=== PATIENT | female | born 1945 | race Caucasian/White ===

== ENCOUNTER 2017-05-01 14:22 | Outpatient (RCR) | payer MEDICARE, OTHER, SELFPAY | END 2017-05-01 23:59 | LOC: PT 14:22 | PROVIDERS: Visit Provider Nurse Practitioner Family | DX: M54.5 Low back pain (principal) | CPT/HCPCS: G8978; G8979; G8980; 97010; 97014; 97110; 97162; 97760; G0283 ==

== ENCOUNTER 2017-05-08 15:15 | Outpatient (RCR) | payer MEDICARE, OTHER, SELFPAY | END 2017-05-08 23:59 | LOC: PT 15:15 | PROVIDERS: Family Provider Nurse Practitioner Family; PCP Nurse Practitioner; Visit Provider Nurse Practitioner Family | DX: M54.5 Low back pain (principal) ==

== ENCOUNTER 2017-05-09 08:13 | Emergency (ER) | payer MEDICARE, OTHER, SELFPAY | END 2017-05-09 09:20 | disposition home or self-care (01) | PROVIDERS: Emergency Provider Emergency Medicine; Family Provider Nurse Practitioner Family; Visit Provider Emergency Medicine | DX: J09.X2 Influenza due to identified novel influenza A virus with other respiratory manifestations (principal); H10.32 Unspecified acute conjunctivitis, left eye | CPT/HCPCS: 87275; 87276; 99283 ==

== ENCOUNTER → 2017-10-19 13:33 | Outpatient (CLI) | payer MEDICARE, OTHER, SELFPAY ==
--- NOTE | 2017-10-19 13:42 | XR_ITS ---
XR hip RT 2-3V w/pelvis HISTORY: ITS.REASON: RT HIP PAIN ORDERING PHYSICIAN: Thania Perkins PATIENT AGE: 72 years COMPARISON: None FINDINGS: No fracture or dislocation is evident. No significant degenerative change. No lytic or blastic change. Unremarkable soft tissues IMPRESSION: Negative hip
--- NOTE | 2017-10-19 13:42 | XR_ITS ---
XR hip LT 2-3V w/pelvis HISTORY: ITS.REASON: LEFT HIP PAIN ORDERING PHYSICIAN: Thania Perkins PATIENT AGE: 72 years COMPARISON: None FINDINGS: No fracture or dislocation is evident. No significant degenerative change. No lytic or blastic change. Unremarkable soft tissues IMPRESSION: Negative hip
== END ==
PROVIDERS: PCP Nurse Practitioner Family; Visit Provider Nurse Practitioner Family
DX: M25.552 Pain in left hip (principal); M25.551 Pain in right hip
CPT/HCPCS: 73502

== ENCOUNTER → 2018-09-21 09:52 | Outpatient (CLI) | payer MEDICARE, OTHER, SELFPAY ==
--- NOTE | 2018-09-21 09:55 | MR_ITS ---
MR head/brain wo con HISTORY: Frequent falls, loss of balance, history of seizures ITS.REASON: FREQUENT FALLS, KEEPS LOSING BALANCE ORDERING PHYSICIAN: Thania Perkins APRN PATIENT AGE: 73 years Comparison: 08/06/2016 TECHNIQUE: Standard multiplanar multiecho sequences are performed without contrast. FINDINGS: No midline shift, mass effect, intracranial hemorrhage, or hydrocephalus is evident. There is mild generalized atrophy with scattered periventricular and subcortical T2 white matter hyperintensities consistent with ischemic gliotic change from microvascular disease. No evidence of acute infarction. The cerebellopontine angles and brainstem have an unremarkable appearance. There is a small area of encephalomalacia in the left cerebellar hemisphere laterally. There is a partial empty sella as a normal variant. The optic chiasm and corpus callosum are unremarkable. There is minimal cerebellar ectopia. Small cystic areas present in the left cerebellum centrally and may be due to and old small lacunar infarction. There is some increased T2 signal within the right mastoid sinus suggestive mild inflammatory change. No paranasal sinus air-fluid level. IMPRESSION: 1. No acute intracranial findings. 2. Atrophy with chronic ischemic changes. 3. Mild right mastoid sinus disease
== END ==
PROVIDERS: PCP Nurse Practitioner Family; Visit Provider Nurse Practitioner Family
DX: R26.89 Other abnormalities of gait and mobility (principal)
CPT/HCPCS: 70551

== ENCOUNTER → 2019-11-17 11:15 | Outpatient (CLI) | payer MEDICARE, SELFPAY ==
--- NOTE | 2019-11-17 11:50 | XR_ITS ---
PROCEDURE: XR CHEST AP CLINICAL HISTORY: COVID TESTING COMPARISON: No exams were available for comparison FINDINGS: The cardiomediastinal silhouette and pulmonary vascularity are within normal limits. The lungs are clear without infiltrates, suspicious nodules, or pleural effusions. Prior right shoulder hemiarthroplasty IMPRESSION: No acute findings. Dictated by: José Miguel Nelson MD 11/17/2019 14:42 Electronically signed by José Miguel Nelson MD in [facility] 11/17/2019 14:42
[2019-11-17 13:58] LABS: Coronavirus 19 IgG Antibody Negative (Negative); Coronavirus 19 IgM Antibody Negative (Negative)
== END ==
PROVIDERS: PCP Nurse Practitioner Family; Visit Provider Nurse Practitioner Family
DX: Z03.818 Encounter for observation for suspected exposure to other biological agents ruled out (principal)
CPT/HCPCS: 36415; 71045; 86328

== ENCOUNTER → 2019-12-28 10:41 | Outpatient (CLI) | payer MEDICARE, SELFPAY ==
--- NOTE | 2019-12-28 10:43 | CT_ITS ---
PROCEDURE: CT FACIAL BONES WO CON CLINICAL HISTORY: LEFT ORBITAL TRAUMA, INTIAL ENCOUNTER COMPARISON: CT HDWO CT HEAD W/O CONTRAST from 08/06/2016 TECHNIQUE: Axial images obtained with sagittal and coronal reformats. All CT scans at the facility use one or more dose reduction, viz: automated exposure control, ma/kV adjustment per patient size (including targeted exams where dose is matched to indication, i.e. head), or iterative reconstruction technique. FINDINGS: There is mild soft tissue swelling involving the scalp in the supraorbital region on the left medially and in the frontal area. No acute fracture is evident. 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 Small subcutaneous calcification noted at this area as well. Along the superior aspect of the left globe there is a curvilinear acid which may be related to prior ophthalmological surgery. Please correlate with surgical history. Periorbital calcification is also consideration. No sinus air-fluid level. There is only minimal mucosal thickening of the sphenoid sinus medially on the right. There is retropharyngeal location of the right internal carotid artery causing some indentation upon the airway. There are mild osteoarthritic changes of the TMJs. IMPRESSION: 1. No acute fracture. 2. Curvilinear opacity ule noted along the superior lateral aspect of the left globe which could be related to prior ophthalmological surgery with a prosthetic device. Periorbital calcification or even foreign body is also consideration. 3. Other nonacute findings as detailed above Dictated by: José Miguel Nelson MD 12/28/2019 13:31 José Miguel Nelson MD in [facility] 12/28/2019 13:31
== END ==
PROVIDERS: PCP Nurse Practitioner Family; Visit Provider Nurse Practitioner Family
DX: S05.92XA Unspecified injury of left eye and orbit, initial encounter (principal)
CPT/HCPCS: 70486

== ENCOUNTER → 2020-08-01 08:36 | Outpatient (CLI) | payer MEDICARE, SELFPAY ==
--- NOTE | 2020-08-01 | XR_ITS ---
PROCEDURE: XR SHOULDER RT MIN 2V CLINICAL INDICATION: PAIN IN RT SHOULDER COMPARISON: No exams were available for comparison FINDINGS: Postsurgical changes with humeral head prosthesis present which is in good alignment. Sclerosis is present involving the glenoid and there is high-riding humeral head which may be seen with rotator cuff tear. No acute fracture or dislocation. IMPRESSION: Prior humeral head replacement with high-riding humeral head which may be seen with rotator cuff tears Dictated by: José Miguel Nelson MD 08/01/2020 16:36 José Miguel Nelson MD in [facility] 08/01/2020 16:36
--- NOTE | 2020-08-01 | XR_ITS ---
PROCEDURE: XR SHOULDER LT MIN 2V CLINICAL INDICATION: PAIN IN LT SHOULDER Decreased range of motion COMPARISON: No exams were available for comparison FINDINGS: Severe osteoarthritic changes are present involving the glenohumeral joint with superior location the humeral head with loss of the acromioclavicular space consistent with chronic rotator cuff tear. No acute fracture or dislocation. Other findings:None. IMPRESSION: Severe osteoarthritis with high-riding humeral head consistent with chronic rotator cuff tear Dictated by: José Miguel Nelson MD 08/01/2020 16:35 José Miguel Nelson MD in [facility] 08/01/2020 16:35
--- NOTE | 2020-08-01 08:41 | CA_ITS ---
APPROVED REPORT Body Fitter: Gypsy Hughse RVT Laterality: Bilateral Study Quality: Good Indications: Dizziness and Vertigo Risk Factors Hypertension: Hyperlipidemia Doppler Spectral Velocity Analysis ECA (R) 95.00/9.00 cm/s ECA (L) 84.80/9.60 cm/s dICA (R) 73.80/24.40 cm/s dICA (L) 65.50/22.50 cm/s Kwadwo (R) 58.40/18.00 cm/s Kwadwo (L) 72.60/25.00 cm/s pICA (R) 82.30/18.70 cm/s pICA (L) 80.30/23.80 cm/s dCCA (R) 105.00/16.40 cm/s dCCA (L) 66.80/10.30 cm/s pCCA (R) 117.60/15.00 cm/s pCCA (L) 104.00/17.20 cm/s Vert (R) 43.70/14.10 cm/s Vert (L) 52.70/16.70 cm/s ICA/CCA 0.78 ICA/CCA 1.20 Findings Study suggests less than 20% stenosis of the right and left internal cartoid arteries. Antegrade flow seen bilateral vertebral arteries. Conclusion Study suggests less than 20% stenosis of the right and left internal cartoid arteries. Antegrade flow seen bilateral vertebral arteries. Electronically signed by : José Miguel Nelson MD 08/01/2020 17:13:31
== END ==
PROVIDERS: PCP Nurse Practitioner Family; Visit Provider Nurse Practitioner Family
DX: R42 Dizziness and giddiness (principal); M25.512 Pain in left shoulder; M25.511 Pain in right shoulder
CPT/HCPCS: 73030; 93880

== ENCOUNTER → 2020-10-26 12:14 | Outpatient (CLI) | payer MEDICARE, SELFPAY ==
--- NOTE | 2020-10-26 12:20 | XR_ITS ---
PROCEDURE: XR CHEST PORTABLE CLINICAL HISTORY: COVID SCREENING COMPARISON: CR XR CHEST AP from 11/17/2019 FINDINGS: Heart is mildly enlarged and there is mild pulmonary vascular congestion. No definite focal infiltrate. Mild right basilar scar versus atelectasis. No pleural effusion pneumothorax. No acute bony abnormality. Right shoulder arthroplasty again noted. IMPRESSION: Mild cardiomegaly with mild pulmonary vascular congestion. Dictated by: Leonid Zacarias MD 10/26/2020 13:02 Leonid Zacarias MD in [facility] 10/26/2020 13:02
[2020-10-26 12:56] LABS: Basophils % 0.3 % (0.1-2.0); Eosinophils % 0.5 % (0.1-12.0); Hematocrit 31.6 % (37.0-47.0); Hemoglobin 10.8 g/dL (12.2-16.2); Lymphocytes # 1.1 K/mm3 (0.7-4.5); Lymphocytes % 12.1 % (10-50); Mean Corpuscular HGB Conc 34.1 g/dL (31.8-35.4); Mean Corpuscular Hemoglobin 31.4 pg (27.0-31.2); Mean Platelet Volume 9.4 fl (7.4-10.4); Monocytes # 0.8 K/mm3 (0.1-1.0); Monocytes % 8.3 % (1.7-9.3); Neutrophils # 7.5 K/mm3 (1.8-7.8); Platelet Count 238 K/mm3 (142-424); Red Blood Count 3.43 M/mm3 (4.20-5.40); Red Cell Distribution Width 13.7 % (11.5-17.5); White Blood Count 9.5 K/mm3 (4.8-10.8)
[2020-10-26 13:12] LABS: Chloride 100 mmol/L (98-107); Potassium 4.5 mmoL/L (3.5-5.1); Sodium 136 mmol/L (136-145)
[2020-10-26 13:14] LABS: Alanine Aminotransferase 20 U/L (12-78); Alkaline Phosphatase 79 U/L (38-126); Anion Gap 15.5 mEq/L (5-15); Aspartate Amino Transferase 20 U/L (14-36); Bilirubin,Total 0.5 mg/dl (0.2-1.3); Blood Urea Nitrogen 14 mg/dl (7-17); Carbon Dioxide 25 mmol/L (22.0-30.0); Estimated Glomerular Filt Rate 61 ml/min (>60); GFR (African American) 74 ML/MIN (>60)
[2020-10-26 13:15] LABS: Albumin Level 4.2 g/dl (3.5-5.0); Albumin/Globulin Ratio 1.3 (1.1-1.8); Calcium 9.3 mg/dl (8.4-10.2); Globulin 3.3 g/dL (1.3-3.2); Glucose 191 mg/dl (74-100); Total Protein,Serum 7.5 g/dl (6.3-8.2)
== END ==
PROVIDERS: PCP Nurse Practitioner Family; Visit Provider Nurse Practitioner Family
DX: Z20.822 Contact with and (suspected) exposure to COVID-19 (principal); R06.02 Shortness of breath
CPT/HCPCS: 36415; 71045; 80053; 85025; U0003

== ENCOUNTER 2020-10-30 11:37 | Inpatient (IN) | payer MEDICARE, SELFPAY ==
[2020-10-30] VITALS (16 sets, daily range): BP systolic 141–253; BP diastolic 86–113; PULSE 86–140; RESP 16–24; TEMP 36.6; O2SAT 92–96; BMI 39.7
--- NOTE | 2020-10-30 11:49 | PC.NURSE ---
Pt arrived to the floor at this time.
--- NOTE | 2020-10-30 11:50 | ECG_ITS ---
APPROVED REPORT Exam: Resting ECG HR:128 bpm ECG Measurements Heart Rate 128 AXES QRSd 82 QRS 66 QT 294 T -20 QTc 429 Conclusion Atrial fibrillation with rapid ventricular response Low voltage QRS T wave abnormality, consider inferior ischemia or digitalis effect Abnormal ECG Electronically signed by : Pillo Bledsoe, 10/31/2020 17:39:30
--- NOTE | 2020-10-30 11:50 | XR_ITS ---
PROCEDURE: XR CHEST PORTABLE CLINICAL HISTORY: cough COMPARISON: CR XR CHEST AP from 11/17/2019 CR XR CHEST PORTABLE from 10/26/2020 FINDINGS: There is mild cardiomegaly without failure. The lungs are clear without infiltrates, suspicious nodules, or pleural effusions. Right shoulder prosthesis is present. IMPRESSION: No change with no acute finding Dictated by: José Miguel Nelson MD 10/30/2020 14:14 José Miguel Nelson MD in [facility] 10/30/2020 14:14
--- NOTE | 2020-10-30 11:53 | HMH.PHAVTE ---
[facility] Pharmacy VTE Monitoring - Patient Demographics Admission date: 10/30/20 Report Date: 10/30/20 Time: 11:53 Allergies/Adverse Reactions: Patient Allergies No Known Allergies Allergy (Unverified 05/09/17 08:23) - Prophylaxis VTE Prophylaxis Ordered?: Yes Types of VTE Prophylaxis: TEDS Knee High Location of Applied Device: Bilateral Lower Extremeties
[2020-10-30 12:40] LABS: Coronavirus 19, PCR Not Detected (NotDetected); Influenza A, PCR Not Detected (NotDetected); Influenza B, PCR Not Detected (NotDetected)
[2020-10-30 12:44] LABS: Basophils % 0.2 % (0.1-2.0); Eosinophils # 0.1 K/mm3 (0.0-0.4); Eosinophils % 0.9 % (0.1-12.0); Hematocrit 33.3 % (37.0-47.0); Hemoglobin 11.4 g/dL (12.2-16.2); Lymphocytes # 1.1 K/mm3 (0.7-4.5); Lymphocytes % 9.3 % (10-50); Mean Corpuscular HGB Conc 34.2 g/dL (31.8-35.4); Mean Corpuscular Hemoglobin 31.3 pg (27.0-31.2); Mean Corpuscular Volume 91.7 fl (81-99); Monocytes % 8.8 % (1.7-9.3); Neutrophils # 9.1 K/mm3 (1.8-7.8); Neutrophils % 80.8 % (37.0-80.0); Platelet Count 348 K/mm3 (142-424); Red Blood Count 3.63 M/mm3 (4.20-5.40); Red Cell Distribution Width 13.7 % (11.5-17.5); White Blood Count 11.3 K/mm3 (4.8-10.8)
[2020-10-30 12:52] LABS: Chloride 94 mmol/L (98-107); Sodium 130 mmol/L (136-145)
--- NOTE | 2020-10-30 12:54 | PC.NURSE ---
verified with pharmacy to push bolus over two minutes. once bolus was finished heart rate and bp did come down. currently mostly maintaining 80-110. occasional drops under.
[2020-10-30 12:55] LABS: Alanine Aminotransferase 20 U/L (12-78); Albumin Level 4.2 g/dl (3.5-5.0); Albumin/Globulin Ratio 1.4 (1.1-1.8); Alkaline Phosphatase 82 U/L (38-126); Anion Gap 25.1 mEq/L (5-15); Aspartate Amino Transferase 19 U/L (14-36); Bilirubin,Total 0.5 mg/dl (0.2-1.3); Carbon Dioxide 17 mmol/L (22.0-30.0); Creatinine Clearance Estimated 9 mL/min (50-200); Estimated Glomerular Filt Rate 5 ml/min (>60); GFR (African American) 6 ML/MIN (>60); Globulin 3.1 g/dL (1.3-3.2); Total Protein,Serum 7.3 g/dl (6.3-8.2)
[2020-10-30 12:56] LABS: Glucose 133 mg/dl (74-100)
--- NOTE | 2020-10-30 13:12 | PC.NURSE ---
patient does not know her home medications. will have family bring meds or a list in
[2020-10-30 13:33] LABS: Blood Urea Nitrogen 79 mg/dl (7-17); Potassium 6.1 mmoL/L (3.5-5.1)
--- NOTE | 2020-10-30 13:42 | PC.NURSE ---
called and reported critical lab values of potassium, creatnine and bun. md stated to order two grams of iv calcium gluconate, and to start fluids at 100ml an hour after the bolus.
--- NOTE | 2020-10-30 15:12 | PC.NURSE ---
manual bp noted to be lower than automatic cuffs
--- NOTE | 2020-10-30 16:36 | HMH.HP ---
*Admission Date: 10/30/20 *Chief complaint: Weakness *History of present illness: 75-year-old female presented to the office for the third time in 5 days with complaint of malaise and worsening weakness with nausea and vomiting. Patient had initially been seen in the office on October 26. At that time she had been sent to [facility] and labs which showed mild vascular congestion and fairly normal CBC and BMP. At that time patient was started on furosemide 20 mg along with prednisone and azithromycin for bronchitis. Patient returned to the office yesterday with continued complaints of chest congestion. She returned to the office today with additional symptoms of nausea and vomiting along with lightheadedness. In the office patient was found to have a rapid irregular heart rate with EKG confirming atrial fibrillation with rapid ventricular response. Patient had active vomiting in the office. Decision was made to direct admit the patient for treatment of her A. fib with rapid ventricular response and likely underlying dehydration. Patient denied chest pain. She did have some shortness of breath which she attributed to her bronchitis . Since admission patient has also been found to have hyperkalemia along with acute kidney injury and creatinine of 7.7. Patient's creatinine 5 days ago was normal. Patient takes losartan, hydrochlorothiazide, Metformin, and had taken furosemide 20 mg daily for 4 days. She denies use of any [id number]-[id number] anti-inflammatories. Patient did undergo a rather thorough cardiac work-up in April 2018 at the [facility] that included a dobutamine stress echocardiogram which was normal . [facility] History I have reviewed the patient's past medical history: Yes 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: Reports:: Diabetes Mellitus Type 2, Hyperlipidemia, Hypertension Denies:: Cancer, MRSA *Have you ever received a pneumonia vaccine?: Yes *Have you received a flu vaccine this season?: Yes Other 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: Reports: Arthritis Other Surgeries: Yes: Cholecystectomy, Hysterectomy-Total Amputation: No - *Social History Last grade of school completed: Advanced degree Smoking Status: Never smoker Alcohol Intake: never *Occupational Status:: retired Housing: house Household Members: spouse *Travel in the last 8 weeks: None Family Hx:: Coronary Artery Disease, Heart Attack, Hyperlipidemia, Hypertension, Kidney Disease, Stroke Review of Systems - Constitutional Reports anorexia, Reports lack of energy, Denies chills - Eyes Denies blurry vision - ENT Denies change in voice - *Cardiovascular Reports irregular heart rhythm, Denies chest pain at rest - *Respiratory Reports shortness of breath - *Gastrointestinal Denies change in bowel habits - *Musculoskeletal Reports joint pain - Integumentary/Breasts Denies hair loss - *Neurologic Denies abnormal walking - Psychiatric Denies abnormal sleep pattern Meds Home Medications Medication Instructions Recorded Confirmed Type ALPRAZolam [Alprazolam Xr 0.5mg 0.5 mg PO HS 10/30/20 10/30/20 History Tab] Amlodipine Besylate 5 mg PO DAILY 10/30/20 10/30/20 History Azithromycin 250 mg PO DAILY 10/30/20 10/30/20 History Furosemide [Furosemide 20mg Tab*] 20 mg PO DAILY 10/30/20 10/30/20 History Isosorbide Mononitrate [Isosorbide 60 mg PO DAILY 10/30/20 10/30/20 History Mononitrate ER] Levocetirizine Dihydrochloride 5 mg PO DAILY 10/30/20 10/30/20 History Losartan Potassium [Cozaar 50mg 50 mg PO DAILY 10/30/20 10/30/20 History Tablets] Meloxicam 15 mg PO DAILY 10/30/20 10/30/20 History Metformin HCl [Metformin 850mg 850 mg PO BID 10/30/20 10/30/20 History Tablet] Montelukast Sodium 10 mg PO DAILY 10/30/20 10/30/20 History Omeprazole [Omeprazole 20mg 20 mg PO DAILY 10/30/20 10/30/20 History Capsule] Potassium Chloride [Micro-K 10mEq 10 meq PO DAILY 10/30/20 10/30/20 History cap] Sertraline HCl 50 mg PO DAILY 10/10
--- NOTE | 2020-10-30 17:23 | PC.NURSE ---
md aware of heart rate and bp. cardizem drip has been started. patient has no complaints at this time
--- NOTE | 2020-10-30 17:27 | PC.NURSE ---
patient drip has been titrated up to 10mg/hr and then 10mins later increased to 15mg/hr. heart rate currently greater than 120s.
[2020-10-30 20:34] LABS: Chloride 96 mmol/L (98-107)
[2020-10-30 20:35] LABS: Sodium 128 mmol/L (136-145)
[2020-10-30 20:38] LABS: Anion Gap 21.1 mEq/L (5-15); Calcium 8.9 mg/dl (8.4-10.2); Carbon Dioxide 17 mmol/L (22.0-30.0); Creatinine Clearance Estimated 10 mL/min (50-200); Estimated Glomerular Filt Rate 5 ml/min (>60); GFR (African American) 7 ML/MIN (>60); Glucose 155 mg/dl (74-100)
[2020-10-30 20:44] LABS: Potassium 6.1 mmoL/L (3.5-5.1)
[2020-10-30 20:45] LABS: Blood Urea Nitrogen 77 mg/dl (7-17)
[2020-10-31] VITALS (19 sets, daily range): BP systolic 111–174; BP diastolic 65–99; PULSE 87–116; RESP 18–20; TEMP 36.8–36.9; O2SAT 90–99; BMI 39.9; BMI 39.8
--- NOTE | 2020-10-31 00:01 | CA_ITS ---
APPROVED REPORT EXAM: Comprehensive 2D, Doppler, and color-flow Echocardiogram Uniformer: Alisia Aiken, RCS, RVS Ht: 5 ft 0 in Wt: 203lbs BSA: 1.88 BP: 136/80 mmHg Rhythm: Atrial Fibrillation Indications: Murmur, Atrial Fibrillation, Obesity, Hypertension/HDD 2D Dimensions IVSd 0.86 cm F: 0.6-1.0 LVEF (Visual) 45.70 % PWd 0.90 cm F: 0.6 - 1.0 LA Volume 97.00 mL LVDd 4.95 cm F: 3.9 - 5.3 LA Volume Index 51.59 mL/m2 (M/F) 16-34 LVDs 3.82 cm F: 2.2 - 3.5 Aortic Root 2.63 cm F: 2.7 - 3.3 Left Atrium 4.80 cm F: 2.7 - 3.8 LVOT 1.90 cm (M/F) 1.5-2.5 M-Mode Dimensions LA Diam 4.45 cm (1.9-4.0) Ao Diam 2.80 cm (2.0-3.7) EPSs 0.68 cm TAPSE 1.53 (<1.7) LV Diastology E Decel Time 237.00 (160-240 msec) E/A Ratio 7.63 MED E' 8.90 (< 7 cm/sec) MED A' 2.70 cm/s E'/MED E' Ratio 17.40 (>14) LAT E' 11.60 (<10 cm/sec) LAT A' 4.30 cm/s E/LAT E' Ratio 13.35 (>14) Aortic Valve LVOT Max 84.00 (70-110 cm/s) LVOT VTI 14.71 cm AoV Peak Juan. 144.00 (50-130 cm/s) AO Peak GR. 8.20 mmHg AO Mean GR. 4.10 (<5 mmHg) AO VTI 26.96 (18-25 cm) DHAVAL (VTI) 1.55 (2.5-4.5 cm2) Mitral Valve MV A Velocity 20.00 (40-130 cm/s) E/A Ratio 7.63 MV Decel. Time 237.00 (160-240 ms) Pulmonary Valve PV Peak Velocity 79.00 (50-150 cm/s) Tricuspid Valve TR P. Velocity 355.00 cm/s RAP Estimate 10.00 mmHg RVSP 60.30 mmHg Left Ventricle Left atrium is moderately enlarged, left ventricle is normal size, mild concentric left ventricular hypertrophy, visually estimated ejection fraction 55% with no regional wall motion abnormality. Right Ventricle Right atrium and right ventricle are mildly enlarged with normal contractility. Aortic Valve Aortic valve is thickened and calcified without aortic stenosis or aortic insufficiency. Mitral Valve Mitral valve has mitral annular calcification, leaflets are minimally thickened, there is no mitral stenosis, there is moderate mitral regurgitation. Tricuspid Valve There is moderate tricuspid regurgitation, calculated right ventricular systolic pressure 60 mmHg. Pulmonic Valve Pulmonic valve is poorly visualized. Great Vessels Aortic root is normal size. Pericardium No significant pericardial effusion noted. Conclusion 1. Biatrial enlargement, normal left ventricular size, mild concentric left ventricular hypertrophy, visually estimated ejection fraction 55% with no regional wall motion abnormality, diastolic parameters are inconclusive. 2. Mildly enlarged right ventricle with normal contractility. 3. Moderate mitral and tricuspid regurgitation, calculated right ventricular systolic pressure 60 mmHg. 4. No significant pericardial effusion noted, inferior vena cava is normal size with normal inspiratory collapse. Electronically signed by : Marty Camilo, 11/01/2020 12:49:25
--- NOTE | 2020-10-31 03:40 | PC.NURSE ---
She continues on the cardizem gtt. Continues in afib on telemetry. She did not have a BM this shift. She is wearing her CPAP while asleep. Continues in afib
[2020-10-31 06:10] LABS: Chloride 99 mmol/L (98-107); Potassium 5.4 mmoL/L (3.5-5.1); Sodium 131 mmol/L (136-145)
[2020-10-31 06:13] LABS: Anion Gap 18.4 mEq/L (5-15); Calcium 8.5 mg/dl (8.4-10.2); Carbon Dioxide 19 mmol/L (22.0-30.0); Creatinine Clearance Estimated 10 mL/min (50-200); Estimated Glomerular Filt Rate 6 ml/min (>60); GFR (African American) 7 ML/MIN (>60); Glucose 127 mg/dl (74-100)
[2020-10-31 06:27] LABS: Basophils % 0.2 % (0.1-2.0); Eosinophils # 0.1 K/mm3 (0.0-0.4); Eosinophils % 0.7 % (0.1-12.0); Hematocrit 30.8 % (37.0-47.0); Hemoglobin 10.4 g/dL (12.2-16.2); Lymphocytes # 1.2 K/mm3 (0.7-4.5); Lymphocytes % 15.8 % (10-50); Mean Corpuscular HGB Conc 33.7 g/dL (31.8-35.4); Mean Corpuscular Hemoglobin 30.8 pg (27.0-31.2); Mean Corpuscular Volume 91.3 fl (81-99); Mean Platelet Volume 10.1 fl (7.4-10.4); Monocytes # 0.7 K/mm3 (0.1-1.0); Monocytes % 9.7 % (1.7-9.3); Neutrophils # 5.7 K/mm3 (1.8-7.8); Neutrophils % 73.6 % (37.0-80.0); Platelet Count 314 K/mm3 (142-424); Red Blood Count 3.37 M/mm3 (4.20-5.40); Red Cell Distribution Width 13.8 % (11.5-17.5); White Blood Count 7.7 K/mm3 (4.8-10.8)
[2020-10-31 06:50] LABS: Blood Urea Nitrogen 76 mg/dl (7-17)
--- NOTE | 2020-10-31 07:31 | HMH.ACPN2 ---
Internal Medicine - PN: Subj *Date: 10/31/20 *Time: 07:31 Interval history: Patient did well overnight. Cardizem drip was brought patient's heart rate down to 80s and 90s. With activity it may rise just above 100. BUN, creatinine, potassium are also slowly trending down. Exam Vital signs and Labs for Last 24 Hours: Temp Pulse Resp BP Pulse Ox 97.9 F 88 18 170/91 H 96 10/30/20 20:00 10/31/20 06:00 10/30/20 20:00 10/31/20 06:00 10/31/20 06:00 Laboratory Results - last 24 hr 10/30/20 12:25: WBC 11.3 H, RBC 3.63 L, Hgb 11.4 L, Hct 33.3 L, MCV 91.7, MCH 31.3 H, MCHC 34.2, RDW 13.7, Plt Count 348 D, MPV 9.0, Neut % (Auto) 80.8 H, Lymph % (Auto) 9.3 L, Gray % (Auto) 8.8, Eos % (Auto) 0.9, Baso % (Auto) 0.2, Neut # (Auto) 9.1 H, Lymph # (Auto) 1.1, Gray # (Auto) 1.0, Eos # (Auto) 0.1, Baso # (Auto) 0.0 10/30/20 12:25: Sodium 130 L, Potassium 6.1 H*, Chloride 94 L, Carbon Dioxide 17 L, Anion Gap 25.1 H, BUN 79 H, Creatinine 7.70 H, Estimated Creat Clear 9, Estimated GFR 5 L*, Est GFR ( Amer) 6 L*, Glucose 133 H, Calcium 9.0, Total Bilirubin 0.5, AST 19, ALT 20, Alkaline Phosphatase 82, Total Protein 7.3, Albumin 4.2, Globulin 3.1, Albumin/Globulin Ratio 1.4, TSH 1.00 10/30/20 12:25: SARS-CoV-2 (PCR) Not detected, Influenza A Untype (PCR) Not detected, Influenza Type B (PCR) Not detected 10/30/20 20:06: Sodium 128 L, Potassium 6.1 H*, Chloride 96 L, Carbon Dioxide 17 L, Anion Gap 21.1 H, BUN 77 H, Creatinine 7.30 H, Estimated Creat Clear 10, Estimated GFR 5 L*, Est GFR ( Amer) 7 L*, Glucose 155 H, Calcium 8.9 10/31/20 05:35: WBC 7.7 D, RBC 3.37 L, Hgb 10.4 L, Hct 30.8 L, MCV 91.3, MCH 30.8, MCHC 33.7, RDW 13.8, Plt Count 314, MPV 10.1, Neut % (Auto) 73.6, Lymph % (Auto) 15.8, Gray % (Auto) 9.7 H, Eos % (Auto) 0.7, Baso % (Auto) 0.2, Neut # (Auto) 5.7, Lymph # (Auto) 1.2, Gray # (Auto) 0.7, Eos # (Auto) 0.1, Baso # (Auto) 0.0 10/31/20 05:35: Sodium 131 L, Potassium 5.4 H, Chloride 99, Carbon Dioxide 19 L, Anion Gap 18.4 H, BUN 76 H, Creatinine 6.80 H, Estimated Creat Clear 10, Estimated GFR 6 L*, Est GFR ( Amer) 7 L*, Glucose 127 H, Calcium 8.5 I & O for Last 24 hours: Intake & Output 10/28/20 10/29/20 10/30/20 10/31/20 11:59 11:59 11:59 11:59 Intake Total 3230 / 3230 Output Total 200 / 200 Balance 3030 / 3030 Weight 203 lb 7 oz Narrative: Patient looks comfortable. Lungs are clear. Heart is irregularly irregular. Abdomen is soft and nontender Assessment and Plan (1) Atrial fibrillation with rapid ventricular response Status: Acute Category: Medical Code(s): I48.91 - Unspecified atrial fibrillation (2) Acute kidney injury Status: Acute Category: Medical Code(s): N17.9 - Acute kidney failure, unspecified (3) Hyperkalemia Status: Acute Category: Medical Code(s): E87.5 - Hyperkalemia (4) Type 2 diabetes mellitus with hyperglycemia, without long-term current use of insulin Status: Chronic Category: Medical Code(s): E11.65 - Type 2 diabetes mellitus with hyperglycemia (5) Essential hypertension Status: Chronic Category: Medical Code(s): I10 - Essential (primary) hypertension (6) History of seizures Status: Chronic Category: Medical Code(s): Z87.898 - Personal history of other specified conditions (7) Anxiety disorder Status: Chronic Qualifiers: Anxiety disorder type: unspecified anxiety disorder Qualified Code(s): F41.9 - Anxiety disorder, unspecified Category: Medical Code(s): F41.9 - Anxiety disorder, unspecified (8) Chronic pain Status: Chronic Qualifiers: Chronic pain type: chronic pain syndrome Qualified Code(s): G89.4 - Chronic pain syndrome Category: Medical Code(s): G89.29 - Other chronic pain (9) Lumbar degenerative disc disease Status: Chronic Category: Medical Code(s): M51.36 - Other intervertebral disc degeneration, lumbar region (10) BMI 39.0-39.9,adult Status: Acute Category:
--- NOTE | 2020-10-31 08:09 | HMH.CNCARD ---
History of Present Illness Consult date: 10/31/20 Requesting physician: Pillo Solorzano Consult reason: atrial fibrillation Chief complaint: N/V, A. fib with RVR Additional 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:: 1. Diabetes mellitus, type II 2. Hypertension 3. Hyperlipidemia 4. History of seizure disorder, diagnosed approximately 2008 felt related to work, stress, lack of sleep the patient has elected to continue on Keppra since then 5. Remote history of CVA 6. Acute renal insufficiency felt secondary to combination of dehydration (N/V and diuretics) and Metformin use, 10/2020 History of present illness: 75-year-old female presented to the office for the third time in 5 days with complaint of malaise and worsening weakness with nausea and vomiting. Patient had initially been seen in the office on October 26. At that time she had been sent to [facility] for x-ray and labs which showed mild vascular congestion and fairly normal CBC and BMP. At that time patient was started on furosemide 20 mg along with prednisone and azithromycin for bronchitis. Patient returned to the office yesterday with continued complaints of chest congestion. She returned to the office today with additional symptoms of nausea and vomiting along with lightheadedness. In the office patient was found to have a rapid irregular heart rate with EKG confirming atrial fibrillation with rapid ventricular response. Patient had active vomiting in the office. Decision was made to direct admit the patient for treatment of her A. fib with rapid ventricular response and likely underlying dehydration. Patient denied chest pain. She did have some shortness of breath which she attributed to her bronchitis . Since admission patient has also been found to have hyperkalemia along with acute kidney injury and creatinine of 7.7. Patient's creatinine 5 days ago was normal. Patient takes losartan, hydrochlorothiazide, Metformin, and had taken furosemide 20 mg daily for 4 days. She denies use of any [id number] anti-inflammatories. Patient did undergo a rather thorough cardiac work-up in April 2018 at the [facility] that included a dobutamine stress echocardiogram which was normal The above per Dr. Solorzano. Pt relates multiple episodes of vomiting anytime she tried to eat/drink/take meds. Also, she had recurrent diarrhea over the last several days. No further vomiting or diarrhea overnight. Currently she has been able to keep her liquid/cereal down this AM. She continues to deny any NSAID use stating she only takes tylenol for pain. Telemetry shows A. fib with RVR (rate in the 100-120 bpm range). Preliminary echo report shows moderate MR, LVH and EF of about 45%. [facility] History 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: Reports:: Diabetes Mellitus Type 2, Hyperlipidemia, Hypertension Denies:: Cancer, MRSA *Have you ever received a pneumonia vaccine?: Yes *Have you received a flu vaccine this season?: Yes Other 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: Reports: Arthritis Other Surgeries: Yes: Cholecystectomy, Hysterectomy-Total Amputation: No - *Social History Last grade of school completed: Advanced degree Smoking Status: Never smoker Alcohol Intake: never *Occupational Status:: retired Housing: house Household Members: spouse *Travel in the last 8 weeks: None Family Hx:: Coronary Artery Disease, Heart Attack, Hyperlipidemia, Hypertension, Kidney Disease, Stroke Meds Home Medications Medication Instructions Recorded Confirmed Type ALPRAZolam [Xanax 0.5mg tab] 0.5 mg PO HS 10/30/20 10/31/20 History Amlodipine Besylate 5 mg PO DAILY 10/30/20 10/30/20 History Azithromycin 250 mg PO DAILY 10/30/20 10/30/20 History Furosemide [Furosemide 20mg Tab*] 20 mg PO DAILY 10/30/20 10/30/20 History Isosorbide Mononitrate [Isosorbide 60 mg PO DAILY 10/30/20 10/30/20 History Mononitrate ER] Levocetirizine Dihydrochloride 5 mg PO DAILY 10/30/20 10/30/20 History Losartan Potassium [Cozaar 50mg 50 mg PO DAILY 10/30/20
--- NOTE | 2020-10-31 15:26 | PC.NURSE ---
patient has had an okay day. nausea is better compared to yesterday. no bm this shift. has been up walking to bathroom with assistance. no complaints of pain. heart rate has been irregular, remains afib on monitor ranging mostly in the low 100s. o2sats good, patient is noted to have artificial nails which at times causes sats to read lower. urine output has been good. sat in chair majority of day. appetite has improved. vitals have been stable
--- NOTE | 2020-10-31 17:58 | PC.NURSE ---
did update srikanth vázquez about patient heart rate had seemed to stay mostly over 100 the last few hours. stated if heart rate maintained over 100 and bp systolic remained over 140s then could increase the cardizem drip to 20mg/hr
[2020-11-01] VITALS (16 sets, daily range): BP systolic 122–167; BP diastolic 72–94; PULSE 87–127; RESP 12–21; TEMP 36.6–36.8; O2SAT 90–98; BMI 39.7
--- NOTE | 2020-11-01 03:52 | PC.NURSE ---
pt is alert and oriented. one episode of nausea reported and one time dose was ordered and given with relief. pt has not rested well this shift. voiding per BR. no bowel movement this shift. HR continued to increase ranging from 110-140 and at 0100 cardizem drip was increased to 20mg/hr per recommendation of cardiology in pervious nurse note. HR is currently 100-120's. all other vss. pt using cpap while sleeping. no other complaints voiced. call light in reach. will continue to monitor.
[2020-11-01 06:35] LABS: Basophils % 0.1 % (0.1-2.0); Eosinophils # 0.1 K/mm3 (0.0-0.4); Eosinophils % 1.4 % (0.1-12.0); Hematocrit 29.3 % (37.0-47.0); Hemoglobin 10.2 g/dL (12.2-16.2); Lymphocytes % 9.7 % (10-50); Mean Corpuscular HGB Conc 34.7 g/dL (31.8-35.4); Mean Corpuscular Hemoglobin 31.5 pg (27.0-31.2); Mean Corpuscular Volume 90.9 fl (81-99); Mean Platelet Volume 9.3 fl (7.4-10.4); Monocytes # 0.8 K/mm3 (0.1-1.0); Monocytes % 8.2 % (1.7-9.3); Neutrophils # 8.1 K/mm3 (1.8-7.8); Neutrophils % 80.5 % (37.0-80.0); Platelet Count 306 K/mm3 (142-424); Red Blood Count 3.22 M/mm3 (4.20-5.40); Red Cell Distribution Width 13.9 % (11.5-17.5); White Blood Count 10.1 K/mm3 (4.8-10.8)
[2020-11-01 06:39] LABS: Chloride 102 mmol/L (98-107); Sodium 137 mmol/L (136-145)
[2020-11-01 06:42] LABS: Blood Urea Nitrogen 55 mg/dl (7-17); Carbon Dioxide 25 mmol/L (22.0-30.0); Creatinine Clearance Estimated 16 mL/min (50-200); Estimated Glomerular Filt Rate 10 ml/min (>60); GFR (African American) 12 ML/MIN (>60); Glucose 176 mg/dl (74-100)
--- NOTE | 2020-11-01 07:17 | P.PN_ITS ---
Internal Medicine - PN: Subj *Date: 11/01/20 *Time: 07:17 Interval history: Patient had an episode of nausea overnight that required administration of Zofran. Otherwise no acute events. She remains in A. fib with variable rate from 90s to 130s. She remains on Cardizem drip Exam Vital signs and Labs for Last 24 Hours: Temp Pulse Resp BP Pulse Ox 97.9 F 103 H 17 122/78 91 L 11/01/20 06:00 11/01/20 06:00 11/01/20 06:00 11/01/20 06:00 11/01/20 06:00 Laboratory Results - last 24 hr 11/01/20 05:53: WBC 10.1 D, RBC 3.22 L, Hgb 10.2 L, Hct 29.3 L, MCV 90.9, MCH 31.5 H, MCHC 34.7, RDW 13.9, Plt Count 306, MPV 9.3, Neut % (Auto) 80.5 H, Lymph % (Auto) 9.7 L, [place] % (Auto) 8.2, Eos % (Auto) 1.4, Baso % (Auto) 0.1, Neut # (Auto) 8.1 H, Lymph # (Auto) 1.0, [place] # (Auto) 0.8, Eos # (Auto) 0.1, Baso # (Auto) 0.0 11/01/20 05:53: Glucose 176 H, Calcium 8.0 L I & O for Last 24 hours: Intake & Output 10/29/20 10/30/20 10/31/20 11/01/20 11:59 11:59 11:59 11:59 Intake Total 3830 / 3830 2702 / 2702 Output Total 200 / 200 2700 / 2700 Balance 3630 / 3630 Weight 203 lb 7 oz 202 lb 8 oz - Constitutional no acute distress - *Routine Respiratory Exam Present: CTA bilaterally - *Routine Cardiovascular Exam Present: irregularly irregular - *Routine Abdominal Exam Present: soft, normoactive bowel sounds. Absent: tenderness Assessment and Plan (1) Atrial fibrillation with rapid ventricular response Status: Acute Category: Medical Code(s): I48.91 - Unspecified atrial fibrillation (2) Acute kidney injury Status: Acute Category: Medical Code(s): N17.9 - Acute kidney failure, unspecified (3) Hyperkalemia Status: Resolved Category: Medical Code(s): E87.5 - Hyperkalemia (4) Type 2 diabetes mellitus with hyperglycemia, without long-term current use of insulin Status: Chronic Category: Medical Code(s): E11.65 - Type 2 diabetes mellitus with hyperglycemia (5) Essential hypertension Status: Chronic Category: Medical Code(s): I10 - Essential (primary) hypertension (6) History of seizures Status: Chronic Category: Medical Code(s): Z87.898 - Personal history of other specified conditions (7) Anxiety disorder Status: Chronic Qualifiers: Anxiety disorder type: unspecified anxiety disorder Qualified Code(s): F41.9 - Anxiety disorder, unspecified Category: Medical Code(s): F41.9 - Anxiety disorder, unspecified (8) Chronic pain Status: Chronic Qualifiers: Chronic pain type: chronic pain syndrome Qualified Code(s): G89.4 - Chronic pain syndrome Category: Medical Code(s): G89.29 - Other chronic pain (9) Lumbar degenerative disc disease Status: Chronic Category: Medical Code(s): M51.36 - Other intervertebral disc degeneration, lumbar region (10) BMI 39.0-39.9,adult Status: Acute Category: Medical Code(s): Z68.39 - Body mass index [BMI] 39.0-39.9, adult (11) Obesity (BMI 30-39.9) Status: Acute Category: Medical Code(s): E66.9 - Obesity, unspecified - Assessment and plan all Dx Assessment and Plan for all problems:: 1. Continue Cardizem drip while awaiting for resolution of acute kidney injury
--- NOTE | 2020-11-01 07:20 | PC.NURSE ---
received call from lab (Nery Amato) reporting Cr 4.4. Name and verified. Dr. Solorzano roundchidi and has been notified.
--- NOTE | 2020-11-01 07:55 | P.PN_ITS ---
Subjective Date: 11/01/20 Time: 07:55 Principal diagnosis: A. fib with RVR, acute renal insufficiency Interval history: 75-year-old white female in bed in no acute distress. She continues on IV Cardizem with telemetry showing rate in the 100 to 120 bpm range during my visit. Creatinine has improved down to 4.4 today with BUN around 50. Discussed the case with Dr. Solorzano and will make changes to her medications. Exam Vital signs and Labs for Last 24 Hours: Temp Pulse Resp BP Pulse Ox 97.9 F 103 H 17 122/78 91 L 11/01/20 06:00 11/01/20 06:00 11/01/20 06:00 11/01/20 06:00 11/01/20 06:00 Laboratory Results - last 24 hr 11/01/20 05:53: WBC 10.1 D, RBC 3.22 L, Hgb 10.2 L, Hct 29.3 L, MCV 90.9, MCH 31.5 H, MCHC 34.7, RDW 13.9, Plt Count 306, MPV 9.3, Neut % (Auto) 80.5 H, Lymph % (Auto) 9.7 L, [place] % (Auto) 8.2, Eos % (Auto) 1.4, Baso % (Auto) 0.1, Neut # (Auto) 8.1 H, Lymph # (Auto) 1.0, [place] # (Auto) 0.8, Eos # (Auto) 0.1, Baso # (Auto) 0.0 11/01/20 05:53: Sodium 137, Potassium 4.0 D, Chloride 102, Carbon Dioxide 25 D , Anion Gap 14.0, BUN 55 H D, Creatinine 4.40 H D, Estimated Creat Clear 16, Estimated GFR 10 L*, Est GFR ( Amer) 12 L* D, Glucose 176 H, Calcium 8.0 L I & O for Last 24 hours: Intake & Output 10/29/20 10/30/20 10/31/20 11/01/20 11:59 11:59 11:59 11:59 Intake Total 3830 / 3830 2702 / 2702 Output Total 200 / 200 2700 / 2700 Balance 3630 / 3630 Weight 203 lb 7 oz 202 lb 8 oz - Constitutional no acute distress - *Routine HEENT Exam Head: Present: normocephalic Eye: Present: EOMI, PERRL ENT: Present: mucous membranes moist - *Routine Neck Exam Present: supple. Absent: lymphadenopathy - *Routine Respiratory Exam Present: CTA bilaterally - *Routine Cardiovascular Exam Present: tachycardia, irregularly irregular - *Routine Abdominal Exam Present: soft, normoactive bowel sounds. Absent: tenderness - *Routine Extremities Exam Absent: cyanosis, clubbing, edema - *Routine Skin Exam Present: warm. Absent: rash - *Routine Neurological Exam Present: alert, oriented X3 Progress Note: A&P (1) Atrial fibrillation with rapid ventricular response Status: Acute (2) Acute kidney injury Status: Acute (3) Hyperkalemia Status: Resolved (4) Type 2 diabetes mellitus with hyperglycemia, without long-term current use of insulin Status: Chronic (5) Essential hypertension Status: Chronic (6) History of seizures Status: Chronic (7) Anxiety disorder Status: Chronic (8) Chronic pain Status: Chronic (9) Lumbar degenerative disc disease Status: Chronic (10) BMI 39.0-39.9,adult Status: Acute (11) Obesity (BMI 30-39.9) Status: Acute Assessment and Plan for All Diagnoses:: 1. We will increase Coreg to 37.5 mg twice daily 2. We will start oral Cardizem at 180 mg twice daily and plan to discontinue IV diltiazem 30 minutes after the first dose. 3. Continue Xarelto 4. Continue IV fluids and oral fluids continue to monitor renal functions. 5. Echocardiogram results pending at this time
--- NOTE | 2020-11-01 09:13 | PC.NURSE ---
pt up to chair. Had BM this morning
--- NOTE | 2020-11-01 10:05 | PC.NURSE ---
Diltiazem gtt turned OFF per Geovanni BETANCOURT. Diltiazem 180mg po was given @ 0905.
[2020-11-02] VITALS (9 sets, daily range): BP systolic 121–148; BP diastolic 40–88; PULSE 84–120; RESP 16–22; TEMP 36.5–36.9; O2SAT 90–96; BMI 39.7
--- NOTE | 2020-11-02 04:37 | PC.NURSE ---
patient desats to 75 and sustains without cpap while sleeping
[2020-11-02 06:30] LABS: Basophils % 0.1 % (0.1-2.0); Eosinophils # 0.2 K/mm3 (0.0-0.4); Eosinophils % 1.7 % (0.1-12.0); Hematocrit 27.6 % (37.0-47.0); Hemoglobin 9.3 g/dL (12.2-16.2); Lymphocytes % 10.8 % (10-50); Mean Corpuscular HGB Conc 33.6 g/dL (31.8-35.4); Mean Corpuscular Hemoglobin 30.8 pg (27.0-31.2); Mean Corpuscular Volume 91.8 fl (81-99); Mean Platelet Volume 8.7 fl (7.4-10.4); Monocytes # 0.7 K/mm3 (0.1-1.0); Monocytes % 7.3 % (1.7-9.3); Neutrophils # 7.5 K/mm3 (1.8-7.8); Neutrophils % 80.1 % (37.0-80.0); Platelet Count 284 K/mm3 (142-424); Red Blood Count 3.01 M/mm3 (4.20-5.40); Red Cell Distribution Width 13.9 % (11.5-17.5); White Blood Count 9.4 K/mm3 (4.8-10.8)
[2020-11-02 06:38] LABS: Chloride 105 mmol/L (98-107); Potassium 4.2 mmoL/L (3.5-5.1); Sodium 138 mmol/L (136-145)
[2020-11-02 06:41] LABS: Anion Gap 14.2 mEq/L (5-15); Blood Urea Nitrogen 38 mg/dl (7-17); Calcium 8.1 mg/dl (8.4-10.2); Carbon Dioxide 23 mmol/L (22.0-30.0); Creatinine Clearance Estimated 24 mL/min (50-200); Estimated Glomerular Filt Rate 16 ml/min (>60); GFR (African American) 19 ML/MIN (>60); Glucose 157 mg/dl (74-100)
--- NOTE | 2020-11-02 07:16 | SW/DCPLANNER ---
PATIENT PRESENTED INTO THE HOSPITAL AFTER BEING SEEN IN THE OFFICE AND NOT FEELING WELL... WAS ADMITTED TO [facility] AND HAS BEEN SEEN BY CARDIOLOGY AND MEDICATIONS ADJUSTMENTS HAVE BEEN MADE.. DR RAMOS STATED HE IS D/C HER IV FLUIDS AND WANTS HER TAKEN OUT OF STEPDOWN, UP IN THE CHAIR MOST OF THE DAY AND IF SHE DOES WELL SHE WILL DISCHARGE TO HOME IN THE AM PENDING NO SETBACKS TODAY... PATIENT RESIDES AT HOME WITH AND HAS DONE WELL UP TO THIS EPISODE..SHE SEE HER MD ON A REGULAR BASIS...NO HOME CARE NEEDED AT THIS TIME...PATIENT WEARS CPAP AT NIGHT WHILE SLEEPING...
--- NOTE | 2020-11-02 07:29 | HMH.ACPN2 ---
Internal Medicine - PN: Subj *Date: 11/02/20 *Time: 07:29 Interval history: Patient without complaints this morning. Nursing reports that patient's O2 sats dropped to the mid 70s without use of her CPAP overnight but with CPAP returned to the low to mid 90s. Patient is currently resting in bed on room air with O2 sat in the low to mid 90s. She denies shortness of breath. Patient was out of bed yesterday and ambulated without incident. Heart rate continues to be quite variable between 80s and 120s. Patient had both carvedilol and diltiazem increased yesterday Exam Vital signs and Labs for Last 24 Hours: Temp Pulse Resp BP Pulse Ox 98 F 116 H 16 137/87 94 L 11/02/20 04:00 11/02/20 06:00 11/02/20 06:00 11/02/20 06:00 11/02/20 06:00 Laboratory Results - last 24 hr 11/02/20 05:54: WBC 9.4, RBC 3.01 L, Hgb 9.3 L, Hct 27.6 L, MCV 91.8, MCH 30.8, MCHC 33.6, RDW 13.9, Plt Count 284, MPV 8.7, Neut % (Auto) 80.1 H, Lymph % (Auto) 10.8, [place] % (Auto) 7.3, Eos % (Auto) 1.7, Baso % (Auto) 0.1, Neut # (Auto) 7.5, Lymph # (Auto) 1.0, [place] # (Auto) 0.7, Eos # (Auto) 0.2, Baso # (Auto) 0.0 11/02/20 05:54: Sodium 138, Potassium 4.2, Chloride 105, Carbon Dioxide 23, Anion Gap 14.2, BUN 38 H D, Creatinine 2.90 H D, Estimated Creat Clear 24, Estimated GFR 16 L*, Est GFR ( Amer) 19 L* D, Glucose 157 H, Calcium 8.1 L I & O for Last 24 hours: Intake & Output 10/30/20 10/31/20 11/01/20 11/02/20 11:59 11:59 11:59 11:59 Intake Total 3830 / 3830 3516 / 3516 2380 / 2380 Output Total 200 / 200 2700 / 2700 Balance 3630 / 3630 816 / 816 2380 / 2380 Weight 203 lb 7 oz 202 lb 8 oz 202 lb 7.984 oz - Constitutional no acute distress - *Routine Respiratory Exam Present: CTA bilaterally - *Routine Cardiovascular Exam Present: irregularly irregular - *Routine Abdominal Exam Present: soft, normoactive bowel sounds. Absent: tenderness Assessment and Plan (1) Atrial fibrillation with rapid ventricular response Status: Acute Category: Medical Code(s): I48.91 - Unspecified atrial fibrillation (2) Acute kidney injury Status: Acute Category: Medical Code(s): N17.9 - Acute kidney failure, unspecified (3) Hyperkalemia Status: Resolved Category: Medical Code(s): E87.5 - Hyperkalemia (4) Type 2 diabetes mellitus with hyperglycemia, without long-term current use of insulin Status: Chronic Category: Medical Code(s): E11.65 - Type 2 diabetes mellitus with hyperglycemia (5) Essential hypertension Status: Chronic Category: Medical Code(s): I10 - Essential (primary) hypertension (6) History of seizures Status: Chronic Category: Medical Code(s): Z87.898 - Personal history of other specified conditions (7) Anxiety disorder Status: Chronic Qualifiers: Anxiety disorder type: unspecified anxiety disorder Qualified Code(s): F41.9 - Anxiety disorder, unspecified Category: Medical Code(s): F41.9 - Anxiety disorder, unspecified (8) Chronic pain Status: Chronic Qualifiers: Chronic pain type: chronic pain syndrome Qualified Code(s): G89.4 - Chronic pain syndrome Category: Medical Code(s): G89.29 - Other chronic pain (9) Lumbar degenerative disc disease Status: Chronic Category: Medical Code(s): M51.36 - Other intervertebral disc degeneration, lumbar region (10) BMI 39.0-39.9,adult Status: Acute Category: Medical Code(s): Z68.39 - Body mass index [BMI] 39.0-39.9, adult (11) Obesity (BMI 30-39.9) Status: Acute Category: Medical Code(s): E66.9 - Obesity, unspecified - Assessment and plan all Dx Assessment and Plan for all problems:: 1. Increase carvedilol to 50 twice daily along with diltiazem extended release 240 mg twice daily 2. Patient may come out of stepdown 3. Renal function on is gradually improving. 4. Plan will be to keep the patient an additional day with adjustment of medications. Repeat labs in a.m. with possible dis
--- NOTE | 2020-11-02 08:28 | P.PN_ITS ---
Subjective Date: 11/02/20 Time: 08:29 Principal diagnosis: A. fib with RVR, acute renal insufficiency Interval history: 75-year-old white female in bedside chair eating breakfast in no acute distress. Denies any chest pain, pressure or tightness. Telemetry continues to show atrial fibrillation with a mildly rapid response (100-130s). She denies any shortness of breath. Exam Vital signs and Labs for Last 24 Hours: Temp Pulse Resp BP Pulse Ox 98 F 116 H 16 137/87 94 L 11/02/20 04:00 11/02/20 06:00 11/02/20 06:00 11/02/20 06:00 11/02/20 06:00 Laboratory Results - last 24 hr 11/02/20 05:54: WBC 9.4, RBC 3.01 L, Hgb 9.3 L, Hct 27.6 L, MCV 91.8, MCH 30.8, MCHC 33.6, RDW 13.9, Plt Count 284, MPV 8.7, Neut % (Auto) 80.1 H, Lymph % (Auto) 10.8, [place] % (Auto) 7.3, Eos % (Auto) 1.7, Baso % (Auto) 0.1, Neut # (Auto) 7.5, Lymph # (Auto) 1.0, [place] # (Auto) 0.7, Eos # (Auto) 0.2, Baso # (Auto) 0.0 11/02/20 05:54: Sodium 138, Potassium 4.2, Chloride 105, Carbon Dioxide 23, Anion Gap 14.2, BUN 38 H D, Creatinine 2.90 H D, Estimated Creat Clear 24, Estimated GFR 16 L*, Est GFR ( Amer) 19 L* D, Glucose 157 H, Calcium 8.1 L I & O for Last 24 hours: Intake & Output 10/30/20 10/31/20 11/01/20 11/02/20 11:59 11:59 11:59 11:59 Intake Total 3830 / 3830 3516 / 3516 2380 / 2380 Output Total 200 / 200 2700 / 2700 Balance 3630 / 3630 816 / 816 2380 / 2380 Weight 203 lb 7 oz 202 lb 8 oz 202 lb 7.984 oz - Constitutional no acute distress - *Routine HEENT Exam Head: Present: normocephalic Eye: Present: EOMI, PERRL ENT: Present: mucous membranes moist - *Routine Neck Exam Present: supple. Absent: lymphadenopathy - *Routine Respiratory Exam Present: CTA bilaterally - *Routine Cardiovascular Exam Present: RRR, murmur - *Routine Abdominal Exam Present: soft, normoactive bowel sounds. Absent: tenderness - *Routine Extremities Exam Absent: cyanosis, clubbing, edema - *Routine Skin Exam Present: warm. Absent: rash - *Routine Neurological Exam Present: alert, oriented X3 Progress Note: A&P (1) Atrial fibrillation with rapid ventricular response Status: Acute (2) Acute kidney injury Status: Acute (3) Hyperkalemia Status: Resolved (4) Type 2 diabetes mellitus with hyperglycemia, without long-term current use of insulin Status: Chronic (5) Essential hypertension Status: Chronic (6) History of seizures Status: Chronic (7) Anxiety disorder Status: Chronic (8) Chronic pain Status: Chronic (9) Lumbar degenerative disc disease Status: Chronic (10) BMI 39.0-39.9,adult Status: Acute (11) Obesity (BMI 30-39.9) Status: Acute Assessment and Plan for All Diagnoses:: 1. Renal insufficiency improving with creatinine of 2.9 (down from 7.7) 2. Atrial fibrillation with rapid ventricular response despite maximally dosed Coreg and diltiazem therapy. She is on antithrombotic therapy in the form of Xarelto. Would therefore recommend patient undergo JATINDER cardioversion today to try to reestablish normal sinus rhythm. Risk, benefits and procedure explained to the patient she agrees to proceed. Echocardiogram shows ejection fraction of 55% with moderate mitral regurgitation and RVSP of 60 mmHg. 3. Blood pressure controlled.
--- NOTE | 2020-11-02 10:42 | PC.NURSE ---
received call from Geovanni BETANCOURT reporting that pt will not have JATINDER cardioversion procedure today and that it will be done next wk as outpt. He reports that Dr. Solorzano is aware. Updated pt. Entered order for cardiac diet to resume at noon today.
--- NOTE | 2020-11-02 15:07 | DIET.NUTRFU ---
PO intakes 75%, BG avg. 160. Pt with no nutritional concerns, states her appetite has returned. She has been provided with diet edu for DM.
[2020-11-03] VITALS: BP 134/64; PULSE 86; PULSE 99; RESP 16; TEMP 36.4; O2SAT 96
[2020-11-03 03:59] VITALS: BP 124/69; PULSE 111; RESP 16; TEMP 36.6; O2SAT 95
[2020-11-03 04:00] VITALS: PULSE 90
[2020-11-03 05:00] VITALS: BMI 39.7
--- NOTE | 2020-11-03 05:43 | PC.NURSE ---
shift summary, patient has had uneventful night. up ambulating to restroom with standby assist. breath sound clear to auscultations. 1-2+ bilateral lower extremity edema. lunchroom monitor has shown afib with less irregularity than previous night. rates have been <100 except for with activity at which time rate will elevate up to 110. blood pressures have been 120s to 140s systolic. has denied nausea, vomiting, soa or pain.
[2020-11-03 06:02] LABS: Basophils % 0.2 % (0.1-2.0); Eosinophils # 0.2 K/mm3 (0.0-0.4); Eosinophils % 2.3 % (0.1-12.0); Hematocrit 29.3 % (37.0-47.0); Hemoglobin 9.8 g/dL (12.2-16.2); Lymphocytes # 1.2 K/mm3 (0.7-4.5); Lymphocytes % 13.3 % (10-50); Mean Corpuscular HGB Conc 33.4 g/dL (31.8-35.4); Mean Corpuscular Hemoglobin 30.8 pg (27.0-31.2); Mean Corpuscular Volume 92.3 fl (81-99); Mean Platelet Volume 9.2 fl (7.4-10.4); Monocytes # 0.6 K/mm3 (0.1-1.0); Monocytes % 6.4 % (1.7-9.3); Neutrophils # 7.1 K/mm3 (1.8-7.8); Neutrophils % 77.8 % (37.0-80.0); Platelet Count 305 K/mm3 (142-424); Red Blood Count 3.18 M/mm3 (4.20-5.40); Red Cell Distribution Width 14.1 % (11.5-17.5); White Blood Count 9.1 K/mm3 (4.8-10.8)
[2020-11-03 06:14] LABS: Chloride 105 mmol/L (98-107); Potassium 4.5 mmoL/L (3.5-5.1); Sodium 138 mmol/L (136-145)
[2020-11-03 06:17] LABS: Anion Gap 14.5 mEq/L (5-15); Blood Urea Nitrogen 31 mg/dl (7-17); Carbon Dioxide 23 mmol/L (22.0-30.0); Creatinine Clearance Estimated 35 mL/min (50-200); Estimated Glomerular Filt Rate 24 ml/min (>60); GFR (African American) 29 ML/MIN (>60)
[2020-11-03 06:18] LABS: Calcium 8.4 mg/dl (8.4-10.2); Glucose 171 mg/dl (74-100)
--- NOTE | 2020-11-03 07:57 | HMH.DCSUM ---
General - General Admission date:: 10/30/20 Discharge date: 11/03/20 HPI HPI: 75-year-old female presented to the office for the third time in 5 days with complaint of malaise and worsening weakness with nausea and vomiting. Patient had initially been seen in the office on October 26. At that time she had been sent to [facility] for x-ray and labs which showed mild vascular congestion and fairly normal CBC and BMP. At that time patient was started on furosemide 20 mg along with prednisone and azithromycin for bronchitis. Patient returned to the office yesterday with continued complaints of chest congestion. She returned to the office today with additional symptoms of nausea and vomiting along with lightheadedness. In the office patient was found to have a rapid irregular heart rate with EKG confirming atrial fibrillation with rapid ventricular response. Patient had active vomiting in the office. Decision was made to direct admit the patient for treatment of her A. fib with rapid ventricular response and likely underlying dehydration. Patient denied chest pain. She did have some shortness of breath which she attributed to her bronchitis . Since admission patient has also been found to have hyperkalemia along with acute kidney injury and creatinine of 7.7. Patient's creatinine 5 days ago was normal. Patient takes losartan, hydrochlorothiazide, Metformin, and had taken furosemide 20 mg daily for 4 days. She denies use of any [id number] anti-inflammatories. Patient did undergo a rather thorough cardiac work-up in April 2018 at the [facility] that included a dobutamine stress echocardiogram which was normal . Hospital Course Hospital Course: Patient was admitted and given Cardizem bolus which transiently brought heart rate down to normal range but patient remained in A. fib and soon returned to tachycardia with rate of 130s. Cardizem drip was initiated and titrated to achieve heart rate less than 100. This proved difficult with Cardizem alone. Patient's beta-shiraz (carvedilol) was increased during hospitalization to a dose of 50 twice daily. Once heart rates were more manageable ranging in the 80s to less than 110 patient was transitioned to oral Cardizem ultimately requiring a dose of 240 mg twice daily of the extended release formulation. This kept patient's heart rate in the 80s at rest and in the 110s with ambulation. Patient denies shortness of breath, palpitations, chest pain. Cardiology was consulted during hospitalization. Consideration was given to JATINDER and cardioversion and this will be arranged as an outpatient as the patient had eaten breakfast on the day this was considered. Patient's acute kidney injury was treated with IV fluids and discontinuation of nephrotoxic medications. Patient's creatinine gradually declined from a high of 7.7to 2 at discharge. Patient's creatinine was 0.95 days prior to admission with normal BUN. Medication adjustments were made and emphasized to the patient. Patient will follow up in the office in 48 hours. Patient had hyperkalemia on admission. This was treated with IV fluids, calcium gluconate, Kayexalate. As patient's renal function improved potassium returned to normal. Oral potassium will be discontinued at discharge. Patient has diabetes mellitus. She takes Metformin daily and this was held during hospitalization due to patient's acute kidney injury. Continue to hold this medication at discharge. Patient has obstructive sleep apnea. She use her home CPAP during hospitalization. Patient would desat into the 70s and 80s without use of her CPAP at night. Objective Vital signs: Temp Pulse Resp BP Pulse Ox 97.8 F 90 16 124/69 95 11/03/20 03:59 11/03/20 04:00 11/03/20 03:59 11/03/20 03:59 11/03/20 03:59 no acute distress - *Routine Respiratory Exam Present: CTA bilaterally - *Routine Cardiovascular Exam Present: irreg
[2020-11-03 08:00] VITALS: BP 138/64; PULSE 101; RESP 17; TEMP 36.9; O2SAT 96
== END 2020-11-03 09:15 | disposition home or self-care (01) | DRG 309 ==
PROVIDERS: Admitting Provider Family Medicine; PCP Family Medicine; Visit Provider Family Medicine
DX: I48.91 Unspecified atrial fibrillation (principal); N17.9 Acute kidney failure, unspecified; I10 Essential (primary) hypertension; E78.5 Hyperlipidemia, unspecified; E87.5 Hyperkalemia; E11.65 Type 2 diabetes mellitus with hyperglycemia; F41.9 Anxiety disorder, unspecified; G89.4 Chronic pain syndrome; E66.9 Obesity, unspecified; Z68.39 Body mass index [BMI] 39.0-39.9, adult; Z79.84 Long term (current) use of oral hypoglycemic drugs; G47.33 Obstructive sleep apnea (adult) (pediatric); E86.0 Dehydration; T38.3X5A Adverse effect of insulin and oral hypoglycemic [antidiabetic] drugs, initial encounter
CPT/HCPCS: 36415; 71045; 80048; 80053; 84443; 85025; 93005; 93306; 93312; J2405; U0003

== ENCOUNTER → 2020-11-07 13:39 | Outpatient (CLI) | payer MEDICARE, SELFPAY ==
[2020-11-07 14:27] LABS: Basophils % 0.2 % (0.1-2.0); Eosinophils # 0.2 K/mm3 (0.0-0.4); Eosinophils % 1.9 % (0.1-12.0); Hematocrit 30.8 % (37.0-47.0); Hemoglobin 10.2 g/dL (12.2-16.2); Lymphocytes # 1.4 K/mm3 (0.7-4.5); Lymphocytes % 15.2 % (10-50); Mean Corpuscular Hemoglobin 31.2 pg (27.0-31.2); Mean Corpuscular Volume 94.3 fl (81-99); Mean Platelet Volume 10.4 fl (7.4-10.4); Monocytes # 0.5 K/mm3 (0.1-1.0); Neutrophils # 6.9 K/mm3 (1.8-7.8); Neutrophils % 76.8 % (37.0-80.0); Platelet Count 335 K/mm3 (142-424); Red Blood Count 3.27 M/mm3 (4.20-5.40); Red Cell Distribution Width 14.1 % (11.5-17.5)
== END ==
PROVIDERS: Visit Provider Internal Medicine
DX: Z01.818 Encounter for other preprocedural examination (principal); Z20.822 Contact with and (suspected) exposure to COVID-19; I48.91 Unspecified atrial fibrillation
CPT/HCPCS: 36415; 85025; U0003

== ENCOUNTER 2020-11-08 11:35 | Day surgery (SDC) | payer MEDICARE, SELFPAY ==
--- NOTE | 2020-11-08 12:47 | CA_ITS ---
APPROVED REPORT EXAM: Comprehensive 2D, Doppler, and color-flow Echocardiogram Disaster Director: Erika Babin CRT Ht: 5 ft 0 in Wt: 202lbs BSA: 1.87 BP: 116/62 mmHg Indications: afib Procedure After obtaining informed consent, patient underwent transesophageal echo in the [facility] Att[facility]. Type of Sedation : Conscious Sedation Sedation was administered by Pablito Miller C.R.N.A. Transesophageal probe was inserted and advanced into esophagus without difficulty by Dr. Pallavi Mckenna. The JATINDER was performed without complications. Synchronized Cardioversion attempted: Successful Synchronized Cardioversion acheived with 200 Joules after 1 attempt(s). Rhythm following Synchronized Cardioversion: Normal Sinus Rhythm Throughout the procedure, the blood pressure, pulse oximetry, cardiac rhythm, and rate were monitored. The patient tolerated the procedure without adverse effects. Recovery from conscious sedation was uneventful and vital signs were stable. Left Ventricle Left ventricle is normal size preserved left ventricular systolic function. Visually estimated ejection fraction 55%. Right Ventricle Right ventricle is mildly enlarged with normal contractility. Atria Left atrium is moderately enlarged, left atrial appendage is free of thrombus, there is poor appendage flow by spectral Doppler. Right atrium is moderately enlarged. Intra-atrial septum is intact, there is no flow across the interatrial septum agitated saline contrast study fails to identify intracardiac shunt. Aortic Valve Aortic valve is minimally thickened and fibrosed. There is no aortic stenosis or significant aortic insufficiency. Mitral Valve Mitral valve leaflets are minimally thickened, there is moderate mitral regurgitation. Tricuspid Valve Tricuspid valve grossly normal, there is moderate to severe tricuspid regurgitation Pulmonic Valve Pulmonic valve is grossly normal. Great Vessels Aortic root is normal size. Ascending, arch and descending thoracic aorta there is no aneurysm or dissection Pericardium No significant pericardial effusion noted. Conclusion 1. Moderate biatrial enlargement, normal left ventricular size preserved left ventricle systolic function, visually estimated ejection fraction 55% with no regional wall motion abnormality. 2. No thrombus seen in the left atrium or left atrial appendage. 3. Moderately severe mitral and moderate to severe tricuspid regurgitation. 4. Mildly enlarged right ventricle with normal contractility. 5. Agitated saline contrast study fails 25 intracardiac shunt. 6. Successful electrical DC cardioversion to restore sinus rhythm. Electronically signed by : Marty Camilo 11/08/2020 15:54:33
[2020-11-08 12:51] VITALS: PULSE 106
--- NOTE | 2020-11-08 14:10 | ECG_ITS ---
APPROVED REPORT Exam: Resting ECG HR:59 bpm ECG Measurements Heart Rate 59 AXES AL 232 P QRSd 82 QRS -18 QT 404 T -12 QTc 399 Conclusion Sinus bradycardia with 1st degree AV block Low voltage QRS with late R wave progression Abnormal ECG Electronically signed by : Pillo Bledsoe, 11/08/2020 17:00:23
[2020-11-08 14:15] VITALS: BP 110/78; PULSE 92; RESP 16; O2SAT 93
[2020-11-08 14:33] VITALS: BP 107/57; PULSE 76; RESP 17; O2SAT 100
--- NOTE | 2020-11-09 11:00 | HMH.ANESCL ---
[facility] Anesthesia Checklist - Structural Data Admitted From: Home Planned Operative Procedure/s: laura/cardioversion Consent for Planned Operative Procedure(s) Verified: Yes - Additional verifications Anesthesia Reactions: No Hx Blood Transfusions: No - Airway Assessment C-Spine Mobility Assessed: Yes TMJ Mobility Assessed: Yes Dentition: Partials - Neurological Assessment Level of Consciousness: Awake, Alert, Appropriate - Anesthesia Plan Anesthesia Risk discussed: Yes Anesthesia Plan: Verified ASA Class: IV Anesthesia Type: MAC [facility] History I have reviewed the patient's past medical history: Yes 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: Reports:: Diabetes Mellitus Type 2, Hyperlipidemia, Hypertension Denies:: Cancer, MRSA *Have you ever received a pneumonia vaccine?: Yes *Have you received a flu vaccine this season?: Yes Other 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: Reports: Arthritis Anesthesia experience/problems:: none Other Surgeries: Yes: Cholecystectomy, Hysterectomy-Total Amputation: No - *Social History Last grade of school completed: High school graduate Smoking Status: Never smoker Alcohol Intake: never Substance Use Type: denies use *Occupational Status:: retired Housing: house Household Members: spouse *Travel in the last 8 weeks: Inside the [facility] Family Hx:: Coronary Artery Disease, Heart Attack, Hyperlipidemia, Hypertension, Kidney Disease, Stroke
== END 2020-11-08 14:46 | disposition home or self-care (01) ==
PROVIDERS: PCP Family Medicine; Visit Provider Internal Medicine Cardiovascular Disease
DX: I48.91 Unspecified atrial fibrillation (principal); Z79.01 Long term (current) use of anticoagulants; Z79.899 Other long term (current) drug therapy; I34.0 Nonrheumatic mitral (valve) insufficiency
CPT/HCPCS: 92960; 93005; 93312

== ENCOUNTER 2020-11-11 17:11 | Inpatient (IN) | payer MEDICARE, SELFPAY ==
[2020-11-11] VITALS (12 sets, daily range): BP systolic 113–164; BP diastolic 70–98; PULSE 105–136; RESP 20–28; TEMP 36.7–37.2; O2SAT 94–97; BMI 41.8; BMI 39.0
--- NOTE | 2020-11-11 17:27 | ECG_ITS ---
APPROVED REPORT Exam: Resting ECG HR:125 bpm ECG Measurements Heart Rate 125 AXES QRSd 84 QRS -34 QT 286 T 83 QTc 412 Conclusion Atrial fibrillation with rapid ventricular response with premature ventricular or aberrantly conducted complexes Left axis deviation Low voltage QRS Possible Anterolateral infarct, age undetermined Abnormal ECG Electronically signed by : Pillo Bledsoe, 11/12/2020 17:43:29
--- NOTE | 2020-11-11 17:38 | XR_ITS ---
PROCEDURE INFORMATION: Exam: XR Chest Exam date and time: 11/11/2020 5:38 PM Age: 75 years old Clinical indication: Shortness of breath and wheezing; Patient HX: SOA, wheezing, edema in lower extremities TECHNIQUE: Imaging protocol: XR of the chest. Views: 1 view. COMPARISON: CR XR CHEST PORTABLE 10/30/2020 12:37 PM FINDINGS: Lungs: Atelectatic changes noted within both lung bases. Pleural spaces: Trace bilateral pleural effusions. There is no evidence of pneumothorax. Heart/Mediastinum: The heart demonstrates mild diffuse enlargement. Bones/joints: Right shoulder prosthesis is present. IMPRESSION: 1. The heart demonstrates mild diffuse enlargement. 2. Atelectatic changes noted within both lung bases. 3. Trace bilateral pleural effusions.
[2020-11-11 17:49] LABS: Basophils % 0.3 % (0.1-2.0); Eosinophils # 0.2 K/mm3 (0.0-0.4); Eosinophils % 1.4 % (0.1-12.0); Hematocrit 33.4 % (37.0-47.0); Hemoglobin 11.2 g/dL (12.2-16.2); Lymphocytes # 1.7 K/mm3 (0.7-4.5); Lymphocytes % 14.1 % (10-50); Mean Corpuscular HGB Conc 33.6 g/dL (31.8-35.4); Mean Corpuscular Hemoglobin 31.3 pg (27.0-31.2); Mean Corpuscular Volume 93.1 fl (81-99); Monocytes # 0.7 K/mm3 (0.1-1.0); Neutrophils # 9.4 K/mm3 (1.8-7.8); Neutrophils % 78.3 % (37.0-80.0); Platelet Count 312 K/mm3 (142-424); Red Blood Count 3.58 M/mm3 (4.20-5.40); Red Cell Distribution Width 14.5 % (11.5-17.5)
[2020-11-11 17:53] LABS: Chloride 105 mmol/L (98-107); Potassium 4.6 mmoL/L (3.5-5.1); Sodium 142 mmol/L (136-145)
[2020-11-11 17:56] LABS: Alanine Aminotransferase 30 U/L (12-78); Albumin Level 4.5 g/dl (3.5-5.0); Albumin/Globulin Ratio 1.5 (1.1-1.8); Alkaline Phosphatase 86 U/L (38-126); Anion Gap 16.6 mEq/L (5-15); Aspartate Amino Transferase 21 U/L (14-36); Bilirubin,Total 0.4 mg/dl (0.2-1.3); Blood Urea Nitrogen 13 mg/dl (7-17); Calcium 9.5 mg/dl (8.4-10.2); Carbon Dioxide 25 mmol/L (22.0-30.0); Creatinine Clearance Estimated 29 mL/min (50-200); Estimated Glomerular Filt Rate 44 ml/min (>60); GFR (African American) 53 ML/MIN (>60); Glucose 152 mg/dl (74-100); Total Protein,Serum 7.5 g/dl (6.3-8.2)
[2020-11-11 18:08] LABS: Troponin I < 0.01 ng/ml (0.00-0.034)
--- NOTE | 2020-11-11 18:12 | HMH.EDGENADL ---
ED Disposition Clinical Impression: Rapid atrial fibrillation Congestive heart failure Qualifiers: Heart failure type: unspecified Heart failure chronicity: acute on chronic Qualified Code(s): I50.9 - Heart failure, unspecified Disposition: Admitted As Inpatient Condition on Discharge: Serious - Critical Care Critical Care Time: Yes Attestation: On 11/11/20, the high probability of a clinically significant, sudden or life threatening deterioration of the following system(s) required my full and direct attention, intervention and personal management. The time I documented below is in addition to time spent performing reported procedures but includes the following listed in this critical care notation. Total Critical Care Time: 35 Vital system(s) involved:: Circulatory Failure My critical care processes included: Assessment & monitoring of V/S, Initial and Re-exams, Data Review/Interpretation, Coordinating Care, Medication Orders and management, Documentation Medical Decision Making - Medical Records Medical records reviewed: Yes: I reviewed the patient's medical records. MR Comment: Reviewed discharge summary from recent admission 10/30/2020 through 11/03/2020. Had acute kidney injury and hyperkalemia in addition to rapid atrial fibrillation. Reviewed recent echocardiogram with cardioversion 11/08/2020, see below. - Jose Manuel Inquiry Pt receiving controlled substance: No Vital Signs: 11/11/20 17:29 11/11/20 17:45 11/11/20 18:05 Temperature 98.9 F Temperature Source Oral Pulse Rate 136 H 136 H Pulse Rate [Radial] 135 H Respiratory Rate 28 H 20 20 Blood Pressure 151/86 H 128/90 Blood Pressure [Right Arm] 149/88 H Blood Pressure Mean [Right Arm] 108 02 Sat by Pulse Oximetry 94 L 95 96 Oxygen Delivery Method Room Air Nasal Cannula Nasal Cannula Oxygen Flow Rate (LPM) 4 4 - Lab Data Lab Results 11/11/20 17:20: WBC 12.0 H, RBC 3.58 L, Hgb 11.2 L, Hct 33.4 L, MCV 93.1, MCH 31.3 H, MCHC 33.6, RDW 14.5, Plt Count 312, MPV 10.0, Neut % (Auto) 78.3, Lymph % (Auto) 14.1, [place] % (Auto) 6.0, Eos % (Auto) 1.4, Baso % (Auto) 0.3, Neut # (Auto) 9.4 H, Lymph # (Auto) 1.7, [place] # (Auto) 0.7, Eos # (Auto) 0.2, Baso # (Auto) 0.0 11/11/20 17:20: Sodium 142, Potassium 4.6, Chloride 105, Carbon Dioxide 25, Anion Gap 16.6 H, BUN 13, Creatinine 1.20 H, Estimated Creat Clear 29, Estimated GFR 44 L, Est GFR ( Amer) 53 L, Glucose 152 H, Calcium 9.5, Total Bilirubin 0.4, AST 21, ALT 30, Alkaline Phosphatase 86, Troponin I < 0.01, Total Protein 7.5, Albumin 4.5, Globulin 3.0, Albumin/Globulin Ratio 1.5 11/11/20 17:20: NT-Pro-B Natriuret Pep 2910 H Result diagrams: 11/11/20 17:20 11/11/20 17:20 Orders (Tests/Meds): ED MEDICATIONS Generic Name Dose Route Start Last Admin Trade Name Freq PRN Reason Stop Dose Admin Diltiazem HCl 100 mg/ Sodium 100 mls @ 5 mls/hr 11/11/20 19:00 11/11/20 18:42 Chloride IV 12/11/20 18:59 5 mls/hr .Q20H VERONICA Administration Protocol Discontinued Medications Generic Name Dose Route Start Last Admin Trade Name Freq PRN Reason Stop Dose Admin Diltiazem HCl 10 mg 11/11/20 18:37 11/11/20 18:45 Diltiazem 25mg/5ml Vial IV 11/11/20 18:38 10 mg ONCE ONE Administration Furosemide 40 mg 11/11/20 18:38 11/11/20 18:45 Furosemide 40mg/4ml Vial IV 11/11/20 18:39 40 mg ONCE ONE Administration ORDERS Category Date Time Status Rapid PCR Covid and Flu A/B Stat Lab 11/11/20 20:24 Received Troponin I Q3H Lab 11/11/20 20:25 Received Troponin I Q3H Lab 11/11/20 23:45 Ordered EXAM: Comprehensive 2D, Doppler, and color-flow Echocardiogram Hazard[employer] Materials Driver: Erika Babin CRT Ht: 5 ft 0 in Wt: 202lbs BSA: 1.87 BP: 116/62 mmHg Indications: afib Procedure After obtaining informed consent, patient underwent transesophageal echo in the [employer]. Type of Sedation : Conscious Sedation Sedation was administered by Ace
[2020-11-11 18:46] LABS: NT Pro Brain Natriuretic Pep. 2910 pg/mL (0-450)
--- NOTE | 2020-11-11 19:11 | PC.NURSE ---
Paged Mena at this time
--- NOTE | 2020-11-11 20:24 | PC.NURSE ---
Cardizem increased to 15 ml/hr at this time by AmandaRN
[2020-11-11 20:29] LABS: Coronavirus 19, PCR Not Detected (NotDetected); Influenza A, PCR Not Detected (NotDetected); Influenza B, PCR Not Detected (NotDetected)
[2020-11-11 20:56] LABS: Troponin I < 0.01 ng/ml (0.00-0.034)
--- NOTE | 2020-11-11 21:09 | PC.NURSE ---
PT ARRIVED TO FLOOR VIA [facility] ED W/STAFF AT 2108
[2020-11-12] VITALS (21 sets, daily range): BP systolic 95–159; BP diastolic 51–83; PULSE 10–130; RESP 16–28; TEMP 36.6–37.1; O2SAT 90–97; BMI 39.1; BMI 38.9
--- NOTE | 2020-11-12 04:42 | PC.NURSE ---
0415- hr 90-100; titrated cardizem gtt to 10 ml/hr
--- NOTE | 2020-11-12 07:33 | HMH.PHAVTE ---
[facility] Pharmacy VTE Monitoring - Patient Demographics Admission date: 11/11/20 Report Date: 11/12/20 Time: 07:33 Allergies/Adverse Reactions: Patient Allergies Milk Containing Products Allergy (Intermediate, Verified 11/11/20 21:27) Unknown allergy reaction Height: 1.52 m Weight: 90.435 kg Patient Problems: Current Active Problems Rapid atrial fibrillation (Acute) Congestive heart failure (Acute) - VTE Risk Labs: VTE Related Lab Results Hgb 11.2 g/dL (12.2-16.2) L 11/11/20 17:20 Hct 33.4 % (37.0-47.0) L 11/11/20 17:20 Plt Count 312 K/mm3 (142-424) 11/11/20 17:20 BUN 13 mg/dl (7-17) 11/11/20 17:20 Creatinine 1.20 mg/dl (0.52-1.04) H 11/11/20 17:20 Estimated Creat Clear 29 mL/min (50-200) 11/11/20 17:20 Was VTE Risk Assessment Performed: Yes VTE Score: 2 VTE Risk Level: Very Low Risk - Prophylaxis VTE Prophylaxis Ordered?: Yes Types of VTE Prophylaxis: TEDS Knee High Location of Applied Device: Bilateral Lower Extremeties
--- NOTE | 2020-11-12 07:43 | HMH.HP ---
*Admission Date: 11/11/20 *Chief complaint: Shortness of breath *History of present illness: 75-year-old female with recent cardioversion on November 08 after hospitalization the week prior for A. fib with rapid ventricular response presented to the emergency department yesterday after she was noted to be profoundly short of breath at home. Family had encouraged her to seek treatment. Work-up in the ER revealed patient was in A. fib with rapid ventricular response and showing signs of congestive heart failure with acute hypoxia and O2 sats in the mid 70s on room air. Hypoxia was relieved with supplemental oxygen. Patient was noted to be edematous in the lower extremities which was not new and had been noted even during the patient's prior hospitalization. That hospitalization had been complicated by acute kidney injury which prevented use of diuretics at the time. Patient was placed on a Cardizem drip and admitted. She was also given Lasix which produced approximately 2 L of urine output. Dyspnea has improved although patient remains on supplemental oxygen this morning. Patient admits she had noticed something felt different about 24 hours prior to her presentation [facility] History I have reviewed the patient's past medical history: Yes 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: Reports:: Atrial Fibrillation, Hyperlipidemia, Hypertension Denies:: Cancer, Diabetes Mellitus Type 1, Diabetes Mellitus Type 2, MRSA *Have you ever received a pneumonia vaccine?: Yes *Have you received a flu vaccine this season?: No Other 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: Reports: Arthritis Other Surgeries: Yes: Cholecystectomy, Hysterectomy-Total Amputation: No - *Social History Last grade of school completed: Some college Smoking Status: Never smoker Alcohol Intake: never Substance Use Type: denies use *Occupational Status:: retired Housing: house Household Members: spouse *Travel in the last 8 weeks: None Family Hx:: Cancer, Hyperlipidemia, Hypertension, Kidney Disease, Stroke Review of Systems - Constitutional Denies anorexia, Denies body ache(s), Denies chills, Denies lack of energy - Eyes Denies blurry vision - ENT Denies bleeding gums - *Cardiovascular Reports shortness of breath with activity, Reports leg swelling, Denies chest pain at rest - *Respiratory Denies chest congestion - *Gastrointestinal Denies bloating - *Genitourinary Denies painful urination - *Musculoskeletal Denies joint pain - Integumentary/Breasts Denies hair loss - *Neurologic Denies abnormal hearing - Psychiatric Denies lack of enjoyment Meds Home Medications Medication Instructions Recorded Confirmed Type ALPRAZolam [Xanax 0.5mg tab] 0.5 mg PO HS 10/30/20 11/11/20 History Isosorbide Mononitrate [Isosorbide 60 mg PO DAILY 10/30/20 11/11/20 History Mononitrate ER] Montelukast Sodium 10 mg PO DAILY 10/30/20 11/11/20 History Omeprazole [Omeprazole 20mg 20 mg PO DAILY 10/30/20 11/11/20 History Capsule] Sertraline HCl 50 mg PO DAILY 10/30/20 11/11/20 History Simvastatin 40 mg PO HS 10/30/20 11/11/20 History Trazodone HCl 50 mg PO HS 10/30/20 11/11/20 History levETIRAcetam [Levetiracetam] 500 mg PO BID 10/31/20 11/11/20 History Rivaroxaban [Xarelto 15mg tablet] 15 mg PO QPMWM 11/08/20 11/11/20 History carvediloL [Coreg 25mg Tablet] 50 mg PO BID 11/08/20 11/11/20 History dilTIAZem HCL [Cardizem ER 240mg 240 mg PO BID 11/08/20 11/11/20 History Capsule] hydroCHLOROthiazide 12.5 mg PO DAILY 11/11/20 11/11/20 History [Hydrochlorothiazide 12.5mg Tab] Allergies Allergy/AdvReac Type Severity Reaction Status Date / Time Milk Containing Products Allergy Intermediate Unknown Verified 11/11/20 21:27 allergy reaction Exam Vital signs and Labs for Last 24 Hours: Temp Pulse Resp BP Pulse Ox 98.6 F 97 H 28 H 144/72 H 96 11/12/20 04:00 11/12/20 06:00 11/12/20 04:00 11/12/20 06:00 11/12/20 07:34 Laboratory Results - last 24 hr 11/11/20 17:20
--- NOTE | 2020-11-12 07:49 | PC.NURSE ---
Addendum entered by Pauline Hoffman RN 11/12/20 13:36: 1245 - Cardizem DC'd @ this time per Dr. Solorzano Addendum entered by Pauline Hoffman RN 11/12/20 10:48: 0930 - HR low 100-110's, cardizem titrated to 10 mls/hr 1030 - HR 90-110's, cardizem titrated to 5 mls/hr Original Note: HR consistently 110-120's since obtaining report @ 0705, cardizem gtt increased to 15 mls/hr
[2020-11-12 08:37] LABS: Basophils % 0.3 % (0.1-2.0); Eosinophils # 0.1 K/mm3 (0.0-0.4); Eosinophils % 0.9 % (0.1-12.0); Hematocrit 33.3 % (37.0-47.0); Hemoglobin 10.5 g/dL (12.2-16.2); Lymphocytes # 0.9 K/mm3 (0.7-4.5); Lymphocytes % 9.1 % (10-50); Mean Corpuscular HGB Conc 31.4 g/dL (31.8-35.4); Mean Corpuscular Hemoglobin 29.9 pg (27.0-31.2); Mean Corpuscular Volume 95.1 fl (81-99); Mean Platelet Volume 9.2 fl (7.4-10.4); Monocytes # 0.7 K/mm3 (0.1-1.0); Monocytes % 7.4 % (1.7-9.3); Neutrophils # 8.1 K/mm3 (1.8-7.8); Neutrophils % 82.4 % (37.0-80.0); Platelet Count 256 K/mm3 (142-424); Red Cell Distribution Width 13.9 % (11.5-17.5); White Blood Count 9.8 K/mm3 (4.8-10.8)
[2020-11-12 08:38] LABS: Anion Gap 12.7 mEq/L (5-15); Blood Urea Nitrogen 12 mg/dl (7-17); Calcium 8.9 mg/dl (8.4-10.2); Carbon Dioxide 30 mmol/L (22.0-30.0); Chloride 102 mmol/L (98-107); Creatinine Clearance Estimated 63 mL/min (50-200); Estimated Glomerular Filt Rate 48 ml/min (>60); GFR (African American) 59 ML/MIN (>60); Glucose 159 mg/dl (74-100); Potassium 3.7 mmoL/L (3.5-5.1); Sodium 141 mmol/L (136-145)
--- NOTE | 2020-11-12 09:35 | PC.NURSE ---
Dr. Solorzano made aware that cardiology will not be rounding on patients today.
--- NOTE | 2020-11-12 15:56 | PC.NURSE ---
Currently resting in bed. Pt awake majority of shift until this afternoon, states she has not had much sleep in the last 24 hours. Is currently on 3 L O2 per nasal cannula, she had been weaned to 2 L at the beginning of shift, when pt is sleeping sat noted to drop to 88-89%. HR currently upper 80's and 90's while resting. Denies chest pain. Bilat pitting edema noted to lower extremities, reports that it does look improved from yesterday. Steele cath to drain @ bedside, clear straw colored urine. Pt has been assisted x1 when ambulating back and forth to bathroom for safety. She has had a total of 3 loose stools this shift. Pt reports she had been having loost stools @ home as well. Skin is intact. Family have been @ bedside visiting. No needs voiced @ this time. Call joseph w/in reach.
--- NOTE | 2020-11-12 17:54 | PC.NURSE ---
UOP = 700 mls since Lasix given @ 1552
--- NOTE | 2020-11-12 18:09 | PC.NURSE ---
ROOM AIR SATS 87%. TURN PT BACK ON 2LPM N/C
[2020-11-13] VITALS (16 sets, daily range): BP systolic 102–152; BP diastolic 61–107; PULSE 91–120; RESP 20–32; TEMP 36.6–37.1; O2SAT 93–98; BMI 39.1
--- NOTE | 2020-11-13 05:49 | PC.NURSE ---
o2 sat 92-95% on 3l nc while asleep. currently on 2l nc with o2 sat 90-95% while awake. No c/o soa, n/v or pain this shift. No BM's this shift. HR 100-115 t/o shift; afib per monitor.
[2020-11-13 05:52] LABS: Basophils % 0.3 % (0.1-2.0); Eosinophils # 0.1 K/mm3 (0.0-0.4); Eosinophils % 1.8 % (0.1-12.0); Hematocrit 29.7 % (37.0-47.0); Lymphocytes # 1.1 K/mm3 (0.7-4.5); Lymphocytes % 18.3 % (10-50); Mean Corpuscular HGB Conc 31.6 g/dL (31.8-35.4); Mean Corpuscular Hemoglobin 30.4 pg (27.0-31.2); Mean Corpuscular Volume 96.2 fl (81-99); Mean Platelet Volume 9.8 fl (7.4-10.4); Monocytes # 0.6 K/mm3 (0.1-1.0); Monocytes % 9.2 % (1.7-9.3); Neutrophils # 4.2 K/mm3 (1.8-7.8); Neutrophils % 70.3 % (37.0-80.0); Platelet Count 225 K/mm3 (142-424); Red Blood Count 3.09 M/mm3 (4.20-5.40); Red Cell Distribution Width 13.7 % (11.5-17.5); White Blood Count 5.9 K/mm3 (4.8-10.8)
[2020-11-13 06:19] LABS: Hemoglobin 9.4 g/dL (12.2-16.2)
[2020-11-13 07:04] LABS: Chloride 102 mmol/L (98-107); Potassium 3.6 mmoL/L (3.5-5.1); Sodium 140 mmol/L (136-145)
[2020-11-13 07:07] LABS: Anion Gap 11.6 mEq/L (5-15); Blood Urea Nitrogen 15 mg/dl (7-17); Calcium 8.7 mg/dl (8.4-10.2); Carbon Dioxide 30 mmol/L (22.0-30.0); Creatinine Clearance Estimated 53 mL/min (50-200); Estimated Glomerular Filt Rate 40 ml/min (>60); GFR (African American) 48 ML/MIN (>60); Glucose 147 mg/dl (74-100)
--- NOTE | 2020-11-13 07:13 | P.PN_ITS ---
Internal Medicine - PN: Subj *Date: 11/13/20 *Time: 07:13 Interval history: Patient has no complaints. She denies shortness of breath, palpitations, chest pain. Yesterday verapamil was started in place of diltiazem. Patient's pulse rate remains in the 90s to 120 Exam Vital signs and Labs for Last 24 Hours: Temp Pulse Resp BP Pulse Ox 98.0 F 113 H 20 126/65 93 L 11/13/20 04:00 11/13/20 06:00 11/13/20 04:00 11/13/20 06:00 11/13/20 06:00 Laboratory Results - last 24 hr 11/12/20 08:18: WBC 9.8, RBC 3.50 L, Hgb 10.5 L, Hct 33.3 L, MCV 95.1, MCH 29.9, MCHC 31.4 L, RDW 13.9, Plt Count 256, MPV 9.2, Neut % (Auto) 82.4 H, Lymph % (Auto) 9.1 L, [place] % (Auto) 7.4, Eos % (Auto) 0.9, Baso % (Auto) 0.3, Neut # (Auto) 8.1 H, Lymph # (Auto) 0.9, [place] # (Auto) 0.7, Eos # (Auto) 0.1, Baso # (Auto) 0.0 11/12/20 08:18: Sodium 141, Potassium 3.7, Chloride 102, Carbon Dioxide 30, Anion Gap 12.7, BUN 12, Creatinine 1.10 H, Estimated Creat Clear 63, Estimated GFR 48 L, Est GFR ( Amer) 59, Glucose 159 H, Calcium 8.9 11/13/20 05:22: WBC 5.9 D, RBC 3.09 L, Hgb 9.4 L D, Hct 29.7 L, MCV 96.2, MCH 30.4, MCHC 31.6 L, RDW 13.7, Plt Count 225, MPV 9.8, Neut % (Auto) 70.3, Lymph % (Auto) 18.3, [place] % (Auto) 9.2, Eos % (Auto) 1.8, Baso % (Auto) 0.3, Neut # (Auto) 4.2, Lymph # (Auto) 1.1, [place] # (Auto) 0.6, Eos # (Auto) 0.1, Baso # (Auto) 0.0 11/13/20 05:22: Sodium 140, Potassium 3.6, Chloride 102, Carbon Dioxide 30, Anion Gap 11.6, BUN 15, Creatinine 1.30 H, Estimated Creat Clear 53, Estimated GFR 40 L, Est GFR ( Amer) 48 L, Glucose 147 H, Calcium 8.7 I & O for Last 24 hours: Intake & Output 11/10/20 11/11/20 11/12/20 11/13/20 11:59 11:59 11:59 11:59 Intake Total 0 / 0 360 / 360 Output Total 4425 / 4425 1300 / 1300 Balance -4425 / -4425 -940 / -940 Weight 199 lb 6 oz 199 lb 2 oz - Constitutional no acute distress - *Routine Respiratory Exam Present: CTA bilaterally - *Routine Cardiovascular Exam Present: tachycardia, irregular rhythm - *Routine Abdominal Exam Present: soft, normoactive bowel sounds. Absent: tenderness - *Routine Extremities Exam Present: edema Assessment and Plan (1) Atrial fibrillation with rapid ventricular response Status: Acute Category: Medical Code(s): I48.91 - Unspecified atrial fibrillation (2) Congestive heart failure Status: Acute Qualifiers: Heart failure type: unspecified Heart failure chronicity: acute on chronic Qualified Code(s): I50.9 - Heart failure, unspecified Category: Medical Code(s): I50.9 - Heart failure, unspecified (3) Mitral regurgitation Status: Acute Category: Medical Code(s): I34.0 - Nonrheumatic mitral (valve) insufficiency (4) BMI 39.0-39.9,adult Status: Acute Category: Medical Code(s): Z68.39 - Body mass index [BMI] 39.0-39.9, adult (5) Type 2 diabetes mellitus with hyperglycemia, without long-term current use of insulin Status: Chronic Category: Medical Code(s): E11.65 - Type 2 diabetes mellitus with hyperglycemia - Assessment and plan all Dx Assessment and Plan for all problems:: 1. DC carvedilol in favor of metoprolol succinate 100 mg daily. Continue oral verapamil 240 mg twice daily.
--- NOTE | 2020-11-13 10:00 | HMH.CNCARD ---
History of Present Illness Consult date: 11/13/20 Requesting physician: Pillo Solorzano Consult reason: atrial fibrillation Chief complaint: Atrial fib with RVR History of present illness: 75-year-old female presented to the ED yesterday with complaints of increased heart rate. Patient states while she was trying to clear the chief development officer out she became very short of breath with increasing heart rate. Patient states throughout the day her heart would continue to race. Patient does have history of atrial fibrillation. Patient was noted to be in atrial fibrillation with RVR with heart rate greater than 118 bpm. Patient had undergone JATINDER and cardioversion on 11/02/2020 due to new onset atrial fib. Cardioversion was successful in which patient remained in sinus rhythm until 1 day ago. Patient refused and declined to undergo another cardioversion. Patient denies chest pain, tightness or pressure. Patient was noted upon arrival to the ED to be hypoxic with O2 sats being in the 70s. Patient is noted to have congestive heart failure with edema noted of the lower extremities. Family at the bedside states swelling of the lower extremities have improved since she was given Lasix IV upon arrival to the ED. Patient is down 2 pounds. Patient continues to be on Lasix 40 mg p.o. due to the swelling and congestive heart failure. Patient denies dizziness. Patient remains in atrial fibrillation with a heart rate of 112-120bpm. We will increase metoprolol succinate to 200 mg p.o. daily for better heart rate control. Patient is also on verapamil 240 mg twice daily for rate control. Patient is on Xarelto and denies any bleeding issues. JATINDER revealed EF 55% with no wall motion abnormality, moderate to severe mitral and tricuspid regurgitation. Patient does continue to be on 2 L of O2 by nasal cannula with a pulse ox of 95%. Chest Xray:IMPRESSION: 1. The heart demonstrates mild diffuse enlargement. 2. Atelectatic changes noted within both lung bases. 3. Trace bilateral pleural effusions. JATINDER:Conclusion (11/02/20) 1. Moderate biatrial enlargement, normal left ventricular size preserved left ventricle systolic function, visually estimated ejection fraction 55% with no regional wall motion abnormality. 2. No thrombus seen in the left atrium or left atrial appendage. 3. Moderately severe mitral and moderate to severe tricuspid regurgitation. 4. Mildly enlarged right ventricle with normal contractility. 5. Agitated saline contrast study fails 25 intracardiac shunt. 6. Successful electrical DC cardioversion to restore sinus rhythm. Discussed plan of care with Dr. San. Orders and recommendations were received from Dr. San. We will increase metoprolol succinate to 200 mg p.o. daily for better heart rate control. Patient is continue with Xarelto due to atrial fibrillation and due to increased risk for stroke. We will refer patient to lithographic press feeder in [place] for possible atrial ablation. This will be on outpatient basis. Discussed with patient and family the risk and benefits of being evaluated by lithographic press feeder for possible ablation. Patient and family verbalized understanding and is agreeable. Please notify cardiology of any changes in patient status. Thank you for allowing cardiology to participate in the care of this patient. [facility] [place] History I have reviewed the patient's past medical history: Yes 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: Reports:: Atrial Fibrillation, Hyperlipidemia, Hypertension Denies:: Cancer, Diabetes Mellitus Type 1, Diabetes Mellitus Type 2, MRSA *Have you ever received a pneumonia vaccine?: Yes *Have you received a flu vaccine this season?: No Other 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: Reports: Arthritis Other Surgeries: Yes: Cholecystectomy, Hysterectomy-Total Amputation: No - *Social History Last grade of school completed: Some college Smoking Status: Never smoker Alcohol Intake: never Substance Use Type: denies use *Occupational Status:: re
--- NOTE | 2020-11-13 15:34 | PC.NURSE ---
lynn catheter discontinued
--- NOTE | 2020-11-13 17:17 | PC.NURSE ---
RA sat 86%
--- NOTE | 2020-11-13 20:17 | PC.NURSE ---
She is A&Ox4. She denies pain. Continues in Afib. Denies SOA. Trace edema to BLE. She is on 2LPM n/c. Reports her last BM was on 11/12/20.
[2020-11-14] VITALS (12 sets, daily range): BP systolic 104–136; BP diastolic 68–87; PULSE 88–120; RESP 18–20; TEMP 36.4–37.1; O2SAT 86–98; BMI 38.7
[2020-11-14 06:28] LABS: Basophils % 0.4 % (0.1-2.0); Eosinophils # 0.2 K/mm3 (0.0-0.4); Eosinophils % 2.6 % (0.1-12.0); Hematocrit 29.7 % (37.0-47.0); Lymphocytes # 1.2 K/mm3 (0.7-4.5); Lymphocytes % 15.8 % (10-50); Mean Corpuscular HGB Conc 33.5 g/dL (31.8-35.4); Mean Corpuscular Hemoglobin 31.4 pg (27.0-31.2); Mean Corpuscular Volume 93.7 fl (81-99); Mean Platelet Volume 10.1 fl (7.4-10.4); Monocytes # 0.5 K/mm3 (0.1-1.0); Monocytes % 6.9 % (1.7-9.3); Neutrophils # 5.5 K/mm3 (1.8-7.8); Neutrophils % 74.3 % (37.0-80.0); Platelet Count 219 K/mm3 (142-424); Red Blood Count 3.17 M/mm3 (4.20-5.40); Red Cell Distribution Width 14.3 % (11.5-17.5); White Blood Count 7.4 K/mm3 (4.8-10.8)
[2020-11-14 06:38] LABS: Anion Gap 10.1 mEq/L (5-15); Blood Urea Nitrogen 16 mg/dl (7-17); Calcium 8.7 mg/dl (8.4-10.2); Carbon Dioxide 30 mmol/L (22.0-30.0); Chloride 99 mmol/L (98-107); Creatinine Clearance Estimated 62 mL/min (50-200); Estimated Glomerular Filt Rate 48 ml/min (>60); GFR (African American) 59 ML/MIN (>60); Glucose 142 mg/dl (74-100); Potassium 4.1 mmoL/L (3.5-5.1); Sodium 135 mmol/L (136-145)
--- NOTE | 2020-11-14 07:05 | PC.NURSE ---
She transferred to chair independently on RA. 91%RA, HR 103 after transfer.
--- NOTE | 2020-11-14 07:12 | HMH.ACPN2 ---
Internal Medicine - PN: Subj *Date: 11/14/20 *Time: 07:12 Interval history: Patient has remained in A. fib with pulse rate up to 110. She has ambulated without difficulties. Patient admits she forgot to replace her nasal cannula after ambulating and became short of breath the longer she was in bed until oxygen was reapplied. Exam Vital signs and Labs for Last 24 Hours: Temp Pulse Resp BP Pulse Ox 97.7 F 103 H 20 129/86 91 L 11/14/20 03:38 11/14/20 07:05 11/14/20 03:38 11/14/20 03:38 11/14/20 03:38 Laboratory Results - last 24 hr 11/13/20 05:22: Sodium 140, Potassium 3.6, Chloride 102, Carbon Dioxide 30, Anion Gap 11.6, BUN 15, Creatinine 1.30 H, Estimated Creat Clear 53, Estimated GFR 40 L, Est GFR ( Amer) 48 L, Glucose 147 H, Calcium 8.7 11/14/20 05:47: WBC 7.4 D, RBC 3.17 L, Hgb 10.0 L, Hct 29.7 L, MCV 93.7, MCH 31.4 H, MCHC 33.5, RDW 14.3, Plt Count 219, MPV 10.1, Neut % (Auto) 74.3, Lymph % (Auto) 15.8, [place] % (Auto) 6.9, Eos % (Auto) 2.6, Baso % (Auto) 0.4, Neut # (Auto) 5.5, Lymph # (Auto) 1.2, [place] # (Auto) 0.5, Eos # (Auto) 0.2, Baso # (Auto) 0.0 11/14/20 05:47: Sodium 135 L, Potassium 4.1, Chloride 99, Carbon Dioxide 30, Anion Gap 10.1, BUN 16, Creatinine 1.10 H, Estimated Creat Clear 62, Estimated GFR 48 L, Est GFR ( Amer) 59 D, Glucose 142 H, Calcium 8.7 I & O for Last 24 hours: Intake & Output 11/11/20 11/12/20 11/13/20 11/14/20 11:59 11:59 11:59 11:59 Intake Total 0 / 0 360 / 360 730 / 730 Output Total 4425 / 4425 1300 / 1300 450 / 450 Balance -4425 / -4425 -940 / -940 280 / 280 Weight 199 lb 6 oz 199 lb 2 oz 197 lb - Constitutional no acute distress - *Routine Respiratory Exam Present: decreased breath sounds (At bases) - *Routine Cardiovascular Exam Present: irregular rhythm - *Routine Abdominal Exam Present: soft Assessment and Plan (1) Atrial fibrillation with rapid ventricular response Status: Acute Category: Medical Code(s): I48.91 - Unspecified atrial fibrillation (2) Congestive heart failure Status: Acute Qualifiers: Heart failure type: unspecified Heart failure chronicity: acute on chronic Qualified Code(s): I50.9 - Heart failure, unspecified Category: Medical Code(s): I50.9 - Heart failure, unspecified (3) Mitral regurgitation Status: Acute Category: Medical Code(s): I34.0 - Nonrheumatic mitral (valve) insufficiency (4) BMI 39.0-39.9,adult Status: Acute Category: Medical Code(s): Z68.39 - Body mass index [BMI] 39.0-39.9, adult (5) Type 2 diabetes mellitus with hyperglycemia, without long-term current use of insulin Status: Chronic Category: Medical Code(s): E11.65 - Type 2 diabetes mellitus with hyperglycemia - Assessment and plan all Dx Assessment and Plan for all problems:: 1. Continue Calan SR and Toprol-XL. Patient is going to need outpatient evaluation by electrophysiology for AV node ablation. Appreciate cardiology management with this case 2. Continue daily oral Lasix
--- NOTE | 2020-11-14 07:41 | PC.NURSE ---
She ambulated to the door in her room. She reported feeling short of breath and began to cough. O2 was 86% RA.
--- NOTE | 2020-11-14 13:14 | DIET.NUTRFU ---
PO intakes 75%, weight stable, BG moderate- avg.145. Pt has been provided diet edu for DM, CHF.
--- NOTE | 2020-11-14 15:28 | PC.NURSE ---
Report given to Chuck Souza RN.
--- NOTE | 2020-11-14 18:56 | PC.NURSE ---
Addendum entered by Pedro Esquivel RN 11/14/20 19:01: 2 L NC-correction Original Note: No acute changes this afternoon. Priscilla meter reading clerk has attempted several times to make appt with [facility]- cardiology, and has faxed info as well. Has been up to chiar. Remains on 4 L NC. Alert and oriented. VSS
[2020-11-15] VITALS: BP 137/96; PULSE 110; PULSE 71; RESP 18; TEMP 36.4; O2SAT 96
--- NOTE | 2020-11-15 02:55 | PC.NURSE ---
Respiratory was unable to hook oxygen up to her CPAP but she wore the bipap for a couple hours and after the mask began to hurt her nose. Per her request, she has wore 2LPM n/c since. She reported SOA with movement.
[2020-11-15 04:00] VITALS: BP 130/67; PULSE 74; RESP 18; TEMP 36.7; O2SAT 94
[2020-11-15 05:00] VITALS: BMI 38.7
[2020-11-15 05:21] VITALS: O2SAT 87
[2020-11-15 06:01] LABS: Basophils % 0.4 % (0.1-2.0); Eosinophils # 0.1 K/mm3 (0.0-0.4); Eosinophils % 2.1 % (0.1-12.0); Hematocrit 31.9 % (37.0-47.0); Hemoglobin 10.5 g/dL (12.2-16.2); Lymphocytes # 1.1 K/mm3 (0.7-4.5); Lymphocytes % 16.4 % (10-50); Mean Corpuscular HGB Conc 32.9 g/dL (31.8-35.4); Mean Corpuscular Hemoglobin 30.5 pg (27.0-31.2); Mean Corpuscular Volume 92.8 fl (81-99); Mean Platelet Volume 9.8 fl (7.4-10.4); Monocytes # 0.3 K/mm3 (0.1-1.0); Monocytes % 5.3 % (1.7-9.3); Neutrophils # 4.8 K/mm3 (1.8-7.8); Neutrophils % 75.8 % (37.0-80.0); Platelet Count 223 K/mm3 (142-424); Red Blood Count 3.44 M/mm3 (4.20-5.40); Red Cell Distribution Width 14.2 % (11.5-17.5); White Blood Count 6.4 K/mm3 (4.8-10.8)
[2020-11-15 07:25] LABS: Anion Gap 13.9 mEq/L (5-15); Blood Urea Nitrogen 17 mg/dl (7-17); Calcium 8.7 mg/dl (8.4-10.2); Carbon Dioxide 30 mmol/L (22.0-30.0); Chloride 99 mmol/L (98-107); Creatinine Clearance Estimated 69 mL/min (50-200); Estimated Glomerular Filt Rate 54 ml/min (>60); GFR (African American) 65 ML/MIN (>60); Glucose 152 mg/dl (74-100); Potassium 3.9 mmoL/L (3.5-5.1); Sodium 139 mmol/L (136-145)
[2020-11-15 07:43] VITALS: BP 112/90; PULSE 95; RESP 18; TEMP 36.4; O2SAT 98
[2020-11-15 08:00] VITALS: PULSE 100
--- NOTE | 2020-11-15 08:18 | XR_ITS ---
PROCEDURE: XR CHEST 2V CLINICAL HISTORY: SOB COMPARISON: CR XR CHEST PORTABLE from 10/26/2020 CR XR CHEST PORTABLE from 10/30/2020 CR XR CHEST PORTABLE from 11/11/2020 FINDINGS: There is cardiomegaly with mild pulmonary venous congestion suggesting mild CHF.. There are small bilateral pleural effusions. There is thickening of the right minor fissure. Small hiatal hernia noted. Status post right shoulder replacement. 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 IMPRESSION: Mild CHF with small bilateral pleural effusions probably overall not significantly changed Dictated by: José Miguel Nelson MD 11/15/2020 10:09 José Miguel Nelson MD in [place] 11/15/2020 10:09
--- NOTE | 2020-11-15 08:24 | HMH.DCSUM ---
General - General Admission date:: 11/11/20 Discharge date: 11/15/20 HPI HPI: 75-year-old female with recent cardioversion on November 08 after hospitalization the week prior for A. fib with rapid ventricular response presented to the emergency department yesterday after she was noted to be profoundly short of breath at home. Family had encouraged her to seek treatment. Work-up in the ER revealed patient was in A. fib with rapid ventricular response and showing signs of congestive heart failure with acute hypoxia and O2 sats in the mid 70s on room air. Hypoxia was relieved with supplemental oxygen. Patient was noted to be edematous in the lower extremities which was not new and had been noted even during the patient's prior hospitalization. That hospitalization had been complicated by acute kidney injury which prevented use of diuretics at the time. Patient was placed on a Cardizem drip and admitted. She was also given Lasix which produced approximately 2 L of urine output. Dyspnea has improved although patient remains on supplemental oxygen this morning. Patient admits she had noticed something felt different about 24 hours prior to her presentation Hospital Course Hospital Course: Patient was admitted and placed on a Cardizem drip. Patient's heart rate trended down but remained high at times between 90s and 110s. Patient was transitioned to oral K. Bandar, SR 240 mg twice daily and her carvedilol was changed to metoprolol extended release 200 mg daily. Patient's pulse remained between 90 and 110. Hypoxia that was present on presentation to the ER and admission to the floor persisted to a milder degree. Resting room air sat was 86% on November 14. Patient was maintained in the high 90s with supplemental oxygen at 2 L/min and this will be continued at home. Cardiology was consulted during hospitalization and has recommended patient see a cardiac visit clinical researcher for AV node ablation. Patient will be referred to Dr. Shay. On November 15 patient was discharged home. Due to patient's level of dyspnea with exertion she requested I Rollator walker. This is reasonable for both ambulation in the home and outside of the home. Objective Vital signs: Temp Pulse Resp BP Pulse Ox 97.6 F 95 H 18 112/90 98 11/15/20 07:43 11/15/20 07:43 11/15/20 07:43 11/15/20 07:43 11/15/20 07:43 no acute distress - *Routine Respiratory Exam Present: CTA bilaterally - *Routine Cardiovascular Exam Present: irregularly irregular - *Routine Extremities Exam Present: edema (Trace edema improved during hospitalization) Results Labs on day of discharge: Labs from last 24 hours 11/15/20 11/15/20 05:42 05:42 WBC 6.4 RBC 3.44 L Hgb 10.5 L Hct 31.9 L MCV 92.8 MCH 30.5 MCHC 32.9 RDW 14.2 Plt Count 223 MPV 9.8 Neut % (Auto) 75.8 Lymph % (Auto) 16.4 [place] % (Auto) 5.3 Eos % (Auto) 2.1 Baso % (Auto) 0.4 Neut # (Auto) 4.8 Lymph # (Auto) 1.1 [place] # (Auto) 0.3 Eos # (Auto) 0.1 Baso # (Auto) 0.0 Sodium 139 Potassium 3.9 Chloride 99 Carbon Dioxide 30 Anion Gap 13.9 BUN 17 Creatinine 1.00 Estimated Creat Clear 69 Estimated GFR 54 L Est GFR ( Amer) 65 Glucose 152 H Calcium 8.7 DS: Diagnosis - Discharge Diagnosis (1) Atrial fibrillation with rapid ventricular response Status: Acute (2) Mitral regurgitation Status: Acute (3) BMI 39.0-39.9,adult Status: Acute (4) Type 2 diabetes mellitus with hyperglycemia, without long-term current use of insulin Status: Chronic (5) Acute diastolic (congestive) heart failure Status: Resolved Discharge Plan - Patient Discharge Instructions ACTIVITY: Continue current activity DIET: continue same diet Patient Instructions: DI for Heart Failure, DI for Atrial Fibrillation, Catheter-associated Urinary Tract Infection - Follow up Plan Follow up with: Barron ShayR
--- NOTE | 2020-11-15 08:35 | PC.NURSE ---
Pt will need a rollator walker rather than than a cane due to gait/mobility issues.
--- NOTE | 2020-11-15 09:57 | SW/DCPLANNER ---
This patient will discharge home today. Dr Solorzano has asked that home O2/portable/rollator walker be ordered for this patient. I have faxed patient information to [facility]. Peggy with [facility] has confirmed that rollator and oxygen will be delivered to this patient.
== END 2020-11-15 13:27 | disposition home or self-care (01) | DRG 308 ==
LOC: ER 19:32 → 2ND 11-12 07:13
PROVIDERS: Admitting Provider Emergency Medicine; Emergency Provider Emergency Medicine; PCP Family Medicine; Visit Provider Family Medicine
DX: I48.91 Unspecified atrial fibrillation (principal); I50.33 Acute on chronic diastolic (congestive) heart failure; I11.0 Hypertensive heart disease with heart failure; E78.5 Hyperlipidemia, unspecified; M19.90 Unspecified osteoarthritis, unspecified site; E11.65 Type 2 diabetes mellitus with hyperglycemia; I34.0 Nonrheumatic mitral (valve) insufficiency
CPT/HCPCS: 36415; 71045; 71046; 80048; 80053; 83880; 84484; 85025; 92960; 93005; 93312; 94760; 94761; 96365; 96375; 99284; 99291; U0003

== ENCOUNTER → 2020-11-20 15:20 | Outpatient (CLI) | payer MEDICARE, SELFPAY ==
--- NOTE | 2020-11-20 15:21 | CA_ITS ---
APPROVED REPORT Right Upper Extremity Venous Study for DVT. Extrusion Die Coordinator: IVA Indications HTN, HLD, CAD; recent hospital stay with IV in the right lateral antecubital region, brusing appeared last week Risk Factors Chronic Afib Past History Medications Plavix Vein Imaging IJV (R): Normal phasic flow is seen. Normal flow, augmentation and compression is seen. No evidence of Deep Vein Thrombosis. No abnormalities are demonstrated. SCV (R): Normal phasic flow is seen. Normal flow, augmentation and compression is seen. No evidence of Deep Vein Thrombosis. No abnormalities are demonstrated. Axillary (R): Normal phasic flow is seen. Normal flow, augmentation and compression is seen. No evidence of Deep Vein Thrombosis. No abnormalities are demonstrated. Brachial (R): Normal phasic flow is seen. Normal flow, augmentation and compression is seen. No evidence of Deep Vein Thrombosis. No abnormalities are demonstrated. Basilic (R): Normal phasic flow is seen. Normal flow, augmentation and compression is seen. No evidence of Deep Vein Thrombosis. No abnormalities are demonstrated. Cephalic (R): Normal phasic flow is seen. Normal flow, augmentation and compression is seen. No evidence of Deep Vein Thrombosis. No abnormalities are demonstrated. Radial (R): Normal phasic flow is seen. Normal flow, augmentation and compression is seen. No evidence of Deep Vein Thrombosis. No abnormalities are demonstrated. Ulnar (R): Normal phasic flow is seen. Normal flow, augmentation and compression is seen. No evidence of Deep Vein Thrombosis. No abnormalities are demonstrated. Findings Duplex evaluation of the right upper extremity demonstrates no evidence of DVT. Electronically signed by : José Miguel Nelson MD 11/20/2020 16:34:30
== END ==
PROVIDERS: PCP Nurse Practitioner Family; Visit Provider Nurse Practitioner Family
DX: R60.0 Localized edema (principal); T14.8XXA Other injury of unspecified body region, initial encounter
CPT/HCPCS: 93971

== ENCOUNTER → 2021-08-05 12:39 | Outpatient (CLI) | payer MEDICARE, SELFPAY ==
--- NOTE | 2021-08-05 12:54 | XR_ITS ---
FINAL REPORT CLINICAL HISTORY: FEVER SOB CHEST PAIN COMPARISON: November 15, 2020 FINDINGS: Two views of the chest were obtained. The heart size and pulmonary vascularity are within normal limits. The mediastinum is normal. There is mild left base atelectasis or pneumonia. There is no pneumothorax. There are postoperative changes of the right shoulder. There are severe degenerative changes of the left shoulder. IMPRESSION: Mild left base atelectasis or pneumonia. Reviewed, Interpreted and Dictated by Reynaldo Pastor III, MD Transcribed by Enrique Flores Authenticated by Reynaldo Pastor III, MD on 08/05/2021 01:41:52 PM [facility]
[2021-08-05 14:14] LABS: Basophils # 0.1 K/mm3 (0-0.2); Basophils % 1.2 % (0.1-2.0); Eosinophils # 0.1 K/mm3 (0.0-0.4); Eosinophils % 0.9 % (0.1-12.0); Hematocrit 37.6 % (37.0-47.0); Hemoglobin 12.2 g/dL (12.2-16.2); Lymphocytes # 0.8 K/mm3 (0.7-4.5); Lymphocytes % 13.9 % (10-50); Mean Corpuscular HGB Conc 32.3 g/dL (31.8-35.4); Mean Corpuscular Hemoglobin 30.7 pg (27.0-31.2); Mean Corpuscular Volume 95.1 fl (81-99); Mean Platelet Volume 9.8 fl (7.4-10.4); Monocytes # 0.5 K/mm3 (0.1-1.0); Neutrophils # 4.2 K/mm3 (1.8-7.8); Neutrophils % 74.9 % (37.0-80.0); Platelet Count 222 K/mm3 (142-424); Red Blood Count 3.96 M/mm3 (4.20-5.40); Red Cell Distribution Width 13.7 % (11.5-17.5); White Blood Count 5.5 K/mm3 (4.8-10.8)
[2021-08-05 16:31] LABS: Alanine Aminotransferase 33 U/L (12-78); Albumin Level 4.5 g/dl (3.5-5.0); Albumin/Globulin Ratio 1.7 (1.1-1.8); Alkaline Phosphatase 96 U/L (38-126); Anion Gap 14.1 mEq/L (5-15); Aspartate Amino Transferase 47 U/L (14-36); Bilirubin,Total 0.4 mg/dl (0.2-1.3); Blood Urea Nitrogen 13 mg/dl (7-17); Calcium 9.1 mg/dl (8.4-10.2); Carbon Dioxide 26 mmol/L (22.0-30.0); Chloride 98 mmol/L (98-107); Estimated Glomerular Filt Rate 44 ml/min (>60); GFR (African American) 53 ML/MIN (>60); Globulin 2.6 g/dL (1.3-3.2); Glucose 151 mg/dl (74-100); Potassium 4.1 mmoL/L (3.5-5.1); Sodium 134 mmol/L (136-145); Total Protein,Serum 7.1 g/dl (6.3-8.2)
[2021-08-05 16:42] LABS: Troponin I < 0.01 ng/ml (0.00-0.034)
== END ==
PROVIDERS: PCP Nurse Practitioner Family; Visit Provider Nurse Practitioner Family
DX: R06.02 Shortness of breath (principal); R07.9 Chest pain, unspecified; R50.9 Fever, unspecified
CPT/HCPCS: 36415; 71046; 80053; 84484; 85025

== ENCOUNTER → 2021-09-09 14:40 | Outpatient (CLI) | payer MEDICARE, SELFPAY ==
--- NOTE | 2021-09-09 14:51 | XR_ITS ---
FINAL REPORT CLINICAL HISTORY: INJURY TO RT KNEE,SWELLING OF RT KNEE JOINT FINDINGS: RIGHT KNEE Three views of the right knee reveal no evidence of fracture or dislocation. The bony alignment is normal. There are mild degenerative changes. There is no evidence of joint effusion. No localized soft tissue abnormality is identified. IMPRESSION: Mild degenerative change without acute abnormality identified. Reviewed, Interpreted and Dictated by Reynaldo Pastor III, MD Transcribed by Kenyatta Barba Authenticated by Reynaldo Pastor III, MD on 09/09/2021 03:59:26 PM [facility]
== END ==
PROVIDERS: PCP Nurse Practitioner Family; Visit Provider Nurse Practitioner Family
DX: S89.91XA Unspecified injury of right lower leg, initial encounter (principal); M25.461 Effusion, right knee
CPT/HCPCS: 73562

== ENCOUNTER → 2022-03-10 14:00 | Outpatient (CLI) | payer MEDICARE, SELFPAY ==
--- NOTE | 2022-03-10 14:03 | CT_ITS ---
FINAL REPORT CLINICAL HISTORY: NEW ONSET HEADACHE. recent fall. hit left side of her forehead. COMPARISON: 08/06/2016 FINDINGS: Axial images of the head were obtained without contrast. Coronal reformatted images were also obtained. This study was performed with techniques to keep radiation doses as low as reasonably achievable (ALARA). Individualized dose reduction techniques using automated exposure control or adjustment of mA and/or kV according to the patient's size were employed. There is generalized age-appropriate atrophy. Periventricular low-attenuation areas are seen consistent with mild chronic ischemic changes. There is no evidence of intracranial hemorrhage or mass. There is no evidence of acute infarct. There is no evidence of shift of the midline structures. No skull abnormality is seen on the bone window images. There are postoperative changes of the left orbit . IMPRESSION: Atrophy and mild periventricular chronic ischemic changes. Findings are stable from previous. No acute intracranial abnormality identified. Reviewed, Interpreted and Dictated by Reynaldo Pastor III, MD Transcribed by Samantha Wells Authenticated and [facility]
== END ==
PROVIDERS: PCP Nurse Practitioner Family; Visit Provider Nurse Practitioner Family
DX: R51.9 Headache, unspecified (principal)
CPT/HCPCS: 70450

== ENCOUNTER → 2022-03-25 09:24 | Outpatient (POV) | payer MEDICARE, SELFPAY | PROVIDERS: Visit Provider Dermatology | DX: Z00.00 Encounter for general adult medical examination without abnormal findings (principal) ==

== ENCOUNTER → 2022-06-26 16:27 | Outpatient (CLI) | payer MEDICARE, SELFPAY ==
[2022-06-26 16:36] LABS: Microscopic, Urine URINE MICROSCOPIC (MICROSCOPIC)
[2022-06-26 17:54] LABS: Basophils % 0.5 % (0.1-2.0); Eosinophils # 0.1 K/mm3 (0.0-0.4); Eosinophils % 1.5 % (0.1-12.0); Hematocrit 33.3 % (37.0-47.0); Hemoglobin 10.8 g/dL (12.2-16.2); Lymphocytes # 1.9 K/mm3 (0.7-4.5); Lymphocytes % 32.8 % (10-50); Mean Corpuscular HGB Conc 32.5 g/dL (31.8-35.4); Mean Corpuscular Hemoglobin 28.8 pg (27.0-31.2); Mean Corpuscular Volume 88.6 fl (81-99); Mean Platelet Volume 8.8 fl (7.4-10.4); Monocytes # 0.5 K/mm3 (0.1-1.0); Monocytes % 7.8 % (1.7-9.3); Neutrophils # 3.3 K/mm3 (1.8-7.8); Neutrophils % 57.4 % (37.0-80.0); Platelet Count 307 K/mm3 (142-424); Red Blood Count 3.76 M/mm3 (4.20-5.40); Red Cell Distribution Width 14.8 % (11.5-17.5); White Blood Count 5.8 K/mm3 (4.8-10.8)
[2022-06-26 19:06] LABS: Hemoglobin A1C 6.7 % (4.0-6.0)
[2022-06-26 20:06] LABS: Alanine Aminotransferase 19 U/L (12-78); Albumin Level 4.3 g/dl (3.5-5.0); Albumin/Globulin Ratio 1.7 (1.1-1.8); Alkaline Phosphatase 75 U/L (38-126); Anion Gap 12.3 mEq/L (5-15); Aspartate Amino Transferase 29 U/L (14-36); Bilirubin,Total 0.3 mg/dl (0.2-1.3); Blood Urea Nitrogen 19 mg/dl (7-17); Calcium 8.6 mg/dl (8.4-10.2); Carbon Dioxide 34 mmol/L (22.0-30.0); Chloride 94 mmol/L (98-107); Chol/HDL Ratio 3.4 (1-3.5); Cholesterol 207 mg/dl (140-200); Estimated Glomerular Filt Rate 36 ml/min (>60); GFR (African American) 44 ML/MIN (>60); Globulin 2.6 g/dL (1.3-3.2); Glucose 104 mg/dl (74-100); HDL Cholesterol 61 mg/dl (40-60); Potassium 4.3 mmoL/L (3.5-5.1); Sodium 136 mmol/L (136-145); Total Protein,Serum 6.9 g/dl (6.3-8.2); Triglycerides 184 mg/dl (30-150); VLDL Cholesterol 37 mg/dL (0-40)
[2022-06-26 20:20] LABS: Direct LDL Cholesterol 103.27 mg/dL (100-129)
[2022-06-26 20:35] LABS: Thyroid Stimulating Hormone 1.34 uIU/mL (0.465-4.68)
[2022-06-26 20:54] LABS: Vitamin B12 312 pg/mL (239-931)
[2022-06-26 21:55] LABS: Ferritin 9.85 ng/ml (11.1-264)
[2022-06-26 22:38] LABS: Appearance,Urine CLEAR (Clear); Bilirubin,Urine Negative (Negative); Blood, Urine Negative (Negative); Color,Urine YELLOW (Yellow); Glucose,Urine (UA) Negative (Negative); Ketones,Urine Negative (Negative); Leukocyte Esterase,Urine Negative (Negative); Nitrate,Urine Negative (Negative); Protein,Urine Negative (Negative); Urobilinogen,Urine 0.2 EU/dl (0.2)
[2022-06-26 22:54] LABS: Squamous Epithelial Cell,Urine Occasional #/hpf (0-5)
== END ==
PROVIDERS: PCP Nurse Practitioner Family; Visit Provider Nurse Practitioner Family
DX: R53.1 Weakness (principal); R82.90 Unspecified abnormal findings in urine; E11.9 Type 2 diabetes mellitus without complications; E78.5 Hyperlipidemia, unspecified
CPT/HCPCS: 36415; 80053; 80061; 81001; 82607; 82728; 83036; 84443; 85025; 87086

== ENCOUNTER → 2022-09-30 09:20 | Outpatient (POV) | payer MEDICARE, SELFPAY | PROVIDERS: Visit Provider Dermatology | DX: Z00.00 Encounter for general adult medical examination without abnormal findings (principal) ==

== ENCOUNTER → 2022-11-05 09:48 | Outpatient (CLI) | payer MEDICARE, SELFPAY ==
--- NOTE | 2022-11-05 10:01 | ECG_ITS ---
APPROVED REPORT Exam: Resting ECG HR:58 bpm ECG Measurements Heart Rate 58 AXES CO 216 P 90 QRSd 110 QRS -38 QT 456 T 11 QTc 452 Conclusion SINUS BRADYCARDIA WITH FIRST DEGREE AV BLOCK LEFT AXIS DEVIATION [QRS AXIS < -30] LOW QRS VOLTAGE IN PRECORDIAL LEADS [QRS DEFLECTION < 1.0 mV IN CHEST LEADS] PATTERN CONSISTENT WITH PULMONARY DISEASE MODERATE INTRAVENTRICULAR CONDUCTION DELAY [105+ ms QRS DURATION, 80+ ms Q/S IN V1/V2, NO Q AND 60+ ms R IN I/aVL/V5/V6] ABNORMAL ECG UNCONFIRMED REPORT Electronically signed by : Pillo Bledsoe MD 11/06/2022 09:51:04
[2022-11-05 10:18] LABS: Basophils % 0.6 % (0.1-2.0); Eosinophils # 0.1 K/mm3 (0.0-0.4); Eosinophils % 1.9 % (0.1-12.0); Hematocrit 32.1 % (37.0-47.0); Lymphocytes # 1.7 K/mm3 (0.7-4.5); Mean Corpuscular HGB Conc 31.2 g/dL (31.8-35.4); Mean Corpuscular Hemoglobin 26.9 pg (27.0-31.2); Mean Platelet Volume 9.1 fl (7.4-10.4); Monocytes # 0.5 K/mm3 (0.1-1.0); Monocytes % 7.7 % (1.7-9.3); Neutrophils # 3.7 K/mm3 (1.8-7.8); Platelet Count 307 K/mm3 (142-424); Red Blood Count 3.73 M/mm3 (4.20-5.40); Red Cell Distribution Width 15.5 % (11.5-17.5)
[2022-11-05 11:01] LABS: Anion Gap 12.1 mEq/L (5-15); Blood Urea Nitrogen 18 mg/dl (7-17); Calcium 8.5 mg/dl (8.4-10.2); Carbon Dioxide 32 mmol/L (22.0-30.0); Chloride 99 mmol/L (98-107); Estimated Glomerular Filt Rate 54 ml/min (>60); GFR (African American) 65 ML/MIN (>60); Glucose 107 mg/dl (74-100); Potassium 4.1 mmoL/L (3.5-5.1); Sodium 139 mmol/L (136-145)
== END ==
PROVIDERS: PCP Nurse Practitioner Family; Visit Provider Surgery
DX: I48.91 Unspecified atrial fibrillation (principal); L72.3 Sebaceous cyst; Z01.818 Encounter for other preprocedural examination
CPT/HCPCS: 36415; 80048; 85025; 93005

== ENCOUNTER 2022-11-20 07:52 | Day surgery (SDC) | payer MEDICARE, SELFPAY ==
[2022-11-18 11:15] VITALS: BP 185/84; PULSE 75; RESP 18; TEMP 36.4; O2SAT 94
[2022-11-18 17:14] VITALS: BMI 29.6
[2022-11-20 08:16] VITALS: BP 188/82; PULSE 70; RESP 18; TEMP 36.1; O2SAT 94
--- NOTE | 2022-11-20 09:57 | EXP.ANES.CKL ---
[facility] Disclaimer: The information contained in this section may have been updated after the patient was seen, as this information can be updated by other users. 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 Abnormal EKG Acute pain of both ears Bilateral chronic otitis media Congestive heart failure Dyspnea Edema History of asthma History of atrial fibrillation History of hypertension Surgical History History of ankle surgery History of hysterectomy History of laparoscopic cholecystectomy History of shoulder surgery Family History Other No significant family history Social History Smoking Status: Never smoker alcohol intake: never substance use type: denies use current occupational status: retired Travel in the last 8 weeks: [place] the [place] household members: spouse housing: house caffeine: Yes [facility] Anesthesia Checklist Patient Identification Patient Identification: Arm Band Structural Data Admitted From: Home Planned Operative Procedure/s: Excision of Left Axillary Cyst Consent for Planned Operative Procedure(s) Verified: Yes Verified Documents: Surgical Consent and History and Physical NPO Status Verified Time NPO: 00:00 Additional verifications Anesthesia Reactions: No Hx Blood Transfusions: No Blood Transfusion Reaction: No Airway Assessment C-Spine Mobility Assessed: Yes TMJ Mobility Assessed: Yes Dentition: Dentures-good fit (upper denture removed) Neurological Assessment Level of Consciousness: Awake and Alert Anesthesia Plan Anesthesia Risk discussed: Yes Anesthesia Plan: Verified ASA Class: III Anesthesia Type: MAC
--- NOTE | 2022-11-20 11:08 | P.OP_ITS ---
Date of procedure: 11/20/22 Pre-op Diagnosis:: Left axillary cyst (1.5 cm) Post-op Diagnosis:: Same Procedure performed:: Excision of left axillary cyst Surgeon:: Reynaldo Mcgowan MD EAR MOLD LABORATORY TECHNICIAN:: Shaunna Doulgas Anesthesia: MAC and local Estimated blood loss (mL): 5 Operative findings:: Lesion excised in toto Operative note:: After informed consent was obtained the patient was taken to the operating room and placed in the supine position. Monitored anesthesia care ensued and her left axilla was prepped and draped in a sterile fashion. After infiltration local anesthetic an elliptical incision was made around the lesion. The lesion was sharply excised in toto and passed off for pathologic evaluation. Electrocautery was utilized to achieve hemostasis. Skin was then reapproximated with interrupted 4-0 nylon in a mattress fashion to facilitate hemostasis. Dressings were applied and the patient was transferred to recovery in stable condition. Condition: stable Disposition: PACU Specimens:: Left axillary cyst Complications:: No immediate
[2022-11-20 11:30] VITALS: BP 178/84; PULSE 72; RESP 18; O2SAT 95
[2022-11-20 11:45] VITALS: BP 180/97; PULSE 74; RESP 18; O2SAT 96
== END 2022-11-20 11:45 | disposition home or self-care (01) ==
PROVIDERS: PCP Nurse Practitioner Family; Visit Provider Surgery
DX: L72.0 Epidermal cyst (principal); L02.412 Cutaneous abscess of left axilla
CPT/HCPCS: 11402; 88304; 96374

== ENCOUNTER 2022-12-27 15:47 | Observation (INO) | payer MEDICARE, SELFPAY ==
--- NOTE | 2022-12-27 15:56 | XR_ITS ---
PROCEDURE INFORMATION: Exam: XR Right Wrist Exam date and time: 12/27/2022 4:09 PM Age: 77 years old Clinical indication: Injury or trauma; Fall; Blunt trauma (contusions or hematomas); Wrist; Bilateral TECHNIQUE: Imaging protocol: Radiologic exam of the right wrist. Views: 3 or more views. COMPARISON: CA VENOUS DOPPLER UE RT 11/20/2020 3:26 PM FINDINGS: Bones/joints: Diffuse osteopenia. There is an acute impacted and volarly-angulated fracture of the distal radial shaft. Acute avulsion fracture of the ulnar styloid process noted. 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 Soft tissues: Circumferential soft tissue swelling about the wrist IMPRESSION: There is an acute impacted and volarly-angulated fracture of the distal radial shaft. Acute avulsion fracture of the ulnar styloid process noted.
--- NOTE | 2022-12-27 15:56 | XR_ITS ---
PROCEDURE INFORMATION: Exam: XR Left Wrist Exam date and time: 12/27/2022 4:04 PM Age: 77 years old Clinical indication: Injury or trauma; Fall; Blunt trauma (contusions or hematomas); Wrist; Bilateral TECHNIQUE: Imaging protocol: Radiologic exam of the left wrist. Views: 3 or more views. COMPARISON: No relevant prior studies available. FINDINGS: Bones/joints: Diffuse osteopenia. There is an acute mildly impacted and volarly angulated fracture of the distal radial shaft. 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 Soft tissues: Normal. IMPRESSION: There is an acute mildly impacted and volarly angulated fracture of the distal radial shaft.
--- NOTE | 2022-12-27 16:07 | XR_ITS ---
PROCEDURE INFORMATION: Exam: XR Facial Bones, Minimum of 3 Views, Complete Exam date and time: 12/27/2022 4:14 PM Age: 77 years old Clinical indication: Injury or trauma; Fall; Blunt trauma (contusions or hematomas); Nose TECHNIQUE: Imaging protocol: XR of the facial bones, minimum of 3 views. Complete exam. Total images: 3 COMPARISON: CT FACIAL BONES WO CON 12/28/2019 10:54 AM FINDINGS: Sinuses: Well aerated. No opacification. Bones/joints: No fracture. Soft tissues: Unremarkable. IMPRESSION: No acute changes.
[2022-12-27 16:30] VITALS: BP 113/76; PULSE 64; RESP 18; TEMP 37; O2SAT 95; BMI 35.2
--- NOTE | 2022-12-27 16:42 | EXP.UTC ---
Discharge Plan Disposition Patient Disposition: Still a Patient Prescriptions Prescriptions: No Action atorvastatin 20 mg tablet 20 mg PO DAILY fexofenadine 180 mg tablet 180 mg PO DAILY Patient Comments: TAKE ONE TABLET BY MOUTH EVERY DAY swallow whole with water; DO not take with fruit juices escitalopram oxalate 10 mg tablet 10 mg PO DAILY fluticasone propionate [Flonase Allergy Relief] 50 mcg/actuation spray,suspension 1 spray intranasal DAILY Rx Instructions: administer into each nostril trazodone 50 MG tablet 50 mg PO HS isosorbide mononitrate 60 MG tablet extended release 24 hr 60 mg PO DAILY montelukast 10 MG tablet 10 mg PO DAILY alprazolam 0.5 MG tablet 0.5 mg PO HS levetiracetam 500 MG tablet 500 mg PO BID rivaroxaban 15 MG tablet 15 mg PO QPMWM furosemide 40 MG tablet 40 mg PO DAILY metoprolol succinate 100 MG tablet extended release 24 hr 200 mg PO DAILY potassium chloride 10 MEQ tablet extended release 10 meq PO DAILY Referrals Follow up/Referrals: Erlin Nash APRN [Primary Care Provider] - See instructions Clinical Impressions Clinical Impression: Fall (on) (from) other stairs and steps, initial encounter Discharge ED Provider: Charity ([facility] [place] HPI General Stated complaint: Fall bilateral wrist pain Mode of Arrival: Ambulatory Source of Information: Patient and Relative Limitations: No Limitations Time Seen by Provider: 12/27/22 16:42 Description of Symptoms (Recalled from Triage Doc. 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 pt states she was going up the steps at her daughters house and tripped up her steps and her foot caught the step . pt states she fell hitting her face on the porch and pt states as she was falling she tried to catch herself by putting her hands out in front of her. daughter states she is very unsteady on her feet since the fall. when asked questions she has a hard time answering but states she always has that problem Related Data Home Medications Medication Instructions Recorded Confirmed alprazolam 0.5 mg tablet 0.5 mg PO HS SLEEP/ANXIETY 10/30/20 11/28/22 isosorbide mononitrate 60 mg 60 mg PO DAILY bp 10/30/20 11/28/22 tablet,extended release 24 hr montelukast 10 mg tablet 10 mg PO DAILY allergies 10/30/20 11/28/22 trazodone 50 mg tablet 50 mg PO HS sleep 10/30/20 11/28/22 levetiracetam 500 mg tablet 500 mg PO BID seizure 10/31/20 11/28/22 rivaroxaban 15 mg tablet 15 mg PO QPMWM afib 11/08/20 11/28/22 atorvastatin 20 mg tablet 20 mg PO DAILY HLD 10/28/22 11/28/22 escitalopram oxalate 10 mg tablet 10 mg PO DAILY MOOD 10/28/22 11/28/22 fexofenadine 180 mg tablet 180 mg PO DAILY . 10/28/22 11/28/22 fluticasone propionate 50 1 spray intranasal DAILY ALLERGIES 10/28/22 11/28/22 mcg/actuation nasal spray,suspension (Flonase Allergy Relief) furosemide 40 mg tablet 40 mg PO DAILY CHF 11/18/22 11/28/22 metoprolol succinate 100 mg 200 mg PO DAILY HR 11/18/22 11/28/22 tablet,extended release 24 hr potassium chloride 10 mEq 10 meq PO DAILY Supplement 11/18/22 11/28/22 tablet,extended release Allergies Allergy/AdvReac Type Severity Reaction Status Date / Time Milk Containing Products Allergy Intermediate Unknown Verified 11/28/22 09:46 (Dairy) allergy [Milk Containing Products] reaction Worker's Comp Is this a Worker's Comp case?: No [facility] Disclaimer: The information contained in this section may have been updated after the patient was seen, as this infor
--- NOTE | 2022-12-27 16:45 | PC.NURSE ---
pt arrived to ed in room 5 via wheelchair from [facility]
[2022-12-27 17:01] VITALS: BP 195/93; PULSE 63; RESP 16; TEMP 36.6; O2SAT 97; BMI 35.3
[2022-12-27 17:02] VITALS: BP 195/93; PULSE 65; O2SAT 95
--- NOTE | 2022-12-27 17:12 | CT_ITS ---
PROCEDURE INFORMATION: Exam: CT Maxillofacial Without Contrast Exam date and time: 12/27/2022 5:50 PM Age: 77 years old Clinical indication: Injury or trauma; Fall TECHNIQUE: Imaging protocol: Computed tomography of the face without contrast. Radiation optimization: All CT scans at this facility use at least one of these dose optimization techniques: automated exposure control; mA and/or kV adjustment per patient size (includes targeted exams where dose is matched to clinical indication); or iterative reconstruction. REPORTING DATA: Count of CT and Cardiac NM exams in prior 12 months: This patient has received [address] and 0 known cardiac nuclear medicine studies in the 12 months prior to the current study. COMPARISON: CT HEAD/BRAIN WO CON 12/27/2022 5:47 PM FINDINGS: Orbital cavities: Globes are symmetric. Orbital rims/cabello are intact. Intraconal fat appear unremarkable. Lacrimal glands are unremarkable. Bones/joints: No acute fracture of the maxillofacial region. Paranasal sinuses: Normal. No air-fluid levels. Soft tissues: Unremarkable. IMPRESSION: No acute fracture of the maxillofacial region.
--- NOTE | 2022-12-27 17:12 | CT_ITS ---
PROCEDURE INFORMATION: Exam: CT Cervical Spine Without Contrast Exam date and time: 12/27/2022 5:53 PM Age: 77 years old Clinical indication: Injury or trauma; Fall TECHNIQUE: Imaging protocol: Computed tomography of the cervical spine without contrast. Radiation optimization: All CT scans at this facility use at least one of these dose optimization techniques: automated exposure control; mA and/or kV adjustment per patient size (includes targeted exams where dose is matched to clinical indication); or iterative reconstruction. REPORTING DATA: Count of CT and Cardiac NM exams in prior 12 months: This patient has received [address] and 0 known cardiac nuclear medicine studies in the 12 months prior to the current study. COMPARISON: CT FACIAL BONES WO CON 12/27/2022 5:50 PM FINDINGS: Bones/joints: Status post right shoulder arthroplasty. Vertebral alignment is maintained. There is preservation of vertebral body heights. Facet joints are well aligned. Odontoid process is intact. Atlantoaxial interval is maintained. No acute fracture. No osseous encroachment of the spinal canal. No significant neural foraminal narrowing at any level. Lungs: Lung apices are normal. Soft tissues: Prevertebral and paravertebral soft tissues are unremarkable. IMPRESSION: No acute fracture. No traumatic subluxation.
--- NOTE | 2022-12-27 17:12 | CT_ITS ---
PROCEDURE INFORMATION: Exam: CT Head Without Contrast Exam date and time: 12/27/2022 5:47 PM Age: 77 years old Clinical indication: Injury or trauma; Fall; Additional info: Fall anticoag TECHNIQUE: Imaging protocol: Computed tomography of the head without contrast. Radiation optimization: All CT scans at this facility use at least one of these dose optimization techniques: automated exposure control; mA and/or kV adjustment per patient size (includes targeted exams where dose is matched to clinical indication); or iterative reconstruction. REPORTING DATA: Count of CT and Cardiac NM exams in prior 12 months: This patient has received [address] and 0 known cardiac nuclear medicine studies in the 12 months prior to the current study. COMPARISON: CT HEAD/BRAIN WO CON 03/10/2022 2:17 PM FINDINGS: Brain: There is no evidence of acute intracranial hemorrhage, extra-axial collection or locoregional mass effect. There are patchy hypodensities in the periventricular and subcortical white matter. The appearance is nonspecific, but most likely represents chronic small vessel disease in a person of this age Cerebral ventricles: The ventricles, sulci and cisterns are normal in size and configuration for patient's age. No hydrocephalus or midline structure shift Pituitary gland and sella: Sellar/parasellar structures, craniocervical junction and orbits are unremarkable Paranasal sinuses: Visualized sinuses are unremarkable. No fluid levels. Mastoid air cells: Visualized mastoid air cells are well aerated. Bones/joints: No calvarial fracture Soft tissues: Unremarkable. IMPRESSION: No acute intracranial abnormality. No calvarial fracture.
--- NOTE | 2022-12-27 17:12 | ECG_ITS ---
APPROVED REPORT Exam: Resting ECG HR:66 bpm ECG Measurements Heart Rate 66 AXES OH 212 P 93 QRSd 112 QRS -30 QT 347 T 5 QTc 361 Conclusion SINUS RHYTHM WITH FIRST DEGREE AV BLOCK BORDERLINE LEFT AXIS DEVIATION [QRS AXIS < -20] MODERATE INTRAVENTRICULAR CONDUCTION DELAY [110+ ms QRS DURATION] NONSPECIFIC T-WAVE ABNORMALITY ABNORMAL ECG UNCONFIRMED REPORT Electronically signed by : Pillo Bledsoe MD 12/28/2022 08:37:53
--- NOTE | 2022-12-27 17:12 | XR_ITS ---
PROCEDURE INFORMATION: Exam: XR Pelvis Exam date and time: 12/27/2022 5:33 PM Age: 77 years old Clinical indication: Injury or trauma; Fall; Blunt trauma (contusions or hematomas); Bilateral; Pelvic region TECHNIQUE: Imaging protocol: Radiologic exam of the pelvis. Views: 1 or 2 view. Total images: 1 COMPARISON: CR HIPCMRT XR hip RT 2-3V w/pelvis 10/19/2017 1:47 PM FINDINGS: Bones/joints: Degenerative changes of both hips. No evidence of acute fracture. No evidence of acute dislocation. Soft tissues: Unremarkable. Gastrointestinal tract: Large amount of stool is present throughout the colon. IMPRESSION: 1. Degenerative changes of both hips. 2. No evidence of acute fracture. 3. No evidence of acute dislocation. 4. Large amount of stool is present throughout the colon.
--- NOTE | 2022-12-27 17:12 | XR_ITS ---
PROCEDURE INFORMATION: Exam: XR Left Shoulder Exam date and time: 12/27/2022 5:33 PM Age: 77 years old Clinical indication: Injury or trauma; Fall; Blunt trauma (contusions or hematomas); Shoulder; Left TECHNIQUE: Imaging protocol: Radiologic exam of the left shoulder. Views: 2 or more views. Total images: 3 COMPARISON: CR XR SHOULDER LT MIN 2V 08/01/2020 9:21 AM FINDINGS: Bones/joints: Moderate degenerative changes of the left shoulder. No evidence of acute fracture. No evidence of acute dislocation. Soft tissues: Normal. IMPRESSION: 1. Moderate degenerative changes of the left shoulder. 2. No evidence of acute fracture. 3. No evidence of acute dislocation.
--- NOTE | 2022-12-27 17:12 | XR_ITS ---
PROCEDURE INFORMATION: Exam: XR Chest Exam date and time: 12/27/2022 5:33 PM Age: 77 years old Clinical indication: Injury or trauma; Fall; Blunt trauma (contusions or hematomas); Additional info: Fall, nontender TECHNIQUE: Imaging protocol: Radiologic exam of the chest. Views: 1 view. Total images: 1 COMPARISON: CR XR CHEST 2V 08/05/2021 12:58 PM FINDINGS: Lungs: Atelectatic changes noted within both lung bases. Pleural spaces: Unremarkable. No pleural effusion. No pneumothorax. Heart/Mediastinum: Heart demonstrates mild diffuse enlargement. Bones/joints: Postoperative changes of the right shoulder. Degenerative changes of the left glenohumeral and acromioclavicular joints. IMPRESSION: 1. Mild cardiomegaly. 2. Atelectatic changes noted within both lung bases.
--- NOTE | 2022-12-27 17:18 | HMH.EDGENADL ---
Discharge Plan Disposition Patient Disposition: Home, Self-Care Condition: Fair Clinical Impressions Clinical Impression: Fall (on) (from) other stairs and steps, initial encounter, Bilateral radial fractures, Fracture of ulnar styloid Discharge ED Provider: Usman Umaña General Adult HPI General Chief complaint: Fall Stated complaint: Ao08/ Fall bilateral wrist pain Time Seen by Provider: 12/27/22 16:42 Mode of Arrival: Wheelchair Source of Information: Patient and Relative Limitations: No Limitations Description of Symptoms (Recalled from ER Triage Doc. by RN): 77 yo F presents to ED from [facility] for further evaluation. 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 pt reports that hit bilateral wrists on the way down. pt reports pain in nose, bilateral wrists, shouler. pt takes xarelto for afib. History of Present Illness HPI narrative: Patient is a 77-year-old female with past medical history of bilateral shoulder fracture secondary to seizure status post surgical intervention with limited mobility at the shoulders, frequent falls, atrial fibrillation on anticoagulation who presents emergency department for evaluation of traumatic injury sustained in a fall. Patient states that while she was walking outside she got caught on her right foot falling forward onto her outstretched hands. She is not able to particularly catch herself well given her shoulder history and she fell onto her face. No loss of consciousness. She also has a history of chronic glaucoma and her left lid is usually closed however she is able to open it on command. Patient states that she has midface pain, bilateral wrist pain. She presented to urgent care where work-up with plain films of the wrist was remarkable for distal radial fractures bilaterally and she was transported here for continued evaluation. Patient is complaining of left shoulder achiness, bilateral wrist pain, mid face pain, no other acute complaints at this time. Related Data Home Medications Medication Instructions Recorded Confirmed alprazolam 0.5 mg tablet 0.5 mg PO HS SLEEP/ANXIETY 10/30/20 12/27/22 isosorbide mononitrate 60 mg 60 mg PO HS bp 10/30/20 12/27/22 tablet,extended release 24 hr montelukast 10 mg tablet 10 mg PO DAILY allergies 10/30/20 12/27/22 trazodone 50 mg tablet 50 mg PO HS sleep 10/30/20 12/27/22 levetiracetam 500 mg tablet 500 mg PO BID seizure 10/31/20 12/27/22 rivaroxaban 15 mg tablet 15 mg PO QPMWM afib 11/08/20 12/27/22 atorvastatin 20 mg tablet 20 mg PO DAILY HLD 10/28/22 12/27/22 escitalopram oxalate 10 mg tablet 10 mg PO DAILY MOOD 10/28/22 12/27/22 fexofenadine 180 mg tablet 180 mg PO DAILY . 10/28/22 12/27/22 fluticasone propionate 50 1 spray intranasal DAILY ALLERGIES 10/28/22 12/27/22 mcg/actuation nasal spray,suspension (Flonase Allergy Relief) furosemide 40 mg tablet 40 mg PO DAILY CHF 11/18/22 12/27/22 metoprolol succinate 100 mg 200 mg PO DAILY HR 11/18/22 12/27/22 tablet,extended release 24 hr potassium chloride 10 mEq 10 meq PO DAILY Supplement 11/18/22 12/27/22 tablet,extended release Allergies Allergy/AdvReac Type Severity Reaction Status Date / Time Milk Containing Products Allergy Intermediate Unknown Verified 11/28/22 09:46 (Dairy) allergy [Milk Containing Products] reaction [facility] Disclaimer: The information contained in this section may have been updated after the patient was seen, as this information can be updated by other users. 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
--- NOTE | 2022-12-27 17:35 | PC.NURSE ---
To CT via stretcher
--- NOTE | 2022-12-27 17:47 | XR_ITS ---
PROCEDURE INFORMATION: Exam: XR Left Forearm Exam date and time: 12/27/2022 5:56 PM Age: 77 years old Clinical indication: Injury or trauma; Fall TECHNIQUE: Imaging protocol: Radiologic exam of the left forearm. Views: 2 views. Total images: 2 COMPARISON: CR XR WRIST LT MIN 3V 12/27/2022 4:04 PM FINDINGS: Bones/joints: Impacted fracture of the distal radius. Bones are osteopenic. Question fracture of the ulnar styloid. No evidence of acute dislocation. Soft tissues: Distal soft tissue swelling. IMPRESSION: 1. Impacted fracture of the distal radius. 2. Bones are osteopenic. 3. Distal soft tissue swelling. 4. Question fracture of the ulnar styloid. 5. No evidence of acute dislocation.
--- NOTE | 2022-12-27 17:47 | XR_ITS ---
PROCEDURE INFORMATION: Exam: XR Left Elbow Exam date and time: 12/27/2022 5:56 PM Age: 77 years old Clinical indication: Injury or trauma; Fall TECHNIQUE: Imaging protocol: Radiologic exam of the left elbow. Views: 1 or 2 views. Total images: 3 COMPARISON: CR XR SHOULDER LT MIN 2V 12/27/2022 5:33 PM FINDINGS: Bones/joints: No evidence of acute fracture or dislocation. Bones are osteopenic. Soft tissues: Soft tissues are within normal limits. IMPRESSION: 1. No evidence of acute fracture or dislocation. 2. Bones are osteopenic.
--- NOTE | 2022-12-27 17:47 | XR_ITS ---
PROCEDURE INFORMATION: Exam: XR Left Humerus Exam date and time: 12/27/2022 5:56 PM Age: 77 years old Clinical indication: Injury or trauma; Fall TECHNIQUE: Imaging protocol: Radiologic exam of the left humerus. Views: 2 or more views. Total images: 2 COMPARISON: CR XR SHOULDER LT MIN 2V 12/27/2022 5:33 PM FINDINGS: Bones/joints: No evidence of acute fracture or dislocation. Degenerative changes of the glenohumeral and acromioclavicular joints. Soft tissues: Soft tissues are within normal limits. IMPRESSION: No evidence of acute fracture or dislocation.
--- NOTE | 2022-12-27 17:47 | CT_ITS ---
PROCEDURE INFORMATION: Exam: CT Left Upper Extremity Without Contrast, Shoulder Exam date and time: 12/27/2022 5:56 PM Age: 77 years old Clinical indication: Injury or trauma; Fall; Additional info: L shoulder eval TECHNIQUE: Imaging protocol: Computed tomography of the left upper extremity without contrast. Exam focused on the shoulder. Total images: 720 Radiation optimization: All CT scans at this facility use at least one of these dose optimization techniques: automated exposure control; mA and/or kV adjustment per patient size (includes targeted exams where dose is matched to clinical indication); or iterative reconstruction. REPORTING DATA: Count of CT and Cardiac NM exams in prior 12 months: This patient has received [address] and 0 known cardiac nuclear medicine studies in the 12 months prior to the current study. COMPARISON: CR XR SHOULDER LT MIN 2V 12/27/2022 5:33 PM FINDINGS: Bones/joints: Moderate to severe degenerative changes of the left shoulder with narrowing of the glenohumeral and acromioclavicular joints. No evidence of acute fracture. No evidence of acute dislocation. Soft tissues: Soft tissue swelling is present. IMPRESSION: 1. Moderate to severe degenerative changes of the left shoulder with narrowing of the glenohumeral and acromioclavicular joints. 2. No evidence of acute fracture. 3. No evidence of acute dislocation. 4. Soft tissue swelling is present. Degenerative cystic changes noted along the glenoid.
[2022-12-27 18:36] LABS: Chloride 99 mmol/L (98-107); Potassium 3.9 mmoL/L (3.5-5.1); Sodium 137 mmol/L (136-145)
[2022-12-27 18:38] LABS: Basophils % 0.3 % (0.1-2.0); Eosinophils # 0.1 K/mm3 (0.0-0.4); Eosinophils % 1.5 % (0.1-12.0); Hematocrit 31.4 % (37.0-47.0); Hemoglobin 9.8 g/dL (12.2-16.2); Lymphocytes # 1.5 K/mm3 (0.7-4.5); Lymphocytes % 23.2 % (10-50); Mean Corpuscular HGB Conc 31.2 g/dL (31.8-35.4); Mean Corpuscular Hemoglobin 25.6 pg (27.0-31.2); Mean Platelet Volume 9.1 fl (7.4-10.4); Monocytes # 0.4 K/mm3 (0.1-1.0); Monocytes % 6.4 % (1.7-9.3); Neutrophils # 4.5 K/mm3 (1.8-7.8); Neutrophils % 68.6 % (37.0-80.0); Platelet Count 331 K/mm3 (142-424); Red Blood Count 3.82 M/mm3 (4.20-5.40); White Blood Count 6.5 K/mm3 (4.8-10.8)
[2022-12-27 18:39] LABS: Alanine Aminotransferase 22 U/L (12-78); Albumin/Globulin Ratio 1.3 (1.1-1.8); Alkaline Phosphatase 107 U/L (38-126); Anion Gap 11.9 mEq/L (5-15); Aspartate Amino Transferase 31 U/L (14-36); Bilirubin,Total 0.4 mg/dl (0.2-1.3); Blood Urea Nitrogen 15 mg/dl (7-17); Calcium 9.3 mg/dl (8.4-10.2); Carbon Dioxide 30 mmol/L (22.0-30.0); Creatinine Clearance Estimated 51 mL/min (50-200); Estimated Glomerular Filt Rate 44 ml/min (>60); GFR (African American) 53 ML/MIN (>60); Globulin 3.2 g/dL (1.3-3.2); Glucose 134 mg/dl (74-100); Total Protein,Serum 7.2 g/dl (6.3-8.2)
--- NOTE | 2022-12-27 18:49 | PC.NURSE ---
charge nurse at bs
--- NOTE | 2022-12-27 19:05 | PC.NURSE ---
Dr. Mohamud man
--- NOTE | 2022-12-27 19:30 | PC.NURSE ---
charge nurse and Er Md at splinting pt
--- NOTE | 2022-12-27 19:37 | PC.NURSE ---
OBSERVATION ADMIT TO 204 WITH DX OF BILATERAL WRIST FX TO SERVICE OF THE HOSPITALIST.
--- NOTE | 2022-12-27 20:26 | PC.NURSE ---
Attempted to call nurse for report before taking patient up. Will complete bedside report with 2nd floor nurse
[2022-12-27 20:30] VITALS: O2SAT 95
[2022-12-27 20:40] VITALS: BP 140/71; PULSE 69; RESP 17; TEMP 37.1; O2SAT 97
--- NOTE | 2022-12-27 20:44 | PC.NURSE ---
Pt arrived to the floor via stretcher @ 2030
--- NOTE | 2022-12-27 21:22 | EXP.HP ---
History of Present Illness *Admission Date: 12/27/22 *Reason for visit:: bilateral radial fractures *History of present illness: 77 year old female presented to the ED for c/o mid face pain and bilateral wrist pain after a traumatic fall. Patient states that while she was walking outside she got caught on her right foot falling forward onto her outstretched hands. She is not able to particularly catch herself well given her shoulder history and she fell onto her face. No loss of consciousness. PMHX of seizures, and atrial fibrillation with anticoagulation. The ED work revealed bilateral distal radial fractures. Impacted and volarly angulated fracture of the right distal radial shaft with an acute avulsion fracture of the ulnar styloid. There is also an acute mildly impacted and volarly angulated fracture of the distal radial shaft on the left with questionable fracture of the ulnar styloid. The ED physician spoke with Dr. South who recommended outpatient follow up and bilateral splitting. The patient had bilateral closed reductions of the left and right radial fractures. She was admitted for PT/OT therapy to assist with transitioning to home. [facility] Disclaimer: The information contained in this section may have been updated after the patient was seen, as this information can be updated by other users. 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) History of ankle surgery History of colonoscopy History of hysterectomy History of laparoscopic cholecystectomy History of shoulder surgery Family History (Updated 12/27/22 @ 21:21 by Vero Diez RN) Other Family history of acute heart failure Family history of diabetes mellitus type II Renal failure Social History (Updated 12/27/22 @ 21:21 by Vero Diez RN) Smoking Status: Never smoker alcohol intake: never substance use type: denies use current occupational status: retired Travel in the last 8 weeks: Inside the [place] household members: spouse housing: house caffeine: Yes Review of Systems Review of Systems Review of systems:: pertinent systems reviewed and negative unless documented below *Cardiovascular Cardiovascular: Reports system reviewed and no additional complaints, except as documented *Respiratory Respiratory: Reports system reviewed and no additional complaints, except as documented *Gastrointestinal Gastrointestinal: Reports system reviewed and no additional complaints, except as documented *Genitourinary Genitourinary: Reports system reviewed and no additional complaints, except as documented *Musculoskeletal Musculoskeletal: Reports limited range of motion (bilateral radial splitting ) *Neurologic Neurologic: Reports system reviewed and no additional complaints, except as documented Meds Home Medications and Allergies Home Medications Medication Instructions Recorded Confirmed Type alprazolam 0.5 mg tablet 0.5 mg PO HS SLEEP/ANXIETY 10/30/20 12/27/22 History isosorbide mononitrate 60 mg 60 mg PO HS bp 10/30/20 12/27/22 History tablet,extended release 24 hr montelukast 10 mg tablet 10 mg PO DAILY allergies 10/30/20 12/27/22 History trazodone 50 mg tablet 50 mg PO HS sleep 10/30/20 12/27/22 History levetiracetam 500 mg tablet 500 mg PO BID seizure 10/31/20 12/27/22 History rivaroxaban 15 mg tablet 15 mg PO QPMWM afib 11/08/20 12/27/22 History atorvastatin 20 mg tablet 20 mg PO DAILY HLD 10/28/22 12/27/22 History escitalopram oxalate 10 mg tablet 10 mg PO DAILY MOOD 10/28/22 12/27/22 History fexofenadine 180 mg tablet 180 mg PO DAILY . 10/28/22 12/27/22 History fluticasone propionate 50 1 spray intranasal DAILY ALLERGIES 10/28/2212/09
--- NOTE | 2022-12-27 21:29 | PC.NURSE ---
patient arrived to the floor at 2030 via stretcher accompanied by family members x 2. admitted to room 204. report received from lyndsay smith rn at the bedside. side rails padded due to seizure disorder. purewick in use. oriented to room and equipement. patient unable to use hands due to nerve block and ortho glass splints. bed alarm clipped to acewrap. instructed patient to raise her arm which will trigger the bed alarm if she needs anything.
[2022-12-27 22:15] LABS: Hemoglobin A1C 7.4 % (4.0-6.0)
[2022-12-27 22:16] VITALS: BP 189/84; PULSE 70; RESP 16; TEMP 36.7; O2SAT 94
[2022-12-27 22:17] VITALS: BMI 37.7
--- NOTE | 2022-12-27 23:57 | PC.NURSE ---
FREQUENT CHECKS ON PATIENT. IS ABLE TO TRIGGER THE CLIP ALARM BY MOVING ARMS.
--- NOTE | 2022-12-28 01:07 | PC.NURSE ---
PATIENT C/O PAIN IN BILAT ARMS. REQUESTING PAIN MED. Karen HUITRON. NOTIFIED AND TO ORDER PAIN MED.
[2022-12-28 04:00] VITALS: BP 150/74; PULSE 53; RESP 16; TEMP 36.7; O2SAT 93; BMI 37.8
--- NOTE | 2022-12-28 06:30 | PC.NURSE ---
Frequent rounding performed on patient as she is physically challenged in re: use of call ruiz. Ortho glass splints and RAMÓN wraps C/D/I. wiggles finger. Fingers warm, dry, good cap refill. VSs stable/afebrile. Received 2 doses of morphine 2 mg IVP this shift on Med surg for pain control. Last dose was at 0121.
[2022-12-28 07:43] LABS: Basophils % 0.3 % (0.1-2.0); Eosinophils # 0.1 K/mm3 (0.0-0.4); Hematocrit 30.1 % (37.0-47.0); Hemoglobin 9.4 g/dL (12.2-16.2); Lymphocytes # 0.9 K/mm3 (0.7-4.5); Lymphocytes % 11.2 % (10-50); Mean Corpuscular HGB Conc 31.2 g/dL (31.8-35.4); Mean Corpuscular Hemoglobin 25.9 pg (27.0-31.2); Mean Corpuscular Volume 83.1 fl (81-99); Mean Platelet Volume 9.2 fl (7.4-10.4); Monocytes # 0.7 K/mm3 (0.1-1.0); Neutrophils # 5.9 K/mm3 (1.8-7.8); Neutrophils % 78.5 % (37.0-80.0); Platelet Count 299 K/mm3 (142-424); Red Blood Count 3.63 M/mm3 (4.20-5.40); Red Cell Distribution Width 16.2 % (11.5-17.5); White Blood Count 7.5 K/mm3 (4.8-10.8)
[2022-12-28 07:54] LABS: Chloride 101 mmol/L (98-107); Potassium 5.3 mmoL/L (3.5-5.1); Sodium 137 mmol/L (136-145)
[2022-12-28 07:57] LABS: Anion Gap 15.3 mEq/L (5-15); Blood Urea Nitrogen 16 mg/dl (7-17); Carbon Dioxide 26 mmol/L (22.0-30.0); Creatinine Clearance Estimated 54 mL/min (50-200); Estimated Glomerular Filt Rate 44 ml/min (>60); GFR (African American) 53 ML/MIN (>60)
[2022-12-28 07:58] LABS: Calcium 9.2 mg/dl (8.4-10.2); Glucose 152 mg/dl (74-100)
[2022-12-28 08:00] VITALS: BP 126/65; PULSE 76; RESP 16; TEMP 36.8; O2SAT 92
--- NOTE | 2022-12-28 08:04 | EXP.PN ---
Subjective *Date: 12/28/22 *Time: 23:00 Interval history: No acute events overnight. Pain is in control. Exam Data for Last 24 hours Vital signs and Labs for Last 24 Hours: Temp Pulse Resp BP Pulse Ox O2 Del Method 98.1 F 53 L 16 150/74 H 93 L Room Air 12/28/22 04:00 12/28/22 04:00 12/28/22 04:00 12/28/22 04:00 12/28/22 04:00 12/28/22 06:43 Laboratory Results - last 24 hr 12/27/22 18:18: WBC 6.5, RBC 3.82 L, Hgb 9.8 L, Hct 31.4 L, MCV 82.0, MCH 25.6 L, MCHC 31.2 L, RDW 16.0, Plt Count 331, MPV 9.1, Neut % (Auto) 68.6, Lymph % (Auto) 23.2, [place] % (Auto) 6.4, Eos % (Auto) 1.5, Baso % (Auto) 0.3, Neut # (Auto) 4.5, Lymph # (Auto) 1.5, [place] # (Auto) 0.4, Eos # (Auto) 0.1, Baso # (Auto) 0.0, Sodium 137, Potassium 3.9, Chloride 99, Carbon Dioxide 30, Anion Gap 11.9, BUN 15, Creatinine 1.20 H, Estimated Creat Clear 51, Estimated GFR 44 L, Est GFR ( Amer) 53 L, Glucose 134 H, Hemoglobin A1c 7.4 H, Calcium 9.3, Total Bilirubin 0.4, AST 31, ALT 22, Alkaline Phosphatase 107, Total Protein 7.2, Albumin 4.0, Globulin 3.2, Albumin/Globulin Ratio 1.3 12/28/22 06:42: WBC 7.5, RBC 3.63 L, Hgb 9.4 L, Hct 30.1 L, MCV 83.1, MCH 25.9 L, MCHC 31.2 L, RDW 16.2, Plt Count 299, MPV 9.2, Neut % (Auto) 78.5, Lymph % (Auto) 11.2, [place] % (Auto) 9.0, Eos % (Auto) 1.0, Baso % (Auto) 0.3, Neut # (Auto) 5.9, Lymph # (Auto) 0.9, [place] # (Auto) 0.7, Eos # (Auto) 0.1, Baso # (Auto) 0.0, Sodium 137, Potassium 5.3 H D, Chloride 101, Carbon Dioxide 26, Anion Gap 15.3 H, BUN 16, Creatinine 1.20 H, Estimated Creat Clear 54, Estimated GFR 44 L, Est GFR ( Amer) 53 L, Glucose 152 H, Calcium 9.2 I & O for Last 24 hours: Intake & Output 12/25/22 12/26/22 12/27/22 12/28/22 23:59 23:59 23:59 23:59 Intake Total 360 / 360 Output Total 750 / 750 Balance -390 / -390 Weight 87.09 kg 87.407 kg Constitutional Constitutional: no acute distress *Routine HEENT Exam Head: Present normocephalic Eye: Present EOMI and PERRL ENT: Present mucous membranes moist *Routine Neck Exam Neck: Present supple; Absent lymphadenopathy *Routine Respiratory Exam Respiratory: Present CTA bilaterally *Routine Cardiovascular Exam Cardiovascular: Present RRR *Routine Abdominal Exam Abdominal: Present soft and normoactive bowel sounds; Absent tenderness *Routine Extremities Exam Extremities: Absent cyanosis, clubbing or edema Comments: Bilateral arms are in splints. *Routine Skin Exam Skin: Present warm; Absent rash *Routine Neurological Exam Neurological: Present alert and oriented X3 Assessment and Plan *Assessment and plan (1) Bilateral radial fractures: Status: Acute Category: Medical Code(s): S52.91XA - Unspecified fracture of right forearm, initial encounter for closed fracture; S52.92XA - Unspecified fracture of left forearm, initial encounter for closed fracture (2) Atrial fibrillation: Status: Chronic Qualifiers: Atrial fibrillation type: persistent (not longstanding) Qualified Code(s): I48.19 - Other persistent atrial fibrillation Category: Medical Code(s): I48.91 - Unspecified atrial fibrillation (3) Type 2 diabetes mellitus with hyperglycemia, without long-term current use of insulin: Status: Chronic Category: Medical Code(s): E11.65 - Type 2 diabetes mellitus with hyperglycemia (4) Essential hypertension: Status: Chronic Category: Medical Code(s): I10 - Essential (primary) hypertension (5) History of seizures: Status: Chronic Category: Medical Code(s): Z87.898 - Personal history of other specified conditions (6) Congestive heart failure: Status: Resolved Qualifiers: Heart failure chronicity: acute on chronic Heart failure type: unspecified Qualified Code(s): I50.9 - Heart failure, unspecified Category: Medical Code(s): I50.9 - Heart failure, unspecified (7) HLD (hyperlipidemia): Sta
[2022-12-28 12:59] LABS: Anion Gap 11.9 mEq/L (5-15); Blood Urea Nitrogen 17 mg/dl (7-17); Calcium 8.3 mg/dl (8.4-10.2); Carbon Dioxide 29 mmol/L (22.0-30.0); Chloride 101 mmol/L (98-107); Creatinine Clearance Estimated 50 mL/min (50-200); Estimated Glomerular Filt Rate 40 ml/min (>60); GFR (African American) 48 ML/MIN (>60); Glucose 142 mg/dl (74-100); Potassium 4.9 mmoL/L (3.5-5.1); Sodium 137 mmol/L (136-145)
[2022-12-28 16:00] VITALS: BP 131/66; PULSE 60; RESP 18; TEMP 36.9; O2SAT 90
--- NOTE | 2022-12-28 17:24 | PC.NURSE ---
patient has done well this shift. still waiting on pt at this time. patient has been up and walked in page. encouraged to get up and use bathroom as needed instead of relying on the purwick., did request it for night time to prevent accidents. no use of hands becasue of splint. bedalarm attached to arm and patient will pull it when she needs something since she can not use hands. family and patient stated ortho doctor poked his head in and said dr cabello would probably do surgery this week on her arms . did speak with dr aldridge about pain meds and he ordered norco as needed. patient does state pain has been minimal compared to what she would expect. in good spirits. encouraged to pull alarm as needed
--- NOTE | 2022-12-28 19:17 | HMH.PTEV ---
Physical Therapy Evaluation Rehab PT IP Evaluation Start: 12/27/22 21:13 Freq: ONCE Status: Active Protocol: Document 12/28/22 19:00 PDESEROUX (Rec: 12/28/22 19:17 PDESEROUX [id number]) Subjective/History History History Pt. is a 77 years of age female w/ a PMH of frequent falls, afib. on anticoagulation, BUE shldr. fractures, and S/P RLE ankle reconstruction who presents to [facility] 2nd floor Inpatient setting for the Physical Therapy Inpatient initial evaluation this date(12/28/22) for the evaluation of a traumatic injury sustained from a fall. Pt. reports getting her foot caught on a step and tripping while trying to negotiate 3 steps to enter into her family's home. Pt. reports falling on an outstretched hand to try and brace herself from the fall. Pt. reports having a history of falls secondary to imbalance. Pt. reports she ambulates w/ a SPC when she leaves her house, but not while she is in her house. Pt. reports her balance has not been right since she fractured BUE shldrs. Pt. reports she lives in a 1-story home w/ a curb to enter. Pt. reports she lives w/ her , and that she was independent w/ ADLs prior to fall. Pt. reports the Orthopedic Surgeon is planning on having surgery to BUE wrists this week, maybe Thursday or Thursday. Pt. reports her daughters are able to assist pt. w/ ADL' s while she is at home. Subjective Subjective Pt. reports, I'm doing fine. Pt. was seated upright in hospital chair conversing w/ family upon being welcomed into the pt.'s room this
[2022-12-28 20:00] VITALS: BP 141/69; PULSE 48; RESP 16; TEMP 36.9; O2SAT 92
[2022-12-29 04:00] VITALS: BP 125/47; PULSE 53; RESP 16; TEMP 36.9; O2SAT 94; BMI 38.9
--- NOTE | 2022-12-29 07:41 | EXP.DC.SUM ---
General Admission date:: 12/27/22 Discharge date: 12/29/22 HPI HPI HPI: Forwarded from admission H&P: 77 year old female presented to the ED for c/o mid face pain and bilateral wrist pain after a traumatic fall. Patient states that while she was walking outside she got caught on her right foot falling forward onto her outstretched hands. She is not able to particularly catch herself well given her shoulder history and she fell onto her face. No loss of consciousness. PMHX of seizures, and atrial fibrillation with anticoagulation. The ED work revealed bilateral distal radial fractures. Impacted and volarly angulated fracture of the right distal radial shaft with an acute avulsion fracture of the ulnar styloid. There is also an acute mildly impacted and volarly angulated fracture of the distal radial shaft on the left with questionable fracture of the ulnar styloid. The ED physician spoke with Dr. South who recommended outpatient follow up and bilateral splitting. The patient had bilateral closed reductions of the left and right radial fractures. She was admitted for PT/OT therapy to assist with transitioning to home. Hospital Course Hospital Course Hospital Course: The patient was seen by Orthopedic Surgery. They recommended operative intervention because it would lead to a faster use of the patient's wrists. Orthopedic Surgery will begin working with Cardiology for recommendations in regards to stopping Xarelto. Currently the plan is for open reduction internal fixation of bilateral distal radius fractures with volar plating. There is also the possibility of proceeding with conservative care and custom made splints on bilateral distal radius to help with healing. If the patient is to have operative intervention that will electively be next week. Exam Data for Last 24 hours Vital signs and Labs for Last 24 Hours: Temp Pulse Resp BP Pulse Ox O2 Del Method 98.5 F 53 L 16 125/47 L 94 L Room Air 12/29/22 04:00 12/29/22 04:00 12/29/22 04:00 12/29/22 04:00 12/29/22 04:00 12/29/22 06:37 Laboratory Results - last 24 hr 12/28/22 06:42: WBC 7.5, RBC 3.63 L, Hgb 9.4 L, Hct 30.1 L, MCV 83.1, MCH 25.9 L, MCHC 31.2 L, RDW 16.2, Plt Count 299, MPV 9.2, Neut % (Auto) 78.5, Lymph % (Auto) 11.2, [place] % (Auto) 9.0, Eos % (Auto) 1.0, Baso % (Auto) 0.3, Neut # (Auto) 5.9, Lymph # (Auto) 0.9, [place] # (Auto) 0.7, Eos # (Auto) 0.1, Baso # (Auto) 0.0, Sodium 137, Potassium 5.3 H D, Chloride 101, Carbon Dioxide 26, Anion Gap 15.3 H, BUN 16, Creatinine 1.20 H, Estimated Creat Clear 54, Estimated GFR 44 L, Est GFR ( Amer) 53 L, Glucose 152 H, Calcium 9.2 12/28/22 12:03: Sodium 137, Potassium 4.9, Chloride 101, Carbon Dioxide 29, Anion Gap 11.9, BUN 17, Creatinine 1.30 H, Estimated Creat Clear 50, Estimated GFR 40 L, Est GFR ( Amer) 48 L, Glucose 142 H, Calcium 8.3 L I & O for Last 24 hours: Intake & Output 12/26/22 12/27/22 12/28/22 12/29/22 23:59 23:59 23:59 23:59 Intake Total 1650 / 1890 240 / 240 Output Total 950 / 1150 200 / 200 Balance 700 / 740 40 / 40 Weight 87.09 kg 87.407 kg 90.083 kg Constitutional Constitutional: no acute distress *Routine HEENT Exam Head: Present normocephalic Eye: Present EOMI and PERRL ENT: Present mucous membranes moist *Routine Neck Exam Neck: Present supple; Absent lymphadenopathy *Routine Respiratory Exam Respiratory: Present CTA bilaterally *Routine Cardiovascular Exam Cardiovascular: Present RRR *Routine Abdominal Exam Abdominal: Present soft and normoactive bowel sounds; Absent tenderness *Routine Extremities Exam Extremities: Absent cyanosis, clubbing or edema Comments: Bilateral arms are in splints. *Routine Skin Exam Skin: Present warm; Absent rash *Routine Neurological Exam Neurological: Present alert and oriented X3 Results Data Completed and Pending Labs on day of discharge: Labs from last 24 hours 12/28/22 12/28/22 12:03 06:42 WBC 7.5 RBC 3.63 L Hgb
[2022-12-29 07:50] VITALS: BP 128/52; PULSE 51; RESP 18; TEMP 37; O2SAT 98
--- NOTE | 2022-12-29 09:00 | HMH.OTEV ---
OT Inpatient Evaluation Rehab OT IP Evaluation Start: 12/28/22 12:41 Freq: ONCE Status: Active Protocol: Document 12/29/22 08:[address] [address] (Rec: 12/29/22 09:00 [facility] [id number]) Rehab OT IP Assessment Subjective History Pt oriented x 4 on arrival. Daughter present and supportive. Pt admitted via ED on 12/26/22 due to bilateral wrist fxs. 77 year old female presented to the ED for c/o mid face pain and bilateral wrist pain after a traumatic fall. Patient states that while she was walking outside she got caught on her right foot falling forward onto her outstretched hands. She is not able to particularly catch herself well given her shoulder history and she fell onto her face. No loss of consciousness. PMHX of seizures, and atrial fibrillation with anticoagulation. Prior to fall, pt lives at home with her who is also experiencing health issues. Pt claims prior to her fall she was independent with all ADLs and IADLs. She also still drove. She did not require any type of AE during ambulation. Subjective I tried to catch myself. Objective Patient Orientation Person,Place,Birthday,Year Upper Extremity Gross ROM WFL Bed Mobility bed mobility-scooting,bed mobility - supine/sit,bed mobility - rolling Assist Level Minimal x 1 (25% assist) Transfer Training Sit/Stand Transfer Assist Level Supervision/Stand by Chair Transfer Ability Supervision/Stand by Chair Transfer Technique Sit to/from Ambulatory Rehab OT IP prob,goals,plan Problems Date of Evaluation: 12/29/22 OT IP Problems Bed Mobility,Transfers,Balance ,Self care,Safety Rehab Potential Rehab Potential Good Equipment Needs Assistive Devices None / NA Plan OT intervent
--- NOTE | 2022-12-29 09:00 | HMH.OTEV ---
OT Inpatient Evaluation Rehab OT IP Evaluation Start: 12/28/22 12:41 Freq: ONCE Status: Active Protocol: Document 12/29/22 08:52 [facility] (Rec: 12/29/22 09:00 [facility] [id number]) Rehab OT IP Assessment Subjective History Pt oriented x 4 on arrival. Daughter present and supportive. Pt admitted via ED on 12/26/22 due to bilateral wrist fxs. 77 year old female presented to the ED for c/o mid face pain and bilateral wrist pain after a traumatic fall. Patient states that while she was walking outside she got caught on her right foot falling forward onto her outstretched hands. She is not able to particularly catch herself well given her shoulder history and she fell onto her face. No loss of consciousness. PMHX of seizures, and atrial fibrillation with anticoagulation. Prior to fall, pt lives at home with her who is also experiencing health issues. Pt claims prior to her fall she was independent with all ADLs and IADLs. She also still drove. She did not require any type of AE during ambulation. Subjective I tried to catch myself. Objective Patient Orientation Person,Place,Birthday,Year Upper Extremity Gross ROM WFL Bed Mobility bed mobility-scooting,bed mobility - supine/sit,bed mobility - rolling Assist Level Minimal x 1 (25% assist) Transfer Training Sit/Stand Transfer Assist Level Supervision/Stand by Chair Transfer Ability Supervision/Stand by Chair Transfer Technique Sit to/from Ambulatory Rehab OT IP prob,goals,plan Problems Date of Evaluation: 12/29/22 OT IP Problems Bed Mobility,Transfers,Balance ,Self care,Safety Rehab Potential Rehab Potential Good Equipment Needs Assistive Devices None / NA Plan OT intervent
--- NOTE | 2022-12-29 09:30 | SW/DCPLANNER ---
Addendum entered by Carlita Lassiter 12/29/22 12:17: Moses stein/ [facility] stated that they can accept this patient and services will start Thursday12/31/22. Addendum entered by Carlita Lassiter 12/29/22 11:19: Patient is planned to discharge home today. Patient information/order has been faxed to [facility]. Original Note: I spoke with this patient and her daughter regarding plans once medically stable for discharge. Patient stated that her daughter lives next door and will be assisting her at home. Patient is NOT interested in placement at this time. Patient prefers to return home w/ home health services and prefers to use [facility]. I will arrange home health services once patient is medically stable for discharge. Discharge date is unknown at this time.
--- NOTE | 2022-12-29 10:27 | EXP.ORTH.CON ---
History of Present Illness *Admission Date: 12/27/22 *History of present illness: 77 year old female presented to the ED for c/o mid face pain and bilateral wrist pain after a traumatic fall. Patient states that while she was walking outside she got caught on her right foot falling forward onto her outstretched hands. She is not able to particularly catch herself well given her shoulder history and she fell onto her face. No loss of consciousness. PMHX of seizures, and atrial fibrillation with anticoagulation. The ED work revealed bilateral distal radial fractures. Impacted and volarly angulated fracture of the right distal radial shaft with an acute avulsion fracture of the ulnar styloid. There is also an acute mildly impacted and volarly angulated fracture of the distal radial shaft on the left with questionable fracture of the ulnar styloid. The ED physician spoke with Dr. Mallory who recommended outpatient follow up and bilateral splitting. The patient had bilateral closed reductions of the left and right radial fractures. She was admitted for PT/OT therapy to assist with transitioning to home. Patient is on Xarelto for atrial fibrillation and recently saw her bone char puller Dr. Perez. [facility] Disclaimer: The information contained in this section may have been updated after the patient was seen, as this information can be updated by other users. 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) History of ankle surgery History of colonoscopy History of hysterectomy History of laparoscopic cholecystectomy History of shoulder surgery Family History (Updated 12/27/22 @ 21:21 by Vero Diez RN) Other Family history of acute heart failure Family history of diabetes mellitus type II Renal failure Social History (Updated 12/27/22 @ 21:21 by Vero Diez RN) Smoking Status: Never smoker alcohol intake: never substance use type: denies use current occupational status: retired Travel in the last 8 weeks: Inside the [place] household members: spouse housing: house caffeine: Yes Review of Systems *Neurologic Neurologic: Reports system reviewed and no additional complaints, except as documented Meds Home Medications and Allergies Home Medications Medication Instructions Recorded Confirmed Type alprazolam 0.5 mg tablet 0.5 mg PO Q6HP PRN Anxiety 10/30/20 12/28/22 History isosorbide mononitrate 60 mg 60 mg PO HS Blood pressure 10/30/20 12/27/22 History tablet,extended release 24 hr montelukast 10 mg tablet 10 mg PO HS Allergies 10/30/20 12/28/22 History levetiracetam 500 mg tablet 500 mg PO BID Seizures 10/31/20 12/27/22 History rivaroxaban 15 mg tablet 15 mg PO QPMWITHMEAL Afib 11/08/20 12/28/22 History atorvastatin 20 mg tablet 20 mg PO HS Cholesterol 10/28/22 12/28/22 History escitalopram oxalate 10 mg tablet 10 mg PO DAILY MOOD 10/28/22 12/27/22 History fexofenadine 180 mg tablet 180 mg PO DAILYP PRN Allergies 10/28/22 12/28/22 History fluticasone propionate 50 1 spray intranasal DAILY Allergies 10/28/22 12/27/22 History mcg/actuation nasal spray,suspension (Flonase Allergy Relief) furosemide 40 mg tablet 40 mg PO DAILY Fluid 11/18/22 12/27/22 History metoprolol succinate 100 mg 200 mg PO DAILY Heart rate 11/18/22 12/27/22 History tablet,extended release 24 hr potassium chloride 10 mEq 10 meq PO DAILY Supplement 11/18/22 12/27/22 History tablet,extended release amiodarone 200 mg tablet 200 mg PO DAILY Heart rate 12/28/22 12/28/22 History pantoprazole 40 mg tablet,delayed 40 mg PO DAILY GERD 12/28/22 12/28/22 History release trazodone 100 mg tablet 150 mg PO HSP PRN Sleep 12/28/22 08
--- NOTE | 2022-12-31 13:22 | CARE MANAGER ---
Attempted to contact patient x 2 related to hospital discharge. Left VM option. AWILDA Ragsdale
== END 2022-12-29 12:08 | disposition home health service (06) ==
LOC: UTC 15:53 → ER 16:44 → 2ND 19:40
PROVIDERS: Nurse Practitioner Critical Care Medicine; Admitting Provider Internal Medicine; Emergency Provider Emergency Medicine; PCP Nurse Practitioner Family; Visit Provider Internal Medicine
DX: S52.532A Colles' fracture of left radius, initial encounter for closed fracture (principal); S52.531A Colles' fracture of right radius, initial encounter for closed fracture; I48.19 Other persistent atrial fibrillation; E11.65 Type 2 diabetes mellitus with hyperglycemia; I10 Essential (primary) hypertension; Z87.898 Personal history of other specified conditions; I50.9 Heart failure, unspecified; E78.2 Mixed hyperlipidemia; Z68.39 Body mass index [BMI] 39.0-39.9, adult
CPT/HCPCS: 70150; 70450; 70486; 71045; 72125; 72170; 73030; 73060; 73070; 73090; 73110; 73200; 80048; 80053; 83036; 85025; 93005; 97161; 97166; 99285; G0378; J2405

== ENCOUNTER 2023-01-07 10:08 | Day surgery (SDC) | payer MEDICARE, SELFPAY ==
[2023-01-06 10:11] VITALS: BMI 34.7
[2023-01-07] VITALS (10 sets, daily range): BP systolic 121–199; BP diastolic 66–101; PULSE 70–76; RESP 12–18; TEMP 36.2–37.2; O2SAT 92–98
--- NOTE | 2023-01-07 11:13 | EXP.ANES.CKL ---
[facility] Disclaimer: The information contained in this section may have been updated after the patient was seen, as this information can be updated by other users. 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 Abnormal EKG Acute pain of both ears Asthma Bilateral chronic otitis media Congestive heart failure Dyspnea Edema History of asthma History of atrial fibrillation History of hypertension Seizure disorder Sleep apnea Surgical History History of ankle surgery History of colonoscopy History of hysterectomy History of laparoscopic cholecystectomy History of shoulder surgery Family History Other Family history of acute heart failure Family history of diabetes mellitus type II Renal failure Social History Smoking Status: Never smoker alcohol intake: never substance use type: denies use current occupational status: retired Travel in the last 8 weeks: Inside the [place] household members: spouse housing: house caffeine: Yes [facility] Anesthesia Checklist Patient Identification Patient Identification: Arm Band and Verbal (Name & ) Structural Data Admitted From: Home Planned Operative Procedure/s: ORIF bilateral wrists Consent for Planned Operative Procedure(s) Verified: Yes NPO Status Verified Time NPO: 00:00 Chart Verification Results Verified: CBC and BMP Additional verifications Anesthesia Reactions: No Hx Blood Transfusions: No Blood Transfusion Reaction: No Airway Assessment Mallampati Score:: Class II C-Spine Mobility Assessed: Yes TMJ Mobility Assessed: Yes Dentition: Dentures-good fit Neurological Assessment Level of Consciousness: Awake Hx Seizures: Yes Numbness or tingling in extremities: No Anesthesia Plan Anesthesia Risk discussed: Yes Anesthesia Plan: Verified ASA Class: III Anesthesia Type: General
--- NOTE | 2023-01-07 13:50 | XR_ITS ---
FINAL REPORT CLINICAL HISTORY: OR. Pinning fluoro time: .5, .64 mGy FINDINGS: FLUOROSCOPY LESS THAN ONE HOUR HISTORY: Left distal radial fracture FINDINGS: Fluoroscopic guidance was performed for pinning of a distal radial fracture. 2 spot films were obtained. 0.5 seconds of fluoroscopy time were used. DOSAGE: 0.64 mGy IMPRESSION: As above. Reviewed, Interpreted and Dictated by Paulo Moore MD Transcribed by Daria Olmstead Authenticated and [facility]
--- NOTE | 2023-01-07 13:50 | XR_ITS ---
FINAL REPORT CLINICAL HISTORY: closed reduction: 0 fluoro time, 0.08 mGy FINDINGS: FLUOROSCOPY LESS THAN ONE HOUR HISTORY: Distal right radial fracture FINDINGS: Fluoroscopic guidance was performed for placement of an orthopedic plate and screws bridging a right radial fracture. 2 spot films were obtained. 0 seconds of fluoroscopy time were used. DOSAGE: 0.08 mGy IMPRESSION: As above. Reviewed, Interpreted and Dictated by Paulo Moore MD Transcribed by Daria Olmstead Authenticated and [facility]
--- NOTE | 2023-01-07 14:16 | EXP.OP.NOTE ---
Date of procedure: 01/07/23 Pre-op Diagnosis:: Bilateral distal radius fractures Post-op Diagnosis:: Same Procedure performed:: 1. Open reduction internal fixation right distal radius fracture 2 part intra-articular with volar plating 2. Closed reduction percutaneous skeletal fixation left distal radius fracture Surgeon:: Andrés South DO MACHINE PIE MAKER:: Other Anesthesia: GETA Estimated blood loss (mL): 0 Clinical Note:: 77-year-old female suffered bilateral distal radius fractures. Right-handed. I discussed with her treatment options. Given the bilateral nature of the fracture she would be benefited by open reduction internal fixation of the right distal radius to allow for early mobilization and plan was for open reduction internal fixation of the left distal radius as if needed or percutaneous skeletal fixation if possible. Operative findings:: See dictation Operative note:: Patient identified preoperatively. Taken the operative suite placed upon operating bed general anesthesia ministered airway secured then the right upper extremity was prepped and draped normal sterile fashion. Once prepped and draped final operative timeout performed to identify proper patient procedure and extremities everyone involved the case agreed there is no counter indications to beginning she did receive preoperative antibiotics. Marking pen was used to make plan incision over the volar aspect of the wrist. Esmarch was used exsanguinate extremity pneumatic tourniquet plated 250 mmHg. Skin knife was used to incise the skin. Careful dissection was taken down to identify the FCR tendon. FCR tendon sheath was opened. It was retracted radially throughout the procedure to protect the radial artery. Floor the FCR was opened. Pronator quadratus was cut in L-type fashion off the distal radius to identify the fracture site. Reduction maneuver was performed placing a freer elevator on the volar aspect of the distal radius to allow for reduction of the distal radius reduction was performed. The right sided volar distal radius plate was selected and x-ray was brought in to show proper alignment. A cortical screw was placed in the shaft. Followed by distal locking screws. X-rays were taken AP and lateral views show to be in good alignment. Additional locking screw was placed in the shaft. Copious irrigation the wound was performed. Deep layers closed with Vicryl. Skin closed with nylon stitch. Sterile volar splint dressing was placed. Sling was placed on the side. And tensions brought to the left upper extremity. Left upper extremity was then prepped and draped in normal sterile fashion. Once prepped and draped the x-ray was brought in to identify fracture of the distal radius. Closed reduction maneuver was performed and proper length and alignment of the radius was obtained with closed reduction therefore percutaneous skeletal fixation was an option. I selected a K wire and placed 2 K wires across the fracture site to stabilize the distal radius in good alignment. Once this was completed AP and lateral views of the wrist were performed and saved. And a pins were cut outside the skin and bent Xeroform placed around the pin sites a sterile dressing was placed in a volar splint was placed to protect the radius. Sling was also placed in the side patient waken anesthesia taken recovery in stable condition. Condition: stable Disposition: PACU Complications:: None apparent
--- NOTE | 2023-01-07 14:23 | EXP.ANES.I ---
[facility] Anesthesia Record Part I Anesthesia Record I Intake, IV Amount: 1,200 Hydration: Adequate Estimated blood loss (mL): 5 Urine output (mL): 0 Blood Pressure: 162/75 SaO2: 97 Pulse Rate: 72 Airway Patency: Patent Respiratory Rate: 12 Temperature: 97.2 F Patient is:: Awake and Stable Stable to PACU at:: 14:19
--- NOTE | 2023-01-09 08:29 | P.PNANES_ITS ---
[facility] Anesthesia Record Part II Anesthesia Record Part II Discharge Time: 14:49 Destination: Surgical Day Care (OP Surgery) PACU nurse assessment reviewed?: Yes Patient Condition:: Good Anesthesia Complications:: None Swallowing reflex intact?: Yes Airway Patency: Patent Cyanosis?: No Blood Pressure: 150/85 SaO2: 93 Respiratory Rate: 15 Pulse Rate: 76 Temperature: 97.5 F Mental Status: Alert & Oriented Pain level:: 0 Nausea and/or vomitting:: None Intake, IV Amount: 0 Hydration: Adequate
[2023-01-09 08:30] VITALS: BP 150/85; PULSE 76; RESP 15; TEMP 36.4; O2SAT 93
== END 2023-01-07 15:50 | disposition home or self-care (01) ==
PROVIDERS: PCP Nurse Practitioner Family; Visit Provider Orthopaedic Surgery
PROC: (CPT 25606; principal; 2023-01-07 12:00)
DX: S52.502A Unspecified fracture of the lower end of left radius, initial encounter for closed fracture (principal); S52.501A Unspecified fracture of the lower end of right radius, initial encounter for closed fracture; W19.XXXA Unspecified fall, initial encounter; I11.0 Hypertensive heart disease with heart failure; I50.9 Heart failure, unspecified
CPT/HCPCS: 25606; 25608; 73100; 76000; 96374; C1713; C1776; J2405

== ENCOUNTER → 2023-01-27 13:55 | Outpatient (CLI) | payer MEDICARE, SELFPAY ==
--- NOTE | 2023-01-27 13:59 | XR_ITS ---
FINAL REPORT CLINICAL HISTORY: lt wrist pain. F/U COMPARISON: 01/07/2023 FINDINGS: LEFT WRIST Three views demonstrate 2 K wires securing a fracture of the distal radius. There is also a small minimally displaced fracture of the ulnar styloid.. The visualized joint spaces are normally aligned. The soft tissues are unremarkable. IMPRESSION: 2 K wires to secure a fracture of the distal radius as described. Reviewed, Interpreted and Dictated by Paulo Moore MD Transcribed by Daria Olmstead Authenticated and [facility]
--- NOTE | 2023-01-27 13:59 | XR_ITS ---
FINAL REPORT CLINICAL HISTORY: Rt Wrist pain. F/U COMPARISON: 01/07/2023 FINDINGS: RIGHT WRIST Three views demonstrate a plate and screws bridging a distal radial fracture. There is near anatomic alignment of the fracture fragments. The visualized joint spaces are normally aligned. The soft tissues are unremarkable. There is a minimally displaced fracture of the ulnar styloid. IMPRESSION: Orthopedic hardware bridge a distal radial fracture. Reviewed, Interpreted and Dictated by Paulo Moore MD Transcribed by Daria Olmstead Authenticated and [facility]
== END ==
PROVIDERS: PCP Nurse Practitioner Family; Visit Provider Orthopaedic Surgery
DX: S52.502A Unspecified fracture of the lower end of left radius, initial encounter for closed fracture (principal); S52.501A Unspecified fracture of the lower end of right radius, initial encounter for closed fracture; Y99.9 Unspecified external cause status; M25.532 Pain in left wrist; M25.531 Pain in right wrist
CPT/HCPCS: 73110

== ENCOUNTER 2023-01-27 15:15 | Outpatient (RCR) | payer MEDICARE, SELFPAY | END 2023-01-27 16:00 | disposition home or self-care (01) | LOC: OT 15:15 | PROVIDERS: Visit Provider Orthopaedic Surgery | DX: S52.501A Unspecified fracture of the lower end of right radius, initial encounter for closed fracture (principal) | CPT/HCPCS: 97763 ==

== ENCOUNTER → 2023-02-05 14:08 | Outpatient (CLI) | payer MEDICARE, SELFPAY ==
--- NOTE | 2023-02-05 14:13 | XR_ITS ---
FINAL REPORT CLINICAL HISTORY: left wrist orif COMPARISON: 01/27/2023 FINDINGS: AP, oblique, and lateral views of the left wrist were obtained. Plaster cast obscures detail. There are 2 surgical pins in the distal radius. There has likely been interval healing of the previously seen fracture. Osteopenia and degenerative joint disease are stable. There is persistent soft tissue edema. IMPRESSION: Postsurgical and degenerative changes with likely interval healing of the previously seen fracture. Reviewed, Interpreted and Dictated by Estrella Valadez MD Transcribed by Samantha Wells Authenticated and [facility]
--- NOTE | 2023-02-05 14:22 | XR_ITS ---
FINAL REPORT CLINICAL HISTORY: right wrist fx COMPARISON: 01/27/2023 FINDINGS: AP, oblique, and lateral views of the right wrist were obtained. Plaster cast has been removed. There are postoperative changes from ORIF in the distal radius. The hardware is intact. There has been interval healing of the previously seen fracture. There is an old ulnar styloid process fracture. The bones are osteopenic. There is stable degenerative joint disease. IMPRESSION: Degenerative and postsurgical changes as above with interval healing of the previously seen fracture. Reviewed, Interpreted and Dictated by Estrella Valadez MD Transcribed by Samantha Wells Authenticated and . [facility]
== END ==
PROVIDERS: PCP Nurse Practitioner Family; Visit Provider Orthopaedic Surgery
DX: S69.92XD Unspecified injury of left wrist, hand and finger(s), subsequent encounter (principal); S62.101D Fracture of unspecified carpal bone, right wrist, subsequent encounter for fracture with routine healing; W19.XXXD Unspecified fall, subsequent encounter; M25.532 Pain in left wrist; M25.531 Pain in right wrist
CPT/HCPCS: 73110

== ENCOUNTER 2023-02-12 13:42 | Emergency (ER) | payer MEDICARE, SELFPAY ==
[2023-02-12 13:44] VITALS: BP 187/67; PULSE 62; RESP 16; TEMP 36.6; O2SAT 99; BMI 34.3
--- NOTE | 2023-02-12 14:03 | PC.NURSE ---
Warm blanket and pillow provided to patient; call light within reach
--- NOTE | 2023-02-12 14:06 | CT_ITS ---
FINAL REPORT CLINICAL HISTORY: fall on xarelto COMPARISON: 12/27/2022 FINDINGS: Axial images of the head were obtained without contrast. Coronal reformatted images were also obtained. This study was performed with techniques to keep radiation doses as low as reasonably achievable (ALARA). Individualized dose reduction techniques using automated exposure control or adjustment of mA and/or kV according to the patient''s size were employed. There is generalized age-appropriate atrophy. Periventricular low-attenuation areas are seen consistent with mild chronic ischemic changes. There is no evidence of intracranial hemorrhage or mass. There is no evidence of acute infarct. There is no evidence of shift of the midline structures. No skull abnormality is seen on the bone window images. IMPRESSION: Stable atrophy and mild periventricular chronic ischemic changes. No acute intracranial abnormality identified. Reviewed, Interpreted and Dictated by Reynaldo Pastor III, MD Transcribed by Rajwinder Arias Authenticated and [facility]
--- NOTE | 2023-02-12 14:06 | XR_ITS ---
FINAL REPORT CLINICAL HISTORY: fall into wall, injured previously fractured R arm COMPARISON: None FINDINGS: 2 views of the right forearm were obtained. Postoperative changes in the distal radius. Chronic fracture of the ulnar styloid process. No acute fracture seen. Osteopenia is noted. There are no soft tissue abnormalities. IMPRESSION: Postoperative and degenerative changes without acute process. Reviewed, Interpreted and Dictated by Reynaldo Pastor III, MD Transcribed by Rajwinder Arias Authenticated and [facility]
--- NOTE | 2023-02-12 14:06 | CT_ITS ---
FINAL REPORT CLINICAL HISTORY: fall on xarelto, neck pain COMPARISON: 12/27/2022 FINDINGS: Axial CT images of the cervical spine were obtained without contrast. Sagittal and coronal reformatted images were also obtained. This study was performed with techniques to keep radiation doses as low as reasonably achievable (ALARA). Individualized dose reduction techniques using automated exposure control or adjustment of mA and/or kV according to the patient''s size were employed. There is no evidence of fracture or dislocation. The bony alignment is normal. There is mild degenerative change. There is no significant canal stenosis. No paraspinous soft tissue abnormality is seen. Limited images of the upper thorax are unremarkable. IMPRESSION: No fracture or acute bony abnormality identified. Reviewed, Interpreted and Dictated by Reynaldo Pastor III, MD Transcribed by Rajwinder Arias Authenticated and [facility]
--- NOTE | 2023-02-12 14:06 | XR_ITS ---
FINAL REPORT CLINICAL HISTORY: fall into wall, injured previously fractured R arm COMPARISON: None FINDINGS: Three views of the right elbow were obtained. There is no acute fracture or dislocation. There is a chronic calcification adjacent to the lateral humeral epicondyle. The joint spaces are well preserved. There is no acute soft tissue abnormality. IMPRESSION: No acute abnormality identified. Reviewed, Interpreted and Dictated by Reynaldo Pastor III, MD Transcribed by Rajwinder Arias Authenticated and [facility]
--- NOTE | 2023-02-12 14:06 | XR_ITS ---
FINAL REPORT CLINICAL HISTORY: fall into wall, injured previously fractured R arm COMPARISON: None FINDINGS: RIGHT WRIST Three views demonstrate no acute fracture or dislocation. There are postoperative changes in the distal radius. There is a chronic fracture of the ulnar styloid process. There are moderate and severe degenerative changes. Osteopenia is noted. The soft tissues are unremarkable. IMPRESSION: Postoperative and degenerative changes without acute bony abnormality. Reviewed, Interpreted and Dictated by Reynaldo Pastor III, MD Transcribed by Rajwinder Arias Authenticated and [facility]
--- NOTE | 2023-02-12 14:06 | XR_ITS ---
FINAL REPORT CLINICAL HISTORY: fall into wall, injured previously fractured R arm COMPARISON: None FINDINGS: RIGHT HAND Three views demonstrate no acute fracture or dislocation. There are postoperative changes in the distal radius. There is a chronic fracture of the ulnar styloid process. There are moderate and severe degenerative changes. Osteopenia is noted. The soft tissues are unremarkable. IMPRESSION: Postoperative and degenerative changes without acute bony abnormality. Reviewed, Interpreted and Dictated by Reynaldo Pastor III, MD Transcribed by Rajwinder Arias Authenticated and [facility]
--- NOTE | 2023-02-12 14:11 | HMH.EDGENADL ---
Discharge Plan Disposition Patient Disposition: Still a Patient Condition: Good Prescriptions Prescriptions: No Action atorvastatin 20 mg tablet 20 mg PO HS fexofenadine 180 mg tablet 180 mg PO DAILYP PRN (Reason: Allergies) Patient Comments: TAKE ONE TABLET BY MOUTH EVERY DAY swallow whole with water; DO not take with fruit juices escitalopram oxalate 10 mg tablet 10 mg PO DAILY fluticasone propionate [Flonase Allergy Relief] 50 mcg/actuation spray,suspension 1 spray intranasal DAILY Rx Instructions: administer into each nostril isosorbide mononitrate 60 MG tablet extended release 24 hr 60 mg PO HS montelukast 10 MG tablet 10 mg PO HS alprazolam 0.5 MG tablet 0.5 mg PO Q6HP PRN (Reason: Anxiety) levetiracetam 500 MG tablet 500 mg PO BID Xarelto 15 MG tablet 15 mg PO QPMWITHMEAL trazodone 100 mg tablet 150 mg PO HSP PRN (Reason: Sleep) Patient Comments: TAKE 1 AND 1/2 TABLET BY MOUTH EVERY DAY AT BEDTIME NEEDED pantoprazole 40 mg tablet,delayed release (DR/EC) 40 mg PO DAILY Patient Comments: TAKE ONE (1) TABLET BY MOUTH DAILY amiodarone 200 mg tablet 200 mg PO DAILY Patient Comments: TAKE ONE (1) TABLET BY MOUTH ONCE DAILY furosemide 40 MG tablet 40 mg PO DAILY potassium chloride 10 MEQ tablet extended release 10 meq PO DAILY metoprolol succinate 100 mg tablet extended release 24 hr 100 mg PO DAILY hydrocodone-acetaminophen 5-325 mg tablet 1 tab PO Q4H PRN (Reason: post op pain) Qty: 30 0RF Referrals Follow up/Referrals: Erlin Nash APRN [Primary Care Provider] - See instructions Activity Restrictions/Add. Instructions Additional Instructions/Restrictions: You were evaluated in the emergency department today. Please follow-up closely with your primary care provider and your orthopedist. Take Tylenol and ibuprofen at home as needed for pain. Keep your splint on. Clinical Impressions Clinical Impression: Fall, Acute pain of right wrist Discharge ED Provider: Rachelle Ramesh General Adult HPI General Chief complaint: Extremity Injury, Upper Stated complaint: surgery on both wrist January today Time Seen by Provider: 02/12/23 14:01 Mode of Arrival: Ambulatory Source of Information: Patient Limitations: No Limitations Description of Symptoms (Recalled from ER Triage Doc. by RN): Presents to ED with c/o right arm pain after falling into porch panel and bumping the top of her wrist. Patient reports having bilateral wrist surgery in January. +PMS. Patient reports she is on Xarelto. History of Present Illness HPI narrative: This patient is a 77-year-old female with a history of atrial fibrillation on Xarelto, type 2 diabetes, seizures, CHF, hypertension, hyperlipidemia presented to the emergency department for evaluation after a fall that happened an hour prior to arrival. Per orthopedic record review: Patient fell on 12/27/2022. Pt had open reduction internal fixation right distal radius fracture part intra-articular with volar plating and Closed reduction percutaneous skeletal fixation left distal radius fracture on 01/07/2023. She is still in a splint in her left upper extremity and has a removable splint on her right upper extremity. She states that today, she had a mechanical fall into the corner of her house. She states that she mostly fell onto her right arm. She is complaining of right forearm pain at this time. She denies any other injuries or loss of consciousness. She was well prior to the fall. Related Data Home Medications Medication Instructions Recorded Confirmed alprazolam 0.5 mg tablet 0.5 mg PO Q6HP PRN Anxiety 10/30/20 02/05/23 isosorbide mononitrate 60 mg 60 mg PO HS Blood pressure 10/30/20 02/05/23 tablet,extended release 24 hr montelukast 10 mg tablet 10 mg PO HS Allergies 10/30/20 02/05/23 levetiracetam 500 mg tablet 500 mg PO BID
--- NOTE | 2023-02-12 15:17 | PC.NURSE ---
Rounded on patient; warm blanket provided to patient call light within reach of patient
[2023-02-12 15:56] VITALS: BP 185/77; PULSE 60; RESP 16; TEMP 36.6; O2SAT 96
== END 2023-02-12 15:59 | disposition still patient (30) ==
PROVIDERS: Emergency Provider Emergency Medicine; PCP Nurse Practitioner Family
DX: M25.531 Pain in right wrist (principal); I11.0 Hypertensive heart disease with heart failure; I50.9 Heart failure, unspecified; J45.909 Unspecified asthma, uncomplicated; G40.909 Epilepsy, unspecified, not intractable, without status epilepticus; G47.30 Sleep apnea, unspecified; Z86.79 Personal history of other diseases of the circulatory system; Z79.01 Long term (current) use of anticoagulants; W19.XXXA Unspecified fall, initial encounter; E11.9 Type 2 diabetes mellitus without complications
CPT/HCPCS: 70450; 72125; 73080; 73090; 73110; 73130; 99285

== ENCOUNTER → 2023-02-26 13:47 | Outpatient (CLI) | payer MEDICARE, SELFPAY ==
--- NOTE | 2023-02-26 13:53 | XR_ITS ---
FINAL REPORT CLINICAL HISTORY: left wrist orif COMPARISON: 02/05/2023 FINDINGS: Left wrist Three views were obtained. Again identified is a fracture of the distal radius with postoperative changes of fixation. Two K-wires are present. There are degenerative changes. The bones are osteopenic. The appearance is stable since previous. IMPRESSION: Postsurgical changes as above. Reviewed, Interpreted and Dictated by Reynaldo Pastor III, MD Transcribed by Samantha Wells Authenticated and [facility]
--- NOTE | 2023-02-26 13:53 | XR_ITS ---
FINAL REPORT CLINICAL HISTORY: right wrist orif COMPARISON: 02/05/2023 FINDINGS: Right wrist Three views were obtained. There are postoperative changes from ORIF for a distal radius fracture. Screw plate and multiple screws are present. There are degenerative changes at the radial aspect of the wrist. The bones are osteopenic. There is a chronic fracture of the ulnar styloid process. IMPRESSION: Degenerative and postsurgical changes as detailed above. Reviewed, Interpreted and Dictated by Reynaldo Pastor III, MD Transcribed by Samantha Wells Authenticated and [facility]
== END ==
PROVIDERS: PCP Nurse Practitioner Family; Visit Provider Orthopaedic Surgery
DX: S52.502A Unspecified fracture of the lower end of left radius, initial encounter for closed fracture; S62.101A Fracture of unspecified carpal bone, right wrist, initial encounter for closed fracture; Y99.9 Unspecified external cause status
CPT/HCPCS: 73110

== ENCOUNTER 2023-02-26 15:05 | Outpatient (RCR) | payer MEDICARE, SELFPAY | END 2023-02-26 16:00 | disposition home or self-care (01) | LOC: OT 15:05 | PROVIDERS: Visit Provider Orthopaedic Surgery | DX: S52.502A Unspecified fracture of the lower end of left radius, initial encounter for closed fracture (principal); M25.532 Pain in left wrist ==

== ENCOUNTER → 2023-04-07 14:15 | Outpatient (CLI) | payer MEDICARE, SELFPAY ==
--- NOTE | 2023-04-07 14:19 | XR_ITS ---
FINAL REPORT CLINICAL HISTORY: right wrist orif COMPARISON: 02/12/2023 FINDINGS: RIGHT WRIST: AP and lateral views of the right wrist reveal orthopedic hardware bridging a fracture of the distal radius as seen on prior examinations. There is no residual fracture line identified. Severe osteopenia is present. There is a remote fracture of the ulnar styloid process present. Advanced degenerative change of the lateral carpus is present. IMPRESSION: Orthopedic hardware bridges a fracture of the distal radius as seen on prior exams, with no residual fracture line seen on today's exam. Reviewed, Interpreted and Dictated by Geovanni Vaca MD Transcribed by Daria Olmstead Authenticated and [facility]
== END ==
PROVIDERS: PCP Nurse Practitioner Family; Visit Provider Orthopaedic Surgery
DX: S69.91XA Unspecified injury of right wrist, hand and finger(s), initial encounter (principal); M25.531 Pain in right wrist
CPT/HCPCS: 73100

== ENCOUNTER 2023-05-06 10:26 | Observation (INO) | payer MEDICARE, SELFPAY ==
[2023-05-06] VITALS (12 sets, daily range): BP systolic 123–186; BP diastolic 56–82; PULSE 61–75; RESP 16–20; TEMP 36.7–37.3; O2SAT 88–100; BMI 34.3; BMI 33.0
--- NOTE | 2023-05-06 10:35 | ECG_ITS ---
APPROVED REPORT Exam: Resting ECG HR:76 bpm ECG Measurements Heart Rate 76 AXES LA 217 P 104 QRSd 107 QRS -39 QT 316 T 68 QTc 346 Conclusion SINUS RHYTHM WITH FIRST DEGREE AV BLOCK LEFT AXIS DEVIATION [QRS AXIS < -30] NONSPECIFIC T-WAVE ABNORMALITY ABNORMAL ECG UNCONFIRMED REPORT Electronically signed by : Pillo Bledsoe MD 05/08/2023 08:02:42
--- NOTE | 2023-05-06 11:03 | XR_ITS ---
FINAL REPORT CLINICAL HISTORY: Right ankle fracture COMPARISON: None FINDINGS: RIGHT ANKLE 3 views of the right ankle were obtained. There is a sideplate and screws securing the distal fibula. There are 2 screws in the medial malleolus. The mortise is intact. There is prominent soft tissue edema about the ankle, particularly laterally measuring up to 1.4 cm overlying the lateral malleolus. There is a moderate plantar spur. IMPRESSION: Postsurgical changes with soft tissue edema as above. Reviewed, Interpreted and Dictated by Paulo Moore MD Transcribed by Rajwinder Arias Authenticated and [facility]
--- NOTE | 2023-05-06 11:03 | XR_ITS ---
FINAL REPORT CLINICAL HISTORY: Shortness of breath COMPARISON: 12/27/2022 FINDINGS: The heart size is mildly enlarged. The mediastinum is normal. There is no focal infiltrate or edema. There are no pleural effusions. There is no pneumothorax. Right shoulder prosthesis is noted. IMPRESSION: No acute cardiopulmonary process Reviewed, Interpreted and Dictated by Paulo Moore MD Transcribed by Rajwinder Arias Authenticated and [facility]
--- NOTE | 2023-05-06 11:05 | CT_ITS ---
FINAL REPORT TECHNIQUE: Axial CT images were performed through the head. Coronal reformatted images were submitted. This study was performed with techniques to keep radiation doses as low as reasonably achievable (ALARA). Individualized dose reduction techniques using automated exposure control or adjustment of mA and/or kV according to the patient's size were employed. CLINICAL HISTORY: fall COMPARISON: 02/12/2023 FINDINGS: There is moderate atrophy. There is moderate decreased attenuation in the deep white matter. There is no evidence of hemorrhage. There is no mass or edema identified. There is no abnormal extra-axial fluid seen. The paranasal sinuses and mastoid air cells are well aerated. IMPRESSION: No acute intracranial process. Reviewed, Interpreted and Dictated by Paulo Moore MD Transcribed by Rajwinder Arias Authenticated and [facility]
--- NOTE | 2023-05-06 11:05 | CT_ITS ---
FINAL REPORT TECHNIQUE: Axial images were obtained of the cervical spine by computed tomography. Coronal and sagittal reconstruction process performed. This study was performed with techniques to keep radiation doses as low as reasonably achievable (ALARA). Individualized dose reduction techniques using automated exposure control or adjustment of mA and/or kV according to the patient''s size were employed. CLINICAL HISTORY: fall COMPARISON: None FINDINGS: There is advanced disc space narrowing at C5-6. There is minimal spondylolisthesis of C5 on C6, probably degenerative. Facets are properly aligned. There is no evidence of fracture. On parasagittal images, there is moderate bilateral neural foraminal narrowing at C5-6. IMPRESSION: Hypertrophic changes. Bilateral neural foraminal narrowing at C5-6. Reviewed, Interpreted and Dictated by Paulo Moore MD Transcribed by Rajwinder Arias Authenticated and [facility]
--- NOTE | 2023-05-06 11:05 | HMH.EDGENADL ---
Discharge Plan Disposition Patient Disposition: Home, Self-Care Chief Complaint: Altered Mental Status Clinical Impressions Clinical Impression: Acute UTI, Traumatic blister of ankle, Acute ankle pain, Declining functional status Discharge ED Provider: Usman Umaña General Adult HPI General Chief complaint: Altered Mental Status Stated complaint: dizziness, incoherent, incontinence Time Seen by Provider: 05/06/23 10:54 Mode of Arrival: Wheelchair Source of Information: Patient and Relative Limitations: Altered Mental Status Description of Symptoms (Recalled from ER Triage Doc. by RN): pt to ed c/o ams. per daughters at bedside, pt had an unwitnessed fall yesterday with an approx 30 min downtime. daughters state they took to to [place] yesterday for workup and they did an xr of right foot, which was conclusive for non-displaced fibular ankle fx. daughters state pt is confused today. pt states she doesn't know if she hit her head or not. pt denies taking any blood thinners. History of Present Illness HPI narrative: Patient is a 78-year-old female with past medical history of type 2 diabetes [id number], chronic pain, glaucoma, atrial fibrillation, hypertension, hyperlipidemia who presents emergency department for multiple complaints. Starting Thursday patient has had intermittent confusion with family not responding appropriately to questions with symptom-free intervals. Yesterday patient was moving weems around her house when she suffered a mechanical fall, does not suspect LOC, unknown if she struck her head. She presented to outside hospital where workup was reportedly only conducted with plain films which were remarkable for fracture and patient was placed in a boot and sent home. No intracranial imaging was conducted. Patient has since had difficulty transferring and has been full assist. They present here for continued evaluation. Related Data Home Medications Medication Instructions Recorded Confirmed alprazolam 0.5 mg tablet 0.5 mg PO Q6HP PRN Anxiety 10/30/20 04/07/23 isosorbide mononitrate 60 mg 60 mg PO HS Blood pressure 10/30/20 04/07/23 tablet,extended release 24 hr montelukast 10 mg tablet 10 mg PO HS Allergies 10/30/20 04/07/23 levetiracetam 500 mg tablet 500 mg PO BID Seizures 10/31/20 04/07/23 rivaroxaban 15 mg tablet (Xarelto) 15 mg PO QPMWITHMEAL Afib 11/08/20 04/07/23 atorvastatin 20 mg tablet 20 mg PO HS Cholesterol 10/28/22 04/07/23 escitalopram oxalate 10 mg tablet 10 mg PO DAILY MOOD 10/28/22 04/07/23 fexofenadine 180 mg tablet 180 mg PO DAILYP PRN Allergies 10/28/22 04/07/23 fluticasone propionate 50 1 spray intranasal DAILY Allergies 10/28/22 04/07/23 mcg/actuation nasal spray,suspension (Flonase Allergy Relief) furosemide 40 mg tablet 40 mg PO DAILY Fluid 11/18/22 04/07/23 potassium chloride 10 mEq 10 meq PO DAILY Supplement 11/18/22 04/07/23 tablet,extended release amiodarone 200 mg tablet 200 mg PO DAILY Heart rate 12/28/22 04/07/23 pantoprazole 40 mg tablet,delayed 40 mg PO DAILY GERD 12/28/22 04/07/23 release trazodone 100 mg tablet 150 mg PO HSP PRN Sleep 12/28/22 04/07/23 metoprolol succinate 100 mg 100 mg PO DAILY afib 01/07/23 04/07/23 tablet,extended release 24 hr Previous Rx's Medication Instructions Recorded hydrocodone 5 mg-acetaminophen 325 1 tab PO Q4H PRN post op pain #30 01/07/23 mg tablet tabs Allergies Allergy/AdvReac Type Severity Reaction Status Date / Time Milk Containing Products Allergy Intermediate Unknown Verified 04/07/23 15:13 (Dairy) allergy [Milk Containing Products] [facility] Disclaimer: The information contained in this section may have been updated after the patient was seen, as this information can be updated by other users. 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 Abnormal EKG Acute pain of both ears Asthma Bilateral chronic otitis media Congestive heart failure Dyspnea Edema History of asthma History of atrial fibrillation History of hypertension Seizure disorder Sleep apnea Surgical History History of ankle surgery History of colonoscopy History of hysterectomy History of laparoscopic cholecystectomy History of shoulder surgery Family History Other Family history of acute heart failure Family history of diabetes mellitus type II Renal failure Social History Smoking Status: Never smoker alcohol intake: never substance use type: denies use current occupational status: retired Travel in the last 8 weeks: Inside the [place] household members: spouse housing: house caffeine: Yes ROS Obtained: Yes Systems reviewed as appropriate & no additional complaints except as documented Physical Exam General General appearance: alert and in no apparent distress Head Head exam: atraumatic and normocephalic Eye Eye exam: Present PERRL and EOMI ENT ENT exam: Present mucous membranes moist Neck Neck exam: Present normal inspection Chest Chest inspection: Present normal inspection and symmetric chest wall rise Respiratory Respiratory exam: Present normal lung sounds bilaterally; Absent respiratory distress Cardiovascular Cardiovascular exam: Present regular rate and normal rhythm Abdominal Exam Abdominal exam: Present soft; Absent tenderness Extremities Exam Extremities exam: Present other (5 out of 5 strength bilateral upper extremities, no tenderness to bilateral upper extremities. 5 out of 5 strength bilateral lower extremities. Tenderness and bruising about the right ankle, fracture blister overlying the medial ankle) Neurological Exam Neurological exam: Present alert; Absent motor sensory deficit Psychiatric Psychiatric exam: Present normal affect Skin Skin exam: Present warm and dry Medical Decision Making Jose Manuel Inquiry Pt receiving controlled substance: No Vital Signs: 05/06/23 10:49 05/06/23 11:01 05/06/23 11:31 Temperature 99.2 F Temperature Source Oral Pulse Rate 70 69 Pulse Rate [Left Radial] 75 Respiratory Rate 19 Blood Pressure 186/68 H 155/67 H Blood Pressure [Right Arm] 174/79 H Blood Pressure Mean 93 96 Blood Pressure Mean [Right Arm] 110 02 Sat by Pulse Oximetry 92 L 96 100 Oxygen Delivery Method Room Air 05/06/23 12:20 05/06/23 12:31 05/06/23 13:00 Temperature Temperature Source Pulse Rate 75 71 71 Pulse Rate [Left Radial] Respiratory Rate Blood Pressure 123/66 168/71 H 167/82 H Blood Pressure [Right Arm] Blood Pressure Mean Blood Pressure Mean [Right Arm] 02 Sat by Pulse Oximetry 89 L 92 L 92 L Oxygen Delivery Method Room Air Room Air Room Air 05/06/23 13:30 05/06/23 14:00 05/06/23 14:30 Temperature Temperature Source Pulse Rate 70 71 71 Pulse Rate [Left Radial] Respiratory Rate 20 Blood Pressure 156/71 H 152/71 H 175/75 H Blood Pressure [Right Arm] Blood Pressure Mean 97 89 87 Blood Pressure Mean [Right Arm] 02 Sat by Pulse Oximetry 88 L Oxygen Delivery Method Lab Data Lab Results 05/06/23 10:34: WBC 8.0, RBC 3.71 L, Hgb 9.8 L, Hct 30.1 L, MCV 81.2, MCH 26.6 L, MCHC 32.7, RDW 17.3, Plt Count 273, MPV 9.1, Neut % (Auto) 78.3, Lymph % (Auto) 12.4, [place] % (Auto) 7.9, Eos % (Auto) 1.0, Baso % (Auto) 0.2, Neut # (Auto) 6.2, Lymph # (Auto) 1.0, [place] # (Auto) 0.6, Eos # (Auto) 0.1, Baso # (Auto) 0.0, Sodium 134 L, Potassium 3.4 L, Chloride 95 L, Carbon Dioxide 34 H, Anion Gap 8.4, BUN 11, Creatinine 1.20 H, Estimated Creat Clear 49, Estimated GFR 43 L, Est GFR ( Amer) 53 L, Glucose 157 H, Calcium 8.9, Total Bilirubin 0.6, AST 37 H, ALT 27, Alkaline Phosphatase 90, Troponin I 0.01, Total Protein 7.8, Albumin 4.2, Globulin 3.6 H, Albumin/Globulin Ratio 1.2 05/06/23 10:46: Urine Color Straw, Urine Appearance Slightly cloudy, Urine pH 6.5, Ur Specific [place] 1.010, Urine Protein Negative, Urine Glucose (UA) Negative, Urine Ketones Negative, Urine Blood 1+, Urine Nitrate Positive, Urine Bilirubin Negative, Urine Urobilinogen 0.2, Ur Leukocyte Esterase 3+ A, Urine RBC 5-10, Urine WBC Tntc, Ur Squamous Epith Cells 3-5, Urine Bacteria 2+ 05/06/23 13:11: SARS-CoV-2 (PCR) Not detected, Influenza A Untype (PCR) Not detected, Influenza Type B (PCR) Not detected 05/06/23 10:34 05/06/23 10:34 Orders (Tests/Meds): ED MEDICATIONS Discontinued Medications Generic Name Dose Route Start Last Admin Trade Name Freq PRN Reason Stop Dose Admin Acetaminophen 1,000 mg 05/06/23 11:09 05/06/23 12:16 Acetaminophen 1,000mg/100ml Vial IV 05/06/23 11:10 1,000 mg ONCE ONE Administration Guaifenesin 10 ml 05/06/23 12:46 05/06/23 13:06 Guaifenesin/Dextromethorphan 200mg/20mg 10ml Udc PO 05/06/23 12:47 10 ml ONCE ONE Administration Ceftriaxone Sodium 1 gm/ 50 mls @ 100 mls/hr 05/06/23 11:40 05/06/23 12:16 Sodium Chloride IV 05/06/23 12:09 100 mls/hr ONCE ONE Administration ORDERS Category Date Time Status CT cervical spine wo con Stat Cat Scan 05/06/23 11:[address] head/brain wo con Stat Cat Scan 05/06/23 11:05 Completed Ankle XR -Right minimum 3 Views [XR ankle RT min 3V] Exams 05/06/23 11:03 Completed Stat CXR --portable [XR chest portable] Stat Exams 05/06/23 11:03 Completed CBC w/Auto Diff [Complete Blood Count Auto Diff] Stat Lab 05/06/23 10:34 Completed CMP [Comprehensive Metabolic Panel] Stat Lab 05/06/23 10:34 Completed Complete Blood Count Auto Diff AMLAB Lab 05/07/23 06:00 Ordered Comprehensive Metabolic Panel AMLAB Lab 05/07/23 06:00 Ordered Magnesium AMLAB Lab 05/07/23 06:00 Ordered Rapid PCR Covid and Flu A/B Stat Lab 05/06/23 13:11 Completed Trop I [Troponin I] Stat Lab 05/06/23 10:34 Completed Troponin I Q3H Lab 05/06/23 14:25 Received Troponin I Q3H Lab 05/06/23 17:15 Ordered UA [Urinalysis and Microscopic] Stat Lab 05/06/23 10:46 Completed Urine Culture Stat Micro 05/06/23 10:46 Received ECG initial [place] Routine Y 05/06/23 10:35 Completed ECG Data Tracing #1: Independently interpreted by me, rate is 76, rhythm is regular, no ST elevation in anatomical contiguous leads, QTc 346 Medical Decision Narrative: In summary patient is 78-year-old female past medical history described above presents emergency department for evaluation of ankle pain, difficulty transferring, intermittent confusion. Patient is hemodynamically stable nontoxic-appearing upon arrival, afebrile. With respect to confusion differential includes intracranial hemorrhage, urinary tract infection, respiratory infection, among others. With the specter of fracture patient is in a boot which was removed at bedside, there is a fracture blister present, plain films will be repeated as the type of fracture is unknown. Initial interventions include IV Tylenol. Workup reviewed by me, hematologic labs are nonactionable, stable anemia, stable CKD, no critical electrolyte abnormalities. Initial troponin is within normal range. Urinalysis interpreted by me and is consistent with infection for which ceftriaxone will be administered. CT imaging shows no acute traumatic process. Plain film shows postsurgical changes, no acute fracture. Patient has chronic swelling on the lateral aspect of her ankle which is not new, medial aspect of her ankle is likely from blunt trauma in the setting of known hardware. Given this with respect to lower extremity standpoint patient is weightbearing as tolerated. Given acute functional decline, urinary tract infection, intermittent confusion the case was discussed with hospital medicine and they will admit patient to their service for continued evaluation at this time. Critical Care Critical Care Time Critical Care Time: No
[2023-05-06 11:08] LABS: Microscopic, Urine URINE MICROSCOPIC (MICROSCOPIC)
[2023-05-06 11:15] LABS: Basophils % 0.2 % (0.1-2.0); Eosinophils # 0.1 K/mm3 (0.0-0.4); Hematocrit 30.1 % (37.0-47.0); Hemoglobin 9.8 g/dL (12.2-16.2); Lymphocytes % 12.4 % (10-50); Mean Corpuscular HGB Conc 32.7 g/dL (31.8-35.4); Mean Corpuscular Hemoglobin 26.6 pg (27.0-31.2); Mean Corpuscular Volume 81.2 fl (81-99); Mean Platelet Volume 9.1 fl (7.4-10.4); Monocytes # 0.6 K/mm3 (0.1-1.0); Monocytes % 7.9 % (1.7-9.3); Neutrophils # 6.2 K/mm3 (1.8-7.8); Neutrophils % 78.3 % (37.0-80.0); Platelet Count 273 K/mm3 (142-424); Red Blood Count 3.71 M/mm3 (4.20-5.40); Red Cell Distribution Width 17.3 % (11.5-17.5)
[2023-05-06 11:17] LABS: Bilirubin,Urine Negative (Negative); Blood, Urine 1+ (Negative); Glucose,Urine (UA) Negative (Negative); Ketones,Urine Negative (Negative); Leukocyte Esterase,Urine 3+ (Negative); Nitrate,Urine POSITIVE (Negative); PH,Urine 6.5 (5.0-8.5); Protein,Urine Negative (Negative); Urobilinogen,Urine 0.2 EU/dl (0.2)
[2023-05-06 11:17] LABS: Alanine Aminotransferase 27 U/L (12-78); Albumin Level 4.2 g/dl (3.5-5.0); Albumin/Globulin Ratio 1.2 (1.1-1.8); Alkaline Phosphatase 90 U/L (38-126); Aspartate Amino Transferase 37 U/L (14-36); Bilirubin,Total 0.6 mg/dl (0.2-1.3); Blood Urea Nitrogen 11 mg/dl (7-17); Calcium 8.9 mg/dl (8.4-10.2); Carbon Dioxide 34 mmol/L (22.0-30.0); Chloride 95 mmol/L (98-107); Creatinine Clearance Estimated 49 mL/min (50-200); Estimated Glomerular Filt Rate 43 ml/min (>60); GFR (African American) 53 ML/MIN (>60); Globulin 3.6 g/dL (1.3-3.2); Glucose 157 mg/dl (74-100); Potassium 3.4 mmoL/L (3.5-5.1); Total Protein,Serum 7.8 g/dl (6.3-8.2)
[2023-05-06 11:20] LABS: Appearance,Urine Slightly Cloudy (Clear); Color,Urine Straw (Yellow)
--- NOTE | 2023-05-06 11:20 | PC.NURSE ---
Notified Dr. Umaña pt O2 sat ranging between 87-90% with a good pleth. Dr. Umaña advised I'm okay with that as long as it does not get any lower.
[2023-05-06 11:30] LABS: Troponin I 0.01 ng/ml (0.00-0.034)
[2023-05-06 11:36] LABS: Anion Gap 8.4 mEq/L (5-15); Sodium 134 mmol/L (136-145)
--- NOTE | 2023-05-06 11:46 | PC.NURSE ---
Pt gone to RAD via stretcher
--- NOTE | 2023-05-06 12:09 | PC.NURSE ---
Pt returned from RAD
[2023-05-06] MEDS: CEFTRIAXONE 1 GM 1 GM in 0.9 % SODIUM CHLORIDE 50 ML IV (12:16)
[2023-05-06] MEDS: ACETAMINOPHEN 1,000MG/100ML VIAL 1000 MG IV (12:16)
--- NOTE | 2023-05-06 12:21 | PC.NURSE ---
Pt had episode of incontinence during CT. Pt linen and brief changed at this time. Purewick in place. Call light remains within reach.
[2023-05-06 13:00] LABS: Bacteria,Urine 2+ /lpf; WBC,Urine TNTC #/hpf (0-3)
[2023-05-06] MEDS: GUAIFENESIN/DEXTROMETHORPHAN 200MG/20MG 10ML UDC 10 ML PO (13:06)
[2023-05-06 13:18] LABS: Coronavirus 19, PCR Not Detected (NotDetected); Influenza A, PCR Not Detected (NotDetected); Influenza B, PCR Not Detected (NotDetected)
--- NOTE | 2023-05-06 14:08 | PC.NURSE ---
Dr. Umaña at BS to update pt/family on results and POC
--- NOTE | 2023-05-06 14:52 | PC.NURSE ---
Pt had small blisters on right leg from previous boot. Leg wrapped with gauze before applying new boot. No other needs voiced. Call light within reach.
--- NOTE | 2023-05-06 15:02 | PC.NURSE ---
report called to t[facility]
--- NOTE | 2023-05-06 15:11 | PC.NURSE ---
PT BEING TRANSPORTED UP FOR ADMISSION
--- NOTE | 2023-05-06 15:12 | PC.NURSE ---
arrived by stretcher from ED
--- NOTE | 2023-05-06 15:15 | P.HP_ITS ---
History of Present Illness *Admission Date: 05/06/23 *Reason for visit:: Fall, weakness *History of present illness: Ms. Casper is a 78-year-old female with complex past medical history of diabetes, chronic pain, A-fib, hypertension, hyperlipidemia. She admitted to the ER for multiple complaints. Patient has had some intermittent confusion since Thursday per family who provide history at bedside. She has had episodes where she is inappropriately answering questions and has been more weak. Yesterday she fell at home while moving some weems around her house. She developed ankle pain and was taken to [facility] in [place] for further evaluation. Plain films obtained reportedly showed nondisplaced fracture in her ankle. She was placed in a boot and sent home. She presented to the ER today with repeat imaging and labs. Urine grossly abnormal concerning for UTI. Repeat image of right ankle did not show any fracture. Patient is unable to care for herself at this time and family is unable to care for her at home given her recent history of falls over the past year and progressive loss of function of her shoulders and wrists due to fractures. In her current condition, patient is not safe to go home and necessitates inpatient management. ER consulted medicine for further management and assistance with placement. Patient is pleasant and in no acute distress. She has been unable to take care of her hygiene needs and cannot wipe her backside after she voids. Family concern this may be a culprit in her development of UTI. She is stable on room air and afebrile. No nausea or vomiting. Bilateral wrist ORIF performed 01/07/23 [facility] Disclaimer: The information contained in this section may have been updated after the patient was seen, as this information can be updated by other users. 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 Abnormal EKG Acute pain of both ears Asthma Bilateral chronic otitis media Congestive heart failure Dyspnea Edema History of asthma History of atrial fibrillation History of hypertension Seizure disorder Sleep apnea Surgical History History of ankle surgery History of colonoscopy History of hysterectomy History of laparoscopic cholecystectomy History of shoulder surgery Family History Family history of acute heart failure Renal failure Family history of diabetes mellitus type II Social History Smoking Status: Never smoker alcohol intake: never substance use type: denies use current occupational status: retired Travel in the last 8 weeks: [place] the [place] household members: spouse housing: house caffeine: Yes Review of Systems Review of Systems Review of systems (narrative): 14 point review of systems performed, pertinent positives and negatives as per HPI Meds Home Medications and Allergies Home Medications Medication Instructions Recorded Confirmed Type isosorbide mononitrate 60 mg 60 mg PO HS 10/30/20 05/06/23 History tablet,extended release 24 hr levetiracetam 500 mg tablet 500 mg PO BID Seizures 10/31/20 05/06/23 History rivaroxaban 15 mg tablet (Xarelto) 15 mg PO QPMWITHMEAL atrial fib 11/08/20 05/06/23 History atorvastatin 20 mg tablet 20 mg PO HS Cholesterol 10/28/22 05/06/23 History escitalopram oxalate 10 mg tablet 10 mg PO HS 10/28/22 05/06/23 History fexofenadine 180 mg tablet 180 mg PO HSP PRN Allergies 10/28/22 05/06/23 History fluticasone propionate 50 1 spray intranasal DAILY Allergies 10/28/22 05/06/23 History mcg/actuation nasal spray,suspension (Flonase Allergy Relief) furosemide 40 mg tablet 40 mg PO DAILY 11/18/22 05/06/23 History potassium chloride 10 mEq 10 meq PO DAILY 11/18/22 05/06/23 History tablet,extended release amiodarone 200 mg tablet 200 mg PO DAILY 12/28/22 05/06/23 History pantoprazole 40 mg tablet,delayed 40 mg PO DAILY 12/28/22 05/06/23 History release trazodone 100 mg tablet 150 mg PO HSP PRN Sleep 12/28/22 05/06/23 History hydrocodone 5 mg-acetaminophen 325 1 tab PO Q4H PRN post op pain #30 01/07/23 05/06/23 Rx mg tablet tabs alprazolam 1 mg tablet 0.5 mg PO HSP PRN Sleep 05/06/23 05/06/23 History New Prescriptions to Start Prescriptions: Allergies Allergy/AdvReac Type Severity Reaction Status Date / Time Milk Containing Products Allergy Intermediate Unknown Verified 04/07/23 15:13 (Dairy) allergy [Milk Containing Products] reaction Exam Data for Last 24 hours Vital signs and Labs for Last 24 Hours: Temp Pulse Resp BP Pulse Ox O2 Del Method 99.0 F 71 20 147/62 H 88 L Room Air 05/06/23 15:10 05/06/23 15:10 05/06/23 15:10 05/06/23 15:10 05/06/23 13:30 05/06/23 13:00 Laboratory Results - last 24 hr 05/06/23 10:34: WBC 8.0, RBC 3.71 L, Hgb 9.8 L, Hct 30.1 L, MCV 81.2, MCH 26.6 L , MCHC 32.7, RDW 17.3, Plt Count 273, MPV 9.1, Neut % (Auto) 78.3, Lymph % (Au to) 12.4, [place] % (Auto) 7.9, Eos % (Auto) 1.0, Baso % (Auto) 0.2, Neut # (Auto) 6.2, Lymph # (Auto) 1.0, [place] # (Auto) 0.6, Eos # (Auto) 0.1, Baso # (Auto) 0.0, Sodium 134 L, Potassium 3.4 L, Chloride 95 L, Carbon Dioxide 34 H, Anion Gap 8.4, BUN 11, Creatinine 1.20 H, Estimated Creat Clear 49, Estimated GFR 43 L, Est GFR ( Amer) 53 L, Glucose 157 H, Calcium 8.9, Total Bilirubin 0.6, AST 37 H, ALT 27, Alkaline Phosphatase 90, Troponin I 0.01, Total Protein 7.8, Albumin 4.2, Globulin 3.6 H, Albumin/Globulin Ratio 1.2 05/06/23 10:46: Urine Color Straw, Urine Appearance Slightly cloudy, Urine pH 6.5, Ur Specific [place] 1.010, Urine Protein Negative, Urine Glucose (UA) Negative, Urine Ketones Negative, Urine Blood 1+, Urine Nitrate Positive, Urine Bilirubin Negative, Urine Urobilinogen 0.2, Ur Leukocyte Esterase 3+ A, Urine RBC 5-10, Urine WBC Tntc, Ur Squamous Epith Cells 3-5, Urine Bacteria 2+ 05/06/23 13:11: SARS-CoV-2 (PCR) Not detected, Influenza A Untype (PCR) Not detected, Influenza Type B (PCR) Not detected I & O for Last 24 hours: Intake & Output 05/03/23 05/04/23 05/05/23 05/06/23 23:59 23:59 23:59 23:59 Output Total 1000 / 1000 Balance -1000 / -1000 Weight 79.83 kg Constitutional Constitutional: no acute distress, obese and chronically ill appearing *Routine HEENT Exam Head: Present normocephalic and atraumatic Eye: Present EOMI and PERRL ENT: Present mucous membranes moist *Routine Neck Exam Neck: Present full ROM *Routine Respiratory Exam Respiratory: Present wheezes and symmetric chest movement *Routine Cardiovascular Exam Cardiovascular: Present irregular rhythm *Routine Abdominal Exam Abdominal: Present soft and normoactive bowel sounds; Absent tenderness *Routine Rectal Exam Rectal:: deferred *Routine Genitalia Exam Genitalia:: deferred *Routine Extremities Exam Extremities: Absent full ROM (Inability to raise arms beyond 45 degrees at the shoulder) *Routine Skin Exam Skin: Present intact *Routine Neurological Exam Neurological: Present alert and moving all extremities (Range of motion limited however); Absent altered mental status Comments: Oriented to self and place Assessment and Plan *Assessment and plan (1) Acute UTI: Status: Acute Category: Medical Code(s): N39.0 - Urinary tract infection, site not specified (2) Fall: Status: Acute Category: Medical Code(s): W19.XXXA - Unspecified fall, initial encounter (3) Acute ankle pain: Status: Acute Category: Medical Code(s): M25.579 - Pain in unspecified ankle and joints of unspecified foot (4) Declining functional status: Status: Acute Category: Medical Code(s): R53.81 - Other malaise (5) Type 2 diabetes mellitus with hyperglycemia, without long-term current use of insulin: Status: Chronic Category: Medical Code(s): E11.65 - Type 2 diabetes mellitus with hyperglycemia (6) Essential hypertension: Status: Chronic Category: Medical Code(s): I10 - Essential (primary) hypertension (7) History of seizures: Status: Chronic Category: Medical Code(s): Z87.898 - Personal history of other specified conditions (8) Anxiety disorder: Status: Chronic Qualifiers: Anxiety disorder type: unspecified anxiety disorder Qualified Code(s): F41.9 - Anxiety disorder, unspecified Category: Medical Code(s): F41.9 - Anxiety disorder, unspecified (9) Atrial fibrillation: Status: Chronic Qualifiers: Atrial fibrillation type: persistent (not longstanding) Qualified Code(s): I48.19 - Other persistent atrial fibrillation Category: Medical Code(s): I48.91 - Unspecified atrial fibrillation Plan 78-year-old female with multiple comorbidities who presents the ER with fall. Found to have UTI. Discussed case with ER, given patient's progressive debility, frequent falls, inability to ambulate given her ankle pain, and UTI, request admission for further management and eval for possible placement. Medicine agreed to admit for further management. PT and OT consults placed. Initiated on antibiotics in the ER. Problems addressed as follows: UTI - Urinalysis obtained showing 3+ leuk esterase, positive nitrate, 2+ bacteria. Given ceftriaxone 1 g in the ER. - Urine culture pending. -Monitor for improvement in mentation with treatment of UTI -Continue ceftriaxone 1 g every 24 hours Falls Right ankle sprain -Continue cam walker boot - PT and OT consulted, appreciate their recommendations. -Patient has had worsening falls and weakness and has become debilitated beyond the point of family to care for her at home. Case management assisting with placement. A-fib: Continue home amiodarone 200 mg daily, Xarelto 15 mg daily. Anxiety: Continue Lexapro 10 mg nightly Hyperlipidemia: Continue 20 mg Lipitor daily Hypertension: Continue Lasix 20 mg daily, isosorbide 60 mg nightly GERD: Continue pantoprazole 40 mg daily Seizure disorder: Continue Keppra 500 mg twice daily Patient needs placement. Full code
[2023-05-06 15:22] LABS: Troponin I < 0.01 ng/ml (0.00-0.034)
--- NOTE | 2023-05-06 16:10 | HMH.PHAINT1 ---
Pharmacy Intervention Comments: home medication list verified using list from outpatient pharmacy
[2023-05-06] MEDS: RIVAROXABAN 15MG TABLET 15 MG PO (17:10)
[2023-05-06 18:20] LABS: Troponin I < 0.01 ng/ml (0.00-0.034)
[2023-05-06] MEDS: levETIRAcetam 500 MG TABLET PO (20:45)
[2023-05-06] MEDS: ATORVASTATIN 20MG TABLET 20 MG PO (20:45)
[2023-05-06] MEDS: ISOSORBIDE MONO 60MG TAB.ER.24H 60 MG PO (20:46)
[2023-05-06] MEDS: ALPRAZolam 1MG TABLET 0.5 MG PO (20:47)
[2023-05-07 04:00] VITALS: BP 133/54; PULSE 76; RESP 16; TEMP 36.7; O2SAT 100; BMI 33.5
[2023-05-07 06:29] LABS: Eosinophils # 0.1 K/mm3 (0.0-0.4); Lymphocytes # 1.1 K/mm3 (0.7-4.5); Mean Platelet Volume 8.8 fl (7.4-10.4); Monocytes # 0.5 K/mm3 (0.1-1.0)
[2023-05-07 06:38] LABS: Basophils % 0.3 % (0.1-2.0); Eosinophils % 1.9 % (0.1-12.0); Hematocrit 26.1 % (37.0-47.0); Lymphocytes % 17.8 % (10-50); Mean Corpuscular HGB Conc 32.3 g/dL (31.8-35.4); Mean Corpuscular Hemoglobin 25.8 pg (27.0-31.2); Mean Corpuscular Volume 79.9 fl (81-99); Monocytes % 8.8 % (1.7-9.3); Neutrophils # 4.4 K/mm3 (1.8-7.8); Neutrophils % 71.2 % (37.0-80.0); Platelet Count 260 K/mm3 (142-424); Red Blood Count 3.27 M/mm3 (4.20-5.40); Red Cell Distribution Width 16.9 % (11.5-17.5); White Blood Count 6.2 K/mm3 (4.8-10.8)
[2023-05-07 06:40] LABS: Hemoglobin 8.4 g/dL (12.2-16.2)
[2023-05-07 06:48] LABS: Chloride 97 mmol/L (98-107); Potassium 3.3 mmoL/L (3.5-5.1); Sodium 136 mmol/L (136-145)
[2023-05-07 06:50] LABS: Blood Urea Nitrogen 14 mg/dl (7-17); Creatinine Clearance Estimated 44 mL/min (50-200); Estimated Glomerular Filt Rate 40 ml/min (>60); GFR (African American) 48 ML/MIN (>60)
[2023-05-07 06:51] LABS: Alanine Aminotransferase 22 U/L (12-78); Albumin Level 3.6 g/dl (3.5-5.0); Albumin/Globulin Ratio 1.2 (1.1-1.8); Alkaline Phosphatase 73 U/L (38-126); Anion Gap 8.3 mEq/L (5-15); Aspartate Amino Transferase 30 U/L (14-36); Bilirubin,Total 0.4 mg/dl (0.2-1.3); Calcium 8.2 mg/dl (8.4-10.2); Carbon Dioxide 34 mmol/L (22.0-30.0); Globulin 2.9 g/dL (1.3-3.2); Glucose 142 mg/dl (74-100); Magnesium 1.8 mg/dl (1.6-2.3); Total Protein,Serum 6.5 g/dl (6.3-8.2)
[2023-05-07 07:52] VITALS: BP 135/58; PULSE 76; RESP 20; TEMP 37; O2SAT 91
[2023-05-07 08:00] VITALS: O2SAT 95
[2023-05-07] MEDS: FUROSEMIDE 40 MG TABLET PO (08:51)
[2023-05-07] MEDS: levETIRAcetam 500 MG TABLET PO ×2 (08:51→20:14)
[2023-05-07] MEDS: AMIODARONE 200MG TABLET 200 MG PO (08:51)
[2023-05-07] MEDS: ACETAMINOPHEN 325MG TAB 650 MG PO ×2 (08:52→19:42)
[2023-05-07] MEDS: PANTOPRAZOLE 40MG TABLET 40 MG PO (08:52)
[2023-05-07] MEDS: CEFTRIAXONE SODIUM 1 GM in 0.9 % SODIUM CHLORIDE 50 ML IV (10:03)
--- NOTE | 2023-05-07 10:22 | HMH.OTEV ---
OT Inpatient Evaluation Rehab OT IP Evaluation Start: 05/06/23 14:21 Freq: ONCE Status: Active Protocol: Document 05/07/23 10:13 ROSALIO (Rec: 05/07/23 10:21 ROSALIO [id number]) Rehab OT IP Assessment Subjective History Ms. Casper is a 78-year-old female with complex past medical history of diabetes, chronic pain, A-fib, hypertension, hyperlipidemia. She admitted to the ER for multiple complaints. Patient has had some intermittent confusion since Thursday per family who provide history at bedside. She has had episodes where she is inappropriately answering questions and has been more weak. Yesterday she fell at home while moving some weems around her house. She developed ankle pain and was taken to [facility] in [place] for further evaluation. Plain films obtained reportedly showed nondisplaced fracture in her ankle. She was placed in a boot and sent home. She presented to the ER today with repeat imaging and labs. Urine grossly abnormal concerning for UTI. Repeat image of right ankle did not show any fracture. Patient is unable to care for herself at this time and family is unable to care for her at home given her recent history of falls over the past year and progressive loss of function of her shoulders and wrists due to fractures. In her current condition, patient is not safe to go home and necessitates inpatient management. ER consulted medicine for further management and assistance with placement. Patient is pleasant and in no acute distress. She has been unable to take care of her hygiene needs and cannot wipe her backside after she voids. Family concern this may be a culprit in her development of UTI. She is stable on room air and afebrile. No nausea or vomiting. Bilateral wrist ORIF performed 01/07/23 Patient lives in a 1 story home with no EDITH with . Patient able to complete all ADLs and fx'l mobility indpendently. However within the past 3-4 months, patient has recurrent falls resulting in fx of wrist with needing ORIF back in 12/31 and hx of surgery on B UE shld and injurying R foot. FAmily has requested patient to be at a [facility] facility due to the inability to provide 24 /7 care that she needs. Subjective I can try to get up. Instructed Patient on proper hand and foot placement to completed bed mobility from supine->sit @ EOB->SPT to recliner requiring Max A x2. Boot donned at EOB. Patient demonstrated poor+ dynamic standing balance during transition. Objective Patient Orientation Person,Name,Age,Birthday,Year Right Upper Extremity Gross ROM WFL Left Upper Extremity Gross ROM WFL Bed Mobility bed mobility - supine/sit Assist Level Maximum x 2 (75% assist) Transfer Training Sit/Stand/Pivot Transfer Assist Level Maximum x 2 (75% assist) Chair Transfer Ability Maximum x 2 (75% assist) Chair Transfer Technique Sit to/from Ambulatory Chair Transfer Assistive Devices None Rehab OT IP prob,goals,plan Problems Date of Evaluation: 05/07/23 OT IP Problems Bed Mobility,Transfers,Balance ,Self care,Safety Rehab Potential Rehab Potential Good Equipment Needs Assistive Devices Rolling / Wheeled Walker Plan OT intervention Plan Bed Mobility,Transfers,Balance ,Self care,Safety,Therapeutic Exercise OT Plan Frequency Daily Duration LOS Discharge Goals Bed Mobility Ability Assistance x1 Sit to Stand Chair Transfer Ability Maximum x 1 (75% assist) Chair Transfer Ability Maximum x 1 (75% assist) Chair Transfer Technique Sit to/from Ambulatory Chair Transfer Assistive Devices Rolling Walker Discharge Plan OT Discharge Plan Recommend placement at this time. Patient's family is unable to provide 24/7 care and patient is requiring Max A X2 for ADLs and transfers. Family is uable to provide that. Recommend placement and rehab in order to improve independence. Patient to continue skilled OT services while admitted here at [facility]. Eval Complexity Eval Charge Codes 70730 - Low Complexity PHYSICIAN CERTIFICATION: I certify the specified therapy services for Leena Casper are required, authorized, and reviewed every 30 days.
--- NOTE | 2023-05-07 10:50 | HMH.PTEV ---
Physical Therapy Evaluation Rehab PT IP Evaluation Start: 05/06/23 14:21 Freq: ONCE Status: Active Protocol: Document 05/07/23 10:42 JUSTIN (Rec: 05/07/23 10:50 JUSTIN [id number]) Subjective/History History History Pt is a 78 y/o female who presented to [facility] ER on with multiple complaints. Per history & physical note, Patient has had some intermittent confusion since Thursday per family who provide history at bedside. She has had episodes where she is inappropriately answering questions and has been more weak. Yesterday she fell at home while moving some weems around her house. She developed ankle pain and was taken to [facility] in [place] for further evaluation. Plain films obtained reportedly showed nondisplaced fracture in her ankle. She was placed in a boot and sent home. She presented to the ER today with repeat imaging and labs. Urine grossly abnormal concerning for UTI. Repeat image of right ankle did not show any fracture. Patient is unable to care for herself at this time and family is unable to care for her at home given her recent history of falls over the past year and progressive loss of function of her shoulders and wrists due to fractures. In her current condition, patient is not safe to go home and necessitates inpatient management. ER consulted medicine for further management and assistance with placement. Patient is pleasant and in no acute distress. She has been unable to take care of her hygiene needs and cannot wipe her backside after she voids. Family concern this may be a culprit in her development of UTI. She is stable on room air and afebrile. No nausea or vomiting. PMHx: Asthma, CHF, diabetes, chronic pain, dyspnea, A-fib, hypertension, hyperlipidemia, seizure disorder Subjective Subjective Pt reports she lives in a single story home with her . Pt reports prior to hospitalization, she was independent with all ADLs and iADLs. Pt reports her helped with the laundry. Pt reports she uses a cane sometimes to get around. Pt reports a couple falls recently while walking. 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 Pt reports minimal pain of the R ankle this AM. Performed functional transfer with boot donned on RLE New diagnosis of cancer in past 12 No months? Rehab PT IP Eval Objective Appearance Patient Behavior Appropriate,Cooperative Patient Orientation Person,Place,Name,Birthday, Year Difficulty following instructions none Speech Pattern Clear,Appropriate Balance Ability to Arise Able, uses arms to help Sitting Balance Leans or slides in chair Standing Balance Unsteady Dynamic Sitting Balance Ability Fair Dynamic Standing Balance Ability Poor Transfers Bed Transfer Ability Moderate x 2 (50% assist) Chair Transfer Ability Maximum x 2 (75% assist) Sit to Stand Bed Transfer Ability Maximum x 2 (75% assist) Rehab PT IP prob,goals,plan Problems Date of Evaluation: 05/07/23 PT IP Problems Bed Mobility,Transfers,Gait, Balance,Self care,Safety Rehab Potential Rehab Potential Good Equipment Needs Assistive Devices Rolling / Wheeled Walker Plan PT Intervention Plan Bed Mobility,Transfers,Gait, Balance,Self care,Safety, Therapeutic Exercise Other Intervention Plan 1-2x/day PT Plan Frequency Daily Duration LOS Discharge Goals Bed Transfer Ability Moderate x 1 (50% assist) Sit to Stand Chair Transfer Ability Maximum x 1 (75% assist) Ambulation Assistive Device Rolling Walker Ambulation Distance (feet) 10 Discharge Plan PT Discharge Plan Pt will benefit from skilled physical therapy while in [facility] and continue to benefit from short-term rehab placement s/ p DC from [facility] once deemed medically stable by MD. Without skilled therapy the pt is at an increased risk for falls, fractures, wounds and increased burden of care. Eval Complexity Eval Charge Codes 46666 - Moderate Complexity PHYSICIAN CERTIFICATION: I certify the specified therapy services for Leena Casper are required, authorized, and reviewed every 30 days.
--- NOTE | 2023-05-07 11:42 | DIET.NUTRFU ---
RD reviewed food allergies with patient, also provided menu. She has milk products on allergic list, she reports she only has issues with sour cream and yogurt. She reports a asthma attack when consume. She tolerates ice cream/pudding/cream soup, cheese. She also cooks for self at home and uses milk to make multiple foods- soups/mashed potatoes. Will notify kitchen
[2023-05-07 11:45] VITALS: BMI 33.5
--- NOTE | 2023-05-07 13:10 | CARE MANAGER ---
Patient was evaluated by PT/OT this morning, and skilled rehab was recommended. Patient agreeable for [facility] and [facility]. Clinical faxed to both for review. Patient is medically stable for discharge per Dr. Grossman. CM will continue to monitor for discharge planning needs.
[2023-05-07 14:57] VITALS: BP 143/61; PULSE 68; RESP 18; TEMP 36.6; O2SAT 90
--- NOTE | 2023-05-07 16:59 | P.PN_ITS ---
Subjective *Date: 05/07/23 *Time: 16:59 Interval history: Patient stable on room air. No nausea or vomiting. Working with therapy this morning. Tolerating p.o. intake Medical Exam Vital signs and Labs for Last 24 Hours: Vital Signs Temp Pulse Resp BP Pulse Ox O2 Del Method 05/07/23 15:59 Room Air 05/07/23 14:57 97.9 F 68 18 143/61 H 90 L Room Air 05/07/23 14:29 Room Air 05/07/23 11:50 Room Air 05/07/23 09:53 Room Air 05/07/23 08:00 95 Room Air 05/07/23 08:40 Room Air 05/07/23 07:52 98.6 F 76 20 135/58 L 91 L Room Air 05/07/23 06:23 Room Air 05/07/23 05:00 Room Air 05/07/23 04:00 98.1 F 76 16 133/54 L 100 Room Air 05/07/23 03:00 Room Air 05/07/23 01:00 Room Air 05/06/23 23:00 Room Air 05/06/23 21:00 Room Air 05/06/23 20:00 92 L Room Air 05/06/23 20:00 98.1 F 61 16 132/56 L 92 L Room Air 05/06/23 18:29 Room Air 05/06/23 17:00 Room Air Intake and Output 05/07/23 05/07/23 05/07/23 07:59 15:59 23:59 Intake Total 120 / 360 240 / 360 Output Total 350 / 1100 750 / 1100 Balance -230 / -740 -510 / -740 Intake: Intake, Oral Amount 120 / 360 240 / 360 Output: Output, Urine Amount 350 / 1100 750 / 1100 Other: Number of Unmeasured Voids 0 Weight 77.383 kg 77.38 kg Patient Weight 05/07/23 23:59 Weight 77.38 kg Laboratory Results - last 24 hr 05/06/23 17:35: Troponin I < 0.01 05/07/23 06:08: WBC 6.2, RBC 3.27 L, Hgb 8.4 L D, Hct 26.1 L, MCV 79.9 L, MCH 2 5.8 L, MCHC 32.3, RDW 16.9, Plt Count 260, MPV 8.8, Neut % (Auto) 71.2, Lymph % (Auto) 17.8, [place] % (Auto) 8.8, Eos % (Auto) 1.9, Baso % (Auto) 0.3, Neut # (Auto) 4.4, Lymph # (Auto) 1.1, [place] # (Auto) 0.5, Eos # (Auto) 0.1, Baso # (Auto) 0.0, Sodium 136, Potassium 3.3 L, Chloride 97 L, Carbon Dioxide 34 H, Anion Gap 8.3, BUN 14 D, Creatinine 1.30 H, Estimated Creat Clear 44, Estimated GFR 40 L, Est GFR ( Amer) 48 L, Glucose 142 H, Calcium 8.2 L, Magnesium 1.8, Total Bilirubin 0.4, AST 30, ALT 22, Alkaline Phosphatase 73, Total Protein 6.5, Albumin 3.6 D, Globulin 2.9, Albumin/Globulin Ratio 1.2 I & O for Labs for Last 24 Hours: Intake & Output 05/04/23 05/05/23 05/06/23 05/07/23 23:59 23:59 23:59 23:59 Intake Total 290 / 290 360 / 360 Output Total 1000 / 1250 1100 / 1100 Balance -710 / -960 -740 / -740 Weight 76.799 kg 77.38 kg Constitutional: Present no acute distress and obese Head: Present atraumatic and normocephalic ENT: Present normal exam Respiratory: Present normal respiratory effort; Absent rhonchi, wheezes or crackles Cardiac: Present Reg Rate and Rhythm GI: Present normal bowel sounds; Absent tenderness Extremities: Present normal inspection and tenderness (Right ankle, boot in place) Skin: Present intact; Absent erythema Neuro: Present Grossly Intact, alert, awake and moves all extremities Assessment and Plan *Assessment and plan (1) Acute UTI: Status: Acute Category: Medical Code(s): N39.0 - Urinary tract infection, site not specified (2) Fall: Status: Acute Category: Medical Code(s): W19.XXXA - Unspecified fall, initial encounter (3) Acute ankle pain: Status: Acute Category: Medical Code(s): M25.579 - Pain in unspecified ankle and joints of unspecified foot (4) Declining functional status: Status: Acute Category: Medical Code(s): R53.81 - Other malaise (5) Type 2 diabetes mellitus with hyperglycemia, without long-term current use of insulin: Status: Chronic Category: Medical Code(s): E11.65 - Type 2 diabetes mellitus with hyperglycemia (6) Essential hypertension: Status: Chronic Category: Medical Code(s): I10 - Essential (primary) hypertension (7) History of seizures: Status: Chronic Category: Medical Code(s): Z87.898 - Personal history of other specified conditions (8) Anxiety disorder: Status: Chronic Qualifiers: Anxiety disorder type: unspecified anxiety disorder Qualified Code(s): F41.9 - Anxiety disorder, unspecified Category: Medical Code(s): F41.9 - Anxiety disorder, unspecified (9) Atrial fibrillation: Status: Chronic Qualifiers: Atrial fibrillation type: persistent (not longstanding) Qualified Code(s): I48.19 - Other persistent atrial fibrillation Category: Medical Code(s): I48.91 - Unspecified atrial fibrillation Plan 78-year-old female with multiple comorbidities who presents the ER with fall. Found to have UTI. Discussed case with ER, given patient's progressive debility, frequent falls, inability to ambulate given her ankle pain, and UTI, request admission for further management and eval for possible placement. Medicine agreed to admit for further management. PT and OT consults placed. Continues to require inpatient admission for IV antibiotics. Problems addressed as follows: UTI -Continue ceftriaxone 1 g daily. Urine culture pending. -Monitor for improvement in mentation with treatment of UTI Falls Right ankle sprain -Continue cam walker boot -PT and OT evaluating patient, recommend placement. Case management assisting with referrals. A-fib: Continue home amiodarone 200 mg daily, Xarelto 15 mg daily. Anxiety: Continue Lexapro 10 mg nightly Hyperlipidemia: Continue 20 mg Lipitor daily Hypertension: Continue Lasix 20 mg daily, isosorbide 60 mg nightly GERD: Continue pantoprazole 40 mg daily Seizure disorder: Continue Keppra 500 mg twice daily Patient needs placement. Full code
[2023-05-07] MEDS: RIVAROXABAN 15MG TABLET 15 MG PO (17:06)
[2023-05-07 20:00] VITALS: BP 151/69; PULSE 66; RESP 16; TEMP 36.8; O2SAT 94
[2023-05-07] MEDS: ATORVASTATIN 20MG TABLET 20 MG PO (20:14)
[2023-05-07] MEDS: CITALOPRAM 20MG TABLET 20 MG PO (20:14)
[2023-05-07] MEDS: ISOSORBIDE MONO 60MG TAB.ER.24H 60 MG PO (20:14)
[2023-05-07] MEDS: ALPRAZolam 0.5MG TABLET 0.5 MG PO (20:16)
[2023-05-07] MEDS: TRAZODONE 50MG TABLET 150 MG PO (20:16)
[2023-05-08 04:00] VITALS: BP 143/64; PULSE 64; RESP 16; TEMP 36.8; O2SAT 91; BMI 33.7
[2023-05-08 06:26] LABS: Basophils % 0.4 % (0.1-2.0); Eosinophils # 0.1 K/mm3 (0.0-0.4); Eosinophils % 3.2 % (0.1-12.0); Hematocrit 24.8 % (37.0-47.0); Hemoglobin 8.2 g/dL (12.2-16.2); Lymphocytes # 1.2 K/mm3 (0.7-4.5); Lymphocytes % 27.1 % (10-50); Mean Corpuscular HGB Conc 32.9 g/dL (31.8-35.4); Mean Corpuscular Volume 79.3 fl (81-99); Mean Platelet Volume 8.8 fl (7.4-10.4); Monocytes # 0.4 K/mm3 (0.1-1.0); Neutrophils # 2.8 K/mm3 (1.8-7.8); Neutrophils % 61.3 % (37.0-80.0); Platelet Count 265 K/mm3 (142-424); Red Blood Count 3.13 M/mm3 (4.20-5.40); Red Cell Distribution Width 17.3 % (11.5-17.5); White Blood Count 4.5 K/mm3 (4.8-10.8)
[2023-05-08 06:28] LABS: Chloride 95 mmol/L (98-107); Potassium 3.6 mmoL/L (3.5-5.1); Sodium 134 mmol/L (136-145)
[2023-05-08 06:31] LABS: Anion Gap 8.6 mEq/L (5-15); Blood Urea Nitrogen 16 mg/dl (7-17); Calcium 8.3 mg/dl (8.4-10.2); Carbon Dioxide 34 mmol/L (22.0-30.0); Creatinine Clearance Estimated 48 mL/min (50-200); Estimated Glomerular Filt Rate 43 ml/min (>60); GFR (African American) 53 ML/MIN (>60); Glucose 132 mg/dl (74-100)
[2023-05-08 06:32] LABS: Magnesium 1.9 mg/dl (1.6-2.3)
[2023-05-08] MEDS: levETIRAcetam 500 MG TABLET PO (07:31)
[2023-05-08] MEDS: AMIODARONE 200MG TABLET 200 MG PO (07:31)
[2023-05-08] MEDS: FUROSEMIDE 40 MG TABLET PO (07:31)
[2023-05-08] MEDS: PANTOPRAZOLE 40MG TABLET 40 MG PO (07:31)
[2023-05-08 07:51] VITALS: O2SAT 97
[2023-05-08 08:00] VITALS: BP 133/59; PULSE 60; RESP 16; TEMP 36.6; O2SAT 93
--- NOTE | 2023-05-08 08:10 | CARE MANAGER ---
Addendum entered by Kaitlyn Dykes RN 05/08/23 11:35: Spoke with Delisa @ [facility] this morning. We have an insurance authorization and patient will discharge to there today. Daughter has been notified and she plans to transport patient. Original Note: Per PT/OT eval, patient most appropriate for SNF level of care at discharge. I spoke with patient on 05/07 and she requested (1) [facility] or (2) [facility]. Both places offered a bed, and [facility] started auth on 05/07. Plan is for patient to discharge today if we can obtain an authorization from insurance.
[2023-05-08] MEDS: ACETAMINOPHEN 325MG TAB 650 MG PO (10:07)
[2023-05-08] MEDS: POLYETHYLENE GLYCOL 3350 17 GM PACKET PO (10:38)
[2023-05-08] MEDS: ALPRAZolam 0.5MG TABLET 0.5 MG PO (10:40)
[2023-05-08] MEDS: CEFTRIAXONE SODIUM 1 GM in 0.9 % SODIUM CHLORIDE 50 ML IV (10:40)
--- NOTE | 2023-05-08 11:25 | P.DS_ITS ---
General Admission date:: 05/06/23 Discharge date: 05/08/23 HPI HPI HPI: Ms. Casper is a 78-year-old female with complex past medical history of diabetes, chronic pain, A-fib, hypertension, hyperlipidemia. She admitted to the ER for multiple complaints. Patient has had some intermittent confusion since Thursday per family who provide history at bedside. She has had episodes where she is inappropriately answering questions and has been more weak. Yesterday she fell at home while moving some weems around her house. She developed ankle pain and was taken to [facility] in [place] for further evaluation. Plain films obtained reportedly showed nondisplaced fracture in her ankle. She was placed in a boot and sent home. She presented to the ER today with repeat imaging and labs. Urine grossly abnormal concerning for UTI. Repeat image of right ankle did not show any fracture. Patient is unable to care for herself at this time and family is unable to care for her at home given her recent history of falls over the past year and progressive loss of function of her shoulders and wrists due to fractures. In her current condition, patient is not safe to go home and necessitates inpatient management. ER consulted medicine for further management and assistance with placement. Patient is pleasant and in no acute distress. She has been unable to take care of her hygiene needs and cannot wipe her backside after she voids. Family concern this may be a culprit in her development of UTI. She is stable on room air and afebrile. No nausea or vomiting. Bilateral wrist ORIF performed 01/07/23 Hospital Course Hospital Course Hospital Course: 78-year-old female with multiple comorbidities who presents the ER with fall. Found to have UTI. Discussed case with ER, given patient's progressive debility, frequent falls, inability to ambulate given her ankle pain, and UTI, request admission for further management and eval for possible placement. Medicine agreed to admit for further management. PT and OT were consulted. Patient necessitating placement for further management. Complete antibiotics in the rehab setting. Stable for discharge to skilled care. Problems addressed during hospitalization as follows: UTI -Urinalysis grossly abnormal on admission. Urine culture still pending. Initiated on ceftriaxone with clinical improvement. White cell count normal on day of discharge at 4.5. Initiated on ceftriaxone during admission. Tolerating well. Transition to cefdinir to complete 5 days of antibiotics. Needs 2 more days of cefdinir 300 mg twice daily. Falls Right ankle sprain -X-ray obtained showing no fracture. Continue cam walker boot. Complicates patient's ability to ambulate. Weight-bear as tolerated. A-fib: Continue home amiodarone 200 mg daily, Xarelto 15 mg daily. Anxiety: Continue Lexapro 10 mg nightly Hyperlipidemia: Continue 20 mg Lipitor daily Hypertension: Continue Lasix 20 mg daily, isosorbide 60 mg nightly GERD: Continue pantoprazole 40 mg daily Seizure disorder: Continue Keppra 500 mg twice daily Exam Data for Last 24 hours Vital signs and Labs for Last 24 Hours: Temp Pulse Resp BP Pulse Ox O2 Del Method 97.8 F 60 16 133/59 L 93 L Room Air 05/08/23 08:00 05/08/23 08:00 05/08/23 08:00 05/08/23 08:00 05/08/23 08:00 05/08/23 08:00 Laboratory Results - last 24 hr 05/08/23 06:04: WBC 4.5 L D, RBC 3.13 L, Hgb 8.2 L, Hct 24.8 L, MCV 79.3 L, MCH 26.0 L, MCHC 32.9, RDW 17.3, Plt Count 265, MPV 8.8, Neut % (Auto) 61.3, Lymph % (Auto) 27.1, [place] % (Auto) 8.0, Eos % (Auto) 3.2, Baso % (Auto) 0.4, Neut # (Auto) 2.8, Lymph # (Auto) 1.2, [place] # (Auto) 0.4, Eos # (Auto) 0.1, Baso # (Auto) 0.0, Sodium 134 L, Potassium 3.6, Chloride 95 L, Carbon Dioxide 34 H, Anion Gap 8.6, BUN 16, Creatinine 1.20 H, Estimated Creat Clear 48, Estimated GFR 43 L, Est GFR ( Amer) 53 L, Glucose 132 H, Calcium 8.3 L, Magnesium 1.9 I & O for Last 24 hours: Intake & Output 05/05/23 05/06/23 05/07/23 05/08/23 23:59 23:59 23:59 23:59 Intake Total 290 / 290 600 / 600 260 / 260 Output Total 1000 / 1250 1100 / 1100 425 / 425 Balance -710 / -960 -500 / -500 -165 / -165 Weight 76.799 kg 77.38 kg 78.063 kg Constitutional Constitutional: no acute distress, obese and chronically ill appearing *Routine HEENT Exam Head: Present normocephalic Eye: Present EOMI and PERRL ENT: Present mucous membranes moist *Routine Neck Exam Neck: Present supple; Absent lymphadenopathy *Routine Respiratory Exam Respiratory: Present CTA bilaterally; Absent rhonchi or wheezes *Routine Cardiovascular Exam Cardiovascular: Present RRR *Routine Abdominal Exam Abdominal: Present soft and normoactive bowel sounds; Absent tenderness *Routine Extremities Exam Extremities: Present edema (Trace); Absent cyanosis or clubbing Comments: Bruising of right ankle; tender to palpation; limited range of motion of shoulders *Routine Skin Exam Skin: Present warm; Absent rash *Routine Neurological Exam Neurological: Present alert, oriented X3 and moving all extremities; Absent altered mental status Results Data Completed and Pending Labs on day of discharge: Labs from last 24 hours 05/08/23 06:04 WBC 4.5 L D RBC 3.13 L Hgb 8.2 L Hct 24.8 L MCV 79.3 L MCH 26.0 L MCHC 32.9 RDW 17.3 Plt Count 265 MPV 8.8 Neut % (Auto) 61.3 Lymph % (Auto) 27.1 [place] % (Auto) 8.0 Eos % (Auto) 3.2 Baso % (Auto) 0.4 Neut # (Auto) 2.8 Lymph # (Auto) 1.2 [place] # (Auto) 0.4 Eos # (Auto) 0.1 Baso # (Auto) 0.0 Sodium 134 L Potassium 3.6 Chloride 95 L Carbon Dioxide 34 H Anion Gap 8.6 BUN 16 Creatinine 1.20 H Estimated Creat Clear 48 Estimated GFR 43 L Est GFR ( Amer) 53 L Glucose 132 H Calcium 8.3 L Magnesium 1.9 DS: Diagnosis Discharge Diagnosis (1) Acute UTI: Status: Acute Code(s): N39.0 - Urinary tract infection, site not specified (2) Fall: Status: Acute Code(s): W19.XXXA - Unspecified fall, initial encounter (3) Acute ankle pain: Status: Acute Code(s): M25.579 - Pain in unspecified ankle and joints of unspecified foot (4) Declining functional status: Status: Acute Code(s): R53.81 - Other malaise (5) Type 2 diabetes mellitus with hyperglycemia, without long-term current use of insulin: Status: Chronic Code(s): E11.65 - Type 2 diabetes mellitus with hyperglycemia (6) Essential hypertension: Status: Chronic Code(s): I10 - Essential (primary) hypertension (7) History of seizures: Status: Chronic Code(s): Z87.898 - Personal history of other specified conditions (8) Anxiety disorder: Status: Chronic Code(s): F41.9 - Anxiety disorder, unspecified Qualifiers: Anxiety disorder type: unspecified anxiety disorder Qualified Code(s): F41.9 - Anxiety disorder, unspecified (9) Atrial fibrillation: Status: Chronic Code(s): I48.91 - Unspecified atrial fibrillation Qualifiers: Atrial fibrillation type: persistent (not longstanding) Qualified Code(s): I48.19 - Other persistent atrial fibrillation Meds Home Medications and Allergies Home Medications Medication Instructions Recorded Confirmed Type isosorbide mononitrate 60 mg 60 mg PO HS 10/30/20 05/06/23 History tablet,extended release 24 hr levetiracetam 500 mg tablet 500 mg PO BID Seizures 10/31/20 05/06/23 History rivaroxaban 15 mg tablet (Xarelto) 15 mg PO QPMWITHMEAL atrial fib 11/08/20 05/06/23 History atorvastatin 20 mg tablet 20 mg PO HS Cholesterol 10/28/22 05/06/23 History escitalopram oxalate 10 mg tablet 10 mg PO HS 10/28/22 05/06/23 History fexofenadine 180 mg tablet 180 mg PO HSP PRN Allergies 10/28/22 05/06/23 History fluticasone propionate 50 1 spray intranasal DAILY Allergies 10/28/22 05/06/23 History mcg/actuation nasal spray,suspension (Flonase Allergy Relief) furosemide 40 mg tablet 40 mg PO DAILY 11/18/22 05/06/23 History potassium chloride 10 mEq 10 meq PO DAILY 11/18/22 05/06/23 History tablet,extended release amiodarone 200 mg tablet 200 mg PO DAILY 12/28/22 05/06/23 History pantoprazole 40 mg tablet,delayed 40 mg PO DAILY 12/28/22 05/06/23 History release trazodone 100 mg tablet 150 mg PO HSP PRN Sleep 12/28/22 05/06/23 History alprazolam 1 mg tablet 0.5 mg PO HSP PRN Sleep 10 days #5 05/08/23 Rx tabs cefdinir 300 mg capsule 300 mg PO BID 2 days #4 caps 05/08/23 Rx polyethylene glycol 3350 17 gram 17 g PO DAILY PRN constipation 30 05/08/23 Rx oral powder packet (Miralax) days #0 ea New Prescriptions to Start Prescriptions: Leonid Stacy James Allergies Allergy/AdvReac Type Severity Reaction Status Date / Time Milk Containing Products Allergy Intermediate Unknown Verified 04/07/23 15:13 (Dairy) allergy [Milk Containing Products] reaction Discharge Plan Disposition Patient Disposition: Xfer SNF Condition: Fair Discharge Order Discharge Orders: Discharge Order (Routine); Ordered 05/08/23 Ordered By: Leonid Grsosman Follow up Plan Follow up with: Erlin Nash APRN [Primary Care Provider] - 05/14/23 2:20 pm Prescriptions/Medication Reconciliation: New polyethylene glycol 3350 [Miralax] 17 gram Powder In Packet 17 g PO DAILY PRN (Reason: constipation) 30 Days Qty: 0 0RF cefdinir 300 mg capsule 300 mg PO BID 2 Days Qty: 4 0RF Continued atorvastatin 20 mg tablet 20 mg PO HS fexofenadine 180 mg tablet 180 mg PO HSP PRN (Reason: Allergies) Patient Comments: TAKE ONE TABLET BY MOUTH EVERY DAY swallow whole with water; DO not take with fruit juices escitalopram oxalate 10 mg tablet 10 mg PO HS fluticasone propionate [Flonase Allergy Relief] 50 mcg/actuation spray,suspension 1 spray intranasal DAILY Rx Instructions: administer into each nostril isosorbide mononitrate 60 MG tablet extended release 24 hr 60 mg PO HS levetiracetam 500 MG tablet 500 mg PO BID Xarelto 15 MG tablet 15 mg PO QPMWITHMEAL trazodone 100 mg tablet 150 mg PO HSP PRN (Reason: Sleep) Patient Comments: TAKE 1 AND 1/2 TABLET BY MOUTH EVERY DAY AT BEDTIME NEEDED pantoprazole 40 mg tablet,delayed release (DR/EC) 40 mg PO DAILY Patient Comments: TAKE ONE (1) TABLET BY MOUTH DAILY amiodarone 200 mg tablet 200 mg PO DAILY Patient Comments: TAKE ONE (1) TABLET BY MOUTH ONCE DAILY furosemide 40 MG tablet 40 mg PO DAILY potassium chloride 10 MEQ tablet extended release 10 meq PO DAILY alprazolam 1 mg tablet 0.5 mg PO HSP PRN (Reason: Sleep) 10 Days Qty: 5 0RF Discontinued hydrocodone-acetaminophen 5-325 mg tablet 1 tab PO Q4H PRN (Reason: post op pain) Qty: 30 0RF Problem Reconciliation Problems Reviewed?: Yes Patient Discharge Instructions ACTIVITY: Ambulate as tolerated and Up with assistance DIET: continue same diet Patient Instructions: Urinary Tract Infection, DI for Urinary Tract Infection (UTI), DI for Muscle Weakness Providers Primary Care Provider: Erlin Nash Admit Provider: Leonid Grossman Attending Provider: Leonid Grossman
--- NOTE | 2023-05-08 12:12 | PC.NURSE ---
report called to [facility] nurse Audrey.
--- NOTE | 2023-05-14 15:50 | PC.NURSE ---
URINE CULTURE GIVEN TO DR. BAHENA, PT ON APPROPRIATE ABX, NO NEW ORDERS
== END 2023-05-08 13:05 ==
LOC: ER 10:50 → 2ND 14:55
PROVIDERS: Admitting Provider Internal Medicine Adolescent Medicine; Emergency Provider Emergency Medicine; PCP Nurse Practitioner Family; Visit Provider Internal Medicine Adolescent Medicine
DX: N39.0 Urinary tract infection, site not specified (principal); M25.571 Pain in right ankle and joints of right foot; S93.401A Sprain of unspecified ligament of right ankle, initial encounter; R53.81 Other malaise; E11.65 Type 2 diabetes mellitus with hyperglycemia; I10 Essential (primary) hypertension; F41.9 Anxiety disorder, unspecified; I48.19 Other persistent atrial fibrillation; Z79.01 Long term (current) use of anticoagulants; Z79.899 Other long term (current) drug therapy; R29.6 Repeated falls; W01.0XXA Fall on same level from slipping, tripping and stumbling without subsequent striking against object, initial encounter; Z91.81 History of falling; Y93.89 Activity, other specified; Y92.019 Unspecified place in single-family (private) house as the place of occurrence of the external cause
CPT/HCPCS: 36415; 70450; 71045; 72125; 73610; 80048; 80053; 81001; 83735; 84484; 85025; 87086; 87636; 93005; 97162; 97165; 97530; 99285; G0378; J0131; J0696

== ENCOUNTER 2023-05-21 14:00 | Outpatient (CLI) | payer MEDICARE, SELFPAY ==
--- NOTE | 2023-05-21 14:07 | XR_ITS ---
FINAL REPORT CLINICAL HISTORY: right ankle fx COMPARISON: 05/06/2023 FINDINGS: RIGHT ANKLE: Three views of the right ankle were obtained. There are postoperative changes in the distal fibula and medial malleolus. There is lateral soft tissue swelling which persists unchanged from the prior exam. Mild degenerative changes noted. Vascular calcifications are present. Calcaneal spurs are present. The joint spaces and mortise are intact. . IMPRESSION: Postoperative changes of the distal fibula and medial malleolus, stable since the previous exam of April 2023. Reviewed, Interpreted and Dictated by Reynaldo Pastor III, MD Transcribed by Daria Olmstead Authenticated and [facility]
== END 2023-05-21 23:59 ==
LOC: RAD 14:02
PROVIDERS: PCP Nurse Practitioner Family; Visit Provider Orthopaedic Surgery
DX: M25.571 Pain in right ankle and joints of right foot (principal)
CPT/HCPCS: 73610

== ENCOUNTER 2023-08-10 12:34 | Outpatient (CLI) | payer MEDICARE, SELFPAY ==
[2023-08-10] MEDS: IRON SUCROSE COMPLEX 200 MG in 0.9 % SODIUM CHLORIDE 100 ML 220 MG IV (12:56)
[2023-08-10 13:00] VITALS: BP 136/66; PULSE 62; RESP 16; O2SAT 93
[2023-08-10] MEDS: 0.9 % SODIUM CHLORIDE 50 ML 220 ML IV (13:00)
[2023-08-10 13:43] VITALS: BP 146/70; PULSE 60; O2SAT 100
== END 2023-08-10 13:43 | disposition home or self-care (01) ==
LOC: INF 12:36
PROVIDERS: PCP Nurse Practitioner Family; Visit Provider Internal Medicine Medical Oncology
DX: D50.0 Iron deficiency anemia secondary to blood loss (chronic) (principal)
CPT/HCPCS: 96365; J1756

== ENCOUNTER 2023-08-17 08:52 | Outpatient (CLI) | payer MEDICARE, SELFPAY ==
[2023-08-17 09:22] VITALS: BP 126/55; PULSE 61; RESP 16; TEMP 36.3; O2SAT 93
[2023-08-17] MEDS: IRON SUCROSE COMPLEX 200 MG in 0.9 % SODIUM CHLORIDE 100 ML 220 MG IV (09:22)
[2023-08-17] MEDS: SODIUM CHLORIDE 0.9% 10ML FLUSH SYRINGE 10 ML IV (09:22)
[2023-08-17] MEDS: SODIUM CHLORIDE 0.9% 50ML BAG 50 ML IV (09:22)
[2023-08-17 10:00] VITALS: BP 120/63; PULSE 61; RESP 14
--- NOTE | 2023-08-17 10:44 | PC.NURSE ---
1005 Patient had some bleeding from previous L wrist IV site upon leaving department/daughter returned to infusion department and asked for her to be checked. Bleeding controlled/did note area of bleeding under skin at site where IV was discontinued/appears to have bled d/t pressure applied using walker to ambulate to vehicle/ patient on Xarelto and reports she bleeds easily. Site cleaned and pressure dressing reapplied. Instructed patient to leave pressure dressing intact today/ also instructed she may apply ice over dressing at intervals of few minutes periodically if needed. Patient denies any complaints of pain at site.
== END 2023-08-17 10:00 | disposition home or self-care (01) ==
LOC: INF 08:52
PROVIDERS: PCP Nurse Practitioner Family; Visit Provider Internal Medicine Medical Oncology
DX: D50.8 Other iron deficiency anemias (principal)
CPT/HCPCS: 96365; J1756

== ENCOUNTER 2023-08-24 08:54 | Outpatient (CLI) | payer MEDICARE, SELFPAY ==
[2023-08-24 09:18] VITALS: BP 161/86; PULSE 58; RESP 20; TEMP 36.5; O2SAT 97
[2023-08-24] MEDS: SODIUM CHLORIDE 0.9% 50ML BAG 50 ML IV (09:18)
[2023-08-24] MEDS: IRON SUCROSE COMPLEX 200 MG in 0.9 % SODIUM CHLORIDE 100 ML 220 MG IV (09:18)
[2023-08-24] MEDS: SODIUM CHLORIDE 0.9% 10ML FLUSH SYRINGE 10 ML IV (09:19)
[2023-08-24 10:00] VITALS: BP 158/80; PULSE 59; RESP 20; O2SAT 98
== END 2023-08-24 10:05 | disposition home or self-care (01) ==
LOC: INF 08:55
PROVIDERS: PCP Nurse Practitioner Family; Visit Provider Internal Medicine Medical Oncology
DX: D50.0 Iron deficiency anemia secondary to blood loss (chronic) (principal); T45.4X5A Adverse effect of iron and its compounds, initial encounter; R19.7 Diarrhea, unspecified
CPT/HCPCS: 96365; J1756

== ENCOUNTER 2023-11-10 09:14 | Outpatient (CLI) | payer MEDICARE, SELFPAY ==
--- NOTE | 2023-11-10 09:38 | XR_ITS ---
FINAL REPORT CLINICAL HISTORY: RT RIB PAIN COMPARISON: None FINDINGS: A single view of the chest with 3 views of the ribs were obtained. There is no acute cardiopulmonary process. No pneumothorax is identified. No displaced rib fracture identified. The patient has undergone a prior right shoulder arthroplasty. IMPRESSION: No acute rib fracture or pneumothorax is seen. Reviewed, Interpreted and Dictated by Reynaldo Pastor III, MD Transcribed by Daria Olmtsead Authenticated and [facility]
== END 2023-11-10 23:59 | disposition home or self-care (01) ==
LOC: RAD 09:17
PROVIDERS: PCP Nurse Practitioner Family; Visit Provider Nurse Practitioner Family
DX: R07.81 Pleurodynia (principal)
CPT/HCPCS: 71101

== ENCOUNTER 2024-03-21 16:49 | Observation (INO) | payer MEDICARE, SELFPAY ==
[2024-03-21] VITALS (8 sets, daily range): BP systolic 152–183; BP diastolic 66–86; PULSE 57–71; RESP 16–21; TEMP 36.4–36.9; O2SAT 90–97; BMI 31.2; BMI 33.4
--- NOTE | 2024-03-21 17:56 | XR_ITS ---
PROCEDURE INFORMATION: Exam: XR Chest Exam date and time: 03/21/2024 6:08 PM Age: 78 years old Clinical indication: Cough and shortness of breath; Additional info: Cough, SOA TECHNIQUE: Imaging protocol: Radiologic exam of the chest. Views: 1 view. COMPARISON: CR XR RIBS RT MIN 3V W [id number] 11/10/2023 9:40 AM FINDINGS: Lungs: No focal consolidation or pulmonary edema. Calcified granuloma within the left upper lobe. Pleural spaces: Unremarkable. No pleural effusion. No pneumothorax. Heart/Mediastinum: Normal. Vasculature: Atherosclerotic vascular disease. Bones/joints: Multilevel thoracic spine degenerative disc space narrowing and osteophyte formation. Severe degenerative changes of the visualized left glenohumeral joint, with joint space narrowing and osteophyte formation. Right glenohumeral arthroplasty. Organs: Cholecystectomy clips in the right upper abdomen. IMPRESSION: No acute cardiopulmonary abnormality.
--- NOTE | 2024-03-21 17:58 | [facility].EDCP ---
Discharge Plan Disposition Patient Disposition: Admitted Condition: Good Clinical Impressions Clinical Impression: Acute hypoxemic respiratory failure, Asthma exacerbation, Cough with hemoptysis Discharge ED Provider: Rachelle Ramesh HPI General Chief Complaint: Shortness of Breath/Dyspnea Stated Complaint: Cough,chest congestion sent by Marcos Baldwin Time Seen by Provider: 03/21/24 17:31 Mode of Arrival: Ambulatory Source of Information: Patient Limitations: No Limitations Description of Symptoms (Recalled from ER Triage Doc. by RN): c/o cough for 2 days, seen pcp on and was given a steroid shot and po antibiotic for the verge of PNA. Pt states she was unable to get the mailed antibiotic until today. STates she has pain all over, when seen at the pcp today she was told she has PNA. History of Present Illness HPI narrative: This patient is a 78-year-old female with a history of atrial fibrillation on Xarelto, asthma, CHF, hypertension, and obesity presenting to the emergency department for evaluation with concern for cough for several days. According to the patient, she saw her PCP last for cough and was told that her asthma is flaring up. She was given a steroid shot and prescription for antibiotic, however she did not get the antibiotic mailed to her until today. She notes that her primary care provider saw her again today and stated that she was concerned that she was on the verge of pneumonia and needed to go to the ER. She notes that her cough and shortness of breath have been persistent. She denies true fevers, chest pain, abdominal pain, vomiting, or other concerns. Related Data Home Medications ?Medication ?Instructions ?Recorded ?Confirmed isosorbide mononitrate 60 mg 60 mg PO HS 10/30/20 03/21/24 tablet,extended release 24 hr levetiracetam 500 mg tablet 500 mg PO BID Seizures 10/31/20 03/21/24 rivaroxaban 15 mg tablet (Xarelto) 15 mg PO QPMWITHMEAL atrial fib 11/08/20 03/21/24 atorvastatin 20 mg tablet 20 mg PO HS Cholesterol 10/28/22 03/21/24 escitalopram oxalate 10 mg tablet 10 mg PO HS 10/28/22 03/21/24 fexofenadine 180 mg tablet 180 mg PO HSP PRN Allergies 10/28/22 03/21/24 furosemide 40 mg tablet 40 mg PO DAILY 11/18/22 03/21/24 potassium chloride 10 mEq 10 meq PO DAILY 11/18/22 03/21/24 tablet,extended release amiodarone 200 mg tablet 200 mg PO DAILY 12/28/22 03/21/24 pantoprazole 40 mg tablet,delayed 40 mg PO DAILY 12/28/22 03/21/24 release trazodone 100 mg tablet 150 mg PO HSP PRN Sleep 12/28/22 03/21/24 levocetirizine 5 mg tablet 5 mg PO DAILY 07/28/23 03/21/24 alprazolam 1 mg tablet 1 mg PO HSP PRN Sleep 12/14/23 03/21/24 linagliptin 5 mg tablet (Tradjenta) 5 mg PO DAILY 03/21/24 03/21/24 Allergies Allergy/AdvReac Type Severity Reaction Status Date / Time sour cream Allergy Mild Uncoded 12/14/23 11:11 [facility] Disclaimer: The information contained in this section may have been updated after the patient was seen, as this information can be updated by other users. 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 Otalgia, bilateral Ear drainage Seasonal allergic rhinitis Sleep apnea Seizure disorder Asthma Fracture of right distal radius Fracture of left distal radius Fracture of ulnar styloid Bilateral radial fractures History of hypertension History of asthma History of atrial fibrillation Bilateral chronic otitis media Acute pain of both ears Abnormal EKG Edema Dyspnea Congestive heart failure Surgical History History of tonsillectomy and adenoidectomy History of colonoscopy History of hysterectomy History of laparoscopic cholecystectomy History of shoulder surgery History of ankle surgery Family History Other Family history of acute heart failure Family history of diabetes mellitus type II Renal failure Social History (Updated 03/21/24 @ 22:13 by July Haney RN) Smoking Status: Never smoker alcohol intake: never substance use type: denies use current occupational status: retired Travel in the last 8 weeks: Inside the [place] household members: spouse housing: house caffeine: Yes Other 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 Have you received the Flu Vaccine for this season: No Have you received the Pneumonia Vaccine: Yes ROS Obtained: Yes All systems reviewed & no additional complaints except as documented Physical Exam General General appearance: alert, in no apparent distress and obese Head Head exam: atraumatic and normocephalic Eye Eye exam: Present normal appearance, PERRL and EOMI ENT ENT exam: Present normal exam, normal oropharynx, mucous membranes moist and normal external ear exam Neck Neck exam: Present normal inspection, full ROM and trachea midline; Absent tenderness Chest Chest inspection: Present normal inspection and symmetric chest wall rise; Absent tenderness Respiratory Respiratory exam: Present normal lung sounds bilaterally and other (dry cough); Absent respiratory distress, wheezes, stridor or accessory muscle use Cardiovascular Cardiovascular exam: Present regular rate and normal rhythm Abdominal Exam Abdominal exam: Present soft; Absent distention, tenderness or guarding Extremities Exam Extremities exam: Present normal inspection, full ROM and normal capillary refill; Absent tenderness or edema Back Exam Back exam: Present normal inspection and full ROM; Absent tenderness Neurological Exam Neurological exam: Present alert, oriented X3, CN II-XII intact and normal gait; Absent motor sensory deficit Psychiatric Psychiatric exam: Present normal affect and normal mood Skin Skin exam: Present warm and dry HEART Score HEART Score HEART Score assessment performed?: Yes History (anamnesis): Slightly suspicious ECG: Normal Age: >65 years Risk factors: 3 or more risk factors Troponin: </= normal limit HEART Score: 4 Critical Care Critical Care Time Critical Care Time: No Medical Decision Making Jose Manuel Inquiry Pt receiving controlled substance: No Vital Signs Vital Signs: 03/21/24 17:22 03/21/24 17:26 03/21/24 17:30 Temperature 98 F Temperature Source Oral Pulse Rate 69 57 L Pulse Rate [Left Radial] 71 Respiratory Rate 20 Blood Pressure 160/74 H 162/73 H Blood Pressure [Right Arm] 160/74 H Blood Pressure Mean 102 102 Blood Pressure Mean [Right Arm] 102 Blood Pressure Source [Right Arm] Automatic Cuff Blood Pressure Position [Right Arm] Sitting 02 Sat by Pulse Oximetry 92 L 94 L 90 L Oxygen Delivery Method Room Air 03/21/24 18:01 03/21/24 18:31 03/21/24 19:01 Temperature Temperature Source Pulse Rate 62 59 L 65 Pulse Rate [Left Radial] Respiratory Rate 16 Blood Pressure 152/72 H 165/66 H 183/77 H Blood Pressure [Right Arm] Blood Pressure Mean 112 Blood Pressure Mean [Right Arm] Blood Pressure Source [Right Arm] Blood Pressure Position [Right Arm] 02 Sat by Pulse Oximetry 94 L 92 L 96 Oxygen Delivery Method Room Air Room Air 03/21/24 21:24 Temperature 98.4 F Temperature Source Oral Pulse Rate 64 Pulse Rate [Left Radial] Respiratory Rate 20 Blood Pressure 173/86 H Blood Pressure [Right Arm] Blood Pressure Mean Blood Pressure Mean [Right Arm] Blood Pressure Source [Right Arm] Blood Pressure Position [Right Arm] 02 Sat by Pulse Oximetry Oxygen Delivery Method Room Air Lab Data Labs: Lab Results 03/21/24 17:28: WBC 5.3, RBC 3.54 L, Hgb 11.2 L, Hct 33.3 L, MCV 94.1, MCH 31.6 H, MCHC 33.5, RDW 13.5, Plt Count 247, MPV 8.5, Neut % (Auto) 64.5, Lymph % (Auto) 24.6, [place] % (Auto) 8.7, Eos % (Auto) 1.9, Baso % (Auto) 0.4, Neut # (Auto) 3.4, Lymph # (Auto) 1.3, [place] # (Auto) 0.5, Eos # (Auto) 0.1, Baso # (Auto) 0.0, PT 12.4, INR 1.12 H, D-Dimer 0.78 H, Sodium 137, Potassium 3.7, Chloride 100, Carbon Dioxide 31 H, Anion Gap 9.7, BUN 17, Creatinine 1.30 H, Estimated Creat Clear 41, Estimated GFR 40 L, Est GFR ( Amer) 48 L, Glucose 133 H, Calcium 8.6, Total Bilirubin 0.5, AST 32, ALT 37, Alkaline Phosphatase 51, Troponin I < 0.01, C-Reactive Protein 23.2 H, NT-Pro-B Natriuret Pep 537 H, Total Protein 6.5, Albumin 3.8, Globulin 2.7, Albumin/Globulin Ratio 1.4, Procalcitonin 0.090, TSH 0.87, Thyroxine (T4) 12.2 H, HIV 1&2 Antibody Rapid Nonreactive 03/21/24 18:13: VBG pH 7.41, VBG pCO2 51.2 H, VBG pO2 86.2 H, VBG HCO3 31.7 H, VBG Total CO2 33.2 H, VBG O2 Saturation 96.0 H, VBG Base Excess 7.0 H, VBG Lactic Acid 1.4 03/21/24 18:43: SARS-CoV-2 (PCR) Not detected, Influenza A Untype (PCR) Not detected, Influenza Type B (PCR) Not detected 03/21/24 17:28 03/21/24 17:28 Response Orders (Tests/Meds): ED MEDICATIONS Generic Name Dose Route Start Last Admin Trade Name Freq PRN Reason Stop Dose Admin Acetaminophen 650 mg 03/21/24 20:36 Acetaminophen 325mg Tab PO 04/20/24 20:35 Q4HP PRN Fever or Mild Pain (1-3) Alprazolam 1 mg 03/21/24 23:24 Alprazolam 1mg Tablet PO 04/20/24 23:23 HSP PRN Sleep Furosemide 40 mg 03/21/24 22:10 03/21/24 22:36 Furosemide 40mg/4ml Vial IV 03/21/24 22:11 40 mg ONCE ONE Administration Iopamidol 70 ml 03/21/24 21:13 03/21/24 21:15 Iopamidol-370 (76%);100ml Bottle IV 03/21/24 21:14 70 ml ONCE ONE Administration Levetiracetam 500 mg 03/22/24 09:00 Levetiracetam 500 Mg Tablet PO 04/21/24 08:59 BID VERONICA Non-Formulary Medication 150 mg 03/21/24 23:24 Trazodone PO HSP PRN Sleep Rivaroxaban 15 mg 03/21/24 23:25 Rivaroxaban 15mg Tablet PO 04/20/24 23:24 QPMWITHMEAL VERONICA Sodium Chloride 40 ml 03/21/24 21:13 03/21/24 21:15 0.9 % Sodium Chloride 50 Ml Vial IV 03/21/24 21:14 40 ml ONCE ONE Administration Sodium Chloride 10 ml 03/21/24 21:13 03/21/24 21:15 Sodium Chloride 0.9% 10ml Syr (Rad Only) IV 03/21/24 21:14 10 ml ONCE ONE Administration Discontinued Medications Generic Name Dose Route Start Last Admin Trade Name Freq PRN Reason Stop Dose Admin Albuterol/Ipratropium 3 ml 03/21/24 17:58 03/21/24 18:14 Ipratropium/Albuterol 3 Ml Neb IH 03/21/24 17:59 3 ml ONCE ONE Administration Enoxaparin Sodium 40 mg 03/22/24 09:00 Enoxaparin 40mg/0.4ml Syringe SUBCUT 04/21/24 08:59 DAILY VERONICA Ceftriaxone Sodium 2 gm/ 100 mls @ 200 mls/hr 03/21/24 20:22 03/21/24 22:26 Sodium Chloride IV 03/21/24 20:51 200 mls/hr ONCE ONE Administration Azithromycin 500 mg/ Sodium 250 mls @ 250 mls/hr 03/21/24 20:22 03/21/24 23:04 Chloride IV 03/21/24 20:23 250 mls/hr ONCE ONE Administration Methylprednisolone Sodium Succinate 125 mg 03/21/24 20:24 03/21/24 22:28 Methylprednisolone Sod Succ 125mg Vial IV 03/21/24 20:25 125 mg ONCE ONE Administration ORDERS Category Date Time Status CTA Chest [CT angio chest PE protocol] Stat Cat Scan 03/21/24 20:29 Completed CXR --portable [XR chest portable] Stat Exams 03/21/24 17:56 Completed BNP [NT Pro Brain Natriuretic Pep.] Stat Lab 03/21/24 17:28 Completed CBC w/Auto Diff [Complete Blood Count Auto Diff] Stat Lab 03/21/24 17:28 Completed CMP [Comprehensive Metabolic Panel] Stat Lab 03/21/24 17:28 Completed CRP [C-Reactive Protein] Stat Lab 03/21/24 17:28 Completed Complete Blood Count Auto Diff AMLAB Lab 03/22/24 06:00 Ordered Complete Blood Count Auto Diff AMLAB Lab 03/23/24 06:00 Ordered Complete Blood Count Auto Diff AMLAB Lab 03/24/24 06:00 Ordered Complete Blood Count Auto Diff AMLAB Lab 03/25/24 06:00 Ordered Complete Blood Count Auto Diff AMLAB Lab 03/26/24 06:00 Ordered Complete Blood Count Auto Diff AMLAB Lab 03/27/24 06:00 Ordered Complete Blood Count Auto Diff AMLAB Lab 03/28/24 06:00 Ordered Complete Blood Count Auto Diff AMLAB Lab 03/29/24 06:00 Ordered Complete Blood Count Auto Diff AMLAB Lab 03/30/24 06:00 Ordered Complete Blood Count Auto Diff AMLAB Lab 03/31/24 06:00 Ordered Comprehensive Metabolic Panel AMLAB Lab 03/22/24 06:00 Ordered Comprehensive Metabolic Panel AMLAB Lab 03/23/24 06:00 Ordered Comprehensive Metabolic Panel AMLAB Lab 03/24/24 06:00 Ordered Comprehensive Metabolic Panel AMLAB Lab 03/25/24 06:00 Ordered Comprehensive Metabolic Panel AMLAB Lab 03/26/24 06:00 Ordered Comprehensive Metabolic Panel AMLAB Lab 03/27/24 06:00 Ordered Comprehensive Metabolic Panel AMLAB Lab 03/28/24 06:00 Ordered Comprehensive Metabolic Panel AMLAB Lab 03/29/24 06:00 Ordered Comprehensive Metabolic Panel AMLAB Lab 03/30/24 06:00 Ordered Comprehensive Metabolic Panel AMLAB Lab 03/31/24 06:00 Ordered D-Dimer Stat Lab 03/21/24 17:28 Completed HIV (1&2) Antibody Rapid Stat Lab 03/21/24 17:28 Completed Hep C Ab with Reflex to RNA Stat Lab 03/21/24 17:28 Received INR [Prothrombin Time INR] Stat Lab 03/21/24 17:28 Completed Procalcitonin Stat Lab 03/21/24 17:28 Completed Rapid PCR Covid and Flu A/B Stat Lab 03/21/24 18:43 Completed T4 (Thyroxine) Stat Lab 03/21/24 17:28 Completed TSH [Thyroid Stimulating Hormone] Stat Lab 03/21/24 17:28 Completed Trop I [Troponin I] Stat Lab 03/21/24 17:28 Completed Troponin I Q3H Lab 03/21/24 21:36 Completed Troponin I Q3H Lab 03/22/24 00:15 Ordered VBG [Venous Blood Gas] Stat RT 03/21/24 18:13 Completed ECG Data Tracing #1: Attestation: I reviewed this ECG and interpreted as documented below: ECG Narrative: Sinus rhythm first-degree AV block with a ventricular to [address]pm[address] Left axis deviation. CT interval is 236 ms. Moderate intraventricular conduction delay. No acute ST changes concerning for STEMI. Not significantly changed from prior EKG. ECG initial impression date: 03/21/24 ECG initial impression time: 18:49 MDM Narrative Medical Decision Narrative: In summary, this patient is a 78-year-old female presenting to the Emergency Department for evaluation of cough. Differential diagnoses considered include but are not limited to pneumonia, asthma exacerbation, bronchitis, CHF exacerbation, respiratory failure. Ruling out the most morbid conditions drove assessment. It should be noted patient's history includes CHF, asthma, hypertension, hyperlipidemia, atrial fibrillation which or may not be at goal therapy. This complicates all aspects of care by increasing patient's risk for morbidity. I reviewed patient's past medical records and noted previous oncology evaluation for iron deficiency anemia. On exam, the patient is lying in bed in no acute distress with no increased work of breathing. She does have significant dry cough. O2 saturation is 88 to 92% on my initial assessment while lying at rest. Workup included lab evaluation to evaluate for infectious, metabolic, cardiac causes as well as chest x-ray and EKG. She was given DuoNeb to assess for symptomatic improvement and improvement in her oxygenation. I independently interpreted x-ray prior to the radiologist read and noted no obvious acute large focal consolidation. Please see their read for final interpretation. Labs were obtained that demonstrated a D-dimer that is negative per years criteria, negative troponin, reassuring BNP. She does have mildly elevated CRP, could be infectious in etiology. I treated her with antibiotics and methylprednisolone here in the emergency department On reassessment, patient has normal oxygen saturation at rest, however when we ambulated her, her O2 saturation dropped into the 70s and it took her to recover when she sat back down. She also notes that she is coughed so much she started coughing up blood. I had an interactive discussion with the hospitalist who agrees to admit the patient for further evaluation and management
[2024-03-21 18:09] LABS: Basophils % 0.4 % (0.1-2.0); Eosinophils # 0.1 K/mm3 (0.0-0.4); Eosinophils % 1.9 % (0.1-12.0); Hematocrit 33.3 % (37.0-47.0); Hemoglobin 11.2 g/dL (12.2-16.2); Lymphocytes # 1.3 K/mm3 (0.7-4.5); Lymphocytes % 24.6 % (10-50); Mean Corpuscular HGB Conc 33.5 g/dL (31.8-35.4); Mean Corpuscular Hemoglobin 31.6 pg (27.0-31.2); Mean Corpuscular Volume 94.1 fl (81-99); Mean Platelet Volume 8.5 fl (7.4-10.4); Monocytes # 0.5 K/mm3 (0.1-1.0); Monocytes % 8.7 % (1.7-9.3); Neutrophils # 3.4 K/mm3 (1.8-7.8); Neutrophils % 64.5 % (37.0-80.0); Platelet Count 247 K/mm3 (142-424); Red Blood Count 3.54 M/mm3 (4.20-5.40); Red Cell Distribution Width 13.5 % (11.5-17.5); White Blood Count 5.3 K/mm3 (4.8-10.8)
[2024-03-21 18:14] LABS: INR 1.12 (0.9-1.1); Prothrombin Time 12.4 seconds (10.1-12.5)
[2024-03-21] MEDS: IPRATROPIUM/ALBUTEROL 3 ML NEB IH (18:14)
--- NOTE | 2024-03-21 18:14 | PC.NURSE ---
portable chest xray at bedside
[2024-03-21 18:22] LABS: Albumin Level 3.8 g/dl (3.5-5.0); Aspartate Amino Transferase 32 U/L (14-36); Blood Urea Nitrogen 17 mg/dl (7-17); Creatinine Clearance Estimated 41 mL/min (50-200); Estimated Glomerular Filt Rate 40 ml/min (>60); GFR (African American) 48 ML/MIN (>60)
--- NOTE | 2024-03-21 18:37 | ECG_ITS ---
APPROVED REPORT Exam: Resting ECG HR:61 bpm ECG Measurements Heart Rate 61 AXES KS 236 P 88 QRSd 112 QRS -31 QT 344 T 69 QTc 346 Conclusion SINUS RHYTHM WITH FIRST DEGREE AV BLOCK LEFT AXIS DEVIATION [QRS AXIS < -30] LOW QRS VOLTAGE IN PRECORDIAL LEADS [QRS DEFLECTION < 1.0 mV IN CHEST LEADS] MODERATE INTRAVENTRICULAR CONDUCTION DELAY [105+ ms QRS DURATION, 80+ ms Q/S IN V1/V2, NO Q AND 60+ ms R IN I/aVL/V5/V6] NONSPECIFIC T-WAVE ABNORMALITY No significant change from prior Electronically signed by : GUANAKITO ARAMBULA, 03/22/2024 00:05:33
[2024-03-21 18:46] LABS: Coronavirus 19, PCR Not Detected (NotDetected); Influenza A, PCR Not Detected (NotDetected); Influenza B, PCR Not Detected (NotDetected)
[2024-03-21 18:58] LABS: Lactate Venous 1.4 mmol/L (0.4-2.0); VBG HCO3 31.7 mmol/L (23-30); VBG PH 7.41 mmol/L (7.31-7.41); VBG PO2 86.2 mmol/L (28-40); VBG Total CO2 33.2 mmol/L (23-27)
[2024-03-21 19:00] LABS: VBG PCO2 51.2 mmol/L (35-51)
[2024-03-21 19:16] LABS: Alanine Aminotransferase 37 U/L (12-78); Albumin/Globulin Ratio 1.4 (1.1-1.8); Alkaline Phosphatase 51 U/L (38-126); Anion Gap 9.7 mEq/L (5-15); Bilirubin,Total 0.5 mg/dl (0.2-1.3); Calcium 8.6 mg/dl (8.4-10.2); Carbon Dioxide 31 mmol/L (22.0-30.0); Chloride 100 mmol/L (98-107); Globulin 2.7 g/dL (1.3-3.2); Glucose 133 mg/dl (74-100); Potassium 3.7 mmoL/L (3.5-5.1); Sodium 137 mmol/L (136-145); Total Protein,Serum 6.5 g/dl (6.3-8.2)
[2024-03-21 19:21] LABS: C-Reactive Protein 23.2 mg/L (0-4)
[2024-03-21 19:23] LABS: D-Dimer 0.78 ug/mL (0.0-0.5)
[2024-03-21 19:38] LABS: T4 (Thyroxine) 12.2 ug/dl (5.53-11.0); Troponin I < 0.01 ng/ml (0.00-0.034)
[2024-03-21 19:51] LABS: Thyroid Stimulating Hormone 0.87 uIU/mL (0.465-4.68)
--- NOTE | 2024-03-21 20:29 | CT_ITS ---
PROCEDURE INFORMATION: Exam: CTA Chest With Contrast Exam date and time: 03/21/2024 8:59 PM Age: 78 years old Clinical indication: Dyspnea and other: Hypoxiz, hemoptysis; Additional info: Dyspnea, hypoxiz, hemoptysis TECHNIQUE: Imaging protocol: Computed tomographic angiography of the chest with contrast. Exam focused on the arteries. 3D rendering (Not supervised by radiologist): MIP and/or 3D reconstructed images were created by the technologist. Radiation optimization: All CT scans at this facility use at least one of these dose optimization techniques: automated exposure control; mA and/or kV adjustment per patient size (includes targeted exams where dose is matched to clinical indication); or iterative reconstruction. Contrast material: ISOVUE 370; Contrast volume: 70 ml; Contrast route: INTRAVENOUS (IV); COMPARISON: CR XR CHEST PORTABLE 03/21/2024 6:08 PM FINDINGS: Pulmonary arteries: No acute pulmonary emboli. Aorta: Unremarkable. No aortic aneurysm. No aortic dissection. Lungs: Bilateral peribronchial cuffing, with upper and lower lobe patchy ground-glass opacities and inter/interlobular septal thickening, compatible with hydrostatic/cardiogenic pulmonary edema. Pleural spaces: Unremarkable. No pneumothorax. No pleural effusion. Heart: Mild four-chamber cardiac enlargement. Lymph nodes: Calcified bilateral hilar and subcarinal lymph nodes, compatible with prior granulomatous disease. Gallbladder and biliary ducts: Gallbladder surgically absent. Kidneys: Partially visualized possible left renal cyst. Bones/joints: Partially visualized right glenohumeral arthroplasty. Moderate degenerative changes of the acromioclavicular and left glenohumeral joints, with joint space narrowing and osteophyte formation. Multilevel thoracic spine degenerative disc space narrowing and osteophyte formation. Soft tissues: Unremarkable. IMPRESSION: 1. No acute pulmonary emboli. 2. Hydrostatic/cardiogenic pulmonary edema. COMMENTS: Consistent with the [employer]'s Incidental Findings Committee white paper (J Am Francoise Radiol 2018): Any incidental renal lesion less than 1 cm or classified as too small to characterize, or any incidental cystic renal lesion characterized as simple-appearing, is likely benign. No follow-up imaging is recommended for these lesions per consensus recommendations based on imaging criteria.
--- NOTE | 2024-03-21 20:36 | P.HP_ITS ---
History of Present Illness *Admission Date: 03/21/24 *Reason for visit:: Shortness of breath, productive cough *History of present illness: Leena Casper is a 78-year-old female with a medical history significant for A-fib (on Xarelto), type 2 diabetes, hypertension, GERD, anxiety/depression, allergies who presents with worsening shortness of breath and productive cough. Patient states she has been having intermittent shortness of breath without chest pain for the past 6 months with concomitant cough, both of which have become worse over the past week. Cough had also become green productive over the past week. She went to PCPs office who apparently thought it was related to her asthma and gave her steroid shot and sent in prescription for antibiotics, however they were not mailed to her until today. Patient denies fever/chills, abdominal pain. She cannot endorse orthopnea at this time as she states she has been sleeping with her pillows propped up for more than a year with her . Only known cardiac history is atrial fibrillation. Workup in the ED significant for WBC 5.3, relatively normal VBG with a chronically compensated hypercapnia. CXR did not show acute findings. Patient was trialed on a walk test in the ED, but desaturated into the 70s on room air. Patient does not wear oxygen at baseline. Non-smoker. Case discussed with ED provider and decision was made to admit patient for acute hypoxic respiratory failure. [facility] Disclaimer: The information contained in this section may have been updated after the patient was seen, as this information can be updated by other users. 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 Otalgia, bilateral Ear drainage Seasonal allergic rhinitis Sleep apnea Seizure disorder Asthma Fracture of right distal radius Fracture of left distal radius Fracture of ulnar styloid Bilateral radial fractures History of hypertension History of asthma History of atrial fibrillation Bilateral chronic otitis media Acute pain of both ears Abnormal EKG Edema Dyspnea Congestive heart failure Surgical History History of tonsillectomy and adenoidectomy History of colonoscopy History of hysterectomy History of laparoscopic cholecystectomy History of shoulder surgery History of ankle surgery Family History Other Family history of acute heart failure Family history of diabetes mellitus type II Renal failure Social History (Updated 03/21/24 @ 22:13 by July Haney RN) Smoking Status: Never smoker alcohol intake: never substance use type: denies use current occupational status: retired Travel in the last 8 weeks: Inside the [place] household members: spouse housing: house caffeine: Yes Other 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 Have you received the Flu Vaccine for this season: No Have you received the Pneumonia Vaccine: Yes Meds Home Medications and Allergies Home Medications ?Medication ?Instructions ?Recorded ?Confirmed ?Type isosorbide mononitrate 60 mg 60 mg PO HS 10/30/20 03/21/24 History tablet,extended release 24 hr levetiracetam 500 mg tablet 500 mg PO BID Seizures 10/31/20 03/21/24 History rivaroxaban 15 mg tablet (Xarelto) 15 mg PO QPMWITHMEAL atrial fib 11/08/20 03/21/24 History atorvastatin 20 mg tablet 20 mg PO HS Cholesterol 10/28/22 03/21/24 History escitalopram oxalate 10 mg tablet 10 mg PO HS 10/28/22 03/21/24 History fexofenadine 180 mg tablet 180 mg PO HSP PRN Allergies 10/28/22 03/21/24 History furosemide 40 mg tablet 40 mg PO DAILY 11/18/22 03/21/24 History potassium chloride 10 mEq 10 meq PO DAILY 11/18/22 03/21/24 History tablet,extended release amiodarone 200 mg tablet 200 mg PO DAILY 12/28/22 03/21/24 History pantoprazole 40 mg tablet,delayed 40 mg PO DAILY 12/28/22 03/21/24 History release trazodone 100 mg tablet 150 mg PO HSP PRN Sleep 12/28/22 03/21/24 History levocetirizine 5 mg tablet 5 mg PO DAILY 07/28/23 03/21/24 History alprazolam 1 mg tablet 1 mg PO HSP PRN Sleep 12/14/23 03/21/24 History linagliptin 5 mg tablet (Tradjenta) 5 mg PO DAILY 03/21/24 03/21/24 History New Prescriptions to Start Prescriptions: Allergies Allergy/AdvReac Type Severity Reaction Status Date / Time sour cream Allergy Mild Uncoded 12/14/23 11:11 Exam Data for Last 24 hours Vital signs and Labs for Last 24 Hours: Temp Pulse Resp BP Pulse Ox O2 Del Method 98 F 65 16 183/77 H 96 Room Air 03/21/24 17:26 03/21/24 19:01 03/21/24 19:01 03/21/24 19:01 03/21/24 19:01 03/21/24 18:31 Laboratory Results - last 24 hr 03/21/24 17:28: WBC 5.3, RBC 3.54 L, Hgb 11.2 L, Hct 33.3 L, MCV 94.1, MCH 31.6 H, MCHC 33.5, RDW 13.5, Plt Count 247, MPV 8.5, Neut % (Auto) 64.5, Lymph % (Auto) 24.6, [place] % (Auto) 8.7, Eos % (Auto) 1.9, Baso % (Auto) 0.4, Neut # (Auto) 3.4, Lymph # (Auto) 1.3, [place] # (Auto) 0.5, Eos # (Auto) 0.1, Baso # (Auto) 0.0, PT 12.4, INR 1.12 H, D-Dimer 0.78 H, Sodium 137, Potassium 3.7, Chloride 100, Carbon Dioxide 31 H, Anion Gap 9.7, BUN 17, Creatinine 1.30 H, Estimated Creat Clear 41, Estimated GFR 40 L, Est GFR ( Amer) 48 L, Glucose 133 H, Calcium 8.6, Total Bilirubin 0.5, AST 32, ALT 37, Alkaline Phosphatase 51, Troponin I < 0.01, C-Reactive Protein 23.2 H, Total Protein 6.5, Albumin 3.8, Globulin 2.7, Albumin/Globulin Ratio 1.4, Procalcitonin 0.090, TSH 0.87, Thyroxine (T4) 12.2 H 03/21/24 18:13: VBG pH 7.41, VBG pCO2 51.2 H, VBG pO2 86.2 H, VBG HCO3 31.7 H, VBG Total CO2 33.2 H, VBG O2 Saturation 96.0 H, VBG Base Excess 7.0 H, VBG Lactic Acid 1.4 03/21/24 18:43: SARS-CoV-2 (PCR) Not detected, Influenza A Untype (PCR) Not detected, Influenza Type B (PCR) Not detected I & O for Last 24 hours: Intake & Output 03/18/24 03/19/24 03/20/24 03/21/24 23:59 23:59 23:59 23:59 Weight 72.575 kg Constitutional Constitutional: no acute distress *Routine HEENT Exam Head: Present normocephalic Eye: Present EOMI and PERRL ENT: Present mucous membranes moist *Routine Neck Exam Neck: Present supple; Absent lymphadenopathy *Routine Respiratory Exam Respiratory: Present CTA bilaterally *Routine Cardiovascular Exam Cardiovascular: Present RRR *Routine Abdominal Exam Abdominal: Present soft and normoactive bowel sounds; Absent tenderness *Routine Rectal Exam Rectal:: deferred *Routine Genitalia Exam Genitalia:: deferred *Routine Extremities Exam Extremities: Absent cyanosis, clubbing or edema *Routine Skin Exam Skin: Present warm; Absent rash *Routine Neurological Exam Neurological: Present alert and oriented X3 Assessment and Plan *Assessment and plan (1) Acute hypoxemic respiratory failure: Status: Acute Category: Medical Code(s): J96.01 - Acute respiratory failure with hypoxia (2) Type 2 diabetes mellitus with hyperglycemia, without long-term current use of insulin: Status: Chronic Category: Medical Code(s): E11.65 - Type 2 diabetes mellitus with hyperglycemia (3) History of seizures: Status: Chronic Category: Medical Code(s): Z87.898 - Personal history of other specified conditions (4) Atrial fibrillation: Status: Chronic Qualifiers: Atrial fibrillation type: persistent (not longstanding) Qualified Code(s): I48.19 - Other persistent atrial fibrillation Category: Medical Code(s): I48.91 - Unspecified atrial fibrillation Plan Leena Casper is a 78-year-old female with a medical history significant for A-fib (on Xarelto), type 2 diabetes, hypertension, GERD, anxiety/depression, seizure disorder, allergies who presents with worsening shortness of breath and productive cough. Patient states she has been having intermittent shortness of breath without chest pain for the past 6 months with concomitant cough, both of which have become worse over the past week. Cough had also become green productive over the past week. She went to PCPs office who apparently thought it was related to her asthma and gave her steroid shot and sent in prescription for antibiotics, however they were not mailed to her until today. Patient denies fever/chills, abdominal pain. She cannot endorse orthopnea at this time as she states she has been sleeping with her pillows propped up for more than a year with her . Of note, patient's about 2 weeks ago. Only known cardiac history is atrial fibrillation. Workup in the ED sig nificant for WBC 5.3, relatively normal VBG with a chronically compensated hypercapnia. CXR did not show acute findings. Patient was trialed on a walk test in the ED, but desaturated into the 70s on room air. Patient does not wear oxygen at baseline. Non-smoker. Case discussed with ED provider and decision was made to admit patient for acute hypoxic respiratory failure. #Acute hypoxic respiratory failure #Suspected new heart failure diagnosis, unknown type ? CTA chest suggestive of cardiogenic pulmonary edema, no PE found. No peripheral edema noted. ? BNP elevated to 537. ? Of note, patient's about 2 weeks ago. There may be a component of Takotsubo cardiomyopathy. ? These findings and symptoms of chronic exertional dyspnea, cough suggest heart failure. ? Started IV Lasix 40 mg daily. Home regimen Lasix 40 mg daily which may need to be uptitrated depending on volume status tomorrow. ? Follow-up urine output, renal function, electrolytes. Electrolyte replacement protocol. ? Follow-up ECHO. Consult cardiology if abnormal findings. ? Follow-up TSH, A1c, lipid panel. ? Continuous cardiac telemetry. #A-fib ? Has undergone 2 cardioversions, currently in sinus rhythm and rate control. ? Continue amiodarone, Xarelto. #Type 2 diabetes ? Follow-up A1c. ? LDSSI, ACHS glucose checks #Hypertension ?Resumed home Imdur. Continue Lasix. #Seizure disorder ? Continue home Keppra 500 mg twice daily #GERD ? Resumed home Protonix. #Anxiety/depression ? Resumed home escitalopram, trazodone, Ativan as needed. Full code DVT prophylaxis: Home Xarelto
[2024-03-21 21:06] LABS: HIV (1&2) Antibody Rapid NONREACTIVE (NONREACTIVE)
[2024-03-21] MEDS: IOPAMIDOL-370 (76%);100ML BOTTLE 70 ML IV (21:15)
[2024-03-21] MEDS: SODIUM CHLORIDE 0.9% 10ML SYR (RAD ONLY) 10 ML IV (21:15)
[2024-03-21] MEDS: 0.9 % SODIUM CHLORIDE 50 ML VIAL 40 ML IV (21:15)
[2024-03-21 22:04] LABS: Troponin I < 0.01 ng/ml (0.00-0.034)
[2024-03-21 22:08] LABS: NT Pro Brain Natriuretic Pep. 537 pg/mL (0-450)
[2024-03-21] MEDS: CEFTRIAXONE SODIUM 2 GM in 0.9 % SODIUM CHLORIDE 100 ML IV (22:26)
[2024-03-21] MEDS: METHYLPREDNISOLONE SOD SUCC 125MG VIAL 125 MG IV (22:28)
[2024-03-21] MEDS: FUROSEMIDE 40MG/4ML VIAL 40 MG IV (22:36)
[2024-03-21] MEDS: AZITHROMYCIN 500 MG in 0.9 % SODIUM CHLORIDE 250 ML 250 MG IV (23:04)
[2024-03-21] MEDS: RIVAROXABAN 15MG TABLET 15 MG PO (23:47)
[2024-03-21] MEDS: ALPRAZolam 1MG TABLET 1 MG PO (23:48)
[2024-03-22] VITALS: BP 141/66; PULSE 70; PULSE 93; RESP 18; TEMP 36.4; O2SAT 93
[2024-03-22 01:07] LABS: Troponin I < 0.01 ng/ml (0.00-0.034)
[2024-03-22 04:00] VITALS: BP 141/74; PULSE 60; PULSE 67; RESP 18; TEMP 36.8; O2SAT 95; BMI 32.9
[2024-03-22] MEDS: humaLOG 100 UNITS/ML 10ML VIAL (SSI) SUBCUT ×2 (06:11→10:58)
--- NOTE | 2024-03-22 07:22 | HMH.PHAINT1 ---
Pharmacy Intervention Comments: Home medications verified via outpatient pharmacy and patient interview
[2024-03-22 07:51] LABS: Basophils % 0.2 % (0.1-2.0); Eosinophils % 0.1 % (0.1-12.0); Hematocrit 35.1 % (37.0-47.0); Hemoglobin 11.6 g/dL (12.2-16.2); Lymphocytes # 0.4 K/mm3 (0.7-4.5); Lymphocytes % 8.7 % (10-50); Mean Corpuscular HGB Conc 33.2 g/dL (31.8-35.4); Mean Corpuscular Hemoglobin 31.6 pg (27.0-31.2); Mean Corpuscular Volume 95.3 fl (81-99); Mean Platelet Volume 8.5 fl (7.4-10.4); Monocytes # 0.1 K/mm3 (0.1-1.0); Monocytes % 2.1 % (1.7-9.3); Neutrophils # 4.4 K/mm3 (1.8-7.8); Neutrophils % 88.9 % (37.0-80.0); Platelet Count 221 K/mm3 (142-424); Red Blood Count 3.68 M/mm3 (4.20-5.40); Red Cell Distribution Width 13.5 % (11.5-17.5); White Blood Count 4.9 K/mm3 (4.8-10.8)
[2024-03-22 08:00] VITALS: BP 165/77; PULSE 58; PULSE 60; RESP 20; TEMP 36.5; O2SAT 94
[2024-03-22 08:06] LABS: Alanine Aminotransferase 41 U/L (12-78); Albumin Level 3.9 g/dl (3.5-5.0); Albumin/Globulin Ratio 1.4 (1.1-1.8); Alkaline Phosphatase 49 U/L (38-126); Anion Gap 8.9 mEq/L (5-15); Aspartate Amino Transferase 34 U/L (14-36); Bilirubin,Total 0.4 mg/dl (0.2-1.3); Blood Urea Nitrogen 15 mg/dl (7-17); Calcium 8.4 mg/dl (8.4-10.2); Carbon Dioxide 34 mmol/L (22.0-30.0); Chloride 99 mmol/L (98-107); Creatinine Clearance Estimated 43 mL/min (50-200); Estimated Glomerular Filt Rate 40 ml/min (>60); GFR (African American) 48 ML/MIN (>60); Globulin 2.8 g/dL (1.3-3.2); Glucose 153 mg/dl (74-100); Potassium 3.9 mmoL/L (3.5-5.1); Sodium 138 mmol/L (136-145); Total Protein,Serum 6.7 g/dl (6.3-8.2)
[2024-03-22 08:17] LABS: MANUAL DIFFERENTIAL MANUAL DIFFERENTIAL (MANUAL DIFF)
[2024-03-22] MEDS: POTASSIUM CHLORIDE 10MEQ TABLET.ER 10 MEQ PO (08:21)
[2024-03-22] MEDS: AMIODARONE 200MG TABLET 200 MG PO (08:21)
[2024-03-22] MEDS: levETIRAcetam 500 MG TABLET PO (08:21)
[2024-03-22] MEDS: LORATADINE 10MG TABLET 10 MG PO (08:21)
[2024-03-22] MEDS: FUROSEMIDE 40MG/4ML VIAL 40 MG IV (08:22)
[2024-03-22 09:22] LABS: HCV Ab Non Reactive (Non Reactive)
[2024-03-22 10:10] LABS: Lymphocytes % 9 % (10-50); Monocytes % 1 % (2-9); Neutrophils % 89 % (42-76); Platelet Estimate Normal; Total Cells Counted 100
[2024-03-22 10:11] LABS: RBC Morphology Normal
[2024-03-22 11:00] LABS: POC Glucose,Bedside 172 (70-110)
--- NOTE | 2024-03-22 11:37 | PC.NURSE ---
pt walk test performed. pt maintained o2 sat above 89% majority of walk. pt dipped down to 87% for short period, however o2 sat returned to 91%. pt did not require o2 during ewalk. pt ambulated from one end of the hallway and back to pt room with no complaints. no new orders at this time.
[2024-03-22 12:00] VITALS: BP 145/70; PULSE 60; PULSE 63; RESP 20; TEMP 37.1; O2SAT 93
--- NOTE | 2024-03-22 13:30 | P.DS_ITS ---
General Admission date:: 03/21/24 HPI HPI HPI: Leena Casper is a 78-year-old female with a medical history significant for A-fib (on Xarelto), type 2 diabetes, hypertension, GERD, anxiety/depression, allergies who presents with worsening shortness of breath and productive cough. Patient states she has been having intermittent shortness of breath without chest pain for the past 6 months with concomitant cough, both of which have become worse over the past week. Cough had also become green productive over the past week. She went to PCPs office who apparently thought it was related to her asthma and gave her steroid shot and sent in prescription for antibiotics, however they were not mailed to her until today. Patient denies fever/chills, abdominal pain. She cannot endorse orthopnea at this time as she states she has been sle eping with her pillows propped up for more than a year with her . Only known cardiac history is atrial fibrillation. Workup in the ED significant for WBC 5.3, relatively normal VBG with a chronically compensated hypercapnia. CXR did not show acute findings. Patient was trialed on a walk test in the ED, but desaturated into the 70s on room air. Patient does not wear oxygen at baseline. Non-smoker. Case discussed with ED provider and decision was made to admit patient for acute hypoxic respiratory failure. Hospital Course Hospital Course Hospital Course: Leena Casper is a 78-year-old female with a medical history significant for A-fib (on Xarelto), type 2 diabetes, hypertension, GERD, anxiety/depression, seizure disorder, allergies who presents with worsening shortness of breath and productive cough. Patient states she has been having intermittent shortness of breath without chest pain for the past 6 months with concomitant cough, both of which have become worse over the past week. Cough had also become green productive over the past week. She went to PCPs office who apparently thought it was related to her asthma and gave her steroid shot and sent in prescription for antibiotics, however they were not mailed to her until today. Patient denies fever/chills, abdominal pain. She cannot endorse orthopnea at this time as she states she has been sleeping with her pillows propped up for more than a year with her . Of note, patient's about 2 weeks ago. Only known cardiac history is atrial fibrillation. Workup in the ED significant for WBC 5.3, relatively normal VBG with a chronically compensated hypercapnia. CXR did not show acute findings. Patient was trialed on a walk test in the ED, but desaturated into the 70s on room air. Patient does not wear oxygen at baseline. Non-smoker. Case discussed with ED provider and decision was made to admit patient for acute hypoxic respiratory failure. #Acute hypoxic respiratory failure #HFpEF exacerbation, new onset #Suspected atypical pneumonia ? CTA chest suggestive of cardiogenic pulmonary edema, no PE found. No peripheral edema noted. ? BNP elevated to 537. ? These findings and symptoms of chronic exertional dyspnea, cough with cardiogenic pulmonary edema on CTA suggest heart failure. - ECHO revealed normal LV function, mild RV dilation with elevated RVSP 40mmHg. - Clinically improved with IV Lasix diuresis. Transitioned to p.o. Lasix 40 mg b.i.d. - Discharged with Lasix 40mg BID, spironolactone 25mg, Jardiance 10mg. - Also given Levaquin for 5 days for atpical pneumonia. - Medically stable for discharge. Will follow-up with cardiology within 1 week. #A-fib ? Has undergone 2 cardioversions, currently in sinus rhythm and rate control. ? Continue amiodarone, Xarelto. #Type 2 diabetes ? A1c 7.4. - Continue Trajenta 5mg. - Started Jardiance 10mg. ? Will follow-up with PCP within 1 week. #Hypertension ?Resumed home Imdur. Continue Lasix. #Seizure disorder ? Continue home Keppra 500 mg twice daily #GERD ? Resumed home Protonix. #Anxiety/depression ? Resumed home escitalopram, trazodone, Ativan as needed. Exam Data for Last 24 hours Vital signs and Labs for Last 24 Hours: Temp Pulse Resp BP Pulse Ox O2 Del Method O2 Flow Rate 98.7 F 63 20 145/70 H 93 L Room Air 4 03/22/24 12:00 03/22/24 12:00 03/22/24 12:00 03/22/24 12:00 03/22/24 12:00 03/22/24 12:00 03/22/24 09:00 Laboratory Results - last 24 hr 03/21/24 17:28: WBC 5.3, RBC 3.54 L, Hgb 11.2 L, Hct 33.3 L, MCV 94.1, MCH 31.6 H, MCHC 33.5, RDW 13.5, Plt Count 247, MPV 8.5, Neut % (Auto) 64.5, Lymph % (Auto) 24.6, [place] % (Auto) 8.7, Eos % (Auto) 1.9, Baso % (Auto) 0.4, Neut # (Auto) 3.4, Lymph # (Auto) 1.3, [place] # (Auto) 0.5, Eos # (Auto) 0.1, Baso # (Auto) 0.0, PT 12.4, INR 1.12 H, D-Dimer 0.78 H, Sodium 137, Potassium 3.7, Chloride 100, Carbon Dioxide 31 H, Anion Gap 9.7, BUN 17, Creatinine 1.30 H, Estimated Creat Clear 41, Estimated GFR 40 L, Est GFR ( Amer) 48 L, Glucose 133 H, Calcium 8.6, Total Bilirubin 0.5, AST 32, ALT 37, Alkaline Phosphatase 51, Troponin I < 0.01, C-Reactive Protein 23.2 H, NT-Pro-B Natriuret Pep 537 H, Total Protein 6.5, Albumin 3.8, Globulin 2.7, Albumin/Globulin Ratio 1.4, Procalcitonin 0.090, TSH 0.87, Thyroxine (T4) 12.2 H, Hepatitis C Antibody Non reactive, HIV 1&2 Antibody Rapid Nonreactive 03/21/24 18:13: VBG pH 7.41, VBG pCO2 51.2 H, VBG pO2 86.2 H, VBG HCO3 31.7 H, VBG Total CO2 33.2 H, VBG O2 Saturation 96.0 H, VBG Base Excess 7.0 H, VBG Lactic Acid 1.4 03/21/24 18:43: SARS-CoV-2 (PCR) Not detected, Influenza A Untype (PCR) Not detected, Influenza Type B (PCR) Not detected 03/21/24 21:36: Troponin I < 0.01 03/22/24 00:22: Troponin I < 0.01 03/22/24 07:37: WBC 4.9, RBC 3.68 L, Hgb 11.6 L, Hct 35.1 L, MCV 95.3, MCH 31.6 H, MCHC 33.2, RDW 13.5, Plt Count 221, MPV 8.5, Neut % (Auto) 88.9 H, Lymph % (Auto) 8.7 L, [place] % (Auto) 2.1, Eos % (Auto) 0.1, Baso % (Auto) 0.2, Neut # (Auto) 4.4, Lymph # (Auto) 0.4 L, [place] # (Auto) 0.1, Eos # (Auto) 0.0, Baso # (Auto) 0.0, Total Counted 100, Neutrophils % (Manual) 89 H, Lymphocytes % (Manual) 9 L, Monocytes % (Manual) 1 L, Basophils % (Manual) 1.0, Platelet Estimate Normal, RBC Morphology Normal, Sodium 138, Potassium 3.9, Chloride 99, Carbon Dioxide 34 H, Anion Gap 8.9, BUN 15, Creatinine 1.30 H, Estimated Creat Clear 43, Estimated GFR 40 L, Est GFR ( Amer) 48 L, Glucose 153 H, Calcium 8.4, Total Bilirubin 0.4, AST 34, ALT 41, Alkaline Phosphatase 49, Total Protein 6.7, Albumin 3.9, Globulin 2.8, Albumin/Globulin Ratio 1.4 03/22/24 10:43: POC Glucose 172 H I & O for Last 24 hours: Intake & Output 03/19/24 03/20/24 03/21/24 03/22/24 23:59 23:59 23:59 23:59 Intake Total 890 / 890 Output Total 1900 / 1900 Balance -1010 / -1010 Weight 77.292 kg 76.158 kg Results Data Completed and Pending Labs on day of discharge: Labs from last 24 hours 03/22/24 03/22/24 03/22/24 10:43 07:37 00:22 WBC 4.9 RBC 3.68 L Hgb 11.6 L Hct 35.1 L MCV 95.3 MCH 31.6 H MCHC 33.2 RDW 13.5 Plt Count 221 MPV 8.5 Neut % (Auto) 88.9 H Lymph % (Auto) 8.7 L [place] % (Auto) 2.1 Eos % (Auto) 0.1 Baso % (Auto) 0.2 Neut # (Auto) 4.4 Lymph # (Auto) 0.4 L [place] # (Auto) 0.1 Eos # (Auto) 0.0 Baso # (Auto) 0.0 Total Counted 100 Neutrophils % (Manual) 89 H Lymphocytes % (Manual) 9 L Monocytes % (Manual) 1 L Basophils % (Manual) 1.0 Platelet Estimate Normal RBC Morphology Normal PT INR D-Dimer VBG pH VBG pCO2 VBG pO2 VBG HCO3 VBG Total CO2 VBG O2 Saturation VBG Base Excess VBG Lactic Acid Sodium 138 Potassium 3.9 Chloride 99 Carbon Dioxide 34 H Anion Gap 8.9 BUN 15 Creatinine 1.30 H Estimated Creat Clear 43 Estimated GFR 40 L Est GFR ( Amer) 48 L Glucose 153 H POC Glucose 172 H Calcium 8.4 Total Bilirubin 0.4 AST 34 ALT 41 Alkaline Phosphatase 49 Troponin I < 0.01 C-Reactive Protein NT-Pro-B Natriuret Pep Total Protein 6.7 Albumin 3.9 Globulin 2.8 Albumin/Globulin Ratio 1.4 Procalcitonin TSH Thyroxine (T4) SARS-CoV-2 (PCR) Hepatitis C Antibody HIV 1&2 Antibody Rapid Influenza A Untype (PCR) Influenza Type B (PCR) 03/21/24 03/21/24 03/21/24 21:36 18:43 18:13 WBC RBC Hgb Hct MCV MCH MCHC RDW Plt Count MPV Neut % (Auto) Lymph % (Auto) [place] % (Auto) Eos % (Auto) Baso % (Auto) Neut # (Auto) Lymph # (Auto) [place] # (Auto) Eos # (Auto) Baso # (Auto) Total Counted Neutrophils % (Manual) Lymphocytes % (Manual) Monocytes % (Manual) Basophils % (Manual) Platelet Estimate RBC Morphology PT INR D-Dimer VBG pH 7.41 VBG pCO2 51.2 H VBG pO2 86.2 H VBG HCO3 31.7 H VBG Total CO2 33.2 H VBG O2 Saturation 96.0 H VBG Base Excess 7.0 H VBG Lactic Acid 1.4 Sodium Potassium Chloride Carbon Dioxide Anion Gap BUN Creatinine Estimated Creat Clear Estimated GFR Est GFR ( Amer) Glucose POC Glucose Calcium Total Bilirubin AST ALT Alkaline Phosphatase Troponin I < 0.01 C-Reactive Protein NT-Pro-B Natriuret Pep Total Protein Albumin Globulin Albumin/Globulin Ratio Procalcitonin TSH Thyroxine (T4) SARS-CoV-2 (PCR) Not detected Hepatitis C Antibody HIV 1&2 Antibody Rapid Influenza A Untype (PCR) Not detected Influenza Type B (PCR) Not detected 03/21/24 17:28 WBC 5.3 RBC 3.54 L Hgb 11.2 L Hct 33.3 L MCV 94.1 MCH 31.6 H MCHC 33.5 RDW 13.5 Plt Count 247 MPV 8.5 Neut % (Auto) 64.5 Lymph % (Auto) 24.6 [place] % (Auto) 8.7 Eos % (Auto) 1.9 Baso % (Auto) 0.4 Neut # (Auto) 3.4 Lymph # (Auto) 1.3 [place] # (Auto) 0.5 Eos # (Auto) 0.1 Baso # (Auto) 0.0 Total Counted Neutrophils % (Manual) Lymphocytes % (Manual) Monocytes % (Manual) Basophils % (Manual) Platelet Estimate RBC Morphology PT 12.4 INR 1.12 H D-Dimer 0.78 H VBG pH VBG pCO2 VBG pO2 VBG HCO3 VBG Total CO2 VBG O2 Saturation VBG Base Excess VBG Lactic Acid Sodium 137 Potassium 3.7 Chloride 100 Carbon Dioxide 31 H Anion Gap 9.7 BUN 17 Creatinine 1.30 H Estimated Creat Clear 41 Estimated GFR 40 L Est GFR ( Amer) 48 L Glucose 133 H POC Glucose Calcium 8.6 Total Bilirubin 0.5 AST 32 ALT 37 Alkaline Phosphatase 51 Troponin I < 0.01 C-Reactive Protein 23.2 H NT-Pro-B Natriuret Pep 537 H Total Protein 6.5 Albumin 3.8 Globulin 2.7 Albumin/Globulin Ratio 1.4 Procalcitonin 0.090 TSH 0.87 Thyroxine (T4) 12.2 H SARS-CoV-2 (PCR) Hepatitis C Antibody Non reactive HIV 1&2 Antibody Rapid Nonreactive Influenza A Untype (PCR) Influenza Type B (PCR) DS: Diagnosis Discharge Diagnosis (1) Acute hypoxemic respiratory failure: Status: Acute Code(s): J96.01 - Acute respiratory failure with hypoxia (2) Type 2 diabetes mellitus with hyperglycemia, without long-term current use of insulin: Status: Chronic Code(s): E11.65 - Type 2 diabetes mellitus with hyperglycemia (3) History of seizures: Status: Chronic Code(s): Z87.898 - Personal history of other specified conditions (4) Atrial fibrillation: Status: Chronic Code(s): I48.91 - Unspecified atrial fibrillation Qualifiers: Atrial fibrillation type: persistent (not longstanding) Qualified Code(s): I48.19 - Other persistent atrial fibrillation Meds Home Medications and Allergies Home Medications ?Medication ?Instructions ?Recorded ?Confirmed ?Type isosorbide mononitrate 60 mg 60 mg PO HS 10/30/20 03/29/24 History tablet,extended release 24 hr levetiracetam 500 mg tablet 500 mg PO BID Seizures 10/31/20 03/29/24 History rivaroxaban 15 mg tablet (Xarelto) 15 mg PO QPMWITHMEAL atrial fib 11/08/20 03/29/24 History atorvastatin 20 mg tablet 20 mg PO HS Cholesterol 10/28/22 03/29/24 History escitalopram oxalate 10 mg tablet 10 mg PO HS 10/28/22 03/29/24 History fexofenadine 180 mg tablet 180 mg PO HSP PRN Allergies 10/28/22 03/29/24 History potassium chloride 10 mEq 10 meq PO DAILY 11/18/22 03/29/24 History tablet,extended release amiodarone 200 mg tablet 200 mg PO DAILY 12/28/22 03/29/24 History pantoprazole 40 mg tablet,delayed 40 mg PO DAILY 12/28/22 03/29/24 History release trazodone 100 mg tablet 150 mg PO HSP PRN Sleep 12/28/22 03/29/24 History levocetirizine 5 mg tablet 5 mg PO DAILY 07/28/23 03/29/24 History alprazolam 1 mg tablet 1 mg PO HSP PRN Sleep 12/14/23 03/29/24 History linagliptin 5 mg tablet (Tradjenta) 5 mg PO DAILY 03/21/24 03/29/24 History empagliflozin 10 mg tablet 10 mg PO DAILY #30 tabs 03/22/24 03/29/24 Rx (Jardiance) furosemide 40 mg tablet 40 mg PO BID 30 days #0 tabs 03/22/24 03/29/24 Rx levofloxacin 750 mg tablet 750 mg PO Q48H 5 days #3 tabs 03/22/24 03/29/24 Rx spironolactone 25 mg tablet 25 mg PO DAILY #30 tabs 03/22/24 03/29/24 Rx doxycycline hyclate 100 mg capsule 100 mg PO BID 03/29/24 03/29/24 History potassium chloride 10 mEq 10 meq PO ONCE 03/29/24 03/29/24 History tablet,extended release(part/cryst) New Prescriptions to Start Prescriptions: empagliflozin [Jardiance] KristenRoyer valdez levofloxacin ChazlexyRoyer valdez spironolactone KristenRoyer valdez Allergies Allergy/AdvReac Type Severity Reaction Status Date / Time sour cream Allergy Mild Uncoded 03/29/24 11:15 Discharge Plan Disposition Patient Disposition: Home, Self-Care Follow up Plan Follow up with: Erlin Nash APRN [Primary Care Provider] - 03/29/24 2:40 pm Star San MD [Staff Physician] - 03/29/24 11:15 am Prescriptions/Medication Reconciliation: New levofloxacin 750 mg Tablet 750 mg PO Q48H 5 Days Qty: 3 0RF spironolactone 25 mg tablet 25 mg PO DAILY Qty: 30 0RF Jardiance 10 mg tablet 10 mg PO DAILY Qty: 30 0RF Continued levocetirizine 5 mg tablet 5 mg PO DAILY alprazolam 1 mg tablet 1 mg PO HSP PRN (Reason: Sleep) atorvastatin 20 mg tablet 20 mg PO HS fexofenadine 180 mg tablet 180 mg PO HSP PRN (Reason: Allergies) Patient Comments: TAKE ONE TABLET BY MOUTH EVERY DAY swallow whole with water; DO not take with fruit juices escitalopram oxalate 10 mg tablet 10 mg PO HS isosorbide mononitrate 60 MG tablet extended release 24 hr 60 mg PO HS levetiracetam 500 MG tablet 500 mg PO BID Xarelto 15 MG tablet 15 mg PO QPMWITHMEAL trazodone 100 mg tablet 150 mg PO HSP PRN (Reason: Sleep) Patient Comments: TAKE 1 AND 1/2 TABLET BY MOUTH EVERY DAY AT BEDTIME NEEDED pantoprazole 40 mg tablet,delayed release (DR/EC) 40 mg PO DAILY Patient Comments: TAKE ONE (1) TABLET BY MOUTH DAILY amiodarone 200 mg tablet 200 mg PO DAILY Patient Comments: TAKE ONE (1) TABLET BY MOUTH ONCE DAILY potassium chloride 10 MEQ tablet extended release 10 meq PO DAILY Tradjenta 5 mg Tablet 5 mg PO DAILY Changed furosemide 40 MG tablet 40 mg PO BID 30 Days Qty: 0 0RF Rx Instructions: Take 40 mg twice daily for the next 3 days, then reduce to 40 mg daily. No Action doxycycline hyclate 100 mg capsule 100 mg PO BID Patient Comments: TAKE ONE (1) CAPSULE TWICE A DAY BY ORAL ROUTE FOR 10 DAYS. potassium chloride 10 mEq tablet,ER particles/crystals 10 meq PO ONCE Patient Comments: TAKE ONE (1) TABLET EVERY DAY BY ORAL ROUTE. Problem Reconciliation Problems Reviewed?: Yes Patient Discharge Instructions Patient Instructions: DI for Asthma -- Adult Print Language: Italian Providers Primary Care Provider: Erlin Nash Admit Provider: Leonid Grossman Attending Provider: Leonid Grossman
[2024-03-22] MEDS: levoFLOXacin 750 MG TABLET PO (13:47)
--- NOTE | 2024-03-22 23:57 | CA_ITS ---
APPROVED REPORT EXAM: Comprehensive 2D, Doppler, and color-flow Echocardiogram Wildlife Biology Technician: Erika Babin CRT Ht: 4 ft 11 in Wt: 170lbs BSA: 1.72 BP: 183/77 mmHg Indications: Murmur, Shortness of Breath, Atrial Fibrillation, Diabetes, Hypertension/HDD JATINDER/Cardioverted MOd/severe MR, severe TR 2D Dimensions LA Volume 60.10 mL LA Volume Index 34.10 mL/m2 (M/F) 16-34 M-Mode Dimensions RVDd 1.84 cm (0.9-2.6) LA Diam 4.32 cm (1.9-4.0) LVDd 5.80 cm (3.5-5.7) LVDs 4.12 cm (3.5-5.7) IVSd 1.34 cm (0.6-1.1) PWd 0.80 cm (0.6-1.1) EF (Teich) 54.90% FS 29.00% EDV (Teich) 166.60 mL TAPSE 2.25 (<1.7) ESV (Teich) 75.10 mL LV Diastology E Decel Time 227 (160-240 msec) E/A Ratio 1.28 MED A' 9.30 cm/s LAT A' 14.00 cm/s Aortic Valve DHAVAL Index 1.49 cm2/m2 AoV Peak Juan. 191.0 (50-130 cm/s) AO Peak GR. 14.60 mmHg AO Mean GR. 7.20 (<5 mmHg) AO VTI 42.8 (18-25 cm) DHAVAL (VTI) 2.62 (2.5-4.5 cm2) Mitral Valve MV E Max Juan. 143.0 (40-130 cm/s) MV A Velocity 112.0 (40-130 cm/s) E/A Ratio 1.28 MV PHT 66.0 ms Pulmonary Valve PV Peak Velocity 117.0 (50-150 cm/s) Tricuspid Valve TR P. Velocity 337.00 cm/s RAP Estimate 10.00 mmHg RVSP 55.50 mmHg Left Ventricle The left ventricle is normal size. The left ventricular systolic function is normal. The left ventricular ejection fraction is within the normal range. There is increased overall thickness. There is normal LV segmental wall motion. Diastolic function is indeterminate. LVEF is 55%. Right Ventricle The right ventricle is mildly dilated. The right ventricular systolic function is normal. Atria The left atrium is severely dilated. Right atrium is moderately dilated. There was no Doppler evidence of interatrial shunt. Aortic Valve The aortic valve is mildly thickened. There is no aortic valvular stenosis. Trace aortic regurgitation. Mitral Valve The mitral valve leaflets are mildly thickened. Moderate mitral regurgitation. No evidence of mitral valve stenosis. Tricuspid Valve The tricuspid valve leaflets are thin and pliable. Moderate tricuspid regurgitation. RVSP is 40 mmHg + RA pressure. Pulmonic Valve The pulmonary valve is normal in structure. Mild pulmonic regurgitation. Great Vessels The aortic root is normal in size. The ascending aorta is not well-visualized. The IVC is not well-visualized. Pericardium There is no pericardial effusion. Other Information Study Quality: Fair Conclusion Normal LV systolic function. Mild RV dilation with normal RV function. Biatrial dilation. Moderate MR. Moderate TR. Elevated RVSP 40 mmHg plus RA pressure. Electronically signed by : Desi Garcia MD 03/22/2024 12:42:37
--- NOTE | 2024-03-23 15:02 | SW/DCPLANNER ---
Spoke with patient. Patient stated that her daughters have already said who is taking her to the follow appointments. Patient denies any questions or concerns. Patient got her prescriptions filled here at [facility]. Satya urbina
[2024-03-25 14:45] LABS: POC Glucose,Bedside 190 (70-110)
== END 2024-03-22 15:27 | disposition home or self-care (01) ==
LOC: ER 20:59 → 2ND 21:38
PROVIDERS: Student in an Organized Health Care Education/Training Program; Admitting Provider Internal Medicine Adolescent Medicine; Emergency Provider Emergency Medicine; PCP Nurse Practitioner Family; Visit Provider Internal Medicine Adolescent Medicine
DX: J96.01 Acute respiratory failure with hypoxia (principal); E11.65 Type 2 diabetes mellitus with hyperglycemia; I48.19 Other persistent atrial fibrillation; Z79.01 Long term (current) use of anticoagulants; Z79.899 Other long term (current) drug therapy; J18.9 Pneumonia, unspecified organism; I50.31 Acute diastolic (congestive) heart failure; H92.03 Otalgia, bilateral
CPT/HCPCS: 36415; 71045; 71275; 80053; 82803; 82962; 83880; 84145; 84436; 84443; 84484; 85007; 85025; 85027; 85378; 85610; 86140; 86803; 87389; 87636; 93005; 93306; 99285; G0378; J0456; J0696; J1940; J2919; J7050; J7620; Q9967

== ENCOUNTER 2024-03-29 12:12 | Outpatient (CLI) | payer MEDICARE, SELFPAY ==
[2024-03-29 12:46] LABS: Basophils # 0.1 K/mm3 (0-0.2); Basophils % 0.7 % (0.1-2.0); Eosinophils # 0.2 K/mm3 (0.0-0.4); Eosinophils % 1.7 % (0.1-12.0); Hematocrit 37.8 % (37.0-47.0); Hemoglobin 12.4 g/dL (12.2-16.2); Lymphocytes # 1.7 K/mm3 (0.7-4.5); Lymphocytes % 20.1 % (10-50); Mean Corpuscular HGB Conc 32.9 g/dL (31.8-35.4); Mean Corpuscular Hemoglobin 31.4 pg (27.0-31.2); Mean Corpuscular Volume 95.7 fl (81-99); Mean Platelet Volume 8.3 fl (7.4-10.4); Monocytes # 0.6 K/mm3 (0.1-1.0); Monocytes % 7.1 % (1.7-9.3); Neutrophils # 5.9 K/mm3 (1.8-7.8); Neutrophils % 70.4 % (37.0-80.0); Platelet Count 271 K/mm3 (142-424); Red Blood Count 3.95 M/mm3 (4.20-5.40); Red Cell Distribution Width 13.5 % (11.5-17.5); White Blood Count 8.4 K/mm3 (4.8-10.8)
[2024-03-29 13:46] LABS: Alanine Aminotransferase 21 U/L (12-78); Albumin Level 4.3 g/dl (3.5-5.0); Alkaline Phosphatase 68 U/L (38-126); Anion Gap 13.5 mEq/L (5-15); Aspartate Amino Transferase 30 U/L (14-36); Bilirubin,Direct 0.5 mg/dl (0.0-0.4); Bilirubin,Total 0.5 mg/dl (0.2-1.3); Blood Urea Nitrogen 25 mg/dl (7-17); Calcium 9.2 mg/dl (8.4-10.2); Carbon Dioxide 31 mmol/L (22.0-30.0); Chloride 98 mmol/L (98-107); Chol/HDL Ratio 2.3 (1-3.5); Cholesterol 144 mg/dl (140-200); Estimated Glomerular Filt Rate 27 ml/min (>60); GFR (African American) 33 ML/MIN (>60); Glucose 87 mg/dl (74-100); HDL Cholesterol 62 mg/dl (40-60); Potassium 4.5 mmoL/L (3.5-5.1); Sodium 138 mmol/L (136-145); Total Protein,Serum 6.9 g/dl (6.3-8.2); Triglycerides 214 mg/dl (30-150); VLDL Cholesterol 43 mg/dL (0-40)
[2024-03-29 13:58] LABS: Direct LDL Cholesterol 48.57 mg/dL (100-129)
[2024-03-29 14:02] LABS: Free T4 (Free Thyroxine) 2.48 ng/dl (0.78-2.19)
[2024-03-29 14:16] LABS: Thyroid Stimulating Hormone 0.99 uIU/mL (0.465-4.68)
== END 2024-03-29 23:59 | disposition home or self-care (01) ==
LOC: LAB 12:12
PROVIDERS: PCP Nurse Practitioner Family; Visit Provider Internal Medicine
DX: I10 Essential (primary) hypertension (principal); R05.9 Cough, unspecified; I48.19 Other persistent atrial fibrillation; E66.9 Obesity, unspecified; E11.65 Type 2 diabetes mellitus with hyperglycemia; J45.901 Unspecified asthma with (acute) exacerbation
CPT/HCPCS: 36415; 80048; 80061; 80076; 84439; 84443; 85025

== ENCOUNTER 2024-04-18 06:28 | Outpatient (CLI) | payer MEDICARE, SELFPAY ==
--- NOTE | 2024-04-18 06:34 | CT_ITS ---
FINAL REPORT TECHNIQUE: Axial images were obtained from the lung apex to the mid abdomen by computed tomography. Coronal reformatted images were obtained. This study was performed with techniques to keep radiation doses as low as reasonably achievable, (ALARA). Individualized dose reduction techniques using automated exposure control or adjustment of mA and/or kV according to the patient''s size were employed. CLINICAL HISTORY: dyspnea,cough COMPARISON: 03/22/2024 FINDINGS: No mediastinal mass or adenopathy is identified. No axillary mass or adenopathy is seen.There is no pericardial or pleural effusion. There is mild atelectasis or scarring at the lung bases. There is improved aeration compared to the prior exam. There has been interval resolution of pulmonary edema. The groundglass nodule in the posterior left upper lobe measures 5 mm and is well-seen on series 2 of image 24.Limited images of the upper abdomen are unremarkable. There are postoperative changes from right shoulder arthroplasty. IMPRESSION: Interval resolution of pulmonary edema. Improved aeration. Groundglass nodule in the posterior left upper lobe. Reviewed, Interpreted and Dictated by Reynaldo Pastor III, MD Transcribed by Sherron Huber Authenticated and [facility]
[2024-04-18 08:46] LABS: Chloride 103 mmol/L (98-107); Potassium 4.4 mmoL/L (3.5-5.1); Sodium 137 mmol/L (136-145)
[2024-04-18 08:49] LABS: Anion Gap 9.4 mEq/L (5-15); Blood Urea Nitrogen 15 mg/dl (7-17); Calcium 9.1 mg/dl (8.4-10.2); Carbon Dioxide 29 mmol/L (22.0-30.0); Estimated Glomerular Filt Rate 27 ml/min (>60); GFR (African American) 33 ML/MIN (>60); Glucose 130 mg/dl (74-100)
== END 2024-04-18 23:59 | disposition home or self-care (01) ==
LOC: RAD 06:29
PROVIDERS: Nurse Practitioner Family; PCP Nurse Practitioner Family; Visit Provider Internal Medicine
DX: R06.02 Shortness of breath (principal); I48.19 Other persistent atrial fibrillation; R05.9 Cough, unspecified; E66.9 Obesity, unspecified; I10 Essential (primary) hypertension; E11.65 Type 2 diabetes mellitus with hyperglycemia
CPT/HCPCS: 36415; 71250; 80048

== ENCOUNTER 2024-07-11 08:58 | Outpatient (CLI) | payer MEDICARE, SELFPAY ==
--- NOTE | 2024-07-11 09:09 | XR_ITS ---
FINAL REPORT CLINICAL HISTORY: PAIN RT GREAT TOE..dropped water jug on big toe FINDINGS: RIGHT GREAT TOE 4 views were obtained. There is no acute fracture or dislocation. The joint spaces are intact. Bones are osteopenic. There is advanced hallux valgus deformity. There is no soft tissue abnormality. IMPRESSION: No acute fracture. Reviewed, Interpreted and Dictated by Geovanni Vaca MD Transcribed by Radha Mcfarland Authenticated and [facility]
== END 2024-07-11 23:59 | disposition home or self-care (01) ==
LOC: RAD 08:59
PROVIDERS: PCP Nurse Practitioner Family; Visit Provider Nurse Practitioner Family
DX: M79.674 Pain in right toe(s) (principal)
CPT/HCPCS: 73660

== ENCOUNTER 2024-09-19 10:09 | Outpatient (CLI) | payer MEDICARE, SELFPAY ==
[2024-09-19 10:20] LABS: Anti-Centromere B Antibodies ND; Anti-DNA (DS) Ab Qn ND; Anti-Jo-1 ND; Antichromatin Antibodies ND; Antiscleroderma-70 Antibodies ND; Lyme Ab IgM CIA ND; Lyme IgG CIA ND; RNP Antibodies ND; Sjogren's Anti-SS-A ND; Sjogren's Anti-SS-B ND
[2024-09-19 11:12] LABS: Basophils % 0.4 % (0.1-2.0); Eosinophils # 0.1 Kmm3 (0.0-0.4); Eosinophils % 1.5 % (0.1-12.0); Hematocrit 33.6 % (37.0-47.0); Hemoglobin 10.6 g/dL (12.2-16.2); Immature Granulocytes # 0.01 10^3uL; Immature Granulocytes % 0.2 %; Mean Corpuscular HGB Conc 31.5 g/dL (31.8-35.4); Mean Corpuscular Volume 91.8 fl (81-99); Monocytes # 0.5 K/mm3 (0.1-1.0); Monocytes % 9.5 % (1.7-9.3); Neutrophils # 3.9 K/mm3 (1.8-7.8); Neutrophils % 70.4 % (37.0-80.0); Nucleated Red Blood Cells # 0 10^3/uL; Nucleated Red Blood Cells % 0 %; Platelet Count 234 K/mm3 (142-424); Red Blood Count 3.66 M/mm3 (4.20-5.40); Red Cell Distribution Width 15.3 % (11.5-17.5); Red Cell Distribution Width-SD 50.5 fL; White Blood Count 5.5 K/mm3 (4.8-10.8)
[2024-09-19 12:11] LABS: Erythrocyte Sedimentation Rate 49 mm/hr (0-30)
[2024-09-19 12:25] LABS: Alanine Aminotransferase 21 U/L (12-78); Albumin Level 4.3 g/dl (3.5-5.0); Albumin/Globulin Ratio 1.9 (1.1-1.8); Alkaline Phosphatase 56 U/L (38-126); Anion Gap 10.4 mEq/L (5-15); Aspartate Amino Transferase 30 U/L (14-36); Bilirubin,Total 0.4 mg/dl (0.2-1.3); Blood Urea Nitrogen 24 mg/dl (7-17); Calcium 9.3 mg/dl (8.4-10.2); Carbon Dioxide 29 mmol/L (22.0-30.0); Chloride 101 mmol/L (98-107); Estimated Glomerular Filt Rate 26 ml/min (>60); GFR (African American) 31 ML/MIN (>60); Globulin 2.3 g/dL (1.3-3.2); Glucose 126 mg/dl (74-100); Potassium 4.4 mmoL/L (3.5-5.1); Sodium 136 mmol/L (136-145); Total Protein,Serum 6.6 g/dl (6.3-8.2)
[2024-09-19 12:31] LABS: C-Reactive Protein 6.4 mg/L (0-4)
[2024-09-19 12:57] LABS: Thyroid Stimulating Hormone 1.66 uIU/mL (0.465-4.68)
[2024-09-19 13:17] LABS: Vitamin B12 265 pg/mL (239-931)
[2024-09-19 13:55] LABS: Folate 5.55 ng/mL
[2024-09-19 23:23] LABS: RPR W/RFX Titers Nonreactive (Nonreactive)
[2024-09-20 12:38] LABS: Antinuclear Antibodies (ANA) Negative (Negative)
[2024-09-20 13:54] LABS: Lyme Ab CIA Negative (Negative)
== END 2024-09-19 23:59 | disposition home or self-care (01) ==
LOC: LAB 10:10
PROVIDERS: PCP Nurse Practitioner Family; Visit Provider Specialist
DX: R41.3 Other amnesia (principal); I48.19 Other persistent atrial fibrillation; E11.65 Type 2 diabetes mellitus with hyperglycemia; F41.9 Anxiety disorder, unspecified; Z87.898 Personal history of other specified conditions
CPT/HCPCS: 36415; 80053; 82607; 82746; 84443; 85025; 85651; 86140; 86592; 86618

== ENCOUNTER 2024-10-13 08:58 | Outpatient (CLI) | payer MEDICARE, SELFPAY ==
--- NOTE | 2024-10-13 09:00 | MR_ITS ---
FINAL REPORT TECHNIQUE: Multiplanar and multisequence imaging of the brain was obtained without contrast. CLINICAL HISTORY: Memory loss/hx of seizures COMPARISON: CT of the head dated 05/06/2023 FINDINGS: There is global atrophy with appropriate ventriculomegaly. There is no mass effect or midline shift. Moderate foci of periventricular and subcortical white matter are nonspecific. No hydrocephalus. The cerebellum and brainstem have an unremarkable appearance. Fluid is present in the right mastoid air cells. There are no areas of restricted diffusion on diffusion weighted images to suggest acute infarct. There is a small subcutaneous lipoma in the right frontal scalp. IMPRESSION: No acute intracranial abnormality. Nonspecific T2 abnormality within the periventricular and subcortical white matter. In this age group, this most likely represents changes of chronic small vessel ischemia. Fluid is present in the right mastoid air cells. Reviewed, Interpreted and Dictated by Estrella Valadez MD Transcribed by Daria Olmstead Authenticated and [facility]
--- OUTSIDE RECORDS SUMMARY | 2024-10-13 09:01 | XMS_ITS ---
Laboratory report Created on: September 23, 2024 VANDANA QUEEN : 1945 Sex: Female Author Organization Unknown PROBLEMS Problems List Code Description RESULTS Laboratory Orders Date Order Code Test 2024-09-19 [id number] LYME DISEASE SER OLOGY W/REFLEX 2024-09-19 [id number] ANTINUCLEAR AB M ULTIPLEX RFX 9 Laboratory Results Date LOINC Test Value Unit Reference Range Interpre tation 2024-09-19 54916-0 LYME TOTAL ANTIBODY DARION N NEGAT NUNU 2024-09-19 8061-4 NOA DIRECT N NEGATIVE
== END 2024-10-13 23:59 | disposition home or self-care (01) ==
LOC: RAD 08:59
PROVIDERS: PCP Nurse Practitioner Family; Visit Provider Specialist
DX: R90.89 Other abnormal findings on diagnostic imaging of central nervous system (principal); E11.65 Type 2 diabetes mellitus with hyperglycemia; F41.9 Anxiety disorder, unspecified; R41.3 Other amnesia; I48.91 Unspecified atrial fibrillation; Z87.898 Personal history of other specified conditions
CPT/HCPCS: 70551

== ENCOUNTER 2024-12-06 09:16 | Outpatient (CLI) | payer MEDICARE, SELFPAY ==
--- OUTSIDE RECORDS SUMMARY | 2024-12-06 09:19 | XMS_ITS | Continuity of Care Document ---
Author Organization [facility] Address [address] [place] [address] Assessment No assessment recorded. Plan of Treatment Reminders Order Date Submit Date Provider Last Modified By Organization Details Last Modified Time Details Appointments None recorded. Lab venipunctur e 2024 025 [place] [facility], [address], Ian F, [place], [address], 04:07:56 Referral None recorded. Procedures None recorded. Surgeries None recorded. Imaging None recorded. Medication Orders None recorded. Patient TargetsNo targets recorded. Patient InstructionsNo instructions recorded. Reason for Referral None Reported. Results Created Date Observation Date Name Description Value Unit Range Abnormal Flag Note LastModifiedBy Organization Detail LastModifiedTime 10/19/1910/19/2024 TSH+F REE T4 TSH 1.210 uIU/m L 0.450- 4.500 normal Not Available [facility] ([facility]) [address] [place], [address], 10/19/2024 10:08:14 10/19/19 25 10/19/2024 TSH+F REE T4 T4,free(dire ct) 1.58 NG/dL 0.82-1 .77 normal Not Available [facility] ([facility]) [address] [place], [address], 10/19/2024 10:08:14 10/19/19 25 10/19/2024 CBC WITH DIFFE RENTI AL/PL ATELE T WBC 5.2 x10e3 /uL 3.4-10 .8 normal Not Available [facility] ([facility]) [address] [place], [address], 10/19/2024 10:08:14 10/19/19 25 10/19/2024 CBC WITH DIFFE RENTI AL/PL ATELE T RBC 3.69 x10e6 /uL 3.77-5 .28 below low normal Not Available [facility] ([facility]) [address] [place], [address], 10/19/2024 10:08:14 10/19/19 25 10/19/2024 CBC WITH DIFFE RENTI AL/PL ATELE T hemoglobin 10.8 g/dL 11.1-1 5.9 below low normal Not Available [facility] ([facility]) [address] [place], [address], 10/19/2024 10:08:14 10/19/19 25 10/19/2024 CBC WITH DIFFE RENTI AL/PL ATELE T hematocrit 35.4 % 34.0-4 6.6 normal Not Available [facility] ([facility]) [address] [place], [address], 10/19/2024 10:08:14 10/19/19 25 10/19/2024 CBC WITH DIFFE RENTI AL/PL ATELE T MCV 96 fL 79-97 normal Not Available [facility] ([facility]) [address] [place], [address], 10/19/2024 10:08:14 10/19/19 25 10/19/2024 CBC WITH DIFFE RENTI AL/PL ATELE T MCH 29.3 pg 26.6-3 3.0 normal Not Available [facility] ([facility]) [address] [place], [address], 10/19/2024 10:08:14 10/19/19 25 10/19/2024 CBC WITH DIFFE RENTI AL/PL ATELE T MCHC 30.5 g/dL 31.5-3 5.7 below low normal Not Available [facility] ([facility]) [address] [facility], [place], [address], 10/19/2024 10:08:14 10/19/19 25 10/19/2024 CBC WITH DIFFE RENTI AL/PL ATELE T RDW 15.2 % 11.7-1 5.4 Not Available [facility] ([facility]) [address] [facility], [place], [address], 10/19/2024 10:08:14 10/19/19 25 10/19/2024 CBC WITH DIFFE RENTI AL/PL ATELE T platelets 238 x10e3 /uL 150-45 0 normal Not Available [facility] ([facility]) [address] [place], [address], 10/19/2024 10:08:14 10/19/19 25 10/19/2024 CBC WITH DIFFE RENTI AL/PL ATELE T neutrophils 70 % not estab. normal Not Available [facility] ([facility]) [address] [facility], [place], [address], 10/19/2024 10:08:14 10/19/19 25 10/19/2024 CBC WITH DIFFE RENTI AL/PL ATELE T lymphs 18 % not estab. normal Not Available [facility] ([facility]) [address] [place], [address], 10/19/2024 10:08:14 10/19/19 25 10/19/2024 CBC WITH DIFFE RENTI AL/PL ATELE T monocytes 9 % not estab. normal Not Available [facility] ([facility]) [address] [facility], [place], [address], 10/19/2024 10:08:14 10/19/19 25 10/19/2024 CBC WITH DIFFE RENTI AL/PL ATELE T eos 2 % not estab. normal Not Available [facility] ([facility]) [address] [facility], [place], [address], 10/19/2024 10:08:14 10/19/19 25 10/19/2024 CBC WITH DIFFE RENTI AL/PL ATELE T basos 1 % not estab. normal Not Available [facility] ([facility]) [address] [facility], [place], [address], 10/19/2024 10:08:14 10/19/19 25 10/19/2024 CBC WITH DIFFE RENTI AL/PL ATELE T immature cells DIRECT CUSTOMER SERVICE REPRESENTATIVE Not Available [facility] ([facility]) [address] [place], [address], 10/19/2024 10:08:14 10/19/19 25 10/19/2024 CBC WITH DIFFE RENTI AL/PL ATELE T neutrophils (absolute) 3.7 x10e3 /uL 1.4-7. 0 normal Not Available [facility] ([facility]) [address] [place], [address], 10/19/2024 10:08:14 10/19/19 25 10/19/2024 CBC WITH DIFFE RENTI AL/PL ATELE T lymphs (absolute) 0.9 x10e3 /uL 0.7-3. 1 normal Not Available [facility] ([facility]) [address] [place], [address], 10/19/2024 10:08:14 10/19/19 25 10/19/2024 CBC WITH DIFFE RENTI AL/PL ATELE T monocytes(ab solute) 0.5 x10e3 /uL 0.1-0. 9 normal Not Available [facility] ([facility]) [address] [place], [address], 10/19/2024 10:08:14 10/19/19 25 10/19/2024 CBC WITH DIFFE RENTI AL/PL ATELE T eos (absolute) 0.1 x10e3 /uL 0.0-0. 4 normal Not Available [facility] ([facility]) [address] [place], [address], 10/19/2024 10:08:14 10/19/19 25 10/19/2024 CBC WITH DIFFE RENTI AL/PL ATELE T baso (absolute) 0.0 x10e3 /uL 0.0-0. 2 normal Not Available [facility] ([facility]) [address] [facility], [place], [address], 10/19/2024 10:08:14 10/19/19 25 10/19/2024 CBC WITH DIFFE RENTI AL/PL ATELE T immature granulocytes 0 % not estab. Not Available [facility] ([facility]) [address] [facility], [place], [address], 10/19/2024 10:08:14 10/19/19 25 10/19/2024 CBC WITH DIFFE RENTI AL/PL ATELE T immature grans (abs) 0.0 x10e3 /uL 0.0-0. 1 Not Available [facility] ([facility]) [address] [place], [address], 10/19/2024 10:08:14 10/19/19 25 10/19/2024 CBC WITH DIFFE RENTI AL/PL ATELE T NRBC DIRECT CUSTOMER SERVICE REPRESENTATIVE Not Available [facility] ([facility]) [address] [place], [address], 10/19/2024 10:08:14 10/19/19 25 10/19/2024 CBC WITH DIFFE RENTI AL/PL ATELE T hematology comments: DIRECT CUSTOMER SERVICE REPRESENTATIVE Not Available [facility] ([facility]) [address] [place], [address], 10/19/2024 10:08:14 10/19/19 25 10/19/2024 COMP. METAB OLIC PANEL (14) glucose 156 mg/dL 70-99 above high normal Not Available [facility] ([facility]) [address] [place], [id number], 10/19/2024 10:08:15 10/19/19 25 10/19/2024 COMP. METAB OLIC PANEL (14) BUN 25 mg/dL 8-27 normal Not Available [facility] ([facility]) [address] [place], [id number], 10/19/2024 10:08:15 10/19/19 25 10/19/2024 COMP. METAB OLIC PANEL (14) creatinine 1.91 mg/dL 0.57-1 .00 above high normal Not Available [facility] ([facility]) [address] [place], [id number], 10/19/2024 10:08:15 10/19/19 25 10/19/2024 COMP. METAB OLIC PANEL (14) eGFR 26 mL/mi n/1.7 3 >59 below low normal Not Available [facility] ([facility]) [address] [place], [id number], 10/19/2024 10:08:15 10/19/19 25 10/19/2024 COMP. METAB OLIC PANEL (14) BUN/creatini ne ratio 13 12-28 normal Not Available [facility] ([facility]) [address] [facility] [place], [address], 10/19/2024 10:08:15 10/19/19 25 10/19/2024 COMP. METAB OLIC PANEL (14) sodium 137 mmol/ L 134-14 4 normal Not Available [facility] ([facility]) [address] [facility] [place], [address], 10/19/2024 10:08:15 10/19/19 25 10/19/2024 COMP. METAB OLIC PANEL (14) potassium 4.5 mmol/ L 3.5-5. 2 normal Not Available [facility] ([facility]) [address], [address], 10/19/2024 10:08:15 10/19/19 25 10/19/2024 COMP. METAB OLIC PANEL (14) chloride 99 mmol/ L 96-106 normal Not Available [facility] ([facility]) [address] [place], [address], 10/19/2024 10:08:15 10/19/19 25 10/19/2024 COMP. METAB OLIC PANEL (14) carbon dioxide, total 22 mmol/ L 20-29 normal Not Available [facility] ([facility]) [address] [place], [address], 10/19/2024 10:08:15 10/19/19 25 10/19/2024 COMP. METAB OLIC PANEL (14) calcium 9.2 mg/dL 8.7-10 .3 normal Not Available [facility] ([facility]) [address] [place], [address], 10/19/2024 10:08:15 10/19/19 25 10/19/2024 COMP. METAB OLIC PANEL (14) protein, total 6.6 g/dL 6.0-8. 5 normal Not Available [facility] ([facility]) [address] [place], [address], 10/19/2024 10:08:15 10/19/19 25 10/19/2024 COMP. METAB OLIC PANEL (14) albumin 4.2 g/dL 3.8-4. 8 normal Not Available [facility] ([facility]) [address] [place], [address], 10/19/2024 10:08:15 10/19/19 25 10/19/2024 COMP. METAB OLIC PANEL (14) globulin, total 2.4 g/dL 1.5-4. 5 Not Available [facility] ([facility]) [address] [place], [address], 10/19/2024 10:08:15 10/19/19 25 10/19/2024 COMP. METAB OLIC PANEL (14) bilirubin, total <0.2 mg/dL 0.0-1. 2 Not Available [facility] ([facility]) [address] [place], [address], 10/19/2024 10:08:15 10/19/19 25 10/19/2024 COMP. METAB OLIC PANEL (14) alkaline phosphatase 73 IU/L 44-121 normal Not Available [facility] ([facility]) [address] [place], [address], 10/19/2024 10:08:15 10/19/19 25 10/19/2024 COMP. METAB OLIC PANEL (14) AST (SGOT) 23 IU/L 0-40 normal Not Available [facility] ([facility]) [address] [place], [address], 10/19/2024 10:08:15 10/19/19 25 10/19/2024 COMP. METAB OLIC PANEL (14) ALT (SGPT) 15 IU/L 0-32 normal Not Available [facility] ([facility]) [address] [place], [address], 10/19/2024 10:08:15 10/19/19 25 10/19/2024 LIPID PANEL cholesterol, total 164 mg/dL 100-19 9 normal Not Available [facility] ([facility]) [address] [place], [address], 10/19/2024 10:08:15 10/19/19 25 10/19/2024 LIPID PANEL triglyceride s 166 mg/dL 0-149 above high normal Not Available [facility] ([facility]) [address] [place], [address], 10/19/2024 10:08:15 10/19/19 25 10/19/2024 LIPID PANEL HDL cholesterol 55 mg/dL >39 normal Not Available [facility] ([facility]) [address] [place], [address], 10/19/2024 10:08:15 10/19/19 25 10/19/2024 LIPID PANEL VLDL cholesterol rodrick 28 mg/dL 5-40 Not Available [facility] ([facility]) [address] [place], [address], 10/19/2024 10:08:15 10/19/19 25 10/19/2024 LIPID PANEL LDL chol calc ([facility]) 81 mg/dL 0-99 Not Available [facility] ([facility]) [address] [facility], [place], [address], 10/19/2024 10:08:15 10/19/19 25 10/19/2024 LIPID PANEL LDL calc comment: DIRECT CUSTOMER SERVICE REPRESENTATIVE Not Available [facility] ([facility]) [address] [place], [address], 10/19/2024 10:08:15 10/19/19 25 10/19/2024 IRON AND TIBC iron bind.cap.(TI BC) 371 ug/dL 250-45 0 normal Not Available [facility] ([facility]) [address] [facility], [place], [address], 10/19/2024 10:08:16 10/19/19 25 10/19/2024 IRON AND TIBC UIBC 315 ug/dL 118-36 9 normal Not Available [facility] ([facility]) [address] [place], [address], 10/19/2024 10:08:16 10/19/19 25 10/19/2024 IRON AND TIBC iron 56 ug/dL 27-139 normal Not Available [facility] ([facility]) [address] [place], [address], 10/19/2024 10:08:16 10/19/19 25 10/19/2024 IRON AND TIBC iron saturation 15 % 15-55 normal Not Available [facility] ([facility]) [address] [place], [address], 10/19/2024 10:08:16 10/19/19 25 10/19/2024 VITAM IN B12 AND FOLAT E vitamin B12 253 pg/mL 232-12 45 normal Not Available [facility] ([facility]) [address] [place], [address], 10/19/2024 10:08:16 10/19/19 25 10/19/2024 VITAM IN B12 AND FOLAT E folate (folic acid), serum 6.7 NG/mL >3.0 normal A serum folat e silvia ntrat ion of less than 3.1 ng/mL is consi dered to repre sent clini rodrick defic iency . Not Available [facility] ([facility]) [address] [place], [address], 10/19/2024 10:08:16 10/19/19 25 10/19/2024 BLANCA+L IPASE amylase 59 U/L 31-110 normal Not Available [facility] ([facility]) [address] [place], [address], 10/19/2024 10:08:17 10/19/19 25 10/19/2024 BLANCA+L IPASE lipase 53 U/L 14-85 normal Not Available [facility] ([facility]) [address] [place], [address], 10/19/2024 10:08:17 10/19/19 25 10/19/2024 HEMOG LOBIN A1C hemoglobin A1C 6.0 % 4.8-5. 6 above high normal Predi abete s: 5.7 - 6.4 Diabe silvia: >6.4 Glyce mitchell contr ol for adult s with diabe silvia: <7.0 Not Available [facility] ([facility]) [address] [place], [address], 10/19/2024 10:08:17 10/19/19 25 10/18/2024 drug scree n, urine AMP negati ve Not Available [address], [address], 10/18/2024 13:34:25 10/19/19 25 10/18/2024 drug scree n, urine BAR negati ve Not Available [address], [address], 10/18/2024 13:34:25 10/19/19 25 10/18/2024 drug scree n, urine BUP negati ve Not Available [address], [address], 10/18/2024 13:34:25 10/19/19 25 10/18/2024 drug scree n, urine BZO positi ve Not Available [address], [address], 10/18/2024 13:34:25 10/19/1910/18/2024 drug scree n, urine FREDI negati ve Not Available [address], [address], 10/18/2024 13:34:25 10/19/1910/18/2024 drug scree n, urine FTY negati ve Not Available [address], [address], 10/18/2024 13:34:25 10/19/1910/18/2024 drug scree n, urine MDMA negati ve Not Available [address], [address], 10/18/2024 13:34:25 10/19/1910/18/2024 drug scree n, urine MET negati ve Not Available [address], [address], 10/18/2024 13:34:25 10/19/19 25 10/18/2024 drug scree n, urine MOP negati ve Not Available [address], [address], 10/18/2024 13:34:25 10/19/19 25 10/18/2024 drug scree n, urine MTD negati ve Not Available [address], [address], 10/18/2024 13:34:25 10/19/19 25 10/18/2024 drug scree n, urine OXY negati ve Not Available [address], [address], 10/18/2024 13:34:25 10/19/19 25 10/18/2024 drug scree n, urine PCP negati ve Not Available [address], [address], 10/18/2024 13:34:25 10/19/1910/18/2024 drug scree n, urine TCA negati ve Not Available [address], [address], 10/18/2024 13:34:25 10/19/1910/18/2024 drug scree n, urine THC negati ve Not Available [address], [address], 10/18/2024 13:34:25 11/05/19 25 11/05/2024 RENAL PANEL (10) glucose 104 mg/dL 70-99 above high normal Not Available [facility] ([facility]) [address] [facility] [place], [address], 11/08/2024 11:07:47 11/05/19 25 11/05/2024 RENAL PANEL (10) BUN 26 mg/dL 8-27 normal Not Available [facility] ([facility]) [address] [facility] [place], [id number], 11/08/2024 11:07:47 11/05/19 25 11/05/2024 RENAL PANEL (10) creatinine 2.49 mg/dL 0.57-1 .00 above high normal Not Available [facility] ([facility]) [address] [facility] [place], [address], 11/08/2024 11:07:47 11/05/19 25 11/05/2024 RENAL PANEL (10) eGFR 19 mL/mi n/1.7 3 >59 below low normal Not Available [facility] ([facility]) [address] [facility] [place], [address], 11/08/2024 11:07:47 11/05/19 25 11/05/2024 RENAL PANEL (10) BUN/creatini ne ratio 10 12-28 below low normal Not Available [facility] ([facility]) [address] [facility] [place], [address], 11/08/2024 11:07:47 11/05/19 25 11/05/2024 RENAL PANEL (10) sodium 138 mmol/ L 134-14 4 normal Not Available [facility] ([facility]) [address] [facility] [place], [address], 11/08/2024 11:07:47 11/05/19 25 11/05/2024 RENAL PANEL (10) potassium 4.4 mmol/ L 3.5-5. 2 normal Not Available [facility] ([facility]) [address] [facility] [place], [address], 11/08/2024 11:07:47 11/05/19 25 11/05/2024 RENAL PANEL (10) chloride 95 mmol/ L 96-106 below low normal Not Available [facility] ([facility]) [address] [facility] [place], [address], 11/08/2024 11:07:47 11/05/19 25 11/05/2024 RENAL PANEL (10) carbon dioxide, total 26 mmol/ L 20-29 normal Not Available [facility] ([facility]) [address] [facility] [place], [address], 11/08/2024 11:07:47 11/05/19 25 11/05/2024 RENAL PANEL (10) calcium 9.5 mg/dL 8.7-10 .3 normal Not Available [facility] ([facility]) [address] [facility] [place], [address], 11/08/2024 11:07:47 11/05/19 25 11/05/2024 RENAL PANEL (10) phosphorus 3.5 mg/dL 3.0-4. 3 normal Not Available [facility] ([facility]) [address] [facility] [place], [address], 11/08/2024 11:07:47 11/05/19 25 11/05/2024 RENAL PANEL (10) albumin 4.4 g/dL 3.8-4. 8 normal Not Available [facility] ([facility]) [address] [place], [address], 11/08/2024 11:07:47 11/05/19 25 11/05/2024 ALBUM IN/CR EAT RATIO , RANDO M UR creatinine, urine 127.7 mg/dL not estab. normal Not Available [facility] ([facility]) [address] [place], [address], 11/08/2024 11:07:48 11/05/19 25 11/05/2024 ALBUM IN/CR EAT RATIO , RANDO M UR albumin, urine 6.6 ug/mL not estab. Not Available [facility] ([facility]) [address] [facility], [place], [address], 11/08/2024 11:07:48 11/05/19 25 11/05/2024 ALBUM IN/CR EAT RATIO , RANDO M UR alb/creat ratio 5 mg/g_ creat 0-29 May l: 0 - 29 Moder ately incre ased: 30 - 300 Sever bossman incre ased: >300 Not Available [facility] ([facility]) [address] [facility], [place], [address], 11/08/2024 11:07:48 11/05/19 25 11/08/2024 LEVPARI RAPPRAMÓN MENDIETA ([facility]), S levetiraceta m, S 46.7 ug/mL 10.0-4 0.0 above high normal Not Available [facility] ([facility]) [address] [facility], [place], [address], 11/08/2024 11:07:48 10/14/19 25 10/13/2024 MRI, head, w/o contr ast No observ ation record ed. [facility] [address], [place], [address], 10/13/2024 13:31:39 Result Notes None recorded. Problems Name Problem SNOMED Code Status Onset Date Resolution Date Notes Provider Name and Address Organization Details Recorded Time Atrial fibrillation 31092803 Active Myla Stears null, [place] - [facility] 17:56:54 Seizure 15656194 Active Myla Stears null, [place] - [facility] 17:56:54 Hypertensive disorder 28490251 Active Myla Stears null, [place] - [facility] 17:56:54 Anxiety 80300524 Active Myla Stears [place], [place] - [facility] 17:56:54 Congestive heart failure 84974738 Active 2022 Myla Stears null, [place] - [facility] 17:56:54 Type 2 diabetes mellitus 03905423 Active 2023 Myla segundo, [place] - [facility] 17:56:54 Problem Notes None recorded. Procedures Surgical History Date Name Laterality Status Provider Name and Address Organization Details Recorded Time 03/29/20 Medication Reconcilliation completed Nella Jorge [place] - [facility] 03/29/2024 14:51:30 06/26/19 Advance Care Planning completed Nella Matiasler [place] - [facility] 06/26/2023 10:20:19 06/26/19 Functional Status Assessed completed Nella Jorge [place] - [facility] 06/26/2023 10:20:19 06/02/19 Medication Reconcilliation completed Nella Matiasler [place] - [facility] 06/02/2023 10:56:40 01/06/20 Appl. Splint - Forearm to Hand completed Erlin Nash, [place] [address], [place], [address], [place] - [facility] 01/05/2023 13:15:42 01/06/20 Medication Reconcilliation completed Nella Matiasler [place] - [facility] 01/05/2023 11:09:44 Hysterectomy completed Nella Jorge [place] - [facility] 10/20/2022 11:55:41 cholecystectomy completed Nella Luisito [place] - [facility] 10/20/2022 11:55:47 colonoscopy completed Myla Robins [place] - [facility] 07/13/2023 10:28:39 Imaging Results None recorded. Procedure Notes None recorded. Medical Equipment None Reported. Allergies No known drug allergies Medications Name Sig Start Date Stop Date Status Note LastModified by Organization Details LastModified Time losartan 50 mg tablet 50 mg by oral route. 12/25 completed Not Available Not Available Not Available amoxicillin 500 mg capsule TAKE ONE (1) CAPSULE TWICE A DAY BY ORAL ROUTE FOR 10 DAYS. 12/27 completed Not Available Not Available Not Available sodium chloride 5 % eye drops APPLY ONE DROP IN AFFECTED EYE 2-4 TIMES A DAY. active Not Available Not Available No t Available furosemide 40 mg tablet TAKE 1/2 TABLET BY MOUTH ONCE DAILY active Not Available Not Available No t Available Miralax 17 gram/dose oral powder Take 17 g by oral route. 2024 active Not Available Not Available Not Avai lable buspirone 5 mg tablet TAKE ONE (1) TABLET EVERY DAY BY ORAL ROUTE NEEDED FOR 14 DAYS. 06/02 completed Not Available Not Available Not Available prednisone 10 mg tablet TAKE ONE (1) TABLET TWICE A DAY BY ORAL ROUTE FOR FIVE (5) DAYS. 12/27 completed Not Available Not Available Not Available doxycycline hyclate 100 mg capsule Take 1 capsule twice a day by oral route for 10 days. 03/29 completed Not Available Not Available Not Available atorvastati n 20 mg tablet TAKE ONE (1) TABLET BY MOUTH EVERY DAY active Not Available Not Available No t Available Harjit 128 5 % eye ointment LOCATION: LEFT EYE. APPLY A SMALL AMOUNT INTO THE LEFT EYE EVERY NIGHT AT BEDTIME active Not Available Not Available No t Available azithromyci n 250 mg tablet TAKE 2 TABLETS BY MOUTH ON DAY 1, THEN TAKE 1 TABLET DAILY ON DAYS 2-5 01/05 completed Not Available Not Available Not Available alprazolam 1 mg tablet TAKE ONE (1) TABLET EVERY DAY BY ORAL ROUTE AT BEDTIME FOR 30 DAYS. active Not Available Not Available No t Available ofloxacin 0.3 % eye drops instill 1 DROP IN THE LEFT EYE EVERY 2-3 hours while awake FOR 1 WEEK 12/22 completed Not Available Not Available Not Available amiodarone 200 mg tablet TAKE 1 TABLET BY MOUTH EVERY DAY active Not Available Not Available No t Available levetiracet am 500 mg tablet TAKE ONE (1) TABLET TWICE A DAY BY ORAL ROUTE FOR 30 DAYS. active Not Available Not Available No t Available hydrocodone 5 mg-acetamin ophen 325 mg tablet TAKE ONE TABLET BY MOUTH EVERY 4 HOURS NEEDED FOR post op pain MAY CAUSE DROWSINES S 02/02 completed Not Available Not Available Not Available senna 8.6 mg tablet TAKE ONE (1) TABLET EVERY DAY BY ORAL ROUTE FOR 30 DAYS. active Not Available Not Available No t Available metoprolol succinate ER 100 mg tablet,exte nded release 24 hr TAKE ONE (1) TABLET BY MOUTH EVERY DAY 06/02 completed Not Available Not Available Not Available acetaminoph en 300 mg-codeine 30 mg tablet TAKE ONE (1) TABLET TWICE A DAY BY ORAL ROUTE NEEDED FOR TWO (2) DAYS. - DO NOT TAKE WITH XANAX (ALPRAZOL AM) 01/28 completed Not Available Not Available Not Available fexofenadin e 180 mg tablet TAKE ONE TABLET BY MOUTH EVERY DAY SWALLOW WHOLE WITH WATER; DO NOT TAKE WITH FRUIT JUICES active Not Available Not Available No t Available spironolact one 25 mg tablet TAKE ONE (1) TABLET EVERY DAY BY ORAL ROUTE. active Not Available Not Available No t Available simvastatin 40 mg tablet Take 1 tablet every day by oral route. active Not Available Not Available No t Available acyclovir 800 mg tablet TAKE ONE TABLET BY MOUTH 5 times DAILY FOR 10 DAYS 11/25 completed Not Available Not Available Not Available isosorbide mononitrate ER 60 mg tablet,exte nded release 24 hr TAKE ONE (1) TABLET BY MOUTH EVERY DAY active Not Available Not Available No t Available alprazolam 0.5 mg tablet TAKE ONE TABLET BY MOUTH EVERY 6 HOURS MAY CAUSE DROWSINES S 11/25 completed Not Available Not Available Not Available ceftriaxone 1 gram solution for injection Take 1 g by injection route. 03/21 completed Not Available Not Available Not Available prednisolon e acetate 1 % eye drops,suspe nsion BEGIN INSTILLIN G ONE (1) DROP FOUR (4) TIMES DAILY FOR TWO (2) WEEKS THEN TAPER TO TWICE DAILY FOR TWO (2) WEEKS THEN DISCONTIN UE 12/02 completed Not Available Not Available Not Available trazodone 100 mg tablet TAKE ONE AND A HALF (1 & 1/2) TABLETS EVERY DAY BY ORAL ROUTE DIRECTED FOR 30 DAYS. active Not Available Not Available No t Available benzonatate 100 mg capsule TAKE ONE (1) CAPSULE TWICE A DAY BY ORAL ROUTE FOR SIX (6) DAYS, FOR COUGH. 06/07 completed Not Available Not Available Not Available cephalexin 500 mg capsule TAKE ONE (1) CAPSULE TWICE A DAY BY ORAL ROUTE FOR 7 DAYS. 03/17 completed Not Available Not Available Not Available pantoprazol e 40 mg tablet,aidan yed release TAKE ONE (1) TABLET BY MOUTH EVERY DAY active Not Available Not Available No t Available trazodone 150 mg tablet Take 1 tablet every day by oral route. 04/16 completed Not Available Not Available Not Available ferrous sulfate 325 mg (65 mg iron) tablet Take 325 mg by oral route. 06/02 completed Not Available Not Available Not Available triamcinolo ne acetonide 0.1 % topical ointment PLACE A SMALL AMOUNT ON THE LEFT EYELID TWICE DAILY FOR TWO (2) WEEKS 06/02 completed Not Available Not Available Not Available magnesium citrate oral solution TAKE 1/2(appro ximately 150MLS) BOTTLE NEEDED AND NO MORE THAN ONCE A WEEK active Not Available Not Available No t Available dorzolamide 22.3 mg-timolol 6.8 mg/mL eye drops LOCATION: LEFT EYE. APPLY ONE DROP TO AFFECTED EYE TWO (2) TIMES A DAY. active Not Available Not Available No t Available montelukast 10 mg tablet Take 1 tablet by oral route. 03/29 completed Not Available Not Available Not Available mupirocin 2 % topical ointment APPLY A SMALL AMOUNT TO THE AFFECTED AREA BY TOPICAL ROUTE THREE (3) TIMES PER DAY active Not Available Not Available No t Available dexamethaso ne sodium phosphate 4 mg/mL injection solution Inject 4 mg every day by intramusc ular route. 03/21 completed Not Available Not Available Not Available azelastine 137 mcg (0.1 %) nasal spray TWO (2) SPRAY INTRANASA LLY TWICE A DAY; ADMINISTE R INTO EACH NOSTRIL 03/29 completed Not Available Not Available Not Available levofloxaci n 750 mg tablet TAKE ONE TABLET BY MOUTH every 48 hours FOR 5 DAYS -- FINISH ALL MEDICINE -- 03/29 completed Not Available Not Available Not Available albuterol sulfate HFA 90 mcg/actuati on aerosol inhaler INHALE ONE (1) PUFF EVERY FOUR (4) HOURS BY INHALATIO N ROUTE NEEDED. active Not Available Not Available No t Available atropine 1 % eye drops LOCATION: LEFT EYE. PLACE ONE (1) DROP INTO THE LEFT EYE EVERY DAY active Not Available Not Available No t Available cefdinir 300 mg capsule TAKE ONE (1) CAPSULE EVERY 12 HOURS BY ORAL ROUTE FOR 10 DAYS. 11/12 completed Not Available Not Available Not Available fluticasone propionate 50 mcg/actuati on nasal spray,suspe nsion SPRAY ONE (1) SPRAY EVERY DAY BY INTRANASA L ROUTE. active Not Available Not Available No t Available metformin ER 500 mg tablet,exte nded release 24 hr TAKE ONE (1) TABLET EVERY DAY BY ORAL ROUTE, FOR TYPE TWO (2) DIABETES. 02/24 completed Not Available Not Available Not Available sertraline 50 mg tablet TAKE ONE TABLET BY MOUTH EVERY DAY 01/05 completed Not Available Not Available Not Available naproxen 500 mg tablet TAKE ONE (1) TABLET BY ORAL ROUTE TWO (2) TIMES PER DAY 06/02 completed Not Available Not Available Not Available amoxicillin 875 mg-potassiu m clavulanate 125 mg tablet TAKE ONE TABLET BY MOUTH EVERY TWELVE HOURS FOR 10 DAYS -- FINISH ALL MEDICINE -- 11/25 completed Not Available Not Available Not Available neomycin 3.5 mg/g-polymy shelton B 10,000 unit/g-dexa meth 0.1 % eye oint apply a SMALL AMOUNT into THE LEFT eye TWO OR THREE TIMES DAILY DIRECTED 11/25 completed Not Available Not Available Not Available escitalopra m 10 mg tablet TAKE ONE (1) TABLET BY MOUTH EVERY DAY active Not Available Not Available No t Available cyclobenzap rine 5 mg tablet TAKE ONE TABLET BY MOUTH THREE TIMES DAILY NEEDED MAY CAUSE DROWSINES S 01/05 completed Not Available Not Available Not Available moxifloxaci n 0.5 % eye drops 1 [drp] 3 times a day by ophthalmi c route. 12/25 completed Not Available Not Available Not Available potassium chloride ER 10 mEq tablet,exte nded release(par t/cryst) TAKE ONE (1) TABLET EVERY DAY BY ORAL ROUTE. 2024 active Not Available Not Available Not Avai lable potassium chloride 10 meq daily 11/25 completed Not Available Not Available Not Available levocetiriz ine 5 mg tablet TAKE 1 TABLET BY MOUTH EVERY DAY active Not Available Not Available No t Available Pro Fe 180 mg iron capsule Take 1 capsule every day by oral route. 11/25 completed Not Available Not Available Not Available levetiracet am ER 500 mg tablet,exte nded release 24 hr Take 1 tablet twice a day by oral route. 04/16 completed Not Available Not Available Not Available Tradjenta 5 mg tablet Take 1 tablet every day by oral route for 30 days. 2024 active Not Available Not Available Not Avai lable Tradjenta 03/29 completed Not Available Not Available Not Available Xarelto 15 mg tablet TAKE ONE (1) TABLET BY MOUTH EVERY DAY active Not Available Not Available No t Available Jardiance 10 mg tablet TAKE ONE (1) TABLET EVERY DAY BY ORAL ROUTE. active Not Available Not Available No t Available Ocusoft HypoChlor Solution 0.02 % topical spray APPLY TO AFFECTED LIDS TWO (2) TIMES A DAY 03/29 completed Not Available Not Available Not Available Vitals Date Recorded Body height Provider Name an d Address Organization Details Last Updated DateTime 11/04/2024 152.4 cm Myla Julienne [place] - [facility] 11/04 10:23:28 Social History Question Answer Notes LastModified by Organizat ion Details LastModified Time Tobacco Smoking Status Never Smoker Nella [place], [place] - [facility] 10/20/2022 11:54:44 Do You Have An Advance Directive? No Information n ot available 10/20/2022 Are You Blind Or Do You Have Difficulty Seeing? No Information n ot available 10/20/2022 What Is Your Level Of Caffeine Consumption? Occasional Information not available 10/20/2022 In The 14 Days Before Symptom Onset, Have You Had Close Contact With A Laboratory-confirm ed COVID-19 While That Case Was Ill? No Information n ot available 10/20/2022 In The 14 Days Before Symptom Onset, Have You Had Close Contact With A Person Who Is Under Investigation For COVID-19 While That Person Was Ill? No Information not available 10/20/2022 Have You Been To An Area Known To Be High Risk For COVID-19? No Information not available 10/20/2022 Are You Deaf Or Do You Have Serious Difficulty Hearing? No Information not available 10/20/2022 What Type Of Diet Are You Following? REGULAR Information n ot available 10/20/2022 Have You Processed Blood Or Body Fluids From An Ebola Virus Disease Patient Without Appropriate PPE? No Information not available 10/20/2022 Do You Reside In Or Have You Traveled To An Area Where Ebola Virus Transmission Is Active? No Information not available 10/20/2022 What Is The Highest Grade Or Level Of School You Have Completed Or The Highest Degree You Have Received? [id number] Information not available 07/13/2023 Have There Been Any Changes To Your Family Or Social Situation? No Information no t available 10/20/2022 What Is The Fluoride Status Of Your Home? Fluoridated Information not available 10/20/2022 Have You Recently Or Are You Planning To Travel To An Area With Zika Virus? No Information not available 10/20/2022 Do You Have A Medical Power Of Act Tutor? Yes Information not available 10/20/2022 What Was The Date Of Your Most Recent Tobacco Screening? 06/07/2024 Information not available 06/07/2024 What Is Your Relationship Status? Information not available 06/07/2024 Do You Have Smoke And Carbon Monoxide Detectors In Your Home? Yes Information not available 10/20/2022 Are You Passively Exposed To Smoke? No Information no t available 10/20/2022 Has Tobacco Cessation Counseling Been Provided? No Information not available 10/20/2022 Do You Have Difficulty Walking Or Climbing Stairs? No Information not available 10/20/2022 Sex: Female Functional Status Question Answer Note LastModified by Organizat ion Details LastModified Time How many times per week do you consume alcohol? 3-4 times per week Information not available 10/20/2022 Do you use any illicit or recreational drugs? No Information not available 10/20/2022 Do you or have you ever used any other forms of tobacco or nicotine? No Information not available 10/20/2022 What is your level of alcohol consumption? Occasional 1/2 glass of wine nightly Information not available 10/20/2022 Are you currently employed? No Information not available 10/20/2022 Do you have transportation difficulties? No Information not available 10/20/2022 Are you able to walk? YESWOREST Information not available 10/20/2022 Do you have difficulty doing errands alone? No Information not available 10/20/2022 Are you able to care for yourself independently? Yes Information not available 10/20/2022 Do you have difficulty dressing, bathing, grooming, or toileting? No Information not available 10/20/2022 Mental Status Question Answer Note LastModified by Organizat ion Details LastModified Time Do you feel stressed (tense, restless, nervous, or anxious, or unable to sleep at night)? [id number] Information not available 10/20/2022 Do you have difficulty concentrating, remembering or making decisions? No Information no t available 10/20/2022 Family History Relationship Description Onset Age of this Age Resolved Age Notes LastModified by Organization Details LastModified Time Father No current problems or disability bstears Not available 07/12 10:27:54 Mother No current problems or disability bstears Not available 07/12 10:27:54 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 No medical history recorded. Gynecological History Statement/Question Response Menses Monthly N If Post Menopausal, Age at Menopause Date of Last Pap Smear Date of Last Colonoscopy Date of Last Mammogram Most Recent Bone Density Obstetrics History GPAL:G 3 P 3 0 0 3 Type Value Multiple Births 0 Full Term 3 Induced 0 Spontaneous 0 Premature 0 Living 3 Ectopics 0 Total 3 Immunizations Vaccine Type Date Status Note Provider Nam e and Address Organization Details Recorded Time Influenza, high-dose, quadrivalent, PF 3 completed Erlin Nash, [facility] [address], [place], [address], [place] - [facility] 03/27/2023 15:16:51 COVID-19, mRNA, LNP-S, PF, 30 mcg/0.3 mL dose 1 completed Not Available [facility] 12/25/2022 11:38:53 COVID-19 vaccine, vector-nr, rS-Ad26, PF, 0.5 mL 1 completed Not Available [facility] 12/25/2022 11:38:53 COVID-19, mRNA, LNP-S, bivalent, PF, 30 mcg/0.3 mL dose 2 completed Not Available [facility] 12/25/2022 11:38:53 Td (adult), 5 Lf tetanus toxoid, preservative free, adsorbed 2 completed [place] - [facility] 10/20/2022 11:41:25 Past Encounters Encounter ID Performer Location Encounter Start Date Encounter Closed Date Diagnosis/Indication Diagnosis SNOMED-CT Code Diagnosis ICD10 Code Diagnosis Note [id number] Jordonmelody Nash [facility] [address] [address] 10/18/2024 13:01:18 10/18/2024 14:12:03 Anxiety 19537511 F41.9 Seasonal allergy 7728174 04 J30.2 Allergic rhinitis 915653 04 J30.9 Hypertensive disorder 38 468225 I10 refill for blood pressure medication Congestive heart failure 07027921 I50.9 follow up with cardiology 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 continue meds and diet Unintentio nal weight loss 524547094 R63.4 labsrefer to case for colonoscop y Long-term current use of drug therapy 697043004 Z79.252 [id number] Erlin Nash APRN [address] [address] 11/04/2024 10:20:04 11/04/2024 10:55:51 Serum creatinine above reference range 055010267 R79.89 Seizure disorder 2465282 02 G40.909 Health Concerns Section Related Observation LastModified by Organization Detai ls LastModified Time None Recorded Concern Status LastModified by Organization Details LastModified Time None Recorded Payers Encounter Date Sequence Insurance Name Policy Number Policy Peoples Covered Member ID Peoples Member ID Guarantor Name 11/04/2024 1 [employer] (MEDICARE REPLACEMENT/A DVANTAGE - PPO) Leena Casper [id number] Niko Casper OBGyn Episode No OBEpisode recorded.
--- OUTSIDE RECORDS SUMMARY | 2024-12-06 09:19 | XMS_ITS | Encounter Summary ---
Author Organization [employer] ([place], [place], [place], [place]) Address [address] [place] [address] Care Team Providers Care Substation Operator Conversion Name Role Phone uLcian Chacko MD Primary Care Provider [phone] Erlin Nash Primary Care Provider [phone] Encounter Details Date Type Department Care Team (Late st Contact Info) Description 01/09/2021 Transcribed Document [facility] [place] Family Medicine [address] [place] [address] ProviderCarmita MD [address] [place], [place] [id number] Social History Tobacco Use Types Packs/Day Years Used Date Smoking Tobacco: Never Assessed Comments Unknown Sex and Gender Information Value Date Recorded Sex Assigned at Not on file Legal Sex Female 1:32 PM CDT Gender Identity Not on file Sexual Orientation Not on file documented as of this encounter Miscellaneous Notes * Cerner Conversion Note - Historical ProviderMD - 01/09/2021 5:30 PM CDT Event Note Entered On: 01/09/2021 17:32 EDT Performed On: 01/09/2021 17:30 EDT by SHAMEKA CUTLER RN Event Note Event Date/Time : 01/09/2021 17:00 EDT Description of Event : 1700: Report called to [facility]. Pt transported to room 426 via stretcher. Monitored NSR. Bilateral groin sites without hematoma. Scant ooze from right groin without increases. Monitored NSR. Daughter accompanied pt to room. Belongings with pt. States that her back pain is easing. Not completely gone. AWILDA Chavarria CARLA L, RN - 01/09/2021 17:30 EDT documented in this encounter Plan of Treatment Not on file documented as of this encounter Visit Diagnoses Not on filedocumented in this encounter Care Teams Substation Operator Conversion Relationship Specialty Start Date End Date Lucian Chacko MD [address] [place] [address] PCP - General Family Medicine 05/20/22 12/24/22 Erlin Nash [address] [place] [address] PCP - General 12/25/22 documented as of this encounter
--- OUTSIDE RECORDS SUMMARY | 2024-12-06 09:19 | XMS_ITS | Encounter Summary ---
Author Organization [employer] ([place], [place], [place], [place]) Address [address] [place] [address] Care Team Providers Care Lard Renderer Name Role Phone Lucian Chacko MD Primary Care Provider [phone] Erlin Nash Primary Care Provider Encounter Details Date Type Department Care Team (Late st Contact Info) Description 11/25/2021 Transcribed Document [facility] [place] Family Medicine [address] [place] [address] ProviderCarmita MD [address] [place] [address] Social History Tobacco Use Types Packs/Day Years Used Date Smoking Tobacco: Never Assessed Family and Community Support Answer Deepak e Recorded Help with Day to Day Activities Not on file 05/29/2023 Feeling Lonely or Isolated Not on file 05/29 Educational Attainment Answer Date Filipe rded Speak language other than Greek at home Not on file 05/29/2023 Want help with school or training Not on file 05/29/2023 Substance Use Answer Date Recorded Used prescription meds for non-medical reasons N ot on file 05/29/2023 Used illegal drugs past 12 months Not on file 05/29/2023 Comments Unknown Sex and Gender Information Value Date Recorded Sex Assigned at Not on file Legal Sex Female 1:32 PM CDT Gender Identity Not on file Sexual Orientation Not on file documented as of this encounter Miscellaneous Notes * Cerner Conversion Note - Carmita ProviderMD - 11/25/2021 10:20 AM CDT ED Assessment Entered On: 11/25/2021 10:41 EDT Performed On: 11/25/2021 10:34 EDT by Annamaria Nuñez RN-PATIENT CARE BEDSIDE NON-EXEMPT ED Quick Look Assessment Level of Consciousness : Alert, Awake Affect/Behavior : Appropriate, Calm, Cooperative Orientation : Oriented x 4 Skin Temperature : Warm Skin Description : Normal for ethnicity Annamaria Nuñez RN-PATIENT CARE BEDSIDE NON-EXEMPT - 11/25/2021 10:34 EDT ED General-Functional Assess Preferred Communication Mode : Verbal Communication Barrier : None Primary Language : Greek Any Spiritual/Cultural Needs or Requests : No Currently in Unsafe Situation : No Annamaria Nuñez RN-PATIENT CARE BEDSIDE NON-EXEMPT - 11/25/2021 10:34 EDT Social Habits Smoking Status : Never (less than 100 in lifetime; none in last 30 days) Smokeless Tobacco Status : Never Desires Tobacco Cessation Calc : 0 Annamaria Nuñez RN-PATIENT CARE BEDSIDE NON-EXEMPT - 11/25/2021 10:34 EDT Social History (As Of: 11/25/2021 10:41:27 EDT) Tobacco: Never (less than 100 in lifetime) Smoking Status. Never Smokeless Tobacco Status. (Last Updated: 12/20/2020 06:50:37 EDT by SHAMEKA CUTLER, RN) Alcohol: Alcohol Use History No. (Last Updated: 12/20/2020 06:50:40 EDT by SHAMEKA CUTLER, RN) Substance Abuse: Drug Use Hx: No. (Last Updated: 12/20/2020 06:50:44 EDT by SHAMEKA CUTLER, RN) Cardiovascular ASMT, ED Cardiovascular Assessment WDL : WDL with exceptions (Comment: Hx of high BP. States having an ablasion done as well. [Annamaria Nuñez RN-PATIENT CARE BEDSIDE NON-EXEMPT - 11/25/2021 10:34 EDT] ) Cardiovascular Symptoms : None Annamaria Nuñez RN-PATIENT CARE BEDSIDE NON-EXEMPT - 11/25/2021 10:34 EDT Respiratory Respiratory Assessment WDL : WDL Annamaria Nuñez RN-PATIENT CARE BEDSIDE NON-EXEMPT - 11/25/2021 10:34 EDT Gastrointestinal ED Gastrointestinal Assessment WDL : WDL Annamaria Nuñez RN-PATIENT CARE BEDSIDE NON-EXEMPT - 11/25/2021 10:34 EDT Genitourinary Assessment, ED Genitourinary Assessment WDL : WDL Annamaria Nuñez RN-PATIENT CARE BEDSIDE NON-EXEMPT - 11/25/2021 10:34 EDT Musculoskeletal Musculoskeletal Assessment WDL : WDL with exceptions (Comment: Pt was here for an outpatient XRay. Pt was walking from an XRay on her lungs with her daughter. Pt was using a cane and lost balance and fell straight on her head. Pt has visible hematoma to the left frontal with an abrasion. Denies LOC, states I stumbled over my own feet and didnt have time to catch myself . Pt denies any pain or discomfort around the hematoma or anywhere else on the body. [Annamaria Nuñez RN-PATIENT CARE BEDSIDE NON-EXEMPT - 11/25/2021 10:34 EDT] ) Annamaria Nuñez RN-PATIENT CARE BEDSIDE NON-EXEMPT - 11/25/2021 10:34 EDT Integumentary Assessment Integumentary Assessment WDL : WDL with exceptions (Comment: Laceration to the right frontal with hematoma present [Annamaria Nuñez RN-PATIENT CARE BEDSIDE NON-EXEMPT - 11/25/2021 10:34 EDT] ) Annamaria Nuñez RN-PATIENT CARE BEDSIDE NON-EXEMPT - 11/25/2021 10:34 EDT Neurologic ASMT, ED Neurologic Assessment WDL : WDL Neurological Symptoms : None Level of Consciousness : Alert, Awake Affect/Behavior : Appropriate, Calm, Cooperative Speech : Clear Orientation : Oriented x 4 [place] Coma Scale Link : Open GCS Annamaria Nuñez RN-PATIENT CARE BEDSIDE NON-EXEMPT - 11/25/2021 10:34 EDT [place] Coma Tereza Best Motor Response : Obey commands Tereza Best Verbal Response : Oriented [place] Eye Opening Response : Spontaneous [place] Coma Score : 15 Annamaria Nuñez RN-PATIENT CARE BEDSIDE NON-EXEMPT - 11/25/2021 10:34 EDT documented in this encounter Plan of Treatment Not on file documented as of this encounter Visit Diagnoses Not on filedocumented in this encounter Care Teams Lard Renderer Relationship Specialty Start Date End Date Lucian Chacko MD [address] [place] [address] PCP - General Family Medicine 05/20/22 12/24/22 Erlin Nash [address] [place] [address] PCP - General 12/25/22 documented as of this encounter
--- OUTSIDE RECORDS SUMMARY | 2024-12-06 09:19 | XMS_ITS | Clinical Summary ---
Author Organization [employer] ([place], [place], [place], [place]) Address [address] [place] [address] Care Team Providers Care Pharmaceutical Plant Operator Name Role Phone Erlin Nash Primary Care Provider [phone] Allergies Active Allergy Reactions Criticality Noted Date Comments Aminophylline Nausea And Vomiting 05/20/2022 Other reaction(s): nausea and vomiting Latex Itching Medium 06/18/2021 Medications levETIRAcetam (KEPPRA) 500 MG tablet 2 Active ALPRAZolam (XANAX) 0.5 MG tablet Take 2 tablets (1 mg total) by mouth every night as needed for anxiety or sleep. 2 Active traZODone (DESYREL) 100 MG tablet Take 1.5 tablets (150 mg total) by mouth nightly. 2 Active potassium chloride SA (K-DUR,KLOR-CON- M) 10 MEQ tablet Take 1 tablet (10 mEq total) by mouth 2 (two) times daily. Active atorvastatin (LIPITOR) 20 MG tablet Take 1 tablet (20 mg total) by mouth daily. 3 Active escitalopram oxalate (LEXAPRO) 10 MG tablet Take 1 tablet (10 mg total) by mouth daily. 3 Active furosemide (LASIX) 40 MG tablet TAKE ONE (1) TABLET BY MOUTH ONCE DAILY 90 tablet 1 4 Active Additional Information Patient taking differently: 20 mgoral Daily, Reported on 08/09/2024 Xarelto 15 mg tabletIndication s:Paroxysmal atrial fibrillation (HCC) TAKE ONE (1) TABLET BY MOUTH DAILY 90 tablet 3 4 Active isosorbide mononitrate (IMDUR) 30 MG 24 hr tablet Take 1 tablet (30 mg total) by mouth every morning before breakfast. Active Jardiance 10 mg tablet Take 1 tablet (10 mg total) by mouth daily. Active spironolactone (ALDACTONE) 25 MG tablet Take 1 tablet (25 mg total) by mouth once. Active amiodarone (PACERONE) 200 MG tabletIndication s:Palpitations Take 1 tablet (200 mg total) by mouth daily. 90 tablet 3 5 Active pantoprazole (PROTONIX) 40 MG tablet Take 1 tablet (40 mg total) by mouth Daily (0600). 90 tablet 3 5 Active Active Problems No known active problems Immunizations Name Administration Dates Next Due Td 7+ years, (TENIVA) 5 Lf tetanus toxoid preservative free 11/25/2021 Social History Tobacco Use Types Packs/Day Years Used Date Smoking Tobacco: Never Passive Smoke Exposure: Past Smokeless Tobacco: Never Alcohol Use Standard Drinks/Week Comments Not Currently 0 (1 standard drink = 0.6 oz pur e alcohol) Family and Community Support Answer Deepak e Recorded Help with Day to Day Activities Not on file 05/29/2023 Feeling Lonely or Isolated Not on file 05/29 Educational Attainment Answer Date Filipe rded Speak language other than Bolivian at home Not on file 05/29/2023 Want help with school or training Not on file 05/29/2023 Substance Use Answer Date Recorded Used prescription meds for non-medical reasons N ot on file 05/29/2023 Used illegal drugs past 12 months Not on file 05/29/2023 Comments No Sex and Gender Information Value Date Recorded Sex Assigned at Not on file Legal Sex Female 1:32 PM CDT Gender Identity Not on file Sexual Orientation Not on file Last Filed Vital Signs Vital Sign Reading Time Taken Comments Blood Pressure 120/78 08/09/2024 10:03 AM EDT Pulse 61 08/09/2024 10:03 AM EDT Temperature - - Respiratory Rate 16 05/20/2022 1:28 PM EST Oxygen Saturation 96% 08/09/2024 10: 03 AM EDT Inhaled Oxygen Concentration - - Weight 68.4 kg (150 lb 12.8 oz) 025 10:03 AM EDT Height 152.4 cm (5') 08/09/2024 10:03 AM EDT Body Mass Index 29.45 08/09/2024 10:03 AM EDT Plan of Treatment Health Maintenance Due Date Last Done Comments DXA SCAN 1945 Depression Screening (12+) 1957 Hepatitis C Screening 1963 Pneumococcal 50+ years (1 of 1 - PCV) 1995 Shingles Vaccine (Zoster) (1 of 2) 1995 Respiratory Syncytial Virus (RSV) Adult or (1 - 1-dose 75+ series) 2020 Medicare Initial AWV [id number] 05/12/2020 COVID-19 VACCINE ( - season) 2024 02/19/2022, 04/11/2021, 07/18/2020 Falls Risk Screening 05/11/2024 Influenza Vaccine (#1) 2025 03/26/2023 Tobacco Cessation Counseling and Screening (12+) 08/09/2025 08/09/2024 DTAP/TDAP/TD VACCINES (2 - T d or Tdap) 11/26/2031 11/25/2021 Insurance [facility] [employer] P[employer] [facility] Care Teams Pharmaceutical Plant Operator Relationship Specialty Start Date End Date Erlin Nash [address] [place] [address] PCP - General 12/25/22
--- OUTSIDE RECORDS SUMMARY | 2024-12-06 09:19 | XMS_ITS | Encounter Summary ---
Author Organization [employer] ([place], [place], [place], [place]) Address [address] [place] [address] Care Team Providers Care Marketing Database Consultant Name Role Phone Lucian Chacko MD Primary Care Provider [phone] Erlin Nash Primary Care Provider [phone] Reason for Visit * Reason Comments Medication Refill Encounter Details Date Type Department Care Team (Late st Contact Info) Description 06/25/2022 Refill [facility] Cardiology [address] [place] [address] [place] [address] [place] [address] [address] [place] [address] Unspecified atrial fibrillation (HCC) Social History Tobacco Use Types Packs/Day Years Used Date Smoking Tobacco: Never Smokeless Tobacco: Never Comments Unknown Sex and Gender Information Value Date Recorded Sex Assigned at Not on file Legal Sex Female 1:32 PM CDT Gender Identity Not on file Sexual Orientation Not on file documented as of this encounter Plan of Treatment Not on file documented as of this encounter Visit Diagnoses Diagnosis Unspecified atrial fibrillation (HCC) documented in this encounter Care Teams Marketing Database Consultant Relationship Specialty Start Date End Date Lucian Chacko MD [address] [place] [address] PCP - General Family Medicine 05/20/22 12/24/22 Erlin Nash [address] [place] [address] PCP - General 12/25/22 documented as of this encounter
--- OUTSIDE RECORDS SUMMARY | 2024-12-06 09:19 | XMS_ITS | Encounter Summary ---
Author Organization [employer] ([place], [place], [place], [place]) Address [address] [place] [address] Care Team Providers Care Preschool Special Education Teacher Name Role Phone Lucian Chacko MD Primary Care Provider [phone] Erlin Nash Primary Care Provider [phone] Encounter Details Date Type Department Care Team (Late st Contact Info) Description 11/25/2021 Transcribed Document [facility] [place] [address] [place] [address] ProviderCarmita MD [address] [place] [address] Social History Tobacco Use Types Packs/Day Years Used Date Smoking Tobacco: Never Assessed Family and Community Support Answer Deepak e Recorded Help with Day to Day Activities Not on file 05/29/2023 Feeling Lonely or Isolated Not on file 05/29 Educational Attainment Answer Date Filipe rded Speak language other than Sierra Leonean at home Not on file 05/29/2023 Want [...] ProviderMD - 11/25/2021 10:20 AM CDT ED Triage Entered On: 11/25/2021 10:34 EDT Performed On: 11/25/2021 10:29 EDT by Annamaria Nuñez RN-PATIENT CARE [facility] ED Triage Across the Room Chief Complaint : arrived after a fall coming back for outpatient XRay. Pt was walking back from XRay with her orr and lost her balance and fell and hit her head. Hematoma and Abrasion to the Left Frontal. Denies LOC and denies pain to the touch. Takes Blood Thinners. Triage Date/Time : 11/25/2021 10:29 EDT Annamaria Nuñez RN-PATIENT CARE [facility] - 11/25/2021 10:29 EDT DCP GENERIC CODE Tracking Acuity : 3 - Urgent Tracking Group : [facility] ED Annamaria Nuñez RN-PATIENT CARE [facility] - 11/25/2021 10:29 EDT Mode of Arrival : Stretcher Transported to ED by : Walk in To Room Via : Stretcher Accompanied By : Daughter ED Vital Signs : Document Height & Weight : Document ED Allergies : Document ED Reason for Visit : Document Annamaria Nuñez RN-PATIENT CARE [facility] - 11/25/2021 10:29 EDT Infectious Disease History Does patient have symptoms of COVID-19? : No Tested for COVID19 in the past 14 days : No, Patient stated Does the Patient state known exposure to a COVID-19 positive case in the last 14 days? : No Patient Vaccinated for COVID-19 : Fully vaccinated Annamaria Nuñez RN-PATIENT CARE [facility] - 11/25/2021 10:29 EDT Infectious Disease Risk Screening Grid Cough < 2 wks of unknown origin : NO Cough > 2 weeks : NO Blood in Sputum : NO Fever or self-reported Fever : NO Rash of unknown origin : NO Headache : NO Stiff neck : NO Night Sweats : NO Unexplained Weight Loss : NO Diarrhea (3 episode per day) : NO Annamaria Nuñez RN-PATIENT CARE [facility] - 11/25/2021 10:29 EDT Physical contact outside [place] in the last 30 days : No Hospitalized in Foreign Country : No Infectious Disease History : Chicken pox/Shingles, Influenza, Measles, Mumps INF Disease TB Screening Calc : 0 INF Disease Recent Travel Calc : 0 Keeping, Annamaria, RN-PATIENT CARE [facility] - 11/25/2021 10:29 EDT Vital Signs ED Temperature Source : Tympanic Temperature Mode : Fahrenheit Temperature, Fahrenheit : 97.8 Deg F Clinical Temperature, C : 36.6 Deg C Oxygen Therapy Mode : Room air Peripheral Pulse Rate : 62 bpm Respiratory Rate : 18 Breaths/Min Systolic Blood Pressure : 186 mmHg (HI) Diastolic Blood Pressure : 74 mmHg Oxygen Saturation : 96 % Annamaria Nuñez RN-PATIENT CARE [facility] - 11/25/2021 10:29 EDT Allergy (As Of: 11/25/2021 10:34:22 EDT) Allergies (Active) aminophylline Estimated Onset Date: Unspecified ; Reactions: nausea and vomiting, nausea and vomiting ; Created By: Room ChoiceSYSTEMMATTY; Reaction Status: Active ; Category: Drug ; Substance: aminophylline ; Type: Allergy ; Updated By: [employer] TechnologiesSYSTEMMATTY; Reviewed Date: 11/25/2021 10:34 EDT sour cream Estimated Onset Date: Unspecified ; Reactions: asthma attack, asthma attack ; Created By: Room ChoiceSYSTEMRAJATCatalystPharmaJEWELL; Reaction Status: Active ; Category: Food ; Substance: sour cream ; Type: Allergy ; Updated By: S[employer] TechnologiesSYSTEMMATTY; Reviewed Date: 11/25/2021 10:34 EDT Diagnosis Control ED (As Of: 11/25/2021 10:34:22 EDT) Problems(Active) Arthritis (SNOMED CT :5402428 ) Name of Problem: Arthritis ; Recorder: SHAMEKA CUTLER RN; Confirmation: Confirmed ; Classification: Patient Stated ; Code: [id number] ; Contributor System: [employer] ; Last Updated: 12/20/2020 6:49 EDT ; Life Cycle Date: 12/20/2020 ; Life Cycle Status: Active ; Vocabulary: SNOMED CT Asthma (SNOMED CT :981348995 ) Name of Problem: Asthma ; Recorder: DEEPTHI VANN RN; Confirmation: Confirmed ; Classification: Patient Stated ; Code: [id number] ; Contributor System: [employer]Chart ; Last Updated: 12/15/2014 9:13 EDT ; Life Cycle Date: 12/15/2014 ; Life Cycle Status: Active ; Vocabulary: SNOMED CT Atherosclerosis of coronary artery (SNOMED CT :4862873349 ) Name of Problem: Atherosclerosis of coronary artery ; Recorder: DEEPTHI VANN RN; Confirmation: Confirmed ; Classification: Patient Stated ; Code: [id number] ; Contributor System: [employer] ; Last Updated: 12/15/2014 9:21 EDT ; Life Cycle Date: 12/15/2014 ; Life Cycle Status: Active ; Vocabulary: SNOMED CT Atrial fibrillation (SNOMED CT :95292363 ) Name of Problem: Atrial fibrillation ; Recorder: SHAMEKA CUTLER RN; Confirmation: Confirmed ; Classification: Patient Stated ; Code: 29659898 ; Contributor System: [employer] ; Last Updated: 12/20/2020 6:47 EDT ; Life Cycle Date: 12/20/2020 ; Life Cycle Status: Active ; Vocabulary: SNOMED CT Diabetes mellitus type II (SNOMED CT :30416317 ) Name of Problem: Diabetes mellitus type II ; Recorder: DEEPTHI VANN RN; Confirmation: Confirmed ; Classification: Patient Stated ; Code: [id number] ; Contributor System: [employer] ; Last Updated: 12/15/2014 9:20 EDT ; Life Cycle Date: 12/15/2014 ; Life Cycle Status: Active ; Vocabulary: SNOMED CT GERD - Gastro-esophageal reflux disease (SNOMED CT :1008753231 ) Name of Problem: GERD - Gastro-esophageal reflux disease ; Recorder: SHAMEKA CUTLER RN; Confirmation: Confirmed ; Classification: Patient Stated ; Code: [id number] ; Contributor System: [employer] ; Last Updated: 12/20/2020 6:48 EDT ; Life Cycle Date: 12/20/2020 ; Life Cycle Status: Active ; Vocabulary: SNOMED CT Hard of hearing (SNOMED CT :104198387 ) Name of Problem: Hard of hearing ; Recorder: SHAMEKA CUTLER RN; Confirmation: Confirmed ; Classification: Patient Stated ; Code: [id number] ; Contributor System: [employer]Chart ; Last Updated: 12/20/2020 6:47 EDT ; Life Cycle Date: 12/20/2020 ; Life Cycle Status: Active ; Vocabulary: SNOMED CT History of obstructive sleep apnea (IMO :20336263 ) Name of Problem: History of obstructive sleep apnea ; Recorder: SYSTEM, SYSTEM; Confirmation: Confirmed ; Classification: Medical ; Code: 36864642 ; Last Updated: 12/20/2020 7:05 EDT ; Life Cycle Date: 12/20/2020 ; Life Cycle Status: Active ; Vocabulary: IMO Hyperlipidemia (SNOMED CT :93653044 ) Name of Problem: Hyperlipidemia ; Recorder: DEEPTHI VANN RN; Confirmation: Confirmed ; Classification: Patient Stated ; Code: 94661431 ; Contributor System: [employer] ; Last Updated: 12/15/2014 9:13 EDT ; Life Cycle Date: 12/15/2014 ; Life Cycle Status: Active ; Vocabulary: SNOMED CT Hypertension (SNOMED CT :34973603 ) Name of Problem: Hypertension ; Recorder: DEEPTHI VANN RN; Confirmation: Confirmed ; Classification: Patient Stated ; Code: 07977027 ; Contributor System: [employer] ; Last Updated: 12/15/2014 9:13 EDT ; Life Cycle Date: 12/15/2014 ; Life Cycle Status: Active ; Vocabulary: SNOMED CT Impaired vision (SNOMED CT :95349280 ) Name of Problem: Impaired vision ; Recorder: DEEPTHI VANN RN; Confirmation: Confirmed ; Classification: Patient Stated ; Code: 86745135 ; Contributor System: [employer] ; Last Updated: 12/15/2014 9:11 EDT ; Life Cycle Date: 12/15/2014 ; Life Cycle Status: Active ; Vocabulary: SNOMED CT Mitral valve disorders (SNOMED CT :07663604 ) Name of Problem: Mitral valve disorders ; Recorder: DEEPTHI VANN RN; Confirmation: Confirmed ; Classification: Patient Stated ; Code: 42360134 ; Contributor System: [employer] ; Last Updated: 12/15/2014 9:13 EDT ; Life Cycle Date: 12/15/2014 ; Life Cycle Status: Active ; Vocabulary: SNOMED CT Osteoporosis (SNOMED CT :819060769 ) Name of Problem: Osteoporosis ; Recorder: DEEPTHI VANN RN; Confirmation: Confirmed ; Classification: Patient Stated ; Code: 363282405 ; Contributor System: [employer] ; Last Updated: 12/15/2014 9:20 EDT ; Life Cycle Date: 12/15/2014 ; Life Cycle Status: Active ; Vocabulary: SNOMED CT Seizure (SNOMED CT :721938568 ) Name of Problem: Seizure ; Recorder: DEEPTHI VANN RN; Confirmation: Confirmed ; Classification: Patient Stated ; Code: 707850899 ; Contributor System: [employer] ; Last Updated: 12/15/2014 9:13 EDT ; Life Cycle Date: 12/15/2014 ; Life Cycle Status: Active ; Vocabulary: SNOMED CT Sleep apnea (SNOMED CT :339154595 ) Name of Problem: Sleep apnea ; Recorder: DEEPTHI VANN RN; Confirmation: Confirmed ; Classification: Patient Stated ; Code: 639027408 ; Contributor System: [employer] ; Last Updated: 12/15/2014 9:14 EDT ; Life Cycle Date: 12/15/2014 ; Life Cycle Status: Active ; Vocabulary: SNOMED CT Diagnoses(Active) Fall Date: 11/25/2021 ; Diagnosis Type: Reason For Visit ; Confirmation: Complaint of ; Clinical Dx: Fall ; Classification: Medical ; Clinical Service: Non-Specified ; Code: PNED ; Probability: 0 ; Diagnosis Code: [id number] Laceration - other location Date: 11/25/2021 ; Diagnosis Type: Reason For Visit ; Confirmation: Complaint of ; Clinical Dx: Laceration - other location ; Classification: Medical ; Clinical Service: Non-Specified ; Code: PNED ; Probability: 0 ; Diagnosis Code: [id number] ED Height and Weight Height Source : Stated Height Entry Format : [place] Height, Feet : 5 ft(Converted to: 152 cm, 60 Inch) Height, Inches : 0 Inch(Converted to: 0 ft 0 Inch, 0.00 cm) Clinical Height : 152.4 cm Weight Source, ED : Critical estimated dosing weight Weight Entry Format : [place] Weight, Pounds : 190 lb Clinical Dosing Weight : 86.36 kg Body Surface Area (BSA) : 1.83 m2 Body Mass Index : 37.2 kg/m2 (HI) [place] Body Weight (IBW) : 45.16 kg Annamaria Nuñez RN-PATIENT CARE [facility] - 11/25/2021 10:29 EDT documented in this encounter Plan of Treatment Not on file documented as of this encounter Visit Diagnoses Not on filedocumented in this encounter Care Teams Preschool Special Education Teacher Relationship Specialty Start Date End Date Lucian Chacko MD [address] [place] [address] PCP - General Family Medicine 05/20/22 12/24/22 Erlin Nash [address] [place] [address] PCP - General 12/25/22 documented as of this encounter
--- OUTSIDE RECORDS SUMMARY | 2024-12-06 09:19 | XMS_ITS | Encounter Summary ---
Author Organization [facility] ([place], [place], [place], [place]) Address [address] [place] [address] Care Team Providers Care Harpoon Engagement Planning Operator Name Role Phone Lucian Chacko MD Primary Care Provider [phone] Erlin Nash Primary Care Provider [phone] Encounter Details Date Type Department Care Team (Late st Contact Info) Description 01/09/2021 Transcribed Document [facility] [place] Family Medicine [address] [place] [address] ProviderCarmita MD [address] [place], [place] [id number] Social History Tobacco Use Types Packs/Day Years Used Date Smoking Tobacco: Never Assessed Comments Unknown Sex and Gender Information Value Date Recorded Sex Assigned at Not on file Legal Sex Female 1:32 PM CDT Gender Identity Not on file Sexual Orientation Not on file documented as of this encounter Miscellaneous Notes * Cerner Conversion Note - Historical ProviderMD - 01/09/2021 6:30 AM CDT Pre Procedure Adult Entered On: 01/09/2021 6:37 EDT Performed On: 01/09/2021 6:30 EDT by SHAMEKA CUTLER RN Height and Weight, Clinical Dosing Height Source : Stated Height Entry Format : [place] Height, Feet : 5 ft(Converted to: 152 cm, 60 Inch) Height, Inches : 0 Inch(Converted to: 0 ft 0 Inch, 0.00 cm) Clinical Height : 152.4 cm Weight Source : Standing scale Weight Entry Format : [place] Clinical Dosing Weight : 84.55 kg Weight, Pounds : 186 lb Body Surface Area (BSA) : 1.81 m2 Body Mass Index : 36.4 kg/m2 (HI) [place] Body Weight : 45 kg SHAMEKA CUTLER RN - 01/09/2021 6:30 EDT Health Histories Smoking Status : Never (less than 100 in lifetime; none in last 30 days) Smokeless Tobacco Status : Never SHAMEKA CUTLER RN - 01/09/2021 6:30 EDT Social History (As Of: 01/09/2021 06:37:24 EDT) Tobacco: Never (less than 100 in lifetime) Smoking Status. Never Smokeless Tobacco Status. (Last Updated: 12/20/2020 06:50:37 EDT by SHAMEKA CUTLER RN) Alcohol: Alcohol Use History No. (Last Updated: 12/20/2020 06:50:40 EDT by SHAMEKA CUTLER RN) Substance Abuse: Drug Use Hx: No. (Last Updated: 12/20/2020 06:50:44 EDT by SHAMEKA CUTLER RN) Infectious Disease History Where are the test results? : Paper Copy on chart Has the patient ever been tested for COVID-19? : Yes, Patient stated results Negative SHAMEKA CUTLER RN - 01/09/2021 8:04 EDT Date of COVID-19 test known? : Yes Date of COVID-19 Test : 01/09/2021 EDT Does patient have symptoms of COVID-19? : No COVID19 Screening : No Experiencing Infectious Disease Symptoms : No symptoms Physical contact outside [place] in the last 30 days : No Infectious Disease History : Chicken pox/Shingles, Influenza, Measles, Mumps Tuberculosis Symptoms : None SHAMEKA CUTLER RN - 01/09/2021 6:30 EDT COVID19 PreProcedure Screening Is this an Emergent or Add on Procedure? : No Date PreProcedure COVID-19 test known? : Yes Date of PreProcedure COVID-19 : 01/09/2021 EDT Has patient been isolated since the test : Yes Exposed to COVID19 symptoms since test? : No SHAMEKA CUTLER RN - 01/09/2021 6:30 EDT Anesthesia/Transfusion History Family History of Anesthesia Reaction : No prior transfusion(s) Blood Transfusion Acceptable to Patient : Yes Transfusion History : Prior anesthesia without reaction Family History of Anesthesia Reaction : None SHAMEKA CUTLER RN - 01/09/2021 6:30 EDT Functional Assessment Living Situation : Home Patient Lives With : Spouse Persons Assisting Patient at Home : Spouse Current Daily Living Assistance : Transportation Sensory Deficits : Hearing deficit, right ear, Hearing deficit, left ear Mobility Assistance Prior to Admission : Partial assistance Current Home Treatments : CPAP, Oxygen therapy Home Equipment : Cane Cane : Cane, single point SHAMEKA CUTLER RN - 01/09/2021 6:30 EDT [place] Suicide Severity Rating Scale (C-SSRS) CSSRS Past Month Wish to be : No CSSRS Past Month Suicidal Thoughts : No CSSRS Lifetime Suicide Behavior : No Suicide Severity Rating Score : 0 Suicide Severity Rating : No Additional Care Required at this time SHAMEKA CUTLER RN - 01/09/2021 6:30 EDT Psychosocial History Does Someone Depend on You for Care? : No Do You Have a History of the Following? : Patient denies history Currently in Unsafe Situation : No SHAMEKA CUTLER RN - 01/09/2021 6:30 EDT Advance Directive Patient has Advance Directive *Q : Yes, Advance Directive not with the patient Advance Directive Type : Living will Copy Advance Directive Verified/on Chart : No SHAMEKA CUTLER RN - 01/09/2021 6:30 EDT Spiritual/Cultural Needs Significant Loss/Crisis in Past 3 Years : No Any Spiritual/Cultural Needs or Requests : Yes Latter Day Preference : Alevism SHAMEKA CUTLER RN - 01/09/2021 6:30 EDT Teaching/Learning Assessment Barriers To Learning : Hearing deficit Individuals Taught : Patient Readiness to Learn : Cooperative Learning Style Preferences Patient : Verbal explanation SHAMEKA CUTLER RN - 01/09/2021 6:30 EDT Education Topics, Periop Preadmission Perioperative Education Grid IV's : Verbalizes understanding NPO Status/Directions : Verbalizes understanding Responsible Adult : Verbalizes understanding SHAMEKA CUTLER RN - 01/09/2021 6:30 EDT General Info Arrived From : Home Mode of Arrival on Unit : Ambulatory Legal Guardian : Daughter Want Family/Rep/Phys Notified of Admit : No Emergency Contact #1 : [place] Emergency Contact #1 Emergency Contact #1 Relationship : daughter SHAMEKA CUTLER RN - 01/09/2021 6:30 EDT Emergency Contact #2 : Yris Sebastian SHAMEKA CUTLER RN - 01/09/2021 7:21 EDT Emergency Contact #2 Emergency Contact #2 Relationship : daughter Chief Complaint : Here for EP study Information Obtained From : Patient Primary Language : Belgian Preferred Communication Mode : Verbal Communication Barrier : None Carpet Mechanic Needed : No Objects to Sharing Info w Family : No SHAMEKA CUTLER RN - 01/09/2021 6:30 EDT Vital Measurements Oxygen Flow Rate : 2 Liter/Min SHAMEKA CUTLER RN - 01/09/2021 7:27 EDT Temperature Source : Temporal artery scanning Temperature Mode : Fahrenheit Temperature, Fahrenheit : 97.2 Deg F Clinical Temperature, C : 36.2 Deg C Pulse Method : Non-Invasive BP Device Peripheral Pulse Rate : 53 bpm (LOW) SHAMEKA CUTLER RN - 01/09/2021 6:30 EDT Respiratory Rate : 20 Breaths/Min SHAMEKA CUTLER RN - 01/09/2021 7:26 EDT Blood Pressure Location : Arm, right upper Blood Pressure Source : Non-Invasive BP Device Systolic Blood Pressure : 121 mmHg Diastolic Blood Pressure : 50 mmHg (LOW) Oxygen Saturation : 99 % SHAMEKA CUTLER RN - 01/09/2021 6:30 EDT Oxygen Therapy Mode : Nasal cannula SHAMEKA CUTLER RN - 01/09/2021 7:26 EDT Sleep Apnea Risk Assmt BiPAP/CPAP Ordered for Home Use : Yes Hx of Obstructive Sleep Apnea Diagnosis : Yes BiPAP/CPAP Used at Home : Yes Age over 50 Years Old : Yes Gender Male : No SHAMEKA CUTLER RN - 01/09/2021 6:30 EDT Berny Scale Berny Sensory Perception : Slightly limited Berny Moisture : Rarely moist Berny Activity : Walks occasionally Berny Mobility : Slightly limited Berny Nutrition : Adequate Berny Friction and Shear : Potential problem Berny Score : 18 SHAMEKA CUTLER RN - 01/09/2021 6:30 EDT Oxygen Therapy Oxygen Therapy Mode : Nasal cannula Oxygen Therapy Comment : 2L SHAMEKA CUTLER RN - 01/09/2021 6:30 EDT Pain Assessment Pain Assessment : Initial assessment Pain Scale Used : 0-10 Scale SHAMEKA CUTLER RN - 01/09/2021 6:30 EDT Fall Risk Scales ABCs Fall Injury Risk Identification : Coagulation ABC Fall Injury Risk : Moderate to high injury risk [place] Hx Falls Immediate/Within 3 Months : Yes [place] Secondary Diagnosis : No [place] Use of Ambulatory Aid : Crutches/Cane/Walker [place] IV Therapy or IV Access : Yes [place] Gait/Transferring : Normal, bedrest, immobile [place] Mental Status : Oriented to own ability [place] Fall Risk Score : 60 [place] Fall Scale Risk Level : 46 or > High Risk [place] Fall Interventions : Adequate lighting, Bed in low position, Personal items within reach, Room free of clutter/spills, Upper side-rails up, Wheels locked, Wires/Cords secured SHAMEKA CUTLER RN - 01/09/2021 6:30 EDT Valuables and Belongings Valuables and Belongings : Clothing, Jewelry, Personal devices, Personal items, Medications Clothing : Common streetwear Clothing Disposition : Bedside Personal Device Disposition : With family Jewelry : Ring Jewelry Disposition : With family Personal Devices : Dentures, upper Personal Items : Cell phone Personal Items Disposition : With family Medication Disposition : With family Medication Brought With Patient : Yes SHAMEKA CUTLER RN - 01/09/2021 6:30 EDT Pain Scale Intensity : 0 SHAMEKA CUTLER RN - 01/09/2021 6:30 EDT Image 4 - Images currently included in the form version of this document have not been included in the text rendition version of the form. Tereza Coma Tereza Best Motor Response : Obey commands [place] Best Verbal Response : Oriented [place] Eye Opening Response : Spontaneous Tereza Coma Score : 15 SHAMEKA CUTLER RN - 01/09/2021 6:30 EDT documented in this encounter Plan of Treatment Not on file documented as of this encounter Visit Diagnoses Not on filedocumented in this encounter Care Teams Harpoon Engagement Planning Operator Relationship Specialty Start Date End Date Lucian Chacko MD [address] [place] [address] PCP - General Family Medicine 05/20/22 12/24/22 Erlin Nash [address] [place] [address] PCP - General 12/25/22 documented as of this encounter
--- OUTSIDE RECORDS SUMMARY | 2024-12-06 09:19 | XMS_ITS | Encounter Summary ---
Author Organization [facility] ([place], [place], [place], [place]) Address [address] [place] [address] Care Team Providers Care Superintendent Sales Name Role Phone Lucian Chacko MD Primary Care Provider [phone] Erlin Nash Primary Care Provider Encounter Details Date Type Department Care Team (Late st Contact Info) Description 01/09/2021 Transcribed Document [facility] [place] Family Medicine [facility] [place] [address] ProviderCarmita MD [address] [place], [place] [id number] Social History Tobacco Use Types Packs/Day Years Used Date Smoking Tobacco: Never Assessed Comments Unknown Sex and Gender Information Value Date Recorded Sex Assigned at Not on file Legal Sex Female 1:32 PM CDT Gender Identity Not on file Sexual Orientation Not on file documented as of this encounter Miscellaneous Notes * Cerner Conversion Note - Carmita ProviderMD - 01/09/2021 5:09 PM CDT Meds to Bed Enrollment Entered On: 01/10/2021 9:18 EDT Performed On: 01/09/2021 17:09 EDT by Alex [employer] Information [employer] Security Manager Cert Lead Meds to Bed Enrollment Patient Enrollment Decision: : Yes/enroll in meds to bed program Alex [employer]age [employer] Security Manager Cert Lead - 01/10/2021 9:18 EDT documented in this encounter Plan of Treatment Not on file documented as of this encounter Visit Diagnoses Not on filedocumented in this encounter Care Teams Superintendent Sales Relationship Specialty Start Date End Date Lucian Chacko MD [address] [place] [address] PCP - General Family Medicine 05/20/22 12/24/22 Erlin Nash [address] [place] [address] PCP - General 12/25/22 documented as of this encounter
--- OUTSIDE RECORDS SUMMARY | 2024-12-06 09:19 | XMS_ITS | Encounter Summary ---
Author Organization [facility] ([place], [place], [place], [place]) Address [address] [place] [address] Care Team Providers Care Roving Machine Operator Name Role Phone giangeorgina Tailaura Primary Care Provider [phone] Reason for Visit * Reason Comments Medication Refill Encounter Details Date Type Department Care Team (Late st Contact Info) Description 02/26/2023 Refill [facility] Electrophysiology [address] [place] [address] [place] [address] [place] [address] [address] [place] [address] Social History Tobacco Use Types Packs/Day Years Used Date Smoking Tobacco: Never Smokeless Tobacco: Never Comments No Sex and Gender Information Value Date Recorded Sex Assigned at Not on file Legal Sex Female 1:32 PM CDT Gender Identity Not on file Sexual Orientation Not on file documented as of this encounter Plan of Treatment Not on file documented as of this encounter Visit Diagnoses Not on filedocumented in this encounter Care Teams Roving Machine Operator Relationship Specialty Start Date End Date Erlin Nash [address] [place] [address] PCP - General 12/25/22 documented as of this encounter
--- OUTSIDE RECORDS SUMMARY | 2024-12-06 09:19 | XMS_ITS | Continuity of Care Document ---
Author Organization Anita White [facility] Address [address] [facility] [place] [address] Assessment No assessment recorded. Plan of Treatment Reminders Order Date Submit Date Provider Last Modified By Organization Details Last Modified Time Details Appointments None recorded. Lab lipid panel, serum 2024 025 JOHN [facility], [address], [place], [place], [address], 5 10:08:15 CBC w/ auto diff 2024 025 JOHN [facility], [address], Ian F, [place], [address], 5 10:08:14 amylase + lipase, serum 2024 025 JOHN [facility], [address], [place] [address], [place], [address], 5 10:08:17 TSH + free T4, serum 2024 025 JOHN [facility], [address], [place] [address], [place], [address], 5 10:08:14 CMP, serum or plasma 2024 025 JOHN [facility], [address], Ian F, [place], [address], 5 10:08:15 cobalamin and folate panel, serum 2024 025 [place] [facility], [address], Ian F, [place], [address], 5 10:08:16 iron + total iron-bindin g capacity (TIBC), serum 2024 025 JOHN [facility], [address], Ian F, [place], [address], 5 10:08:16 HbA1c (hemoglobin A1c), blood 2024 025 [place] [facility], [address], Ian F, [place], [address], 10:08:17 drug screen, urine 2024 025 [facility], [address] [place] [address], [address], 14:03:47 Referral None recorded. Procedures None recorded. Surgeries None recorded. Imaging None recorded. Medication Orders fluticasone propionate 50 mcg/actuati on nasal spray,suspe nsion 2024 025 [facility], [address] [place] [address], [address], 5 13:28:25 fexofenadin e 180 mg tablet [address], [address], 5 13:28:24 alprazolam 1 mg tablet [address], [address], 13:28:25 Patient TargetsNo targets recorded. Patient InstructionsNo instructions recorded. Reason for Referral None Reported. Results Created Date Observation Date Name Description Value Unit Range Abnormal Flag Note LastModifiedBy Organization Detail LastModifiedTime 10/19/19 25 10/19/2024 TSH+F REE T4 TSH 1.210 uIU/m L 0.450- 4.500 normal Not Available [facility] ([facility]) [address] [place], [address], 10/19/2024 10:08:14 10/19/19 25 10/19/2024 TSH+F REE T4 T4,free(dire ct) 1.58 NG/dL 0.82-1 .77 normal Not Available [facility] ([facility]) [address] [place], [address], 10/19/2024 10:08:14 10/19/19 25 10/19/2024 CBC WITH DIFFE RENTI AL/PL ATELE T WBC 5.2 x10e3 /uL 3.4-10 .8 normal Not Available [facility] ([facility]) [address] [place], [address], 10/19/2024 10:08:14 10/19/19 25 10/19/2024 CBC WITH DIFFE RENTI AL/PL ATELE T RBC 3.69 x10e6 /uL 3.77-5 .28 below low normal Not Available [facility] ([facility]) [address] [place], [address], 10/19/2024 10:08:14 10/19/19 25 10/19/2024 CBC WITH DIFFE RENTI AL/PL ATELE T hemoglobin 10.8 g/dL 11.1-1 5.9 below low normal Not Available [facility] ([facility]) [address] [place], [address], 10/19/2024 10:08:14 10/19/19 25 10/19/2024 CBC WITH DIFFE RENTI AL/PL ATELE T hematocrit 35.4 % 34.0-4 6.6 normal Not Available [facility] ([facility]) [address] [place], [address], 10/19/2024 10:08:14 10/19/19 25 10/19/2024 CBC WITH DIFFE RENTI AL/PL ATELE T MCV 96 fL 79-97 normal Not Available [facility] ([facility]) [address] [facility], [place], [address], 10/19/2024 10:08:14 10/19/19 25 10/19/2024 CBC WITH DIFFE RENTI AL/PL ATELE T MCH 29.3 pg 26.6-3 3.0 normal Not Available [facility] ([facility]) [address] [place], [address], 10/19/2024 10:08:14 10/19/19 25 10/19/2024 CBC WITH DIFFE RENTI AL/PL ATELE T MCHC 30.5 g/dL 31.5-3 5.7 below low normal Not Available [facility] ([facility]) [address] [facility], [place], [address], 10/19/2024 10:08:14 10/19/19 25 10/19/2024 CBC WITH DIFFE RENTI AL/PL ATELE T RDW 15.2 % 11.7-1 5.4 Not Available [facility] ([facility]) [address] [facility], [place], [address], 10/19/2024 10:08:14 10/19/19 25 10/19/2024 CBC WITH DIFFE RENTI AL/PL ATELE T platelets 238 x10e3 /uL 150-45 0 normal Not Available [facility] ([facility]) [address] [place], [address], 10/19/2024 10:08:14 10/19/19 25 10/19/2024 CBC WITH DIFFE RENTI AL/PL ATELE T neutrophils 70 % not estab. normal Not Available [facility] ([facility]) [address] [facility], [place], [address], 10/19/2024 10:08:14 10/19/19 25 10/19/2024 CBC WITH DIFFE RENTI AL/PL ATELE T lymphs 18 % not estab. normal Not Available [facility] ([facility]) [address] [facility], [place], [address], 10/19/2024 10:08:14 10/19/19 25 10/19/2024 CBC WITH DIFFE RENTI AL/PL ATELE T monocytes 9 % not estab. normal Not Available [facility] ([facility]) [address] [facility], [place], [address], 10/19/2024 10:08:14 10/19/19 25 10/19/2024 CBC WITH DIFFE RENTI AL/PL ATELE T eos 2 % not estab. normal Not Available [facility] ([facility]) [address] [facility], [place], [address], 10/19/2024 10:08:14 10/19/19 25 10/19/2024 CBC WITH DIFFE RENTI AL/PL ATELE T basos 1 % not estab. normal Not Available [facility] ([facility]) [address] [facility], [place], [address], 10/19/2024 10:08:14 10/19/19 25 10/19/2024 CBC WITH DIFFE RENTI AL/PL ATELE T immature cells CRANKSHAFT STRAIGHTENER Not Available [facility] ([facility]) [address] [place], [address], 10/19/2024 10:08:14 10/19/19 25 10/19/2024 CBC WITH DIFFE RENTI AL/PL ATELE T neutrophils (absolute) 3.7 x10e3 /uL 1.4-7. 0 normal Not Available [facility] ([facility]) [address] [place], [address], 10/19/2024 10:08:14 10/19/19 25 10/19/2024 CBC WITH DIFFE RENTI AL/PL ATELE T lymphs (absolute) 0.9 x10e3 /uL 0.7-3. 1 normal Not Available [facility] ([facility]) [address] [facility], [place], [address], 10/19/2024 10:08:14 10/19/19 25 10/19/2024 CBC WITH DIFFE RENTI AL/PL ATELE T monocytes(ab solute) 0.5 x10e3 /uL 0.1-0. 9 normal Not Available [facility] ([facility]) [address] [facility], [place], [address], 10/19/2024 10:08:14 10/19/19 25 10/19/2024 CBC WITH DIFFE RENTI AL/PL ATELE T eos (absolute) 0.1 x10e3 /uL 0.0-0. 4 normal Not Available [facility] ([facility]) [address] [facility], [place], [address], 10/19/2024 10:08:14 10/19/19 25 10/19/2024 CBC WITH DIFFE RENTI AL/PL ATELE T baso (absolute) 0.0 x10e3 /uL 0.0-0. 2 normal Not Available [facility] ([facility]) [address] [place], [address], 10/19/2024 10:08:14 10/19/19 25 10/19/2024 CBC WITH DIFFE RENTI AL/PL ATELE T immature granulocytes 0 % not estab. Not Available [facility] ([facility]) [address] [place], [address], 10/19/2024 10:08:14 10/19/19 25 10/19/2024 CBC WITH DIFFE RENTI AL/PL ATELE T immature grans (abs) 0.0 x10e3 /uL 0.0-0. 1 Not Available [facility] ([facility]) [address] [place], [address], 10/19/2024 10:08:14 10/19/19 25 10/19/2024 CBC WITH DIFFE RENTI AL/PL ATELE T NRBC CRANKSHAFT STRAIGHTENER Not Available [facility] ([facility]) [address] [facility], [place], [address], 10/19/2024 10:08:14 10/19/19 25 10/19/2024 CBC WITH DIFFE RENTI AL/PL ATELE T hematology comments: CRANKSHAFT STRAIGHTENER Not Available [facility] ([facility]) [address] [facility], [place], [address], 10/19/2024 10:08:14 10/19/19 25 10/19/2024 COMP. METAB OLIC PANEL (14) glucose 156 mg/dL 70-99 above high normal Not Available [facility] ([facility]) [address] [facility], [place], [address], 10/19/2024 10:08:15 10/19/19 25 10/19/2024 COMP. METAB OLIC PANEL (14) BUN 25 mg/dL 8-27 normal Not Available [facility] ([facility]) [address] [facility], [place], [address], 10/19/2024 10:08:15 10/19/19 25 10/19/2024 COMP. METAB OLIC PANEL (14) creatinine 1.91 mg/dL 0.57-1 .00 above high normal Not Available [facility] ([facility]) [address] [facility], [place], [address], 10/19/2024 10:08:15 10/19/19 25 10/19/2024 COMP. METAB OLIC PANEL (14) eGFR 26 mL/mi n/1.7 3 >59 below low normal Not Available [facility] ([facility]) [address] [facility], [place], [address], 10/19/2024 10:08:15 10/19/19 25 10/19/2024 COMP. METAB OLIC PANEL (14) BUN/creatini ne ratio 13 12-28 normal Not Available [facility] ([facility]) [address] [facility] [place], [address], 10/19/2024 10:08:15 10/19/19 25 10/19/2024 COMP. METAB OLIC PANEL (14) sodium 137 mmol/ L 134-14 4 normal Not Available [facility] ([facility]) [address] [facility] [place], [address], 10/19/2024 10:08:15 10/19/19 25 10/19/2024 COMP. METAB OLIC PANEL (14) potassium 4.5 mmol/ L 3.5-5. 2 normal Not Available [facility] ([facility]) [address] [facility] [place], [address], 10/19/2024 10:08:15 10/19/19 25 10/19/2024 COMP. METAB OLIC PANEL (14) chloride 99 mmol/ L 96-106 normal Not Available [facility] ([facility]) [address] [facility] [place], [address], 10/19/2024 10:08:15 10/19/19 25 10/19/2024 COMP. METAB OLIC PANEL (14) carbon dioxide, total 22 mmol/ L 20-29 normal Not Available [facility] ([facility]) [address] [facility] [place], [address], 10/19/2024 10:08:15 10/19/19 25 10/19/2024 COMP. METAB OLIC PANEL (14) calcium 9.2 mg/dL 8.7-10 .3 normal Not Available [facility] ([facility]) [address] [facility] [place], [address], 10/19/2024 10:08:15 10/19/19 25 10/19/2024 COMP. METAB OLIC PANEL (14) protein, total 6.6 g/dL 6.0-8. 5 normal Not Available [facility] ([facility]) [address] [facility] [place], [address], 10/19/2024 10:08:15 10/19/19 25 10/19/2024 COMP. METAB OLIC PANEL (14) albumin 4.2 g/dL 3.8-4. 8 normal Not Available [facility] ([facility]) [address] [facility] [place], [address], 10/19/2024 10:08:15 10/19/19 25 10/19/2024 COMP. METAB OLIC PANEL (14) globulin, total 2.4 g/dL 1.5-4. 5 Not Available [facility] ([facility]) [address] [facility] [place], [address], 10/19/2024 10:08:15 10/19/19 25 10/19/2024 COMP. METAB OLIC PANEL (14) bilirubin, total <0.2 mg/dL 0.0-1. 2 Not Available [facility] ([facility]) [address] [facility] [place], [address], 10/19/2024 10:08:15 10/19/19 25 10/19/2024 COMP. METAB OLIC PANEL (14) alkaline phosphatase 73 IU/L 44-121 normal Not Available [facility] ([facility]) [address] [facility] [place], [address], 10/19/2024 10:08:15 10/19/19 25 10/19/2024 COMP. METAB OLIC PANEL (14) AST (SGOT) 23 IU/L 0-40 normal Not Available [facility] ([facility]) [address] [facility] [place], [address], 10/19/2024 10:08:15 10/19/19 25 10/19/2024 COMP. METAB OLIC PANEL (14) ALT (SGPT) 15 IU/L 0-32 normal Not Available [facility] ([facility]) [address] [facility] [place], [address], 10/19/2024 10:08:15 10/19/19 25 10/19/2024 LIPID PANEL cholesterol, total 164 mg/dL 100-19 9 normal Not Available [facility] ([facility]) [address] [facility] [place], [address], 10/19/2024 10:08:15 10/19/19 25 10/19/2024 LIPID PANEL triglyceride s 166 mg/dL 0-149 above high normal Not Available [facility] ([facility]) [address] [facility] [place], [address], 10/19/2024 10:08:15 10/19/19 25 10/19/2024 LIPID PANEL HDL cholesterol 55 mg/dL >39 normal Not Available [facility] ([facility]) [address] [place], [address], 10/19/2024 10:08:15 10/19/19 25 10/19/2024 LIPID PANEL VLDL cholesterol rodrick 28 mg/dL 5-40 Not Available [facility] ([facility]) [address] [place], [address], 10/19/2024 10:08:15 10/19/19 25 10/19/2024 LIPID PANEL LDL chol calc ([facility]) 81 mg/dL 0-99 Not Available [facility] ([facility]) [address] [place], [address], 10/19/2024 10:08:15 10/19/19 25 10/19/2024 LIPID PANEL LDL calc comment: CRANKSHAFT STRAIGHTENER Not Available [facility] ([facility]) [address] [place], [address], 10/19/2024 10:08:15 10/19/19 25 10/19/2024 IRON AND TIBC iron bind.cap.(TI BC) 371 ug/dL 250-45 0 normal Not Available [facility] ([facility]) [address] [facility] [place], [address], 10/19/2024 10:08:16 10/19/19 25 10/19/2024 IRON AND TIBC UIBC 315 ug/dL 118-36 9 normal Not Available [facility] ([facility]) [address] [facility] [place], [address], 10/19/2024 10:08:16 10/19/19 25 10/19/2024 IRON AND TIBC iron 56 ug/dL 27-139 normal Not Available [facility] ([facility]) [address] [facility] [place], [address], 10/19/2024 10:08:16 10/19/19 25 10/19/2024 IRON AND TIBC iron saturation 15 % 15-55 normal Not Available [facility] ([facility]) [address] [facility] [place], [address], 10/19/2024 10:08:16 10/19/19 25 10/19/2024 VITAM IN B12 AND FOLAT E vitamin B12 253 pg/mL 232-12 45 normal Not Available [facility] ([facility]) [address] [facility] [place], [address], 10/19/2024 10:08:16 10/19/1910/19/2024 VITAM IN B12 AND FOLAT E folate (folic acid), serum 6.7 NG/mL >3.0 normal A serum folat e silvia ntrat ion of less than 3.1 ng/mL is consi dered to repre sent clini rodrick defic iency . Not Available [facility] ([facility]) [address] [facility] [place], [address], 10/19/2024 10:08:16 10/19/19 25 10/19/2024 BLANCA+L IPASE amylase 59 U/L 31-110 normal Not Available [facility] ([facility]) [address] [facility], [place], [address], 10/19/2024 10:08:17 10/19/19 25 10/19/2024 BLANCA+L IPASE lipase 53 U/L 14-85 normal Not Available [facility] ([facility]) [address] [facility], [place], [address], 10/19/2024 10:08:17 10/19/19 25 10/19/2024 HEMOG LOBIN A1C hemoglobin A1C 6.0 % 4.8-5. 6 above high normal Predi abete s: 5.7 - 6.4 Diabe silvia: >6.4 Glyce mitchell contr ol for adult s with diabe silvia: <7.0 Not Available [facility] ([facility]) [address] [facility], [place], [address], 10/19/2024 10:08:17 10/19/19 25 10/18/2024 drug scree n, urine AMP negati ve Not Available [address], [address], 10/18/2024 13:34:25 10/19/19 25 10/18/2024 drug scree n, urine BAR negati ve Not Available [address], [address], 10/18/2024 13:34:25 10/19/19 25 10/18/2024 drug scree n, urine BUP negati ve Not Available [address], [address], 10/18/2024 13:34:25 10/19/19 25 10/18/2024 drug scree n, urine BZO positi ve Not Available [address], [address], 10/18/2024 13:34:25 10/19/19 25 10/18/2024 drug scree n, urine FREDI negati ve Not Available [address], [address], 10/18/2024 13:34:25 10/19/19 25 10/18/2024 drug scree n, urine FTY negati ve Not Available [address], [address], 10/18/2024 13:34:25 10/19/19 25 10/18/2024 drug scree n, urine MDMA negati ve Not Available [address], [address], 10/18/2024 13:34:25 10/19/19 25 10/18/2024 drug scree n, urine MET negati ve Not Available [address], [address], 10/18/2024 13:34:25 10/19/19 25 10/18/2024 drug scree n, urine MOP negati ve Not Available [address], [address], 10/18/2024 13:34:25 10/19/1910/18/2024 drug scree n, urine MTD negati ve Not Available [address], [address], 10/18/2024 13:34:25 10/19/19 25 10/18/2024 drug scree n, urine OXY negati ve Not Available [address], [address], 10/18/2024 13:34:25 10/19/19 25 10/18/2024 drug scree n, urine PCP negati ve Not Available [address], [place], [address], 10/18/2024 13:34:25 10/19/19 25 10/18/2024 drug scree n, urine TCA negati ve Not Available [address], [place], [address], 10/18/2024 13:34:25 10/19/19 25 10/18/2024 drug scree n, urine THC negati ve Not Available [address], [place], [address], 10/18/2024 13:34:25 10/14/19 25 10/13/2024 MRI, head, w/o contr ast No observ ation record ed. [place] [id number], [place], [address], 10/13/2024 13:31:39 Result Notes None recorded. Problems Name Problem SNOMED Code Status Onset Date Resolution Date Notes Provider Name and Address Organization Details Recorded Time Atrial fibrillation 06023558 Active Myla Stears null, [place] [facility] 17:56:54 Seizure 88521044 Active M[place] [facility] 17:56:54 Hypertensive disorder 67027172 Active [place] [facility] 17:56:54 Anxiety 75253694 Active M[place] [facility] 17:56:54 Congestive heart failure 18876882 Active 2022 Myla Ste[place] [facility] 17:56:54 Type 2 diabetes mellitus 02494294 Active 2023 Myla Stears [place] [facility] 17:56:54 Problem Notes None recorded. Procedures Surgical History Date Name Laterality Status Provider Name and Address Organization Details Recorded Time 03/29/20 24 Medication Reconcilliation completed [place]ella Jorge [place] [facility] 03/29/2024 14:51:30 06/26/19 24 Advance Care Planning completed [place]ella [place] [facility] 06/26/2023 10:20:19 06/26/19 24 Functional Status Assessed completed Nella [place] [facility] 06/26/2023 10:20:19 06/02/19 24 Medication Reconcilliation completed Nella Jorge [facility] 06/02/2023 10:56:40 01/06/20 Appl. Splint - Forearm to Hand completed Erlin Nash, [employer] [address], [place], [address], [place] - [facility] 01/05/2023 13:15:42 01/06/20 Medication Reconcilliation completed [place]ella [place]ler [place] [facility] 01/05/2023 11:09:44 Hysterectomy completed [place]ella Luisito [place] [facility] 10/20/2022 11:55:41 cholecystectomy completed Nella Luisito [place] [facility] 10/20/2022 11:55:47 colonoscopy completed [place]yla Robins [place] [facility] 07/13/2023 10:28:39 Imaging Results None [...] Not Available Vitals Date Recorded Body height Body mass index (BMI) Body weight Heart rate Oxygen saturation Oxygen saturation in Arterial blood by Pulse oximetry Respiratory rate Pain severity - 0-10 verbal numeric rating [Score] - Reported Systolic And Diastolic Provider Name and Address Organization Details Last Updated DateTime 5 152.4 cm 29.1 kg/m2 16184.2 6 g 65 /min 96 % 96 % 18 /min 0 130/82 mm[Hg] Nella Matiasler [place] - [facility] 5 13:22:06 Social History Question Answer Notes LastModified by Organizat ion Details LastModified Time Tobacco Smoking Status Never Smoker Nella Luis[place]ie [place], [place] - [facility] 10/20/2022 11:54:44 Do [...] Or The Highest Degree You Have Received? [id number] Information not available 07/13/2023 Have There Been Any Changes To Your Family Or Social Situation? No Information no t available 10/20/2022 What Is The Fluoride Status Of Your Home? Fluoridated Information not available 10/20/2022 Have You Recently Or Are You Planning To Travel To An Area With Zika Virus? No Information not available 10/20/2022 Do You Have A Medical Power Of Grievance And Appeals Coordinator? Yes Information not available 10/20/2022 What Was [...] anxious, or unable to sleep at night)? [id number] Information not available 10/20/2022 Do you have [...] high-dose, quadrivalent, PF 3 completed Erlin Nash, [employer] [address], [place], [address], [place] [facility] 03/27/2023 15:16:51 COVID-19, mRNA, LNP-S, PF, 30 mcg/0.3 mL dose 1 completed Not Available [facility] 12/25/2022 11:38:53 COVID-19 vaccine, vector-nr, rS-Ad26, PF, 0.5 mL 1 completed Not Available [facility] 12/25/2022 11:38:53 COVID-19, mRNA, LNP-S, bivalent, PF, 30 mcg/0.3 mL dose 2 completed Not Available [facility] 12/25/2022 11:38:53 Td (adult), 5 Lf tetanus toxoid, preservative free, adsorbed 2 completed Nella Jorge [facility], [place] - [facility] 10/20/2022 11:41:25 Past Encounters Encounter ID Performer Location Encounter Start Date Encounter Closed Date Diagnosis/Indication Diagnosis SNOMED-CT Code Diagnosis ICD10 Code Diagnosis Note [id number] Erlin Nash APRN [address] [address] 09/22/2024 09:11:02 09/22/2024 10:08:33 Cystocele 643144744 N81.10 Serum crea tinine above reference range 191260971 R79.89 [id number] Erlin Nash APRN [address] [address] 10/18/2024 13:01:18 10/18/2024 14:12:03 Anxiety 95739458 F41.9 Seasonal allergy 2654841 04 J30.2 Allergic rhinitis 847944 04 J30.9 Hypertensive disorder 38 230052 I10 refill for blood pressure medication Congestive heart failure 94493464 I50.9 follow up with cardiology Type 2 trisha betes mellitus 88916607 E11.9 continue meds and diet Unintentio nal weight loss 355037155 R63.4 labsrefer to case for colonoscop y Long-term current use of drug therapy 652873146 Z79.899 Health Concerns Section Related Observation LastModified by Organization Detai ls LastModified Time None Recorded Concern Status LastModified by Organization Details LastModified Time None Recorded Payers Encounter Date Sequence Insurance Name Policy Number Policy Peoples Covered Member ID Peoples Member ID Guarantor Name 10/18/2024 1 [employer] (MEDICARE REPLACEMENT/A DVANTAGE - PPO) Leena Casper [id number] Niko Casper OBGyn Episode No OBEpisode recorded.
--- OUTSIDE RECORDS SUMMARY | 2024-12-06 09:19 | XMS_ITS | Encounter Summary ---
Author Organization [facility] ([place], [place], [place], [place]) Address [address] [place] [address] Care Team Providers Care In Home Baby Sitter Name Role Phone Lucian Chacko MD Primary Care Provider [phone] Erlin Nash Primary Care Provider Encounter Details Date Type Department Care Team (Late st Contact Info) Description 11/25/2021 Transcribed Document [facility] Family Medicine [address] [place] [address] ProviderCarmita MD [address] [place] [address] Social History Tobacco Use Types Packs/Day Years Used Date Smoking Tobacco: Never Assessed Family and Community Support Answer Deepak e Recorded Help with Day to Day Activities Not on file 05/29/2023 Feeling Lonely or Isolated Not on file 05/29 Educational Attainment Answer Date Filipe rded Speak language other than Arabic at home Not on file 05/29/2023 Want [...] Conversion Note - Carmita ProviderMD - 11/25/2021 12:51 PM CDT documented in this encounter Plan of Treatment Not on file documented as of this encounter Visit Diagnoses Not on filedocumented in this encounter Care Teams In Home Baby Sitter Relationship Specialty Start Date End Date Lucian Chacko MD [address] [place] [address] PCP - General Family Medicine 05/20/22 12/24/22 Erlin Nash [address] [place] [address] PCP - General 12/25/22 documented as of this encounter
--- OUTSIDE RECORDS SUMMARY | 2024-12-06 09:19 | XMS_ITS | Encounter Summary ---
Author Organization [employer] ([place], [place], [place], [place]) Address [address] [place] [address] Care Team Providers Care Gauntlet Pairer Name Role Phone Lucian Chacko MD Primary Care Provider [phone] Erlin Nash Primary Care Provider [phone] Encounter Details Date Type Department Care Team (Late st Contact Info) Description 01/09/2021 Transcribed Document [facility] [place] Family Medicine [address] [place] [address] ProviderCarmita MD [address] [place], [place] [id number] Social History Tobacco Use Types Packs/Day Years Used Date Smoking Tobacco: Never Assessed Comments Unknown Sex and Gender Information Value Date Recorded Sex Assigned at Not on file Legal Sex Female 1:32 PM CDT Gender Identity Not on file Sexual Orientation Not on file documented as of this encounter Miscellaneous Notes * Cerner Conversion Note - Historical ProviderMD - 01/09/2021 8:13 AM CDT Patient: VANDANA QUEEN Age: 75 Years Sex: Female : 1945 Attendant Sales: Baljinder Perez MD Indication: 75-year-old woman sent to us by Dr. Star San recently in [place] with a past medical history of CAD, CHF, hypertension, obstructive sleep apnea on CPAP, and mitral valve disorder. Patient had DCCV in [place] on , 11/22/2020 with conversion to sinus rhythm. Family states that on 11/24/2020 they noticed increased bilateral lower extremity edema, and increasing shortness of breath, and dyspnea on exertion. She was cardioverted but she didn't maintain sinus rhythm so was started on amiodarone (persistent atrial fibrillation). She is here for an EP study and ablation. Procedure report: After written informed consent was obtained, the patient was brought to the Electrophysiology Laboratory in a fasting state. Sedation was managed by general anesthesia. The right and left groins were prepped and draped in the usual manner. 15 ml of 1% lidocaine was infiltrated in the groin for local anesthesia. The following catheters were placed using ultrasound guidance. 1)8 Fr in the right femoral vein. a venous sheath 8Fr in the right femoral vein with a long sheath for transeptal access and pentarray and 3.5 mm irrigated F/J ablation catheter 2.)8 Fr in the left femoral vein to advance a 6 Fr decapolar deflectable catheter which was placed in the CS for left atrial pacing and recording. 3.)11 Fr in the left femoral vein. This was used to 10 Fr phased area ICE catheter. The ICE catheter was used to inspect the heart prior to ablation. There was a normal size CTI visualized on ICE with a weird flap. There was no pericardial effusion present prior to ablation. Systemic anticoagulation with IV heparin boluses was administered immediately following sheaths insertion to achieve a target ACT greater around 250 sec Next, the 10 Fr ICE catheter was used to assist with transseptal puncture and ablation. ICE imaging was used to confirm the presence of typical anatomy consisting of two left and two right pulmonary veins entering the left atrium. Next, using ultrasound guidance to confirm position, transseptal puncture was achieved using the WebSafety system. Successful puncture was verified by ultrasound and fluoroscopy. Systemic anticoagulation with IV heparin was increased following the trans-septal puncture to achieve a target ACT greater around 350 sec. A Pentarray catheter was advanced through the sheath and mapping of the LA was performed to create a 3D CARTO map. There was some moderate scar especially on the anterior wall all accross and some moderate on the posterior wall with many CFAE that were noted prior to ablation. Next, RF ablation was then performed beginning with wide antral lesions set around the left and right pulmonary veins. Both veins were encircled and isolated including the carena areas under direct monitor of the temperature in the esophagus that raised very easily on the posterior wall. Ablation was discontinued for any significant raise of the temperature, which occurrence several times during the case. The esosure probe was helpful to some degree to put the esophagus away from sides of the posterior wall. A roofline was performed and a bidirectional line assessed. The posterior wall was then isolated but did recovered with adenosine so further ablation was performed to re-isolate. A deflectable sheath was needed to get a good contact especially inferior and anterior to the left inferior pulmonary vein. Isuprel was then infused but no arrhythmia or PACs were observed. The ablation catheter was then placed in the left ventricle. Pacing was performed in the left ventricle to measure VA [place]enckebach which was 440 ms and was concentric and decremental. The sheath was retracted from the left atrium into the right atrium. Ablation was carried out from the tricuspid annulus to the ER around the 6 o???clock position after creating a carto sound with ICE. We had obtained bidirectional block with some difficulty as there was a gap midline with ablation had to be taken quite lateral, which might be due to the flap seen on ICE. The trans-isthmus time post ablation was 150 ms that did not recover with adenosine. Heparin was discontinued. ICE was used to verify the absence of a post-procedure pericardial effusion. All catheters were withdrawn and protamine sulfate was administered to reverse anticoagulation. The sheaths were all removed and Figure of 8 sutures were placed in each groin to achieve hemostasis. Complications: No immediate complications were observed. There was no pericardial effusion at the end of the procedure. Blood loss around 20 mL. Conclusion: Successful Procedure(s) of: 1. Cavotricuspid isthmus flutter ablation 2 Pulmonary vein isolation 3 Roof line ablation 4 CFAE ablation 5 Posterior wall isolation 6 Isuprel infusion testing Plan: Monitor overnight. documented in this encounter Plan of Treatment Not on file documented as of this encounter Visit Diagnoses Not on filedocumented in this encounter Care Teams Gauntlet Pairer Relationship Specialty Start Date End Date Lucian Chacko MD [address], [place] [id number] PCP - General Family Medicine 05/20/22 12/24/22 Erlin Nash [address] [place] [address] PCP - General 12/25/22 documented as of this encounter
--- OUTSIDE RECORDS SUMMARY | 2024-12-06 09:19 | XMS_ITS | Encounter Summary ---
Author Organization [employer] ([place], [place], [place], [place]) Address [address] [place] [address] Care Team Providers Care Travel Accommodations Rater Name Role Phone Lucian Chacko MD Primary Care Provider [phone] Erlin Nash Primary Care Provider [phone] Encounter Details Date Type Department Care Team (Late st Contact Info) Description 11/25/2021 Transcribed Document [facility] [place] [address] [place] [address] ProviderCarmita MD [address] [place] [address] Social History Tobacco Use Types Packs/Day Years Used Date Smoking Tobacco: Never Assessed Family and Community Support Answer Deepak e Recorded Help with Day to Day Activities Not on file 05/29/2023 Feeling Lonely or Isolated Not on file 05/29 Educational Attainment Answer Date Filipe rded Speak language other than Persian at home Not on file 05/29/2023 Want [...] Carmita ProviderMD - 11/25/2021 10:20 AM CDT [place] Suicide Severity Rating Scale (C-SSRS) Entered On: 11/25/2021 10:41 EDT Performed On: 11/25/2021 10:34 EDT by Annamaria Nuñez RN-PATIENT CARE BEDSIDE NON-EXEMPT [place] Suicide Severity Rating Scale (C-SSRS) CSSRS Past Month Wish to be : No CSSRS Past Month Suicidal Thoughts : No CSSRS Lifetime Suicide Behavior : No Suicide Severity Rating Score : 0 Suicide Severity Rating : No Additional Care Required at this time Annamaria Nuñez RN-PATIENT CARE BEDSIDE NON-EXEMPT - 11/25/2021 10:34 EDT Electronically signed by [facility] Conversion Patient Ombudsperson Cerner at 08/24/2022 9:23 AM CDT documented in this encounter Plan of Treatment Not on file documented as of this encounter Visit Diagnoses Not on filedocumented in this encounter Care Teams Travel Accommodations Rater Relationship Specialty Start Date End Date Lucian Chacko MD [address] [place] [address] PCP - General Family Medicine 05/20/22 12/24/22 Erlin Nash [address] [place] [address] PCP - General 12/25/22 documented as of this encounter
--- OUTSIDE RECORDS SUMMARY | 2024-12-06 09:19 | XMS_ITS | Encounter Summary ---
Author Organization [employer] ([place], [place], [place], [place]) Address [address] [place] [address] Care Team Providers Care Cardiac Rn Name Role Phone Lucian Chacko MD Primary Care Provider [phone] Erlin Nash Primary Care Provider [phone] Encounter Details Date Type Department Care Team (Late st Contact Info) Description 11/25/[address] [facility] [place] [address] [place] [address] ProviderCarmita MD [address] [place] [address] Social History Tobacco Use Types Packs/Day Years Used Date Smoking Tobacco: Never Assessed Family and Community Support Answer Deepak e Recorded Help with Day to Day Activities Not on file 05/29/2023 Feeling Lonely or Isolated Not on file 05/29 Educational Attainment Answer Date Filipe rded Speak language other than Bengali at home Not on file 05/29/2023 Want [...] Carmita ProviderMD - 11/25/2021 10:20 AM CDT [place] Violence Assessment Entered On: 11/25/2021 10:41 EDT Performed On: 11/25/2021 10:34 EDT by Annamaria Nuñez RN-PATIENT CARE BEDSIDE NON-EXEMPT Bro[place] Violence Assessment Broset Violence Checklist of Symptoms : None Broset Violence Symptoms Subtotal : 0 Broset Violence Symptoms Indicator : Low risk (0) Annamaria Nuñez RN-PATIENT CARE BEDSIDE NON-EXEMPT - 11/25/2021 10:34 EDT Electronically signed by [facility] Conversion Applied Behavior Specialist Cerner at 08/24/2022 9:29 AM CDT documented in this encounter Plan of Treatment Not on file documented as of this encounter Visit Diagnoses Not on filedocumented in this encounter Care Teams Cardiac Rn Relationship Specialty Start Date End Date Lucian Chacko MD [address] [place] [address] PCP - General Family Medicine 05/20/22 12/24/22 Erlin Nash [address] [place] [address] PCP - General 12/25/22 documented as of this encounter
--- OUTSIDE RECORDS SUMMARY | 2024-12-06 09:19 | XMS_ITS | Encounter Summary ---
Author Organization [facility] ([place], [place], [place], [place]) Address [address] [place] [address] Care Team Providers Care Garage Attendant Name Role Phone Lucian Chacko MD Primary Care Provider [phone] Erlin Nash Primary Care Provider [phone] Encounter Details Date Type Department Care Team (Late st Contact Info) Description 01/09/2021 Transcribed Document [facility] [place] Family Medicine [facility] [place] [place] [address] ProviderCarmita MD [address] [place], [place] [id number] Social History Tobacco Use Types Packs/Day Years Used Date Smoking Tobacco: Never Assessed Comments Unknown Sex and Gender Information Value Date Recorded Sex Assigned at Not on file Legal Sex Female 1:32 PM CDT Gender Identity Not on file Sexual Orientation Not on file documented as of this encounter Miscellaneous Notes * Cerner Conversion Note - Historical ProviderMD - 01/09/2021 11:45 PM CDT Admission History, Adult Entered On: 01/10/2021 4:57 EDT Performed On: 01/09/2021 4:57 EDT by Annamaria Arizmendi RN-PATIENT CARE BEDSIDE NON-EXEMPT Advance Directive Patient has Advance Directive *Q : Yes, Advance Directive not with the patient Advance Directive Type : Living will Copy Advance Directive Verified/on Chart : No Annamaria Arizmendi RN-PATIENT CARE BEDSIDE NON-EXEMPT - 01/10/2021 4:56 EDT Anesthesia/Transfusion History Family History of Anesthesia Reaction : No prior transfusion(s) Blood Transfusion Acceptable to Patient : Yes Transfusion History : Prior anesthesia without reaction Family History of Anesthesia Reaction : None Annamaria Arizmendi RN-PATIENT CARE BEDSIDE NON-EXEMPT - 01/10/2021 4:56 EDT Functional Assessment Living Situation : Home Patient Lives With : Spouse Persons Assisting Patient at Home : Spouse Current Daily Living Assistance : Transportation Mobility Assistance Prior to Admission : Partial assistance Current Home Treatments : CPAP, Oxygen therapy Home Equipment : Cane Cane : Cane, single point Annamaria Arizmendi RN-PATIENT CARE BEDSIDE NON-EXEMPT - 01/10/2021 4:56 EDT General Info Arrived From : Home Mode of Arrival on Unit : Ambulatory Legal Guardian : Daughter Want Family/Rep/Phys Notified of Admit : No Emergency Contact #1 : Belen Emergency Contact #1 Emergency Contact #1 Relationship : daughter Emergency Contact #2 : Yris Sebastian Emergency Contact #2 Emergency Contact #2 Relationship : daughter Chief Complaint : Here for EP study Information Obtained From : Patient Primary Language : Moldovan Preferred Communication Mode : Verbal Communication Barrier : None Reconciliation Analyst Needed : No Objects to Sharing Info w Family : No Annamaria Arizmendi RN-PATIENT CARE BEDSIDE NON-EXEMPT - 01/10/2021 4:56 EDT Fall Risk Scales ABCs Fall Injury Risk Identification : Age, Coagulation ABC Fall Injury Risk : Moderate to high injury risk DE LUNA Hx Falls Immediate/Within 3 Months : No [place] Secondary Diagnosis : No DE LUNA Use of Ambulatory Aid : Bed rest/Nurse assist DE LUNA IV Therapy or IV Access : Yes [place] Gait/Transferring : Normal, bedrest, immobile [place] Mental Status : Oriented to own ability [place] Fall Risk Score : 20 DE LUNA Fall Scale Risk Level : 0-24 Low Risk Wing Fall Interventions : Adequate lighting, Assistive devices within reach, Bed in low position, Call device within reach, Fall prevention handout/education per facility policy, Hourly comfort/safety rounds, Non-slip footwear, Personal items within reach, Reinforced to call for assistance before getting out of bed, Upper side-rails up, Wires/Cords secured Barriers to Learning : None evident Learning Style Preferences Family : None Learning Style Preferences Patient : None Annamaria Arizmendi RN-PATIENT CARE BEDSIDE NON-EXEMPT - 01/10/2021 4:56 EDT Health Histories Smoking Status : Never (less than 100 in lifetime; none in last 30 days) Smokeless Tobacco Status : Never Annamaria Arizmendi RN-PATIENT CARE BEDSIDE NON-EXEMPT - 01/10/2021 4:56 EDT Social History (As Of: 01/10/2021 04:57:44 EDT) Tobacco: Never (less than 100 in lifetime) Smoking Status. Never Smokeless Tobacco Status. (Last Updated: 12/20/2020 06:50:37 EDT by SHAMEKA CUTLER RN) Alcohol: Alcohol Use History No. (Last Updated: 12/20/2020 06:50:40 EDT by SHAMEKA CUTLER RN) Substance Abuse: Drug Use Hx: No. (Last Updated: 12/20/2020 06:50:44 EDT by SHAMEKA CUTLER RN) Height and Weight, Clinical Dosing Height Source : Stated Height Entry Format : [place] Height, Feet : 5 ft(Converted to: 152 cm, 60 Inch) Height, Inches : 0 Inch(Converted to: 0 ft 0 Inch, 0.00 cm) Clinical Height : 152.4 cm Weight Source : Standing scale Weight Entry Format : [place] Clinical Dosing Weight : 84.55 kg Weight, Pounds : 186 lb Body Surface Area (BSA) : 1.81 m2 Body Mass Index : 36.4 kg/m2 (HI) [place] Body Weight : 45 kg Annamaria Arizmendi RN-PATIENT CARE BEDSIDE NON-EXEMPT - 01/10/2021 4:56 EDT Infectious Disease History Has the patient ever been tested for COVID-19? : Yes, Patient stated results Negative Where are the test results? : Paper Copy on chart Date of COVID-19 test known? : Yes Date of COVID-19 Test : 01/09/2021 EDT Does patient have symptoms of COVID-19? : No COVID19 Screening : No Experiencing Infectious Disease Symptoms : No symptoms Physical contact outside [place] in the last 30 days : No Infectious Disease History : Chicken pox/Shingles, Influenza, Measles, Mumps Tuberculosis Symptoms : None Annamaria Arizmendi RN-PATIENT CARE BEDSIDE NON-EXEMPT - 01/10/2021 4:56 EDT Influenza Vaccine Asmt, Adult Previous Vaccines from Immunization Schedule : No qualifying data available. Influenza Immunization, Current Season : Outside of influenza season Annamaria Arizmendi RN-PATIENT CARE [facility] NON-EXEMPT - 01/10/2021 4:56 EDT Pneumococcal Vaccine Previous Vaccines from Immunization Schedule : No qualifying data available. Pneumonia Immunization Received : Unknown Pneumococcal Risk Assessment < Age 65 : N/A- Patient 65 years of age or older Pneumococcal Vaccine Contraindications : No contraindications to pneumococcal vaccine Transplant Workup/Recent Transplant : No Order for Pneumococcal Vaccine : Declined Vaccination Annamaria Arizmendi RN-PATIENT CARE BEDSIDE NON-EXEMPT - 01/10/2021 4:56 EDT Order Details Transport Mode Order Detail : Ambulatory Order Detail : N/A IV Order Detail : 1 Oxygen Order Detail : 1 Nurse Collect Order Detail : 0 Lift/Transfer : Minimal Central Line Order Detail : No Room Service : Appropriate Arterial Line : No Patient Needs Meds Crushed/Liquid : No Annamaria Arizmendi RN-PATIENT CARE [facility] NON-EXEMPT - 01/10/2021 4:56 EDT Nutrition History Eating Poorly Due to Decreased Appetite : No Unplanned Weight Loss in Past 3-6 Months : No Malnutrition Screening Tool Total(mal) : 0 Malnutrition Screening Tool Risk Level : Patient not at risk Annamaria Arizmendi RN-PATIENT CARE [facility] NON-EXEMPT - 01/10/2021 4:56 EDT [place] Suicide Severity Rating Scale (C-SSRS) CSSRS Past Month Wish to be : No CSSRS Past Month Suicidal Thoughts : No CSSRS Lifetime Suicide Behavior : No Suicide Severity Rating Score : 0 Suicide Severity Rating : No Additional Care Required at this time Annamaria Arizmendi RN-PATIENT CARE [facility] NON-EXEMPT - 01/10/2021 4:56 EDT Psychosocial History Does Someone Depend on You for Care? : No Do You Have a History of the Following? : Patient denies history Currently in Unsafe Situation : No Annamaria Arizmendi RN-PATIENT CARE [facility] NON-EXEMPT - 01/10/2021 4:56 EDT Sleep Apnea Risk Assmt BiPAP/CPAP Ordered for Home Use : Yes Hx of Obstructive Sleep Apnea Diagnosis : Yes BiPAP/CPAP Used at Home : Yes Age over 50 Years Old : Yes Gender Male : No Annamaria Arizmendi RN-PATIENT CARE BEDSIDE NON-EXEMPT - 01/10/2021 4:56 EDT Valuables and Belongings Valuables and Belongings [...] family Medication Brought With Patient : Yes Annamaria Arizmendi RN-PATIENT CARE BEDSIDE NON-EXEMPT - 01/10/2021 4:56 EDT Electronically signed by [facility] Conversion Dental Assistant Medical Assistant Cerner at 08/24/2022 9:27 AM CDT documented in this encounter Plan of Treatment Not on file documented as of this encounter Visit Diagnoses Not on filedocumented in this encounter Care Teams Garage Attendant Relationship Specialty Start Date End Date Lucian Chacko MD [address] [place] [address] PCP - General Family Medicine 05/20/22 12/24/22 Erlin Nash [address] [place] [address] PCP - General 12/25/22 documented as of this encounter
--- OUTSIDE RECORDS SUMMARY | 2024-12-06 09:20 | XMS_ITS | Continuity of Care Document ---
Author Organization [facility] Address [address] [facility] [facility] [place] [address] Assessment No assessment recorded. Plan of Treatment Reminders Order Date Submit Date Provider Last Modified By Organization Details Last Modified Time Details Appointments None recorded. Lab renal function panel, serum 2024 025 JOHN [facility], [address], Ian F, [place], [address], 5 15:06:57 CBC w/ auto diff 2024 025 JOHN [facility], [address], [place] [address], [place], [address], 5 15:06:56 protein + creatinine panel, urine 2024 025 JOHN [facility], [address], [place] [address], [place], [address], 5 15:06:57 urinalysis complete, reflex culture 2024 025 JOHN [facility], [address], [place] [address], [place], [address], 5 15:06:56 PTH (parathyroi d hormone), intact, serum or plasma 2024 025 JOHN [facility], [address], [place] [address], [place], [address], 5 15:06:58 vitamin D, 25-hydroxy, total, serum 2024 025 MYLO [facility], [address], [address], [place], [address], 5 15:06:58 Referral None recorded. Procedures None recorded. Surgeries None recorded. Imaging None recorded. Medication Orders senna 8.6 mg tablet 2024 025 [facility], [address] [place] [address], [address], 5 16:18:04 magnesium citrate oral solution 2024 [facility], [address] [place] [address], [address], 16:18:04 Patient TargetsNo targets recorded. Patient InstructionsNo instructions recorded. Reason for Referral None Reported. Results Created Date Observation Date Name Description Value Unit Range Abnormal Flag Note LastModifiedBy Organization Detail LastModifiedTime 11/05/1911/05/2024 RENAL PANEL (10) glucose 104 mg/dL 70-99 above high normal Not Available [facility] ([facility]) [address] [place], [address], 11/08/2024 11:07:47 11/05/19 25 11/05/2024 RENAL PANEL (10) BUN 26 mg/dL 8-27 normal Not Available [facility] ([facility]) [address] [place], [address], 11/08/2024 11:07:47 11/05/19 25 11/05/2024 RENAL PANEL (10) creatinine 2.49 mg/dL 0.57-1 .00 above high normal Not Available [facility] ([facility]) [address] [place], [address], 11/08/2024 11:07:47 11/05/19 25 11/05/2024 RENAL PANEL (10) eGFR 19 mL/mi n/1.7 3 >59 below low normal Not Available [facility] ([facility]) [address] [place], [address], 11/08/2024 11:07:47 11/05/19 25 11/05/2024 RENAL PANEL (10) BUN/creatini ne ratio 10 12-28 below low normal Not Available [facility] ([facility]) [address] [place], [address], 11/08/2024 11:07:47 11/05/19 25 11/05/2024 RENAL PANEL (10) sodium 138 mmol/ L 134-14 4 normal Not Available [facility] ([facility]) [address] [facility] [place], [address], 11/08/2024 11:07:47 11/05/19 25 11/05/2024 RENAL PANEL (10) potassium 4.4 mmol/ L 3.5-5. 2 normal Not Available [facility] ([facility]) [address] [facility] [place], [address], 11/08/2024 11:07:47 11/05/19 25 11/05/2024 RENAL PANEL (10) chloride 95 mmol/ L 96-106 below low normal Not Available [facility] ([facility]) [address] [facility] [place], [address], 11/08/2024 11:07:47 11/05/19 25 11/05/2024 RENAL PANEL (10) carbon dioxide, total 26 mmol/ L 20-29 normal Not Available [facility] ([facility]) [address] [facility] [place], [address], 11/08/2024 11:07:47 11/05/19 25 11/05/2024 RENAL PANEL (10) calcium 9.5 mg/dL 8.7-10 .3 normal Not Available [facility] ([facility]) [address] [facility] [place], [address], 11/08/2024 11:07:47 11/05/19 25 11/05/2024 RENAL PANEL (10) phosphorus 3.5 mg/dL 3.0-4. 3 normal Not Available [facility] ([facility]) [address] [place], [address], 11/08/2024 11:07:47 11/05/19 25 11/05/2024 RENAL PANEL (10) albumin 4.4 g/dL 3.8-4. 8 normal Not Available [facility] ([facility]) [address] [place], [address], 11/08/2024 11:07:47 11/05/19 25 11/05/2024 ALBUM IN/CR EAT RATIO , RANDO M UR creatinine, urine 127.7 mg/dL not estab. normal Not Available [facility] ([facility]) [address] [place], [address], 11/08/2024 11:07:48 11/05/19 25 11/05/2024 ALBUM IN/CR EAT RATIO , RANDO M UR albumin, urine 6.6 ug/mL not estab. Not Available [facility] ([facility]) [address] [facility], [place], [address], 11/08/2024 11:07:48 11/05/19 25 11/05/2024 ALBUM IN/CR EAT RATIO , RANDO M UR alb/creat ratio 5 mg/g_ creat 0-29 Amy l: 0 - 29 Moder ately incre ased: 30 - 300 Sever bossman incre ased: >300 Not Available [facility] ([facility]) [address] [place], [address], 11/08/2024 11:07:48 11/05/19 25 11/08/2024 LEVET GORAN MENDIETA ([facility]), S levetiraceta m, S 46.7 ug/mL 10.0-4 0.0 above high normal Not Available [facility] ([facility]) [address] [facility], [place], [address], 11/08/2024 11:07:48 11/25/19 25 11/25/2024 CBC WITH DIFFE RENTI AL/PL ATELE T WBC 6.1 x10e3 /uL 3.4-10 .8 normal Not Available [facility] ([facility]) [address] [facility], [place], [address], 11/27/2024 15:06:55 11/25/19 25 11/25/2024 CBC WITH DIFFE RENTI AL/PL ATELE T RBC 4.22 x10e6 /uL 3.77-5 .28 normal Not Available [facility] ([facility]) [address] [facility], [place], [address], 11/27/2024 15:06:55 11/25/19 25 11/25/2024 CBC WITH DIFFE RENTI AL/PL ATELE T hemoglobin 13.1 g/dL 11.1-1 5.9 normal Not Available [facility] ([facility]) [address] [place], [address], 11/27/2024 15:06:55 11/25/19 25 11/25/2024 CBC WITH DIFFE RENTI AL/PL ATELE T hematocrit 41.1 % 34.0-4 6.6 normal Not Available [facility] ([facility]) [address] [place], [address], 11/27/2024 15:06:55 11/25/19 25 11/25/2024 CBC WITH DIFFE RENTI AL/PL ATELE T MCV 97 fL 79-97 normal Not Available [facility] ([facility]) [address] [place], [address], 11/27/2024 15:06:55 11/25/19 25 11/25/2024 CBC WITH DIFFE RENTI AL/PL ATELE T MCH 31.0 pg 26.6-3 3.0 normal Not Available [facility] ([facility]) [address] [place], [address], 11/27/2024 15:06:55 11/25/19 25 11/25/2024 CBC WITH DIFFE RENTI AL/PL ATELE T MCHC 31.9 g/dL 31.5-3 5.7 normal Not Available [facility] ([facility]) [address] [place], [address], 11/27/2024 15:06:55 11/25/19 25 11/25/2024 CBC WITH DIFFE RENTI AL/PL ATELE T RDW 16.1 % 11.7-1 5.4 above high normal Not Available [facility] ([facility]) [address] [place], [address], 11/27/2024 15:06:55 11/25/19 25 11/25/2024 CBC WITH DIFFE RENTI AL/PL ATELE T platelets 227 x10e3 /uL 150-45 0 normal Not Available [facility] ([facility]) [address] [place], [address], 11/27/2024 15:06:55 11/25/19 25 11/25/2024 CBC WITH DIFFE RENTI AL/PL ATELE T neutrophils 68 % not estab. normal Not Available [facility] ([facility]) [address] [place], [address], 11/27/2024 15:06:55 11/25/19 25 11/25/2024 CBC WITH DIFFE RENTI AL/PL ATELE T lymphs 19 % not estab. normal Not Available [facility] ([facility]) [address] [place], [address], 11/27/2024 15:06:55 11/25/19 25 11/25/2024 CBC WITH DIFFE RENTI AL/PL ATELE T monocytes 11 % not estab. normal Not Available [facility] ([facility]) [address] [facility] [place], [address], 11/27/2024 15:06:55 11/25/19 25 11/25/2024 CBC WITH DIFFE RENTI AL/PL ATELE T eos 2 % not estab. normal Not Available [facility] ([facility]) [address] [place], [address], 11/27/2024 15:06:55 11/25/19 25 11/25/2024 CBC WITH DIFFE RENTI AL/PL ATELE T basos 0 % not estab. normal Not Available [facility] ([facility]) [address] [place], [address], 11/27/2024 15:06:55 11/25/19 25 11/25/2024 CBC WITH DIFFE RENTI AL/PL ATELE T immature cells CUSTODIAL SERVICES MANAGER Not Available [facility] ([facility]) [address] [place], [address], 11/27/2024 15:06:55 11/25/19 25 11/25/2024 CBC WITH DIFFE RENTI AL/PL ATELE T neutrophils (absolute) 4.1 x10e3 /uL 1.4-7. 0 normal Not Available [facility] ([facility]) [address] [place], [address], 11/27/2024 15:06:55 11/25/19 25 11/25/2024 CBC WITH DIFFE RENTI AL/PL ATELE T lymphs (absolute) 1.2 x10e3 /uL 0.7-3. 1 normal Not Available [facility] ([facility]) [address] [place], [address], 11/27/2024 15:06:55 11/25/19 25 11/25/2024 CBC WITH DIFFE RENTI AL/PL ATELE T monocytes(ab solute) 0.7 x10e3 /uL 0.1-0. 9 normal Not Available [facility] ([facility]) [address] [facility] [place], [address], 11/27/2024 15:06:55 11/25/19 25 11/25/2024 CBC WITH DIFFE RENTI AL/PL ATELE T eos (absolute) 0.1 x10e3 /uL 0.0-0. 4 normal Not Available [facility] ([facility]) [address] [facility], [place], [address], 11/27/2024 15:06:55 11/25/19 25 11/25/2024 CBC WITH DIFFE RENTI AL/PL ATELE T baso (absolute) 0.0 x10e3 /uL 0.0-0. 2 normal Not Available [facility] ([facility]) [address] [place], [address], 11/27/2024 15:06:55 11/25/19 25 11/25/2024 CBC WITH DIFFE RENTI AL/PL ATELE T immature granulocytes 0 % not estab. Not Available [facility] ([facility]) [address] [facility], [place], [address], 11/27/2024 15:06:55 11/25/19 25 11/25/2024 CBC WITH DIFFE RENTI AL/PL ATELE T immature grans (abs) 0.0 x10e3 /uL 0.0-0. 1 Not Available [facility] ([facility]) [address] [place], [address], 11/27/2024 15:06:55 11/25/19 25 11/25/2024 CBC WITH DIFFE RENTI AL/PL ATELE T NRBC CUSTODIAL SERVICES MANAGER Not Available [facility] ([facility]) [address] [place], [address], 11/27/2024 15:06:55 11/25/19 25 11/25/2024 CBC WITH DIFFE RENTI AL/PL ATELE T hematology comments: CUSTODIAL SERVICES MANAGER Not Available [facility] ([facility]) [address] [place], [address], 11/27/2024 15:06:55 11/25/19 25 11/25/2024 UA/M W/RFL X CULTU RE, ROUTI NE specific gravity 1.013 1.005- 1.030 normal Not Available [facility] ([facility]) [address] [facility], [place], [address], 11/27/2024 15:06:56 11/25/19 25 11/25/2024 UA/M W/RFL X CULTU RE, ROUTI NE pH 7.0 5.0-7. 5 normal Not Available [facility] ([facility]) [address] [facility], [place], [address], 11/27/2024 15:06:56 11/25/19 25 11/25/2024 UA/M W/RFL X CULTU RE, ROUTI NE urine-color Yellow yellow Not Available [facility] ([facility]) [address] [facility], [place], [address], 11/27/2024 15:06:56 11/25/19 25 11/25/2024 UA/M W/RFL X CULTU RE, ROUTI NE appearance Clear clear Not Available [facility] ([facility]) [address] [facility], [place], [address], 11/27/2024 15:06:56 11/25/19 25 11/25/2024 UA/M W/RFL X CULTU RE, ROUTI NE WBC esterase Negati ve negati ve Not Available [facility] ([facility]) [address] [place], [address], 11/27/2024 15:06:56 11/25/19 25 11/25/2024 UA/M W/RFL X CULTU RE, ROUTI NE protein Negati ve negati ve/tra ce Not Available [facility] ([facility]) [address] [place], [address], 11/27/2024 15:06:56 11/25/19 25 11/25/2024 UA/M W/RFL X CULTU RE, ROUTI NE glucose 2+ negati ve abnormal Not Available [facility] ([facility]) [address] [place], [address], 11/27/2024 15:06:56 11/25/19 25 11/25/2024 UA/M W/RFL X CULTU RE, ROUTI NE ketones Negati ve negati ve Not Available [facility] ([facility]) [address] [place], [address], 11/27/2024 15:06:56 11/25/19 25 11/25/2024 UA/M W/RFL X CULTU RE, ROUTI NE occult blood Negati ve negati ve Not Available [facility] ([facility]) [address] [place], [address], 11/27/2024 15:06:56 11/25/19 25 11/25/2024 UA/M W/RFL X CULTU RE, ROUTI NE bilirubin Negati ve negati ve Not Available [facility] ([facility]) [address] [place], [address], 11/27/2024 15:06:56 11/25/19 25 11/25/2024 UA/M W/RFL X CULTU RE, ROUTI NE urobilinogen ,semi-qn 0.2 mg/dL 0.2-1. 0 normal Not Available [facility] ([facility]) [address] [place], [address], 11/27/2024 15:06:56 11/25/19 25 11/25/2024 UA/M W/RFL X CULTU RE, ROUTI NE nitrite, urine Negati ve negati ve Not Available [facility] ([facility]) [address] [place], [address], 11/27/2024 15:06:56 11/25/19 25 11/25/2024 UA/M W/RFL X CULTU RE, ROUTI NE microscopic examination Commen t Micro scopi c follo ws if indic ated. Not Available [facility] ([facility]) [address] [facility], [place], [address], 11/27/2024 15:06:56 11/25/19 25 11/25/2024 UA/M W/RFL X CULTU RE, ROUTI NE microscopic examination See below: Micro scopi c was indic ated and was perfo rmed. Not Available [facility] ([facility]) [address] [facility], [place], [address], 11/27/2024 15:06:56 11/25/19 25 11/25/2024 UA/M W/RFL X CULTU RE, ROUTI NE WBC None seen /hpf 0 - 5 Not Available [facility] ([facility]) [address] [facility], [place], [address], 11/27/2024 15:06:56 11/25/19 25 11/25/2024 UA/M W/RFL X CULTU RE, ROUTI NE RBC None seen /hpf 0 - 2 Not Available [facility] ([facility]) [address] [facility], [place], [address], 11/27/2024 15:06:56 11/25/19 25 11/25/2024 UA/M W/RFL X CULTU RE, ROUTI NE epithelial cells (non renal) 0-10 /hpf 0 - 10 Not Available [facility] ([facility]) [address] [facility], [place], [address], 11/27/2024 15:06:56 11/25/19 25 11/25/2024 UA/M W/RFL X CULTU RE, ROUTI NE epithelial cells (renal) CUSTODIAL SERVICES MANAGER Not Available [facility] ([facility]) [address] [facility], [place], [address], 11/27/2024 15:06:56 11/25/19 25 11/25/2024 UA/M W/RFL X CULTU RE, ROUTI NE casts None seen /lpf none seen Not Available [facility] ([facility]) [address] [facility], [place], [address], 11/27/2024 15:06:56 11/25/19 25 11/25/2024 UA/M W/RFL X CULTU RE, ROUTI NE cast type CUSTODIAL SERVICES MANAGER Not Available [facility] ([facility]) [address] [facility], [place], [address], 11/27/2024 15:06:56 11/25/19 25 11/25/2024 UA/M W/RFL X CULTU RE, ROUTI NE crystals CUSTODIAL SERVICES MANAGER Not Available [facility] ([facility]) [address] [facility], [place], [address], 11/27/2024 15:06:56 11/25/19 25 11/25/2024 UA/M W/RFL X CULTU RE, ROUTI NE crystal type CUSTODIAL SERVICES MANAGER Not Available [facility] ([facility]) [address] [facility], [place], [address], 11/27/2024 15:06:56 11/25/19 25 11/25/2024 UA/M W/RFL X CULTU RE, ROUTI NE mucus threads CUSTODIAL SERVICES MANAGER Not Available [facility] ([facility]) [address] [facility], [place], [address], 11/27/2024 15:06:56 11/25/19 25 11/25/2024 UA/M W/RFL X CULTU RE, ROUTI NE bacteria None seen none seen/f ew Not Available [facility] ([facility]) [address] [facility], [place], [address], 11/27/2024 15:06:56 11/25/19 25 11/25/2024 UA/M W/RFL X CULTU RE, ROUTI NE yeast CUSTODIAL SERVICES MANAGER Not Available [facility] ([facility]) [address] [facility], [place], [address], 11/27/2024 15:06:56 11/25/19 25 11/25/2024 UA/M W/RFL X CULTU RE, ROUTI NE trichomonas CUSTODIAL SERVICES MANAGER Not Available [facility] ([facility]) [address] [facility], [place], [address], 11/27/2024 15:06:56 11/25/19 25 11/25/2024 UA/M W/RFL X CULTU RE, ROUTI NE comment CUSTODIAL SERVICES MANAGER Not Available [facility] ([facility]) [address] [facility], [place], [address], 11/27/2024 15:06:56 11/25/19 25 11/25/2024 UA/M W/RFL X CULTU RE, ROUTI NE urinalysis reflex Commen t This speci men will not refle x to a Urine Cultu re. Not Available [facility] ([facility]) [address] [facility], [place], [address], 11/27/2024 15:06:56 11/25/19 25 11/25/2024 RENAL PANEL (10) glucose 88 mg/dL 70-99 normal Not Available [facility] ([facility]) [address] [place], [address], 11/27/2024 15:06:57 11/25/19 25 11/25/2024 RENAL PANEL (10) BUN 19 mg/dL 8-27 normal Not Available [facility] ([facility]) [address] [place], [address], 11/27/2024 15:06:57 11/25/19 25 11/25/2024 RENAL PANEL (10) creatinine 1.82 mg/dL 0.57-1 .00 above high normal Not Available [facility] ([facility]) [address] [place], [address], 11/27/2024 15:06:57 11/25/19 25 11/25/2024 RENAL PANEL (10) eGFR 28 mL/mi n/1.7 3 >59 below low normal Not Available [facility] ([facility]) [address] [facility] [place], [address], 11/27/2024 15:06:57 11/25/19 25 11/25/2024 RENAL PANEL (10) BUN/creatini ne ratio 10 12-28 below low normal Not Available [facility] ([facility]) [address] [facility] [place], [address], 11/27/2024 15:06:57 11/25/19 25 11/25/2024 RENAL PANEL (10) sodium 139 mmol/ L 134-14 4 normal Not Available [facility] ([facility]) [address] [facility] [place], [address], 11/27/2024 15:06:57 11/25/19 25 11/25/2024 RENAL PANEL (10) potassium 4.7 mmol/ L 3.5-5. 2 normal Not Available [facility] ([facility]) [address] [facility] [place], [address], 11/27/2024 15:06:57 11/25/19 25 11/25/2024 RENAL PANEL (10) chloride 98 mmol/ L 96-106 normal Not Available [facility] ([facility]) [address] [facility] [place], [address], 11/27/2024 15:06:57 11/25/19 25 11/25/2024 RENAL PANEL (10) carbon dioxide, total 27 mmol/ L 20-29 normal Not Available [facility] ([facility]) [address] [facility] [place], [address], 11/27/2024 15:06:57 11/25/19 25 11/25/2024 RENAL PANEL (10) calcium 9.4 mg/dL 8.7-10 .3 normal Not Available [facility] ([facility]) [address] [facility] [place], [address], 11/27/2024 15:06:57 11/25/19 25 11/25/2024 RENAL PANEL (10) phosphorus 3.1 mg/dL 3.0-4. 3 normal Not Available [facility] ([facility]) [address] [facility] [place], [address], 11/27/2024 15:06:57 11/25/19 25 11/25/2024 RENAL PANEL (10) albumin 4.3 g/dL 3.8-4. 8 normal Not Available [facility] ([facility]) [address] [facility] [place], [address], 11/27/2024 15:06:57 11/25/19 25 11/25/2024 PROT+ CREAT U (RAND OM) creatinine, urine 31.2 mg/dL not estab. normal Not Available [facility] ([facility]) [address] [facility], [place], [address], 11/27/2024 15:06:57 11/25/19 25 11/25/2024 PROT+ CREAT U (RAND OM) protein,tota l,urine <4.0 mg/dL not estab. Nolberto ified by repea t matthew sis Not Available [facility] ([facility]) [address] [facility], [place], [address], 11/27/2024 15:06:57 11/25/19 25 11/25/2024 PROT+ CREAT U (RAND OM) protein/crea t ratio Commen t mg/g_ creat 0-200 abnormal This resul t is below the assay 's limit of quant itati on indic ating a dilut e speci men, poten tiall y due to diurn al varia tion. Consi ralph recol lecti on at a time likel y to provi de a more silvia ntrat ed urine . Not Available [facility] ([facility]) [address] [facility], [place], [address], 11/27/2024 15:06:57 11/25/19 25 11/25/2024 VITAM IN D, 25-HY DROXY vitamin D, 25-hydroxy 89.1 NG/mL 30.0-1 00.0 Vitam in D defic iency has been defin ed by the Insti tute of Medic ine and an Endoc rine Socie ty pract ice guide line as a level of serum 25-OH vitam in D less than 20 ng/mL (1,2) . The Endoc rine Socie ty went on to [facility] er defin e vitam in D insuf ficie ncy as a level betwe en 21 and 29 ng/mL (2). 1. IOM (Inst itute of Medic ine). 2010. Dieta ry refer ence intak es for calci um and D. Jesse mccarthy [place]: [facility] . 2. Ro gloria MF, Ginny escobar [place], Bety off-F errar i COLEY, et al. Evalu ation , treat ment, and preve ntion of vitam in D defic iency : an Endoc rine Socie ty clini rodrick pract ice guide line. JCEM. 2010; 96(7) :1911 -30. Not Available [facility] ([facility]) [address] [facility], [place], [address], 11/27/2024 15:06:58 11/25/19 25 11/27/2024 PTH, INTAC T PTH, intact 52 pg/mL 15-65 normal Not Available [facility] ([facility]) [address] [place], [address], 11/27/2024 15:06:58 Result Notes None recorded. Problems Name Problem SNOMED Code Status Onset Date Resolution Date Notes Provider Name and Address Organization Details Recorded Time Atrial fibrillation 48411937 Active Myla Stears null, [place] - [facility] 17:56:54 Seizure 03980661 Active Myla Stears null, [place] - [facility] 17:56:54 Hypertensive disorder 44915998 Active Myla Stears null, [place] - [facility] 17:56:54 Anxiety 29181413 Active Myla Stears null, [place] - [facility] 17:56:54 Congestive heart failure 78226722 Active 2022 Myla Stears null, [place] - [facility] 17:56:54 Type 2 diabetes mellitus 41339009 Active 2023 Myla Stears null, [place] - [facility] 17:56:54 Problem Notes None recorded. Procedures Surgical History Date Name Laterality Status Provider Name and Address Organization Details Recorded Time 03/29/20 Medication Reconcilliation completed Nellaglenny Jorge [facility] 03/29/2024 14:51:30 06/26/19 Advance Care Planning completed Nellaglenny Jorge [facility] 06/26/2023 10:20:19 06/26/19 Functional Status Assessed completed Nellaglenny Jorge [facility] 06/26/2023 10:20:19 06/02/19 24 Medication Reconcilliation completed Nella Jorge [facility] 06/02/2023 10:56:40 01/06/20 Appl. Splint - Forearm to Hand completed Erlin Nash APRN [address], [place], [address], [facility] - [facility] 01/05/2023 13:15:42 01/06/20 Medication Reconcilliation completed Nella Jorge [facility] 01/05/2023 11:09:44 Hysterectomy completed Nella Jorge [facility] 10/20/2022 11:55:41 cholecystectomy completed Nella Jorge [facility] 10/20/2022 11:55:47 colonoscopy completed Myla Robins [facility] 07/13/2023 10:28:39 Imaging Results None recorded. Procedure [...] Updated DateTime 5 152.4 cm 29.1 kg/m2 34543.2 6 g 64 /min 99 % 99 % 18 /min 0 126/78 mm[Hg] Nella Jorge [place] - [facility] 15:48:32 Social History Question Answer Notes LastModified by Organizat ion Details LastModified Time Tobacco Smoking Status Never Smoker Nella Jorge null, [place] - [facility] 10/20/2022 11:54:44 Do You [...] Or The Highest Degree You Have Received? [id number] Information not available 07/13/2023 Have There Been Any Changes To Your Family Or Social Situation? No Information no t available 10/20/2022 What Is The Fluoride Status Of Your Home? Fluoridated Information not available 10/20/2022 Have You Recently Or Are You Planning To Travel To An Area With Zika Virus? No Information not available 10/20/2022 Do You Have A Medical Power Of Infusion Pharmacist? Yes Information not available 10/20/2022 What Was [...] anxious, or unable to sleep at night)? [id number] Information not available 10/20/2022 Do you have [...] high-dose, quadrivalent, PF 3 completed Erlin Nash, [employer] [address], [place], [address], [place] - [facility] 03/27/2023 15:16:51 COVID-19, mRNA, LNP-S, PF, 30 mcg/0.3 mL dose 1 completed Not Available [facility] 12/25/2022 11:38:53 COVID-19 vaccine, vector-nr, rS-Ad26, PF, 0.5 mL 1 completed Not Available [facility] 12/25/2022 11:38:53 COVID-19, mRNA, LNP-S, bivalent, PF, 30 mcg/0.3 mL dose 2 completed Not Available [facility] 12/25/2022 11:38:53 Td (adult), 5 Lf tetanus toxoid, preservative free, adsorbed 2 completed Nella Jorge [place], [place] - [facility] 10/20/2022 11:41:25 Past Encounters Encounter ID Performer Location Encounter Start Date Encounter Closed Date Diagnosis/Indication Diagnosis SNOMED-CT Code Diagnosis ICD10 Code Diagnosis Note [id number] Erlin Nash [address] [address] 11/04/2024 10:20:04 11/04/2024 10:55:51 Serum creatinine above reference range 261031545 R79.89 Seizure disorder 2447035 02 G40.137 [id number] Erlin Nash [address] [address] 11/24/2024 15:15:27 11/24/2024 16:19:18 Chronic kidney disease stage 4 092845657 N18.4 Chronic constipation 236 [id number] K59.09 increase fluid intake Health Concerns Section Related Observation LastModified by Organization Detai ls LastModified Time None Recorded Concern Status LastModified by Organization Details LastModified Time None Recorded Payers Encounter Date Sequence Insurance Name Policy Number Policy Peoples Covered Member ID Peoples Member ID Guarantor Name 11/24/2024 1 [employer] (MEDICARE REPLACEMENT/A DVANTAGE - PPO) Leena Casper [id number] Niko Casper OBGyn Episode No OBEpisode recorded.
--- OUTSIDE RECORDS SUMMARY | 2024-12-06 09:20 | XMS_ITS | Encounter Summary ---
Author Organization [employer] ([place], [place], [place], [place]) Address [address] [place] [address] Care Team Providers Care Family Law Paralegal Name Role Phone Lucian Chacko MD Primary Care Provider [phone] Erlin Nash Primary Care Provider Encounter Details Date Type Department Care Team (Late st Contact Info) Description 12/20/2020 Transcribed Document [facility] [place] [address] [place] [address] ProviderCarmita MD [address] [place], [place] [id number] Social History Tobacco Use Types Packs/Day Years Used Date Smoking Tobacco: Never Assessed Comments Unknown Sex and Gender Information Value Date Recorded Sex Assigned at Not on file Legal Sex Female 1:32 PM CDT Gender Identity Not on file Sexual Orientation Not on file documented as of this encounter Miscellaneous Notes * Cerner Conversion Note - Historical ProviderMD - 12/20/2020 6:50 AM CDT Pre Procedure Adult Entered On: 12/20/2020 7:05 EDT Performed On: 12/20/2020 6:50 EDT by SHAMEKA CUTLER RN Height and Weight, Clinical Dosing Height Source : Stated Height Entry Format : [place] Height, Feet : 5 ft(Converted to: 152 cm, 60 Inch) Height, Inches : 0 Inch(Converted to: 0 ft 0 Inch, 0.00 cm) Clinical Height : 152.4 cm Weight Source : Standing scale Weight Entry Format : [place]les Clinical Dosing Weight : 89.09 kg Weight, Pounds : 196 lb Body Surface Area (BSA) : 1.85 m2 Body Mass Index : 38.4 kg/m2 (HI) [place] Body Weight : 45 kg SHAMEKA CUTLER RN - 12/20/2020 6:50 EDT Health Histories Smoking Status : Never (less than 100 in lifetime; none in last 30 days) Smokeless Tobacco Status : Never SHAMEKA CUTLER RN - 12/20/2020 6:50 EDT Social History (As Of: 12/20/2020 07:05:31 EDT) Tobacco: Never (less than 100 in lifetime) Smoking Status. Never Smokeless Tobacco Status. (Last Updated: 12/20/2020 06:50:37 EDT by SHAMEKA CUTLER RN) Alcohol: Alcohol Use History No. (Last Updated: 12/20/2020 06:50:40 EDT by SHAMEKA CUTLER RN) Substance Abuse: Drug Use Hx: No. (Last Updated: 12/20/2020 06:50:44 EDT by SHAMEKA CUTLER RN) Infectious Disease History Has the patient ever been tested for COVID-19? : Yes, Patient stated results Negative Date of COVID-19 test known? : No Does patient have symptoms of COVID-19? : No COVID19 Screening : No Experiencing Infectious Disease Symptoms : No symptoms Physical contact outside [place] in the last 30 days : No Infectious Disease History : Chicken pox/Shingles, Influenza, Measles, Mumps Tuberculosis Symptoms : None SHAMEKA CUTLER RN - 12/20/2020 6:50 EDT COVID19 PreProcedure Screening Is this an Emergent or Add on Procedure? : No Date PreProcedure COVID-19 test known? : No Has patient been isolated since the test : N/A - PreProcedure, in-person visit Exposed to COVID19 symptoms since test? : N/A - PreProcedure, in-person visit SHAMEKA CUTLER RN - 12/20/2020 6:50 EDT Anesthesia/Transfusion History Family History of Anesthesia Reaction : No prior transfusion(s) Blood Transfusion Acceptable to Patient : Yes Transfusion History : Prior anesthesia without reaction Family History of Anesthesia Reaction : None SHAMEKA CUTLER RN - 12/20/2020 6:50 EDT Functional Assessment Living Situation : Home Patient Lives With : Spouse Persons Assisting Patient at Home : Spouse Current Daily Living Assistance : ADLs, Housekeeping, Transportation Sensory Deficits : Hearing deficit, right ear, Hearing deficit, left ear Mobility Assistance Prior to Admission : Partial assistance Current Home Treatments : Oxygen therapy Home Equipment : Cane Cane : Cane, single point SHAMEKA CUTLER RN - 12/20/2020 6:50 EDT [place] Suicide Severity Rating Scale (C-SSRS) CSSRS Past Month Wish to be : No CSSRS Past Month Suicidal Thoughts : No CSSRS Lifetime Suicide Behavior : No Suicide Severity Rating Score : 0 Suicide Severity Rating : No Additional Care Required at this time SHAMEKA CUTLER RN - 12/20/2020 6:50 EDT Psychosocial History Does Someone Depend on You for Care? : No Do You Have a History of the Following? : Patient denies history Currently in Unsafe Situation : No SHAMEKA CUTLER RN - 12/20/2020 6:50 EDT Advance Directive Patient has Advance Directive *Q : Yes, Advance Directive not with the patient Advance Directive Type : Living will Copy Advance Directive Verified/on Chart : No SHAMEKA CUTLER RN - 12/20/2020 6:50 EDT Spiritual/Cultural Needs Significant Loss/Crisis in Past 3 Years : No Any Spiritual/Cultural Needs or Requests : Yes Adventism Preference : Pentecostalism SHAMEKA CUTLER RN - 12/20/2020 6:50 EDT Teaching/Learning Assessment Barriers To Learning : Hearing deficit Individuals Taught : Patient Readiness to Learn : Cooperative Learning Style Preferences Patient : Verbal explanation SHAMEKA CUTLER RN - 12/20/2020 6:50 EDT Education Topics, Periop Preadmission Perioperative Education Grid IV's : Verbalizes understanding, Patient/Caregiver declines education NPO Status/Directions : Verbalizes understanding Responsible Adult : Verbalizes understanding SHAMEKA CUTLER RN - 12/20/2020 6:50 EDT General Info Arrived From : Home Mode of Arrival on Unit : Ambulatory Legal Guardian : Daughter Want Family/Rep/Phys Notified of Admit : No Emergency Contact #1 : Belen Emergency Contact #1 Emergency Contact #1 Relationship : daughter Emergency Contact #2 : Yris Emergency Contact #2 Emergency Contact #2 Relationship : daughter Chief Complaint : Here for CV Primary Language : Rwandan Preferred Communication Mode : Verbal Communication Barrier : None Forestry Biology Specialist Needed : No Objects to Sharing Info w Family : No SHAMEKA CUTLER RN - 12/20/2020 6:50 EDT Vital Measurements Temperature Source : Temporal artery scanning Temperature Mode : Fahrenheit Temperature, Fahrenheit : 97.3 Deg F Clinical Temperature, C : 36.3 Deg C Pulse Method : Non-Invasive BP Device Peripheral Pulse Rate : 110 bpm (HI) Respiratory Rate : 20 Breaths/Min Blood Pressure Location : Arm, right upper Blood Pressure Source : Non-Invasive BP Device Systolic Blood Pressure : 152 mmHg (HI) Diastolic Blood Pressure : 79 mmHg Oxygen Saturation : 100 % Oxygen Therapy Mode : Nasal cannula Oxygen Flow Rate : 2 Liter/Min SHAMEKA CUTLER RN - 12/20/2020 6:50 EDT Sleep Apnea Risk Assmt BiPAP/CPAP Ordered for Home Use : Yes Hx of Obstructive Sleep Apnea Diagnosis : Yes BiPAP/CPAP Used at Home : Yes Age over 50 Years Old : Yes Gender Male : No SHAMEKA CUTLER RN - 12/20/2020 6:50 EDT Berny Scale Berny Sensory Perception : Slightly limited Berny Moisture : Rarely moist Berny Activity : Walks occasionally Berny Mobility : Slightly limited Berny Nutrition : Probably inadequate Berny Friction and Shear : Problem Berny Score : 16 SHAMEKA CUTLER RN - 12/20/2020 6:50 EDT Oxygen Therapy Oxygen Therapy Mode : Nasal cannula Oxygen Therapy Comment : 2L cont SHAMEKA CUTLER RN - 12/20/2020 6:50 EDT Pain Assessment Pain Assessment : Initial assessment Pain Scale Used : 0-10 Scale SHAMEKA CUTLER RN - 12/20/2020 6:50 EDT Fall Risk Scales ABCs Fall Injury Risk Identification : Bones, Coagulation ABC Fall Injury Risk : Moderate [...] Level : 46 or > High Risk Anderson Fall Interventions : Adequate lighting, Call device within reach, Hourly comfort/safety rounds, Non-slip footwear, Personal items within reach, Room free of clutter/spills, Upper side-rails up, Wheels locked, Wires/Cords secured SHAMEKA CUTLER RN - 12/20/2020 6:50 EDT Valuables and Belongings Valuables and Belongings : Clothing, Jewelry, Personal devices, Personal items, Medications, No assistive devices, No respiratory devices Clothing : Common streetwear Clothing Disposition : Bedside Personal Device Disposition : With patient Jewelry : Ring Jewelry Disposition : With patient Personal Devices : Dentures, upper Personal Items : Cell phone, Wallet Personal Items Disposition : With family Medication Disposition : Bedside Medication Brought With Patient : Yes SHAMEKA CUTLER RN - 12/20/2020 6:50 EDT Pain Scale Intensity : 0 SHAMEKA CUTLER RN - 12/20/2020 6:50 EDT Image 4 - Images currently included in the form version of this document have not been included in the text rendition version of the form. Tyler Coma Tyler Best Motor Response : Obey commands Tereza Best Verbal Response : Oriented Tereza Eye Opening Response : Spontaneous Tereza Coma Score : 15 SHAMEKA CUTLER RN - 12/20/2020 6:50 EDT Electronically signed by Alessandro [facility] Conversion Elementary Art Teacher Cerner at 08/24/2022 9:25 AM CDT documented in this encounter Plan of Treatment Not on file documented as of this encounter Visit Diagnoses Not on filedocumented in this encounter Care Teams Family Law Paralegal Relationship Specialty Start Date End Date Lucian Chacko MD [address] [place] [address] PCP - General Family Medicine 05/20/22 12/24/22 Erlin Nash [address] [place] [address] PCP - General 12/25/22 documented as of this encounter
--- OUTSIDE RECORDS SUMMARY | 2024-12-06 09:20 | XMS_ITS | Encounter Summary ---
Author Organization [employer] ([place], [place], [place], [place]) Address [address] [place] [address] Care Team Providers Care Power Systems Engineer Name Role Phone Lucian Chacko MD Primary Care Provider [phone] Erlin Nash Primary Care Provider [phone] Encounter Details Date Type Department Care Team (Late st Contact Info) Description 12/20/2020 Transcribed Document [facility] [place] Family Medicine [facility] [place] [address] ProviderCarmita MD [address] [place], [place] [id number] Social History Tobacco Use Types Packs/Day Years Used Date Smoking Tobacco: Never Assessed Comments Unknown Sex and Gender Information Value Date Recorded Sex Assigned at Not on file Legal Sex Female 1:32 PM CDT Gender Identity Not on file Sexual Orientation Not on file documented as of this encounter Miscellaneous Notes * Cerner Conversion Note - Historical ProviderMD - 12/20/2020 9:28 AM CDT Patient Education Materials Follows: It???s Cold and Flu Season ??? How are you protecting yourself? The start of each year is often met with the peak of cold and flu season. This year is no different except that we are facing the new strain of coronavirus, COVID-19, and the widespread media attention this public health outbreak is causing. It is understandable that many are feeling overwhelmed by the thought of catching coronavirus and are concerned about how to best care for ourselves and our loved ones during this challenging time. Take comfort in knowing there are simple things you can do each and every day to help ensure your health is protected. Scrub a dub! Wash your hands! As simple as this sounds, it truly is the most effective way to stop the spread of germs. Be sure to use soap, and to make sure you are being thorough enough, sing the ???Happy Birthday?? song which is just the right length to ensure a thorough cleaning of your hands. Wash all parts of your hands, including the ???webs?? between your fingers and thumbs. When without, use a squeeze! If you are unable to get to a sink for soap and water to thoroughly wash your hands, use hand soldering machine feeder. While handwashing is best, hand soldering machine feeder helps to reduce the spread of germs when you are out and about. Have hand soldering machine feeder in several locations so you can always have some on hand ??? think about placing some bottles in your car, your purse, your suitcase, the diaper bag, or even in your coat pocket. Don???t rub, don???t touch! As tempting as it is to rub those scratchy eyes during allergy season or to rub a runny nose, don???t. In fact, if you can, try to avoid touching your face as much as possible, especially with unclean hands. Our eyes, nose, and mouth are easy access points for germs to enter our bodies. When in doubt, don???t go out! If you are feeling under the weather, stay home. If your child is feeling sick, keep them home. It is so important to not only rest when you are starting to get sick or are already under the weather, but also staying home and away from others helps to keep people from also getting sick. Don???t [place] It! Sneezing this time of year is part of life, especially if you suffer from allergies or do have the cold or flu. To help minimize the spread of germs from sneezing or coughing, use a Kleenex or your elbow to protect against rogue spray and to help keep your hands clean. And remember, most people will have a runny nose, coughs and sneezes these days either from seasonal allergies, the cold or the flu, but if you do feel ill or feel like you need some help to feel better, please contact your Primary Care Provider to determine the best course of treatment for you which may include home care for mild cases or making an appointment to be seen to address more moderate needs. To find a PCP near you, please visit HYPERLINK [email or web address]. July 15, 2019 Emergency Medicine Electrical Cardioversion Electrical cardioversion is the delivery of a jolt of electricity to restore a normal rhythm to the heart. A rhythm that is too fast or is not regular keeps the heart from pumping well. In this procedure, sticky patches or metal paddles are placed on the chest to deliver electricity to the heart from a device. This procedure may be done in an emergency if: ??? There is low or no blood pressure as a result of the heart rhythm. ??? Normal rhythm must be restored as fast as possible to protect the brain and heart from further damage. ??? It may save a life. This may also be a scheduled procedure for irregular or fast heart rhythms that are not immediately life-threatening. Tell a health care provider about: ??? Any allergies you have. ??? All medicines you are taking, including vitamins, herbs, eye drops, creams, and fsxv-zvo-kfnszbe medicines. ??? Any problems you or family members have had with anesthetic medicines. ??? Any blood disorders you have. ??? Any surgeries you have had. ??? Any medical conditions you have. ??? Whether you are or may be . What are the risks? Generally, this is a safe procedure. However, problems may occur, including: ??? Allergic reactions to medicines. ??? A blood clot that breaks free and travels to other parts of your body. ??? The possible return of an abnormal heart rhythm within hours or days after the procedure. ??? Your heart stopping (cardiac arrest). This is rare. What happens before the procedure? Medicines ??? Your health care provider may have you start taking: ? Blood-thinning medicines (anticoagulants) so your blood does not clot as easily. ? Medicines to help stabilize your heart rate and rhythm. ??? Ask your health care provider about: ? Changing or stopping your regular medicines. This is especially important if you are taking diabetes medicines or blood thinners. ? Taking medicines such as aspirin and ibuprofen. These medicines can thin your blood. Do not take these medicines unless your health care provider tells you to take them. ? Taking oxle-uqp-xaqrxhx medicines, vitamins, herbs, and supplements. General instructions ??? Follow instructions from your health care provider about eating or drinking restrictions. ??? Plan to have someone take you home from the hospital or clinic. ??? If you will be going home right after the procedure, plan to have someone with you for 24 hours. ??? Ask your health care provider what steps will be taken to help prevent infection. These may include washing your skin with a germ-killing soap. What happens during the procedure? An IV will be inserted into one of your veins. ??? Sticky patches (electrodes) or metal paddles may be placed on your chest. ??? You will be given a medicine to help you relax (sedative). ??? An electrical shock will be delivered. The procedure may vary among health care providers and hospitals. What can I expect after the procedure? Your blood pressure, heart rate, breathing rate, and blood oxygen level will be monitored until you leave the hospital or clinic. ??? Your heart rhythm will be watched to make sure it does not change. ??? You may have some redness on the skin where the shocks were given. Follow these instructions at home: ??? Do not drive for 24 hours if you were given a sedative during your procedure. ??? Take mcql-uje-utalhml and prescription medicines only as told by your health care provider. ??? Ask your health care provider how to check your pulse. Check it often. ??? Rest for 48 hours after the procedure or as told by your health care provider. ??? Avoid or limit your caffeine use as told by your health care provider. ??? Keep all follow-up visits as told by your health care provider. This is important. Contact a health care provider if: ??? You feel like your heart is beating too quickly or your pulse is not regular. ??? You have a serious muscle cramp that does not go away. Get help right away if: ??? You have discomfort in your chest. ??? You are dizzy or you feel faint. ??? You have trouble breathing or you are short of breath. ??? Your speech is slurred. ??? You have trouble moving an arm or leg on one side of your body. ??? Your fingers or toes turn cold or blue. Summary ??? Electrical cardioversion is the delivery of a jolt of electricity to restore a normal rhythm to the heart. ??? This procedure may be done right away in an emergency or may be a scheduled procedure if the condition is not an emergency. ??? Generally, this is a safe procedure. ??? After the procedure, check your pulse often as told by your health care provider. This information is not intended to replace advice given to you by your health care provider. Make sure you discuss any questions you have with your health care provider. Document Revised: 11/28/2019 Document Reviewed: 11/28/2019 [employer] Patient Education ? 2020 [employer] Pharmacology Moderate Conscious Sedation, Adult, Care After These instructions provide you with information about caring for yourself after your procedure. Your health care provider may also give you more specific instructions. Your treatment has been planned according to current medical practices, but problems sometimes occur. Call your health care provider if you have any problems or questions after your procedure. What can I expect after the procedure? After your procedure, it is common: ??? To feel sleepy for several hours. ??? To feel clumsy and have poor balance for several hours. ??? To have poor judgment for several hours. ??? To vomit if you eat too soon. Follow these instructions at home: For at least 24 hours after the procedure: ??? Do not: ? Participate in activities where you could fall or become injured. ? Drive. ? Use heavy machinery. ? Drink alcohol. ? Take sleeping pills or medicines that cause drowsiness. ? Make important decisions or sign legal documents. ? Take care of children on your own. ??? Rest. Eating and drinking ??? Follow the diet recommended by your health care provider. ??? If you vomit: ? Drink water, juice, or soup when you can drink without vomiting. ? Make sure you have little or no nausea before eating solid foods. General instructions ??? Have a responsible adult stay with you until you are awake and alert. ??? Take swvz-huj-khosvmd and prescription medicines only as told by your health care provider. ??? If you smoke, do not smoke without supervision. ??? Keep all follow-up visits as told by your health care provider. This is important. Contact a health care provider if: ??? You keep feeling nauseous or you keep vomiting. ??? You feel light-headed. ??? You develop a rash. ??? You have a fever. Get help right away if: ??? You have trouble breathing. This information is not intended to replace advice given to you by your health care provider. Make sure you discuss any questions you have with your health care provider. Document Revised: 04/09/2018 Document Reviewed: 08/16/2016 [employer] Patient Education ? 2020 [employer]. Electronically signed by Alessandro [facility] Conversion Veterinary Attendant Cerner at 08/24/2022 9:21 AM CDT documented in this encounter Plan of Treatment Not on file documented as of this encounter Visit Diagnoses Not on filedocumented in this encounter Care Teams Power Systems Engineer Relationship Specialty Start Date End Date Lucian Chacko MD [address] [place] [address] PCP - General Family Medicine 05/20/22 12/24/22 Erlin Nash [address] [place] [address] PCP - General 12/25/22 documented as of this encounter
--- OUTSIDE RECORDS SUMMARY | 2024-12-06 09:20 | XMS_ITS | Encounter Summary ---
Author Organization [employer] ([place], [place], [place], [place]) Address [address] [place] [address] Care Team Providers Care Flight Physician Name Role Phone Lucian Chacko MD Primary Care Provider [phone] Erlin Nash Primary Care Provider [phone] Encounter Details Date Type Department Care Team (Late st Contact Info) Description 12/20/2020 Transcribed Document [facility] [place] Family Medicine [facility] [address] [place], [place] [id number] ProviderCarmita MD [address] [place] [id number] Social History Tobacco Use Types Packs/Day Years Used Date Smoking Tobacco: Never Assessed Comments Unknown Sex and Gender Information Value Date Recorded Sex Assigned at Not on file Legal Sex Female 1:32 PM CDT Gender Identity Not on file Sexual Orientation Not on file documented as of this encounter Miscellaneous Notes * Cerner Conversion Note - Carmita Colbert MD - 12/20/2020 8:31 AM CDT Patient: VANDANA QUEEN Age: 75 Years Sex: Female : 1945 External [employer] Erp Technical Lead: Baljinder Perez MD Indication: Persistent symptomatic atrial fibrillation properly anticoagulated with Eliquis on amiodarone Procedure report: After written informed consent was obtained, the patient was brought to the holding area in a fasting state. Defibrillation pads were placed in an anteroposterior fashion. Appropriate sedation was given intravenously incremental doses of fentanyl and midazolam as needed. A 200 J biphasic shock restored normal sinus rhythm with one attempt. Moderate sedation was given and monitored by physician with IV versed and IV fentanyl given. Monitoring time was approximately 15 minutes and patient was hemodynamically stable throughout the procedure. Complications: No immediate complications were observed. Conclusion: Successful cardioversion documented in this encounter Plan of Treatment Not on file documented as of this encounter Visit Diagnoses Not on filedocumented in this encounter Care Teams Flight Physician Relationship Specialty Start Date End Date Lucian Chacko MD [address] [place] [address] PCP - General Family Medicine 05/20/22 12/24/22 Erlin Nash [address] [place] [address] PCP - General 12/25/22 documented as of this encounter
--- OUTSIDE RECORDS SUMMARY | 2024-12-06 09:20 | XMS_ITS | Encounter Summary ---
Author Organization [employer] ([place], [place], [place], [place]) Address [address] [place] [address] Care Team Providers Care Forest Fire Specialist Supervisor Name Role Phone Lucian Chacko MD Primary Care Provider [phone] Erlin Nash Primary Care Provider [phone] Encounter Details Date Type Department Care Team (Late st Contact Info) Description 12/20/2020 Transcribed Document [facility] [place] Family Medicine [address] [place] [address] ProviderCarmita MD [address] [place] [address] Social History Tobacco Use Types Packs/Day Years Used Date Smoking Tobacco: Never Assessed Comments Unknown Sex and Gender Information Value Date Recorded Sex Assigned at Not on file Legal Sex Female 1:32 PM CDT Gender Identity Not on file Sexual Orientation Not on file documented as of this encounter Miscellaneous Notes * Cerner Conversion Note - Historical ProviderMD - 12/20/2020 7:05 AM CDT Spiritual Care Assessment Entered On: 12/20/2020 7:43 EDT Performed On: 12/20/2020 7:14 EDT by FUENTES BYRNE General Information Initial Visit : Yes Referred by : Patient Referral Reason Comment : Pre-procedure visit Ministry Provided to : Patient, Family/Significant other Amish Preference : Alevism FUENTES BYRNE - 12/20/2020 7:43 EDT Spiritual Assessment Spiritual Assessment Comment/Summary Points : Provided pre-procedure visit and prayer. Spirital Assessment Comment/Summary Report : SPIRITUAL ASSESSMENT COMMENT/SUMMARY No qualifying data available. FUENTES BYRNE - 12/20/2020 7:43 EDT Interventions Emotional Support : Empathic/Engaged listening, Family/Significant other supported Spiritual and Amish : Prayer shared, Spiritual/Amish support provided FUENTES BYRNE P - 12/20/2020 7:43 EDT Electronically signed by [facility], [facility] Conversion Specialized Language Instructor Cerner at 08/24/2022 9:32 AM CDT documented in this encounter Plan of Treatment Not on file documented as of this encounter Visit Diagnoses Not on filedocumented in this encounter Care Teams Forest Fire Specialist Supervisor Relationship Specialty Start Date End Date Lucian Chacko MD [address] [place] [address] PCP - General Family Medicine 05/20/22 12/24/22 Erlin Nash [address] [place] [address] PCP - General 12/25/22 documented as of this encounter
--- OUTSIDE RECORDS SUMMARY | 2024-12-06 09:20 | XMS_ITS | Encounter Summary ---
Author Organization [employer] ([place], [place], [place], [place]) Address [address] [place] [address] Care Team Providers Care Director Women Name Role Phone Lucian Chacko MD Primary Care Provider [phone] Erlin Nash Primary Care Provider [phone] Encounter Details Date Type Department Care Team (Late st Contact Info) Description 01/09/2021 Transcribed Document [facility] [place] [address] [place] [address] ProviderCarmita MD [address] [place] [address] Social History Tobacco Use Types Packs/Day Years Used Date Smoking Tobacco: Never Assessed Comments Unknown Sex and Gender Information Value Date Recorded Sex Assigned at Not on file Legal Sex Female 1:32 PM CDT Gender Identity Not on file Sexual Orientation Not on file documented as of this encounter Miscellaneous Notes * Cerner Conversion Note - Historical ProviderMD - 01/09/2021 6:37 AM CDT Spiritual Care Assessment Entered On: 01/09/2021 8:53 EDT Performed On: 01/09/2021 7:11 EDT by FUENTES BYRNE General Information Initial Visit : Yes Referred by : Patient Referral Reason Comment : Pre-procedure visit Ministry Provided to : Patient, Family/Significant other Yazdanism Preference : Faith FUENTES BYRNE - 01/09/2021 8:52 EDT Spiritual Assessment Spiritual Assessment Comment/Summary Points : Provided pre-procedure visit and prayer with patient and daughter. Spirital Assessment Comment/Summary Report : SPIRITUAL ASSESSMENT COMMENT/SUMMARY No qualifying data available. FUENTES BYRNE P - 01/09/2021 8:52 EDT Interventions Emotional Support : Empathic/Engaged listening, Family/Significant other supported Spiritual and Yazdanism : Prayer shared, Spiritual/Yazdanism support provided FUENTES BYRNE P - 01/09/2021 8:52 EDT Electronically signed by [facility], [facility] Conversion Crm Marketing Analyst Cerner at 08/24/2022 9:24 AM CDT documented in this encounter Plan of Treatment Not on file documented as of this encounter Visit Diagnoses Not on filedocumented in this encounter Care Teams Director Women Relationship Specialty Start Date End Date Lucian Chacko MD [address] [place] [address] PCP - General Family Medicine 05/20/22 12/24/22 Erlin Nash [address] [place] [address] PCP - General 12/25/22 documented as of this encounter
--- OUTSIDE RECORDS SUMMARY | 2024-12-06 09:20 | XMS_ITS | Encounter Summary ---
Author Organization [employer] ([place], [place], [place], [place]) Address [address] [place] [address] Care Team Providers Care Jive Developer Name Role Phone Lucian Chacko MD Primary Care Provider [phone] Erlin Nash Primary Care Provider [phone] Encounter Details Date Type Department Care Team (Late st Contact Info) Description 12/20/2020 Transcribed Document [facility] [place] Family Medicine [facility] [place] [address] ProviderCarmita MD [address] [place] [address] Social History Tobacco Use Types Packs/Day Years Used Date Smoking Tobacco: Never Assessed Comments Unknown Sex and Gender Information Value Date Recorded Sex Assigned at Not on file Legal Sex Female 1:32 PM CDT Gender Identity Not on file Sexual Orientation Not on file documented as of this encounter Miscellaneous Notes * Cerner Conversion Note - Carmita ProviderMD - 12/20/2020 9:38 AM CDT [facility] [place] [address] VANDANA QUEEN :1945 Visit Time:12/20/2020 Your Visit Summary Your Care Team Admitting Physician - HALEY SHARP MD-CAR Attending Physician - HALEY SHARP MD-CAR Primary Care Physician - SUNNY RAMOS MD-[facility] Referring Physician - HALEY SHARP MD-CAR Your Diagnosis Other persistent atrial fibrillation, Other persistent atrial fibrillation These Are Your Goals No qualifying data available. Discharge Vitals Temperature 36.3 ??C Heart Rate (Monitored) 68 Respiratory Rate 18 Blood Pressure 114/76 What to do next Instructions From Your Care Team DECREASE AMIODARONE DOSE TO 200 MG PO BID TWICE A DAY Do not drive for 24 hours after the procedure Resume your diet as tolerated Rest and relax today. If your feel your heart racing, skipping, chest pain, dizzy or passing out or other problems, then contact a doctor promptly Follow-Up Appointments Follow Up with HALEY SHARP When 12/28/2020 09:00 AM EDT Comments please make prior to discharge Where: [address] [place] [address] [employer] (1) Medications What How Much When Instructions Next Dose ALPRAZolam 0.25 Milligram(s) Oral At Bedtime amiodarone (amiodarone 200 mg oral tablet) 1 Tablet(s) Oral Three Times A Day CAHNGE TO TWICE A DAY furosemide (furosemide 40 mg oral tablet) 1 Tablet(s) Oral Every Day isosorbide mononitrate (isosorbide mononitrate extended release) 60 Milligram(s) Oral Every Morning levETIRAcetam (levetiracetam) 500 Milligram(s) Oral Two Times A Day metoprolol (metoprolol succinate 100 mg oral capsule, extended release) 0.5 Capsule(s) Oral Every Day montelukast (Singulair) 10 Milligram(s) Oral Every Evening omeprazole (omeprazole 20 mg oral delayed release capsule) 1 Capsule(s) Oral Every Day before a meal potassium chloride (potassium chloride 10 mEq oral capsule, extended release) 1 Capsule(s) Oral Every Day rivaroxaban (Xarelto 15 mg oral tablet) 1 Tablet(s) Oral Every Evening sertraline 50 Milligram(s) Oral Every Day simvastatin 40 Milligram(s) Oral At Bedtime traZODone (traZODone 50 mg oral tablet) 1 Tablet(s) Oral At Bedtime Take your medications faithfully. Do NOT skip medication. Do NOT stop taking medications without the direction of a physician. Carry a list of your medications with you at all times, and take this medication list with you to your first follow up visit. Report any side effects. Avoid herbal remedies unless discussed with your physician. As part of your treatment plan, your physician may have prescribed a limited course of a controlled substance. This medication may be given to help people with moderate or severe pain or for other medical conditions, but there are risks involved with treatment. Common side effects may include nausea, constipation, drowsiness, sweating, itching, dry mouth, and rash. More serious side effects may include cognitive and motor impairment, like problems with thinking, concentrating, alertness, and movement (e.g. slowed reflexes), and driving and operating heavy machinery can be dangerous. It is important for you to talk to your physician if you have these side effects or questions. These controlled substances can produce physical dependence and be habit-forming if taken for an extended period of time, which means that the body has gotten used to them and may experience withdrawal symptoms if they are abruptly stopped. Withdrawal symptoms can include runny nose, sweating, goose bumps, diarrhea, abdominal cramping, rapid heartbeat, difficulty sleeping, and nervousness. Please dispose of unused and medications per your retail pharmacy guidance. Allergies aminophylline (nausea and vomiting, nausea and vomiting) sour cream (asthma attack, asthma attack) Immunizations This Visit No Immunizations Found Education Materials It???s Cold and Flu Season ??? How [...] to thoroughly wash your hands, use hand clothing room supervisor. While handwashing is best, hand clothing room supervisor helps to reduce the spread of germs when you are out and about. Have hand clothing room supervisor in several locations so you can always [...] keep people from also getting sick. Don???t [place] It! Sneezing this time of year is [...] a PCP near you, please visit [employer] [email or web address]. July 15, 2019 Moderate Conscious Sedation, Adult, Care After These [...] you are awake and alert. ??? Take zjwh-qdf-jjwasav and prescription medicines only as told by [...] provider. Document Revised: 04/09/2018 Document Reviewed: 08/16/2016 Elsevier Patient Education ?? 2020 [employer] Electrical Cardioversion Electrical cardioversion is the delivery [...] including vitamins, herbs, eye drops, creams, and iopb-jfg-ywimlxo medicines. ??? Any problems you or family [...] tells you to take them. ? Taking xaev-vxn-mhzuray medicines, vitamins, herbs, and supplements. General instructions [...] a sedative during your procedure. ??? Take lduf-bet-ocupxmr and prescription medicines only as told by [...] provider. Document Revised: 11/28/2019 Document Reviewed: 11/28/2019 Elsevier Patient Education ?? 2020 [employer] Emergency Awareness and Preventative Care STROKE is an EMERGENCY Every Minute Counts Act FAST and Check for these signs: FACE Does the face look uneven? ARM Does one arm drift down? SPEECH Does their speech sound strange? TIME Call at any sign of stroke Stroke Risk Factors Atrial Fibrillation (irregular heartbeat) Diabetes Family history of stroke Heart Disease Heavy alcohol use High Blood Pressure High Cholesterol Physical inactivity and obesity Smoking Cigarette Smoking The facts are clear, cigarette smoking will shorten your life. Smoking can cause many illnesses along the way. As a healthcare provider, we recommend that you stop smoking. Assistance with quitting is available by contacting 1-189-CYPH-NOW. This is a free resource providing counseling, support, and referral. Or you may contact your personal physician. [employer] Suicide Prevention Lifeline: The National Suicide Prevention Lifeline is a national network of local crisis centers that provides free and confidential emotional support to people in suicidal crisis or emotional distress 24 hours a day, 7 days a week. Don't Wait! Stop a Heart Attack Before it Starts What is a heart attack? A heart attack is damage or to a part of the heart from severely decreased or lack of blood flow to the heart. Over time, arteries can become narrow from the buildup of fat and cholesterol, which is called plaque. The plaque can rupture causing a blood clot to form. When the blood clot forms, the artery can become severely narrowed or completely blocked, causing a heart attack. Heart attack is the leading cause of in the [place]. 85% of muscle damage occurs within the first 2 hours. Delay in the recognition of heart attack symptoms increases the chances of . Know the early symptoms of a heart attack: Nausea Feeling of fullness in chest Jaw Pain Pain that travels down one or both arms Fatigue/being tired Anxiety Back Pain Chest pressure, squeezing, or discomfort Shortness of breath Sweating, or a cold sweat Feeling of impending doom There are unusual signs of a heart attack, too! Women, the elderly, and diabetics may present with atypical symptoms: Fainting/dizziness Weakness Confusion Risk Factors for a Heart Attack Some heart disease risk factors, such as age and family history, cannot be changed. Others, like smoking and lack of exercise, can be changed. Smoking High Cholesterol High Blood Pressure Family History Obesity Age Gender (Males are at higher risk) Lack of Exercise Diabetes Diet Stress Excessive Alcohol Intake If you or someone you know is experiencing the signs and symptoms of a heart attack, DON???T DELAY. Call immediately and seek help. If someone collapses, perform CPR! Do not attempt to drive if you are having symptoms of heart attack. Hands-Only CPR Why Hands-Only CPR? Hands-Only CPR has been shown to be as effective as conventional CPR for cardiac arrests that occur outside of a hospital. Survival depends on immediately receiving CPR from someone nearby. How do you perform Hands-Only CPR? There are two easy steps: Call if you see a teen or adult collapse Push hard and fast in the center of the chest at a beat of 100 beats per minute. Save a life! 4 WAYS TO GET AHEAD OF SEPSIS SEPSIS is a MEDICAL EMERGENCY. Time matters! Infections put you and your family at risk for a life-threatening condition called sepsis. Sepsis is the body's extreme response to an infection. It is life-threatening, and without timely treatment, sepsis can rapidly lead to tissue damage, organ failure, and . Sepsis happens when an infection you already have-in your skin, lungs, urinary tract or somewhere else-triggers a chain reaction throughout your body. 1 PREVENT INFECTIONS Take good care of chronic conditions. Talk to your doctor about getting the recommended vaccines. 2 PRACTICE GOOD HYGIENE Wash your hands frequently. Keep cuts or open sores clean and covered until they are healed. 3 KNOW THE SYMPTOMS Confusion or disorientation Shortness of breath High heart rate Fever, shivering, or feeling very cold Extreme pain or discomfort Clammy or sweaty skin 4 ACT FAST Get medical care IMMEDIATELY if you suspect sepsis or if you have an infection that is not getting better or is getting worse. To learn more about sepsis and how to prevent infections, visit www.cdc.gov/sepsis. Test Results Laboratory or Other Results This Visit (last charted value for your 12/20/2020 visit) General Chemistry 12/20/2020 7:08 AM Magnesium Level: 2.2 mg/dL -- Normal range between ( 1.5 and 2.4 ) Patient Name:VANDANA QUEEN I have received and understand this information and was given the opportunity to ask questions. Patient/News Editor Name: Patient/News Editor Signature: Relationship to Patient: Clinician/Hospital News Editor Signature: Date: documented in this encounter Plan of Treatment Not on file documented as of this encounter Visit Diagnoses Not on filedocumented in this encounter Care Teams Jive Developer Relationship Specialty Start Date End Date Lucian Chacko MD [address] [place] [address] PCP - General Family Medicine 05/20/22 12/24/22 Erlin Nash [address] [place] [address] PCP - General 12/25/22 documented as of this encounter
--- OUTSIDE RECORDS SUMMARY | 2024-12-06 09:20 | XMS_ITS | Encounter Summary ---
Author Organization [employer] ([place], [place], [place], [place]) Address [address] [place] [address] Care Team Providers Care Gas Line Servicer Name Role Phone Lucian Chacko MD Primary Care Provider [phone] Erlin Nash Primary Care Provider [phone] Encounter Details Date Type Department Care Team (Late st Contact Info) Description 12/20/2020 Transcribed Document [facility] [place] Family Medicine [facility] [place] [address] ProviderCarmita MD [address] [place], [place] [address] Social History Tobacco Use Types Packs/Day Years Used Date Smoking Tobacco: Never Assessed Comments Unknown Sex and Gender Information Value Date Recorded Sex Assigned at Not on file Legal Sex Female 1:32 PM CDT Gender Identity Not on file Sexual Orientation Not on file documented as of this encounter Miscellaneous Notes * Cerner Conversion Note - Carmita ProviderMD - 12/20/2020 10:16 AM CDT Nursing Discharge Summary Entered On: 12/20/2020 10:17 EDT Performed On: 12/20/2020 10:16 EDT by SHAMEKA CUTLER RN Discharge Documentation Discharge Date/Time : 12/20/2020 10:14 EDT Patient Disposition, General : Discharge Discharge To : Home with ambulatory/outpatient follow-up Mode Of Departure, General Discharge : Wheelchair Accompanied By, Discharge : Daughter IV Discontinued : Yes Personal Belongings With Patient : Yes Prescriptions Given to Patient : No Discharge Instructions Reviewed With, Opportunity For Questions Given : Patient, Daughter Patient Education Completed : Yes Teaching Method : Explanation, Printed materials Teaching Evaluation : Returns demonstration, Verbalizes understanding SHAMEKA CUTLER RN - 12/20/2020 10:16 EDT Electronically signed by [facility] Conversion Laundry Routeman Cerner at 08/24/2022 9:19 AM CDT documented in this encounter Plan of Treatment Not on file documented as of this encounter Visit Diagnoses Not on filedocumented in this encounter Care Teams Gas Line Servicer Relationship Specialty Start Date End Date Lucian Chacko MD [address] [place] [address] PCP - General Family Medicine 05/20/22 12/24/22 Erlin Nash [address] [place] [address] PCP - General 12/25/22 documented as of this encounter
--- OUTSIDE RECORDS SUMMARY | 2024-12-06 09:21 | XMS_ITS | Encounter Summary ---
Author Organization [employer] ([place], [place], [place], [place]) Address [address] [place] [address] Care Team Providers Care Chief Information Security Officer Name Role Phone Lucian Chacko MD Primary Care Provider [phone] Erlin Nash Primary Care Provider [phone] Encounter Details Date Type Department Care Team (Late st Contact Info) Description 08/04/2021 Transcribed Document [facility] Pulm & Critical Care Medicine [address] [place] [address] [address] [place] [address] [place] [address] [address] [place] [address] Social History Tobacco Use Types Packs/Day Years Used Date Smoking Tobacco: Never Assessed Family and Community Support Answer Deepak e Recorded Help with Day to Day Activities Not on file 05/29/2023 Feeling Lonely or Isolated Not on file 05/29 Educational Attainment Answer Date Filipe rded Speak language other than [place]uran at home Not on file 05/29/2023 Want [...] Miscellaneous Notes * Cerner Conversion Note - Roland Veloz MD - 08/04/2021 5:07 PM EDT DATE OF SERVICE: 08/02/2021 DEMOGRAPHIC DATA: Gender: Female. Age: 76. Race: . Height: 60 inches. Weight: 180 pounds. BMI: 35.41. SPIROMETRY: FVC 1.65 L, 72% of predicted; FEV1 1.34 L, 79% of predicted; FEV1/FVC ratio 81%, 109% of predicted. Lung volumes by plethysmography: Total lung capacity 2.99 L, 71% of predicted; vital capacity 1.95 L, 85% of predicted; residual volume 1.05 L, 53% of predicted; RV/TLC ratio 35%, 78% of predicted. Diffusion study: DLCO 10.8, 60% of predicted; DLCO adjusted for lung volume 4.36, 100% of predicted. INTERPRETATION: Spirometry data is acceptable and reproducible for interpretation. Based on ATS criteria, spirometry showed no evidence of obstruction to airflow. Bronchodilator response study was not performed with spirometry. Lung volumes by plethysmography show mild restriction to lung expansion without any air trapping or hyperinflation. Diffusion study showed mild diffusion impairment for carbon monoxide. Please correlate clinically. IMPRESSION: Mild restrictive lung disease with mild diffusion impairment noted during spirometry. /[id number] Roland Veloz MD NB/AQ / DECLAN / MODL /[id number] documented in this encounter Plan of Treatment Not on file documented as of this encounter Visit Diagnoses Not on filedocumented in this encounter Care Teams Chief Information Security Officer Relationship Specialty Start Date End Date Lucian Chacko MD [address] [place] [id number] PCP - General Family Medicine 05/20/22 12/24/22 Erlin Nash [address] [place] [address] PCP - General 12/25/22 documented as of this encounter
--- OUTSIDE RECORDS SUMMARY | 2024-12-06 09:21 | XMS_ITS | Encounter Summary ---
Author Organization [employer] ([place], [place], [place], [place]) Address [address] [place] [address] Care Team Providers Care Personnel Technician Name Role Phone Lucian Chacko MD Primary Care Provider Erlin Nash Primary Care Provider [phone] Encounter Details Date Type Department Care Team (Late st Contact Info) Description 01/10/2021 Transcribed Document [facility] [place] Family Medicine [facility] [place] [address] ProviderCarmita MD [address] [place] [address] Social History Tobacco Use Types Packs/Day Years Used Date Smoking Tobacco: Never Assessed Comments Unknown Sex and Gender Information Value Date Recorded Sex Assigned at Not on file Legal Sex Female 1:32 PM CDT Gender Identity Not on file Sexual Orientation Not on file documented as of this encounter Miscellaneous Notes * Cerner Conversion Note - Carmita ProviderMD - 01/10/2021 12:48 PM CDT [facility] [address] VANDANA QUEEN :1945 Visit Time:01/09/2021 Your Visit Summary Your Care Team Admitting Physician - HALEY PEREZ MD-CAR Attending Physician - HALEY PEREZ MD-CAR Primary Care Physician - SUNNY RAMOS MD-[facility] Referring Physician - NATALIIA, NONE Your Diagnosis Other persistent atrial fibrillation, Other persistent atrial fibrillation These Are Your Goals No qualifying data available. Discharge Vitals Heart Rate 78 What to do next Instructions From Your Care Team Discharge Activity: Discharge Activity: No strenuous activities Diet: Discharge Diet: Resume usual diet as tolerated Wound/Incision Care Instructions: Keep operative site/wound clean and dry Showering/Bathing Instructions: No tub bathing, soaking, or swimming x 3 days Driving Restriction: Do Not Drive 3 days post procedure. Return to Work or School: May return to work in 1 week. Follow-Up Appointments Follow Up with HALEY PEREZ When Within 1 month Comments please make appointment ot see Dr. Perez in one month prior to discharge Where: [address] [facility] [address] Business (1) Medications What How Much When Instructions Next Dose pantoprazole (Protonix 40 mg oral delayed release tablet) 1 Tablet(s) Oral Every Day REPLACES Prilosec (omeprazole) - rx sent to home pharmacy ALPRAZolam 0.25 Milligram(s) Oral At Bedtime amiodarone (amiodarone 200 mg oral tablet) 1 Tablet(s) Oral Two Times A Day furosemide (furosemide 40 mg oral tablet) 1 Tablet(s) Oral Every Day isosorbide mononitrate (isosorbide mononitrate extended release) 60 Milligram(s) Oral At Bedtime levETIRAcetam (levetiracetam) 500 Milligram(s) Oral Two Times A Day montelukast (Singulair) 10 Milligram(s) Oral Every Evening potassium chloride (potassium chloride 10 mEq oral [...] This Visit No Immunizations Found Education Materials Cardiac Ablation, Care After This sheet gives you information about how to care for yourself after your procedure. Your health care provider may also give you more specific instructions. If you have problems or questions, contact your health care provider. What can I expect after the procedure? After the procedure, it is common to have: ??? Bruising around your puncture site. ??? Tenderness around your puncture site. ??? Skipped heartbeats. ??? Tiredness (fatigue). Follow these instructions at home: Puncture site care ??? Follow instructions from your health care provider about how to take care of your puncture site. Make sure you: ? Wash your hands with soap and water before you change your bandage (dressing). If soap and water are not available, use hand rolled oats mill operator. ? Change your dressing as told by your health care provider. ? Leave stitches (sutures), skin glue, or adhesive strips in place. These skin closures may need to stay in place for up to 2 weeks. If adhesive strip edges start to loosen and curl up, you may trim the loose edges. Do not remove adhesive strips completely unless your health care provider tells you to do that. ??? Check your puncture site every day for signs of infection. Check for: ? Redness, swelling, or pain. ? Fluid or blood. If your puncture site starts to bleed, lie down on your back, apply firm pressure to the area, and contact your health care provider. ? Warmth. ? Pus or a bad smell. Driving ??? Ask your health care provider when it is safe for you to drive again after the procedure. ??? Do not drive or use heavy machinery while taking prescription pain medicine. ??? Do not drive for 24 hours if you were given a medicine to help you relax (sedative) during your procedure. Activity ??? Avoid activities that take a lot of effort for at least 3 days after your procedure. ??? Do not lift anything that is heavier than 10 lb (4.5 kg), or the limit that you are told, until your health care provider says that it is safe. ??? Return to your normal activities as told by your health care provider. Ask your health care provider what activities are safe for you. General instructions ??? Take [id number] and prescription medicines only as told by your health care provider. ??? Do not use any products that contain nicotine or tobacco, such as cigarettes and e-cigarettes. If you need help quitting, ask your health care provider. ??? Do not take baths, swim, or use a hot tub until your health care provider approves. ??? Do not drink alcohol for 24 hours after your procedure. ??? Keep all follow-up visits as told by your health care provider. This is important. Contact a health care provider if: ??? You have redness, mild swelling, or pain around your puncture site. ??? You have fluid or blood coming from your puncture site that stops after applying firm pressure to the area. ??? Your puncture site feels warm to the touch. ??? You have pus or a bad smell coming from your puncture site. ??? You have a fever. ??? You have chest pain or discomfort that spreads to your neck, jaw, or arm. ??? You are sweating a lot. ??? You feel nauseous. ??? You have a fast or irregular heartbeat. ??? You have shortness of breath. ??? You are dizzy or light-headed and feel the need to lie down. ??? You have pain or numbness in the arm or leg closest to your puncture site. Get help right away if: ??? Your puncture site suddenly swells. ??? Your puncture site is bleeding and the bleeding does not stop after applying firm pressure to the area. These symptoms may represent a serious problem that is an emergency. Do not wait to see if the symptoms will go away. Get medical help right away. Call your local emergency services (911 in the [place] Do not drive yourself to the hospital. Summary ??? After the procedure, it is normal to have bruising and tenderness at the puncture site in your groin, neck, or forearm. ??? Check your puncture site every day for signs of infection. ??? Get help right away if your puncture site is bleeding and the bleeding does not stop after applying firm pressure to the area. This is a medical emergency. This information is not intended to replace advice given to you by your health care provider. Make sure you discuss any questions you have with your health care provider. Document Revised: 04/09/2018 Document Reviewed: 08/06/2017 [employer] Patient Education ?? 2020 [employer] Cardiac Ablation Cardiac ablation is a procedure to stop some heart tissue from causing problems. The heart has many electrical connections. Sometimes these connections make the heart beat very fast or irregularly. Removing some problem areas can improve the heart rhythm or make it normal. What happens before the procedure? Follow instructions from your doctor about what you cannot eat or drink. ??? Ask your doctor about: ? Changing or stopping your normal medicines. This is important if you take diabetes medicines or blood thinners. ? Taking medicines such as aspirin and ibuprofen. These medicines can thin your blood. Do not take these medicines before your procedure if your doctor tells you not to. ??? Plan to have someone take you home. ??? If you will be going home right after the procedure, plan to have someone with you for 24 hours. What happens during the procedure? To lower your risk of infection: ? Your health care team will wash or sanitize their hands. ? Your skin will be washed with soap. ? Hair may be removed from your neck or groin. ??? An IV tube will be put into one of your veins. ??? You will be given a medicine to help you relax (sedative). ??? Skin on your neck or groin will be numbed. ??? A cut (incision) will be made in your neck or groin. ??? A needle will be put through your cut and into a vein in your neck or groin. ??? A tube (catheter) will be put into the needle. The tube will be moved to your heart. X-rays (fluoroscopy) will be used to help guide the tube. ??? Small devices (electrodes) on the tip of the tube will send out electrical currents. ??? Dye may be put through the tube. This helps your surgeon see your heart. ??? Electrical energy will be used to scar (ablate) some heart tissue. Your surgeon may use: ? Heat (radiofrequency energy). ? Laser energy. ? Extreme cold (cryoablation). ??? The tube will be taken out. ??? Pressure will be held on your cut. This helps stop bleeding. ??? A bandage (dressing) will be put on your cut. The procedure may vary. What happens after the procedure? You will be monitored until your medicines have worn off. ??? Your cut will be watched for bleeding. You will need to lie still for a few hours. ??? Do not drive for 24 hours or as long as your doctor tells you. Summary ??? Cardiac ablation is a procedure to stop some heart tissue from causing problems. ??? Electrical energy will be used to scar (ablate) some heart tissue. This information is not intended to replace advice given to you by your health care provider. Make sure you discuss any questions you have with your health care provider. Document Revised: 04/09/2018 Document Reviewed: 03/16/2017 [employer] Patient Education ?? 2020 [employer] Inc. Emergency Awareness and Preventative Care STROKE [...] Assistance with quitting is available by contacting 1-085-MGFRNOW. This is a free resource providing counseling, support, and referral. Or you may contact your personal physician. [place] Suicide Prevention Lifeline: The National Suicide Prevention [...] CPR? There are two easy steps: Call 9-1-1 if you see a teen or adult [...] This Visit (last charted value for your 01/09/2021 visit) Hematology 01/10/2021 5:48 AM WBC: 8.4 K/uL -- Normal range between ( 4.5 and 10.5 ) RBC: 3.52 Million/uL -- Normal range between ( 3.93 and 5.22 ) Hct: 32.4 % -- Normal range between ( 34.1 and 44.9 ) Hgb: 10.3 g/dL -- Normal range between ( 11.2 and 15.7 ) Platelet Count: 228 K/uL -- Normal range between ( 163 and 369 ) MCH: 29.3 pg -- Normal range between ( 25.6 and 32.2 ) MCHC: 31.8 Gram/dL -- Normal range between ( 32.2 and 36.5 ) MCV: 92.0 fL -- Normal range between ( 79.0 and 94.8 ) Slide Review: No Eos %: 0.9 % -- Normal range between ( 0.0 and 7.0 ) [place] #: 0.84 K/uL -- Normal range between ( 0.16 and 1.00 ) Eos #: 0.08 x10(3)/uL -- Normal range between ( 0.00 and 0.80 ) [place] %: 10.0 % -- Normal range between ( 3.0 and 9.0 ) Baso %: 0.4 % -- Normal range between ( 0.0 and 1.5 ) Baso #: 0.03 x10(3)/uL -- Normal range between ( 0.00 and 0.20 ) RDW: 14.3 % -- Normal range between ( 11.7 and 14.9 ) Neut %: 75.6 % -- Normal range between ( 34.0 and 71.0 ) Neut #: 6.38 K/uL -- Normal range between ( 1.56 and 6.13 ) Lymph %: 12.7 % -- Normal range between ( 19.3 and 53.1 ) Lymph #: 1.07 x10(3)/uL -- Normal range between ( 1.00 and 3.90 ) MPV: 11.1 fL -- Normal range between ( 9.4 and 12.4 ) IG#: 0.03 x10(3)/uL -- Normal range between ( 0.00 and 0.05 ) IG%: 0.40 % -- Normal range between ( 0.00 and 0.60 ) Microbiology 01/09/2021 6:19 AM SARS-CoV-2 (COVID19 PCR): Negative General Chemistry 01/10/2021 5:48 AM Creatinine Level: 1.00 mg/dL -- Normal range between ( 0.55 and 1.02 ) Sodium Level: 136 mmol/L -- Normal range between ( 136 and 146 ) Potassium Level: 4.0 mmol/L -- Normal range between ( 3.5 and 5.1 ) Chloride Level: 103 mmol/L -- Normal range between ( 102 and 112 ) Carbon Dioxide Level: 29 mmol/L -- Normal range between ( 21 and 32 ) Anion Gap: 8 -- Normal range between ( 9 and 20 ) Bun/Creatinine: 11.8 -- Normal range between ( 8.0 and 20.0 ) Calcium Level: 9.0 mg/dL -- Normal range between ( 8.4 and 10.1 ) eGFR : >60 mL/min/1.73m2 eGFR NonAfrican: 54 mL/min/1.73m2 Glucose Level: 140 mg/dL -- Normal range between ( 74 and 106 ) Magnesium Level: 2.0 mg/dL -- Normal range between ( 1.5 and 2.4 ) Blood Urea Nitrogen: 13 mg/dL -- Normal range between ( 7 and 22 ) Coagulation 01/09/2021 1:00 PM ACT POC: 318 Second(s) -- Normal range between ( 74 and 137 ) Echo 01/09/2021 7:44 AM EC Echo Complete: EC Echo Complete Vascular Ultrasound 01/09/2021 8:36 AM VL Vascular Access: VL Vascular Access Patient Name:VANDANA QUEEN Keith I have received and understand this information and was given the opportunity to ask questions. Patient/Glue Spreader Name: Patient/Glue Spreader Signature: Relationship to Patient: Clinician/Hospital Glue Spreader Signature: Date: documented in this encounter Plan of Treatment Not on file documented as of this encounter Visit Diagnoses Not on filedocumented in this encounter Care Teams Personnel Technician Relationship Specialty Start Date End Date Lucian Chacko MD [address] [place] [place] [address] PCP - General Family Medicine 05/20/22 12/24/22 Erlin Nash [address] [place] [address] PCP - General 12/25/22 documented as of this encounter
--- OUTSIDE RECORDS SUMMARY | 2024-12-06 09:21 | XMS_ITS | Encounter Summary ---
Author Organization Healthcare Address [address] [place] [address] Care Team Providers Care Director Of Health Education Name Role Phone Thania Perkins TAPPER SUPERVISOR Primary Care Provider [phone] Encounter Details Date Type Department Care Team ([facility] Contact Info) Description 11/04/2024 Orders Only [facility] [address] [place] [address] Sheridan Bishop CKD (chronic kidney disease) stage 4, GFR 15-29 ml/min (CMS/HCC) (Primary Dx); Vitamin D insufficiency Social History Tobacco Use Types Packs/Day Years Used Date Smoking Tobacco: Never Smokeless Tobacco: Never Alcohol Use Standard Drinks/Week Comments Never 0 (1 standard drink = 0.6 oz pur e alcohol) Comments No Sex and Gender Information Value Date Recorded Sex Assigned at Not on file Legal Sex Female 8:59 PM EDT Gender Identity Not on file Sexual Orientation Not on file documented as of this encounter Plan of Treatment Upcoming Encounters Date Type Department Care Team (Late Contact Info) Description 12/07/2024 1:00 PM EDT Office Visit [facility] Nephrology, Bone & Mineral Metabolism [address] [facility] [place] [address] Benito Acosta MD [address] [place] [address] Scheduled Orders Name Type Priority Associated Diagnoses Orde r Schedule Renal Function Panel, Plasma Lab Routine CKD (chronic kidney disease) stage 4, GFR 15-29 ml/min (CMS/HCC) Expected: 11/04/2024 (Approximate), Expires: 05/06/2026 CBC and Differential Lab Routine CKD (chronic kidney disease) stage 4, GFR 15-29 ml/min ([facility]) Expected: 11/04/2024 (Approximate), Expires: 05/06/2026 Creatinine, Random, Urine Lab Routine CKD (chronic kidney disease) stage 4, GFR 15-29 ml/min ([facility]) Expected: 11/04/2024 (Approximate), Expires: 05/06/2026 Protein, Random, Urine with Creatinine Lab Routine CKD (chronic kidney disease) stage 4, GFR 15-29 ml/min ([facility]) Expected: 11/04/2024 (Approximate), Expires: 05/06/2026 Urinalysis with reflex microscopic (Culture NOT Included) Lab Routine CKD (chronic kidney disease) stage 4, GFR 15-29 ml/min ([facility]) Vitamin D insufficiency Expected: 11/04/2024 (Approximate), Expires: 05/06/2026 PTH Intact Total Lab Routine CKD (chronic kidney disease) stage 4, GFR 15-29 ml/min ([facility]) Vitamin D insufficiency Expected: 11/04/2024 (Approximate), Expires: 05/06/2026 Vitamin D 25 Hydroxy Lab Routine CKD (chronic kidney disease) stage 4, GFR 15-29 ml/min ([facility]) Expected: 11/04/2024 (Approximate), Expires: 05/06/2026 documented as of this encounter Visit Diagnoses Diagnosis CKD (chronic kidney disease) stage 4, GFR 15-29 ml/min ([facility])- Primary Chronic kidney disease, Stage IV (severe) Vitamin D insufficiency documented in this encounter Additional Health Concerns Assessment Noted Time A fall risk assessment has been complete d for the patient 01/06/2022 10:02 AM EDT documented as of this encounter Care Teams Director Of Health Education Relationship Specialty Start Date End Date Thania Perkins APRN [address] [place] [address] PCP - General 09/21/20 documented as of this encounter
--- OUTSIDE RECORDS SUMMARY | 2024-12-06 09:21 | XMS_ITS | Encounter Summary ---
Author Organization [employer] ([place], [place], [place], [place]) Address [address] [place] [address] Care Team Providers Care Corporate Auditor Name Role Phone Lucian Chacko MD Primary Care Provider [phone] Erlin Nash Primary Care Provider [phone] Encounter Details Date Type Department Care Team (Late st Contact Info) Description 01/10/2021 Transcribed Document [place] [facility] [place] [address] ProviderCarmita MD [address] [place] [address] [id number] Social History Tobacco Use Types Packs/Day Years Used Date Smoking Tobacco: Never Assessed Comments Unknown Sex and Gender Information Value Date Recorded Sex Assigned at Not on file Legal Sex Female 1:32 PM CDT Gender Identity Not on file Sexual Orientation Not on file documented as of this encounter Miscellaneous Notes * Cerner Conversion Note - Carmita ProviderMD - 01/10/2021 2:00 AM CDT Financial Processing Clerk Details Entered On: 01/10/2021 4:58 EDT Performed On: 01/10/2021 2:00 EDT by Annamaria Arizmendi RN-PATIENT CARE BEDSIDE NON-EXEMPT Order Details Transport Mode Order Detail : Ambulatory Order Detail : N/A IV Order Detail : 1 Oxygen Order Detail : 1 Nurse Collect Order Detail : 0 Lift/Transfer : Minimal Central Line Order Detail : No Room Service : Appropriate Arterial Line : No Patient Needs Meds Crushed/Liquid : No Alhurani, Annamaria M, RN-PATIENT CARE BEDSIDE NON-EXEMPT - 01/10/2021 4:58 EDT Electronically signed by Alessandro [facility] Conversion Casino Floor Walker Cerner at 08/24/2022 9:18 AM CDT documented in this encounter Plan of Treatment Not on file documented as of this encounter Visit Diagnoses Not on filedocumented in this encounter Care Teams Corporate Auditor Relationship Specialty Start Date End Date Lucian Chacko MD [address] [place] [address] PCP - General Family Medicine 05/20/22 12/24/22 Erlin Nash [address] [place] [address] [place] [address] PCP - General 12/25/22 documented as of this encounter
--- OUTSIDE RECORDS SUMMARY | 2024-12-06 09:21 | XMS_ITS | Encounter Summary ---
Author Organization [employer] ([place], [place], [place], [place]) Address [address] [place] [address] Care Team Providers Care Candy Feeder Name Role Phone Lucian Chacko MD Primary Care Provider [phone] Erlin Nash Primary Care Provider [phone] Encounter Details Date Type Department Care Team (Late st Contact Info) Description 11/25/2021 Transcribed Document [facility] [place] [address] [place] [address] ProviderCarmita MD [address] [place] [address] Social History Tobacco Use Types Packs/Day Years Used Date Smoking Tobacco: Never Assessed Family and Community Support Answer Deepak e Recorded Help with Day to Day Activities Not on file 05/29/2023 Feeling Lonely or Isolated Not on file 05/29 Educational Attainment Answer Date Filipe rded Speak language other than Armenian at home Not on file 05/29/2023 Want [...] [employer]ner Conversion Note - Historical ProviderMD - 11/25/2021 2:17 PM CDT CR Shoulder Comp Min 2 Vws LT Ordered: 11/25/2021 Auth (Verified) Reason for Exam: fall11/25/2021 12:15 11/25/2021 14:17 (SUSANNA MANRIQUE) No further action required documented in this encounter Plan of Treatment Not on file documented as of this encounter Visit Diagnoses Not on filedocumented in this encounter Care Teams Candy Feeder Relationship Specialty Start Date End Date Lucian Chacko MD [address] [place] [address] PCP - General Family Medicine 05/20/22 12/24/22 Erlin Nash [address] [place] [address] [place] [address] PCP - General 12/25/22 documented as of this encounter
--- OUTSIDE RECORDS SUMMARY | 2024-12-06 09:21 | XMS_ITS | Encounter Summary ---
Author Organization [employer] ([place], [place], [place], [place]) Address [address] [place] [address] Care Team Providers Care Manager Center Name Role Phone Lucian Chacko MD Primary Care Provider [phone] Erlin Nash Primary Care Provider [phone] Encounter Details Date Type Department Care Team (Late st Contact Info) Description 01/10/2021 Transcribed Document [facility] [place] Family Medicine [facility] [address] ProviderCarmita MD [address] [place], [place] [id number] Social History Tobacco Use Types Packs/Day Years Used Date Smoking Tobacco: Never Assessed Comments Unknown Sex and Gender Information Value Date Recorded Sex Assigned at Not on file Legal Sex Female 1:32 PM CDT Gender Identity Not on file Sexual Orientation Not on file documented as of this encounter Miscellaneous Notes * Cerner Conversion Note - Carmita ProviderMD - 01/10/2021 12:48 PM CDT Nursing Discharge Summary Entered On: 01/10/2021 12:48 EDT Performed On: 01/10/2021 12:48 EDT by LISA DELONG RN Discharge Documentation Patient Disposition, General : Discharge Discharge To : Other: HOME Mode Of Departure, General Discharge : Private vehicle Accompanied By, Discharge : Spouse IV Discontinued : Yes Prescriptions Given to Patient : Electronically sent Discharge Instructions Reviewed With, Opportunity For Questions Given : Patient, Spouse Patient Education Completed : Yes Teaching Method : Explanation Teaching Evaluation : Verbalizes understanding LISA DELONG RN - 01/10/2021 12:48 EDT Electronically signed by Alessandro [facility] Conversion Type Disk Quality Control Supervisor Cerner at 08/24/2022 9:20 AM CDT documented in this encounter Plan of Treatment Not on file documented as of this encounter Visit Diagnoses Not on filedocumented in this encounter Care Teams Manager Center Relationship Specialty Start Date End Date Lucian Chacko MD [address] [place] [address] PCP - General Family Medicine 05/20/22 12/24/22 Erlin Nash [address] [place] [address] [place] [address] PCP - General 12/25/22 documented as of this encounter
--- OUTSIDE RECORDS SUMMARY | 2024-12-06 09:21 | XMS_ITS | Encounter Summary ---
Author Organization [employer] ([place], [place], [place], [place]) Address [address] [place] [address] Care Team Providers Care Rewards Consultant Name Role Phone Lucian Chacko MD Primary Care Provider [phone] Erlin Nash Primary Care Provider [phone] Encounter Details Date Type Department Care Team (Late st Contact Info) Description 01/10/2021 Transcribed Document [facility] [place] Family Medicine [address] [place] [address] ProviderCarmita MD [address] [place], [place] [id number] Social History Tobacco Use Types Packs/Day Years Used Date Smoking Tobacco: Never Assessed Comments Unknown Sex and Gender Information Value Date Recorded Sex Assigned at Not on file Legal Sex Female 1:32 PM CDT Gender Identity Not on file Sexual Orientation Not on file documented as of this encounter Miscellaneous Notes * Cerner Conversion Note - Historical ProviderMD - 01/10/2021 12:48 PM CDT Stroke/Warfarin Instructions Entered On: 01/10/2021 12:48 EDT Performed On: 01/10/2021 12:48 EDT by LISA DELONG RN Stroke/Warfarin Instructions Stroke/TIA Discharge Ins : N/A Warfarin Discharge Ins : N/A LISA DELONG RN - 01/10/2021 12:48 EDT Electronically signed by Olivia Francois Conversion Building Construction Supervisor Cerner at 08/24/2022 9:23 AM CDT documented in this encounter Plan of Treatment Not on file documented as of this encounter Visit Diagnoses Not on filedocumented in this encounter Care Teams Rewards Consultant Relationship Specialty Start Date End Date Lucian Chacko MD [address] [place] [address] PCP - General Family Medicine 05/20/22 12/24/22 Erlin Nash [address] [place] [address] PCP - General 12/25/22 documented as of this encounter
--- OUTSIDE RECORDS SUMMARY | 2024-12-06 09:21 | XMS_ITS | Encounter Summary ---
Author Organization [employer] ([place], [place], [place], [place]) Address [address] [place] [address] Care Team Providers Care Foam Tank Laminator Name Role Phone Lucian Chacko MD Primary Care Provider [phone] Erlin Nash Primary Care Provider [phone] Encounter Details Date Type Department Care Team (Late st Contact Info) Description 11/25/2021 Transcribed Document [facility] [place] Family Medicine [address] [place] [address] ProviderCarmita MD [address] [place] [address] Social History Tobacco Use Types Packs/Day Years Used Date Smoking Tobacco: Never Assessed Family and Community Support Answer Deepak e Recorded Help with Day to Day Activities Not on file 05/29/2023 Feeling Lonely or Isolated Not on file 05/29 Educational Attainment Answer Date Filipe rded Speak language other than Macedonian at home Not on file 05/29/2023 Want [...] Conversion Note - Carmita ProviderMD - 11/25/2021 2:02 PM CDT ED Discharge Entered On: 11/25/2021 14:02 EDT Performed On: 11/25/2021 14:02 EDT by Annamaria Nuñez RN-PATIENT CARE BEDSIDE NON-EXEMPT Discharge Process Patient Disposition : Discharge Personal Belongings With Patient : Yes Patient Education Completed : Yes Teaching Evaluation : Verbalizes understanding IV Discontinued : Not applicable Nursing Documentation Completed : Yes Annamaria Nuñez RN-PATIENT CARE BEDSIDE NON-EXEMPT - 11/25/2021 14:02 EDT ED Discharge Discharge To : Home with ambulatory/outpatient follow-up Mode Of Departure : Private vehicle Accompanied By : Daughter Prescriptions Given to Patient : No Annamaria Nuñez RN-PATIENT CARE BEDSIDE NON-EXEMPT - 11/25/2021 14:02 EDT Electronically signed by [facility] Conversion Teacher Kindergarten Cerner at 08/24/2022 9:21 AM CDT documented in this encounter Plan of Treatment Not on file documented as of this encounter Visit Diagnoses Not on filedocumented in this encounter Care Teams Foam Tank Laminator Relationship Specialty Start Date End Date Lucian Chacko MD [address] [place] [address] PCP - General Family Medicine 05/20/22 12/24/22 Erlin Nash [address] [place] [address] PCP - General 12/25/22 documented as of this encounter
--- OUTSIDE RECORDS SUMMARY | 2024-12-06 09:21 | XMS_ITS | Continuity of Care Document ---
Author Organization [facility] Address [address] [place] [address] Assessment No assessment recorded. Plan of Treatment Reminders Order Date Submit Date Provider Last Modified By Organization Details Last Modified Time Details Appointments None recorded. Lab renal function panel, serum 2024 025 JOHN [facility], [address], [address], [place], [address], 12:07:48 CBC w/ auto diff 2024 025 JOHN [facility], [address], [place] [address], [place], [address], 5 12:07:47 protein + creatinine panel, urine 2024 025 JOHN [facility], [address], [place] [address], [place], [address], 5 12:07:48 urinalysis complete, reflex culture 2024 025 JOHN [facility], [address], [address], [place], [address], 5 12:07:48 PTH (parathyro id hormone), intact, serum or plasma 2024 025 JOHN [facility], [address], [place] [address], [place], [address], 5 12:07:49 vitamin D, 25-hydroxy , total, serum 2024 [place] [facility], [address], [place] [address], [place], [address], 12:07:49 Referral None recorded. Procedures None recorded. Surgeries None recorded. Imaging XR, ribs, unilateral , w/ PA chest - rt 2024 [facility] ([facility]), [address], [place], [address], 5 16:40:37 XR, hip, unilateral , 2 or 3 view - rt 2024 [facility] ([facility]), [address], [place], [address], 5 16:40:37 XR, lumbosacra l spine, 2 or 3 view 2024 [facility] ([facility]), [address], [place], [address], 5 16:40:37 Medication Orders None recorded. Patient TargetsNo targets recorded. Patient InstructionsNo instructions recorded. Reason for Referral None Reported. Results Created Date Observation Date Name Description Value Unit Range Abnormal Flag Note LastModifiedBy Organization Detail LastModifiedTime 11/05/1911/05/2024 RENAL PANEL (10) glucose 104 mg/dL 70-99 above high normal Not Available [facility] ([facility]) [address] [facility], [place], [address], 11/08/2024 11:07:47 11/05/19 25 11/05/2024 RENAL PANEL (10) BUN 26 mg/dL 8-27 normal Not Available [facility] ([facility]) [address] [facility], [place], [address], 11/08/2024 11:07:47 11/05/19 25 11/05/2024 RENAL PANEL (10) creatinine 2.49 mg/dL 0.57-1 .00 above high normal Not Available [facility] ([facility]) [address] [facility] [place], [address], 11/08/2024 11:07:47 11/05/19 25 11/05/2024 RENAL PANEL (10) eGFR 19 mL/mi n/1.7 3 >59 below low normal Not Available [facility] ([facility]) [address] [place], [address], 11/08/2024 11:07:47 11/05/19 25 11/05/2024 RENAL PANEL (10) BUN/creatini ne ratio 10 12-28 below low normal Not Available [facility] ([facility]) [address] [facility] [place], [address], 11/08/2024 11:07:47 11/05/19 25 11/05/2024 RENAL PANEL (10) sodium 138 mmol/ L 134-14 4 normal Not Available [facility] ([facility]) [address] [facility] [place], [address], 11/08/2024 11:07:47 11/05/19 25 11/05/2024 RENAL PANEL (10) potassium 4.4 mmol/ L 3.5-5. 2 normal Not Available [facility] ([facility]) [address] [facility] [place], [address], 11/08/2024 11:07:47 11/05/19 25 11/05/2024 RENAL PANEL (10) chloride 95 mmol/ L 96-106 below low normal Not Available [facility] ([facility]) [address] [facility] [place], [address], 11/08/2024 11:07:47 11/05/19 25 11/05/2024 RENAL PANEL (10) carbon dioxide, total 26 mmol/ L 20-29 normal Not Available [facility] ([facility]) [address] [place], [address], 11/08/2024 11:07:47 11/05/19 25 11/05/2024 RENAL PANEL (10) calcium 9.5 mg/dL 8.7-10 .3 normal Not Available [facility] ([facility]) [address] [place], [address], 11/08/2024 11:07:47 11/05/19 25 11/05/2024 RENAL PANEL (10) phosphorus 3.5 mg/dL 3.0-4. 3 normal Not Available [facility] ([facility]) [address] [place], [address], 11/08/2024 11:07:47 11/05/19 25 11/05/2024 RENAL PANEL (10) albumin 4.4 g/dL 3.8-4. 8 normal Not Available [facility] ([facility]) [address] [place], [address], 11/08/2024 11:07:47 11/05/19 25 11/05/2024 ALBUM IN/CR EAT RATIO , RANDO M UR creatinine, urine 127.7 mg/dL not estab. normal Not Available [facility] ([facility]) [address] [place], [address], 11/08/2024 11:07:48 11/05/19 25 11/05/2024 ALBUM IN/CR EAT RATIO , RANDO M UR albumin, urine 6.6 ug/mL not estab. Not Available [facility] ([facility]) [address] [place], [address], 11/08/2024 11:07:48 11/05/19 25 11/05/2024 ALBUM IN/CR EAT RATIO , RANDO M UR alb/creat ratio 5 mg/g_ creat 0-29 May l: 0 - 29 Moder ately incre ased: 30 - 300 Sever bossman incre ased: >300 Not Available [facility] ([facility]) [address] [facility], [place], [address], 11/08/2024 11:07:48 11/05/19 25 11/08/2024 NAHOMI GORAN MENDIETA ([facility]), S levetiraceta m, S 46.7 ug/mL 10.0-4 0.0 above high normal Not Available [facility] ([facility]) [address] [facility], [place], [address], 11/08/2024 11:07:48 11/25/19 25 11/25/2024 CBC WITH DIFFE RENTI AL/PL ATELE T WBC 6.1 x10e3 /uL 3.4-10 .8 normal Not Available [facility] ([facility]) [address] [facility], [place], [address], 11/27/2024 15:06:55 11/25/19 25 11/25/2024 CBC WITH DIFFE RENTI AL/PL ATELE T RBC 4.22 x10e6 /uL 3.77-5 .28 normal Not Available [facility] ([facility]) [address] [facility], [place], [address], 11/27/2024 15:06:55 11/25/19 25 11/25/2024 CBC WITH DIFFE RENTI AL/PL ATELE T hemoglobin 13.1 g/dL 11.1-1 5.9 normal Not Available [facility] ([facility]) [address] [place], [address], 11/27/2024 15:06:55 11/25/19 25 11/25/2024 CBC WITH DIFFE RENTI AL/PL ATELE T hematocrit 41.1 % 34.0-4 6.6 normal Not Available [facility] ([facility]) [address] [facility], [place], [address], 11/27/2024 15:06:55 11/25/19 25 11/25/2024 CBC WITH DIFFE RENTI AL/PL ATELE T MCV 97 fL 79-97 normal Not Available [facility] ([facility]) [address] [place], [address], 11/27/2024 15:06:55 11/25/19 25 11/25/2024 CBC WITH DIFFE RENTI AL/PL ATELE T MCH 31.0 pg 26.6-3 3.0 normal Not Available [facility] ([facility]) [address] [place], [address], 11/27/2024 15:06:55 11/25/19 25 11/25/2024 CBC WITH DIFFE RENTI AL/PL ATELE T MCHC 31.9 g/dL 31.5-3 5.7 normal Not Available [facility] ([facility]) [address] [place], [address], 11/27/2024 15:06:55 11/25/19 25 11/25/2024 CBC WITH DIFFE RENTI AL/PL ATELE T RDW 16.1 % 11.7-1 5.4 above high normal Not Available [facility] ([facility]) [address] [place], [address], 11/27/2024 15:06:55 11/25/19 25 11/25/2024 CBC WITH DIFFE RENTI AL/PL ATELE T platelets 227 x10e3 /uL 150-45 0 normal Not Available [facility] ([facility]) [address] [place], [address], 11/27/2024 15:06:55 11/25/19 25 11/25/2024 CBC WITH DIFFE RENTI AL/PL ATELE T neutrophils 68 % not estab. normal Not Available [facility] ([facility]) [address] [place], [address], 11/27/2024 15:06:55 11/25/19 25 11/25/2024 CBC WITH DIFFE RENTI AL/PL ATELE T lymphs 19 % not estab. normal Not Available [facility] ([facility]) [address] [place], [address], 11/27/2024 15:06:55 11/25/19 25 11/25/2024 CBC WITH DIFFE RENTI AL/PL ATELE T monocytes 11 % not estab. normal Not Available [facility] ([facility]) [address] [facility], [place], [address], 11/27/2024 15:06:55 11/25/19 25 11/25/2024 CBC WITH DIFFE RENTI AL/PL ATELE T eos 2 % not estab. normal Not Available [facility] ([facility]) [address] [facility], [place], [address], 11/27/2024 15:06:55 11/25/19 25 11/25/2024 CBC WITH DIFFE RENTI AL/PL ATELE T basos 0 % not estab. normal Not Available [facility] ([facility]) [address] [facility], [place], [address], 11/27/2024 15:06:55 11/25/19 25 11/25/2024 CBC WITH DIFFE RENTI AL/PL ATELE T immature cells GLOBAL CHIEF EXPERIENCE OFFICER Not Available [facility] ([facility]) [address] [place], [address], 11/27/2024 15:06:55 11/25/19 25 11/25/2024 CBC WITH DIFFE RENTI AL/PL ATELE T neutrophils (absolute) 4.1 x10e3 /uL 1.4-7. 0 normal Not Available [facility] ([facility]) [address] [place], [address], 11/27/2024 15:06:55 11/25/19 25 11/25/2024 CBC WITH DIFFE RENTI AL/PL ATELE T lymphs (absolute) 1.2 x10e3 /uL 0.7-3. 1 normal Not Available [facility] ([facility]) [address] [facility], [place], [address], 11/27/2024 15:06:55 11/25/19 25 11/25/2024 CBC WITH DIFFE RENTI AL/PL ATELE T monocytes(ab solute) 0.7 x10e3 /uL 0.1-0. 9 normal Not Available [facility] ([facility]) [address] [facility], [place], [address], 11/27/2024 15:06:55 11/25/19 25 11/25/2024 CBC WITH DIFFE RENTI AL/PL ATELE T eos (absolute) 0.1 x10e3 /uL 0.0-0. 4 normal Not Available [facility] ([facility]) [address] [facility], [place], [address], 11/27/2024 15:06:55 11/25/19 25 11/25/2024 CBC WITH DIFFE RENTI AL/PL ATELE T baso (absolute) 0.0 x10e3 /uL 0.0-0. 2 normal Not Available [facility] ([facility]) [address] [facility], [place], [address], 11/27/2024 15:06:55 11/25/19 25 11/25/2024 CBC WITH DIFFE RENTI AL/PL ATELE T immature granulocytes 0 % not estab. Not Available [facility] ([facility]) [address] [place], [address], 11/27/2024 15:06:55 11/25/19 25 11/25/2024 CBC WITH DIFFE RENTI AL/PL ATELE T immature grans (abs) 0.0 x10e3 /uL 0.0-0. 1 Not Available [facility] ([facility]) [address] [facility], [place], [address], 11/27/2024 15:06:55 11/25/19 25 11/25/2024 CBC WITH DIFFE RENTI AL/PL ATELE T NRBC GLO[employer]IEF EXPERIENCE OFFICER Not Available [facility] ([facility]) [address] [facility], [place], [address], 11/27/2024 15:06:55 11/25/19 25 11/25/2024 CBC WITH DIFFE RENTI AL/PL ATELE T hematology comments: GLOBAL CHIEF EXPERIENCE OFFICER Not Available [facility] ([facility]) [address] [facility], [place], [address], 11/27/2024 15:06:55 11/25/19 25 11/25/2024 UA/M W/RFL X CULTU RE, ROUTI NE specific gravity 1.013 1.005- 1.030 normal Not Available [facility] ([facility]) [address] [facility], [place], [address], 11/27/2024 15:06:56 11/25/19 25 11/25/2024 UA/M W/RFL X CULTU RE, ROUTI NE pH 7.0 5.0-7. 5 normal Not Available [facility] ([facility]) [address] [facility], [place], [address], 11/27/2024 15:06:56 11/25/19 25 11/25/2024 UA/M W/RFL X CULTU RE ROUTI NE urine-color Yellow yellow Not Available [facility] ([facility]) [address] [facility], [place], [address], 11/27/2024 15:06:56 11/25/19 25 11/25/2024 UA/M W/RFL X CULTU RE ROUTI NE appearance Clear clear Not Available [facility] ([facility]) [address] [facility], [place], [address], 11/27/2024 15:06:56 11/25/19 25 11/25/2024 UA/M W/RFL X CULTU RE ROUTI NE WBC esterase Negati ve negati ve Not Available [facility] ([facility]) [address] [place], [address], 11/27/2024 15:06:56 11/25/19 25 11/25/2024 UA/M W/RFL X CULTU RE, ROUTI NE protein Negati ve negati ve/tra ce Not Available [facility] ([facility]) [address] [place], [address], 11/27/2024 15:06:56 11/25/19 25 11/25/2024 UA/M W/RFL X CULTU RE, ROUTI NE glucose 2+ negati ve abnormal Not Available [facility] ([facility]) [address] [place], [address], 11/27/2024 15:06:56 11/25/19 25 11/25/2024 UA/M W/RFL X CULTU RE, ROUTI NE ketones Negati ve negati ve Not Available [facility] ([facility]) [address] [place], [address], 11/27/2024 15:06:56 11/25/19 25 11/25/2024 UA/M W/RFL X CULTU RE, ROUTI NE occult blood Negati ve negati ve Not Available [facility] ([facility]) [address] [place], [address], 11/27/2024 15:06:56 11/25/19 25 11/25/2024 UA/M W/RFL X CULTU RE, ROUTI NE bilirubin Negati ve negati ve Not Available [facility] ([facility]) [address] [place], [address], 11/27/2024 15:06:56 11/25/19 25 11/25/2024 UA/M W/RFL X CULTU RE, ROUTI NE urobilinogen ,semi-qn 0.2 mg/dL 0.2-1. 0 normal Not Available [facility] ([facility]) [address] [place], [address], 11/27/2024 15:06:56 11/25/19 25 11/25/2024 UA/M W/RFL X CULTU RE, ROUTI NE nitrite, urine Negati ve negati ve Not Available [facility] ([facility]) [address] [facility], [place], [address], 11/27/2024 15:06:56 11/25/19 25 11/25/2024 UA/M W/RFL X CULTU RE, ROUTI NE microscopic examination Commen t Micro scopi c follo ws if indic ated. Not Available [facility] ([facility]) [address] [facility], [place], [address], 11/27/2024 15:06:56 11/25/19 25 11/25/2024 UA/M W/RFL X CULTU RE, ROUTI NE microscopic examination See below: Micro scopi c was indic ated and was perfo rmed. Not Available [facility] ([facility]) [address] [facility], [place], [address], 11/27/2024 15:06:56 11/25/19 25 11/25/2024 UA/M W/RFL X CULTU RE, ROUTI NE WBC None seen /hpf 0 - 5 Not Available [facility] ([facility]) [address] [facility], [place], [address], 11/27/2024 15:06:56 11/25/19 25 11/25/2024 UA/M W/RFL X CULTU RE, ROUTI NE RBC None seen /hpf 0 - 2 Not Available [facility] ([facility]) [address] [facility], [place], [address], 11/27/2024 15:06:56 11/25/19 25 11/25/2024 UA/M W/RFL X CULTU RE, ROUTI NE epithelial cells (non renal) 0-10 /hpf 0 - 10 Not Available [facility] ([facility]) [address], [place], [address], 11/27/2024 15:06:56 11/25/19 25 11/25/2024 UA/M W/RFL X CULTU RE, ROUTI NE epithelial cells (renal) GLOBAL CHIEF EXPERIENCE OFFICER Not Available [facility] ([facility]) [address], [place], [address], 11/27/2024 15:06:56 11/25/19 25 11/25/2024 UA/M W/RFL X CULTU RE, ROUTI NE casts None seen /lpf none seen Not Available [facility] ([facility]) [address] [facility], [place], [address], 11/27/2024 15:06:56 11/25/19 25 11/25/2024 UA/M W/RFL X CULTU RE, ROUTI NE cast type GLOBAL CHIEF EXPERIENCE OFFICER Not Available [facility] ([facility]) [address] [facility], [place], [address], 11/27/2024 15:06:56 11/25/19 25 11/25/2024 UA/M W/RFL X CULTU RE, ROUTI NE crystals GLOBAL CHIEF EXPERIENCE OFFICER Not Available [facility] ([facility]) [address] [facility], [place], [address], 11/27/2024 15:06:56 11/25/19 25 11/25/2024 UA/M W/RFL X CULTU RE, ROUTI NE crystal type GLOBAL CHIEF EXPERIENCE OFFICER Not Available [facility] ([facility]) [address] [facility], [place], [address], 11/27/2024 15:06:56 11/25/19 25 11/25/2024 UA/M W/RFL X CULTU RE, ROUTI NE mucus threads GLOBAL CHIEF EXPERIENCE OFFICER Not Available [facility] ([facility]) [address] [facility], [place], [address], 11/27/2024 15:06:56 11/25/19 25 11/25/2024 UA/M W/RFL X CULTU RE, ROUTI NE bacteria None seen none seen/f ew Not Available [facility] ([facility]) [address] [facility], [place], [address], 11/27/2024 15:06:56 11/25/19 25 11/25/2024 UA/M W/RFL X CULTU RE, ROUTI NE yeast GLOBAL CHIEF EXPERIENCE OFFICER Not Available [facility] ([facility]) [address] [facility], [place], [address], 11/27/2024 15:06:56 11/25/19 25 11/25/2024 UA/M W/RFL X CULTU RE, ROUTI NE trichomonas GLOBAL CHIEF EXPERIENCE OFFICER Not Available [facility] ([facility]) [address] [facility], [place], [address], 11/27/2024 15:06:56 11/25/19 25 11/25/2024 UA/M W/RFL X CULTU RE, ROUTI NE comment GLOBAL CHIEF EXPERIENCE OFFICER Not Available [facility] ([facility]) [address] [place], [address], 11/27/2024 15:06:56 11/25/19 25 11/25/2024 UA/M W/RFL X CULTU RE, ROUTI NE urinalysis reflex Commen t This speci men will not refle x to a Urine Cultu re. Not Available [facility] ([facility]) [address] [facility], [place], [address], 11/27/2024 15:06:56 11/25/19 25 11/25/2024 RENAL PANEL (10) glucose 88 mg/dL 70-99 normal Not Available [facility] ([facility]) [address] [place], [address], 11/27/2024 15:06:57 11/25/19 25 11/25/2024 RENAL PANEL (10) BUN 19 mg/dL 8-27 normal Not Available [facility] ([facility]) [address] [place], [address], 11/27/2024 15:06:57 11/25/19 25 11/25/2024 RENAL PANEL (10) creatinine 1.82 mg/dL 0.57-1 .00 above high normal Not Available [facility] ([facility]) [address] [place], [address], 11/27/2024 15:06:57 11/25/19 25 11/25/2024 RENAL PANEL (10) eGFR 28 mL/mi n/1.7 3 >59 below low normal Not Available [facility] ([facility]) [address] [place], [address], 11/27/2024 15:06:57 11/25/19 25 11/25/2024 RENAL PANEL (10) BUN/creatini ne ratio 10 12-28 below low normal Not Available [facility] ([facility]) [address] [place], [address], 11/27/2024 15:06:57 11/25/19 25 11/25/2024 RENAL PANEL (10) sodium 139 mmol/ L 134-14 4 normal Not Available [facility] ([facility]) [address] [place], [address], 11/27/2024 15:06:57 11/25/19 25 11/25/2024 RENAL PANEL (10) potassium 4.7 mmol/ L 3.5-5. 2 normal Not Available [facility] ([facility]) [address] [place], [address], 11/27/2024 15:06:57 11/25/19 25 11/25/2024 RENAL PANEL (10) chloride 98 mmol/ L 96-106 normal Not Available [facility] ([facility]) [address] [place], [address], 11/27/2024 15:06:57 11/25/19 25 11/25/2024 RENAL PANEL (10) carbon dioxide, total 27 mmol/ L 20-29 normal Not Available [facility] ([facility]) [address] [facility] [place], [address], 11/27/2024 15:06:57 11/25/19 25 11/25/2024 RENAL PANEL (10) calcium 9.4 mg/dL 8.7-10 .3 normal Not Available [facility] ([facility]) [address] [facility], [place], [address], 11/27/2024 15:06:57 11/25/19 25 11/25/2024 RENAL PANEL (10) phosphorus 3.1 mg/dL 3.0-4. 3 normal Not Available [facility] ([facility]) [address] [facility], [place], [address], 11/27/2024 15:06:57 11/25/19 25 11/25/2024 RENAL PANEL (10) albumin 4.3 g/dL 3.8-4. 8 normal Not Available [facility] ([facility]) [address] [facility], [place], [address], 11/27/2024 15:06:57 11/25/19 25 11/25/2024 PROT+ CREAT U (RAND OM) creatinine, urine 31.2 mg/dL not estab. normal Not Available [facility] ([facility]) [address] [facility], [place], [address], 11/27/2024 15:06:57 11/25/19 25 11/25/2024 PROT+ CREAT U (RAND OM) protein,tota l,urine <4.0 mg/dL not estab. Nolberto ified by sami castro sis Not Available [facility] ([facility]) [address] [facility], [place], [address], 11/27/2024 15:06:57 11/25/19 25 11/25/2024 PROT+ CREAT U (RAND ) protein/crea t ratio Commen t mg/g_ creat 0-200 abnormal This resul t is below the assay 's limit of quant itati on indic ating a dilut e speci men, poten tiall y due to diurn al varia tion. Consi ralph recol lecti on at a time likel y to provi de a more silvia ntrat ed urine . Not Available [facility] ([facility]) [address] [facility], [place], [address], 11/27/2024 15:06:57 11/25/19 25 11/25/2024 VITAM IN [...] Endoc rine Socie ty went on to furth er defin e vitam in D insuf ficie ncy as a level betwe en 21 and 29 ng/mL (2). 1. IOM (Inst itute of Medic ine). 2009. Dieta ry refer ence intak es for calci um and D. Jesse mccarthy [place]: [facility] . 2. Ro gloria [place], Ginny escobar [place], Bety off-F errar i COLEY, et al. Evalu ation , treat ment, and preve ntion of vitam in D defic iency : an Endoc rine Socie ty clini rodrick pract ice guide line. JCEM. 2010; 96(7) :1911 -30. Not Available [facility] ([facility]) [address] [facility], [place], [address], 11/27/2024 15:06:58 11/25/19 25 11/27/2024 PTH, INTAC T PTH, intact 52 pg/mL 15-65 normal Not Available [facility] ([facility]) [address] [facility], [place], [address], 11/27/2024 15:06:58 12/02/1912/02/2024 CBC WITH DIFFE RENTI AL/PL ATELE T WBC 5.9 x10e3 /uL 3.4-10 .8 normal Not Available [facility] ([facility]) [address] [facility], [place], [address], 12/02/2024 12:07:47 12/02/1912/02/2024 CBC WITH DIFFE RENTI AL/PL ATELE T RBC 4.06 x10e6 /uL 3.77-5 .28 normal Not Available [facility] ([facility]) [address] [place], [address], 12/02/2024 12:07:47 12/02/1912/02/2024 CBC WITH DIFFE RENTI AL/PL ATELE T hemoglobin 12.7 g/dL 11.1-1 5.9 normal Not Available [facility] ([facility]) [address] [place], [address], 12/02/2024 12:07:47 12/02/1912/02/2024 CBC WITH DIFFE RENTI AL/PL ATELE T hematocrit 41.0 % 34.0-4 6.6 normal Not Available [facility] ([facility]) [address] [place], [address], 12/02/2024 12:07:47 12/02/1912/02/2024 CBC WITH DIFFE RENTI AL/PL ATELE T MCV 101 fL 79-97 above high normal Not Available [facility] ([facility]) [address] [place], [address], 12/02/2024 12:07:47 12/02/19 25 12/02/2024 CBC WITH DIFFE RENTI AL/PL ATELE T MCH 31.3 pg 26.6-3 3.0 normal Not Available [facility] ([facility]) [address] [facility], [place], [address], 12/02/2024 12:07:47 12/02/1912/02/2024 CBC WITH DIFFE RENTI AL/PL ATELE T MCHC 31.0 g/dL 31.5-3 5.7 below low normal Not Available [facility] ([facility]) [address] [facility], [place], [address], 12/02/2024 12:07:47 12/02/1912/02/2024 CBC WITH DIFFE RENTI AL/PL ATELE T RDW 16.0 % 11.7-1 5.4 above high normal Not Available [facility] ([facility]) [address] [facility], [place], [address], 12/02/2024 12:07:47 12/02/19 25 12/02/2024 CBC WITH DIFFE RENTI AL/PL ATELE T platelets 242 x10e3 /uL 150-45 0 normal Not Available [facility] ([facility]) [address] [facility], [place], [address], 12/02/2024 12:07:47 12/02/19 25 12/02/2024 CBC WITH DIFFE RENTI AL/PL ATELE T neutrophils 72 % not estab. normal Not Available [facility] ([facility]) [address] [place], [address], 12/02/2024 12:07:47 12/02/19 25 12/02/2024 CBC WITH DIFFE RENTI AL/PL ATELE T lymphs 16 % not estab. normal Not Available [facility] ([facility]) [address] [place], [address], 12/02/2024 12:07:47 12/02/19 25 12/02/2024 CBC WITH DIFFE RENTI AL/PL ATELE T monocytes 9 % not estab. normal Not Available [facility] ([facility]) [address] [place], [address], 12/02/2024 12:07:47 12/02/19 25 12/02/2024 CBC WITH DIFFE RENTI AL/PL ATELE T eos 2 % not estab. normal Not Available [facility] ([facility]) [address] [place], [address], 12/02/2024 12:07:47 12/02/1912/02/2024 CBC WITH DIFFE RENTI AL/PL ATELE T basos 1 % not estab. normal Not Available [facility] ([facility]) [address] [place], [address], 12/02/2024 12:07:47 12/02/19 25 12/02/2024 CBC WITH DIFFE RENTI AL/PL ATELE T immature cells [employer] Not Available [facility] ([facility]) [address] [place], [address], 12/02/2024 12:07:47 12/02/19 25 12/02/2024 CBC WITH DIFFE RENTI AL/PL ATELE T neutrophils (absolute) 4.3 x10e3 /uL 1.4-7. 0 normal Not Available [facility] ([facility]) [address] [place], [address], 12/02/2024 12:07:47 12/02/19 25 12/02/2024 CBC WITH DIFFE RENTI AL/PL ATELE T lymphs (absolute) 0.9 x10e3 /uL 0.7-3. 1 normal Not Available [facility] ([facility]) [address] [place], [address], 12/02/2024 12:07:47 12/02/19 25 12/02/2024 CBC WITH DIFFE RENTI AL/PL ATELE T monocytes(ab solute) 0.5 x10e3 /uL 0.1-0. 9 normal Not Available [facility] ([facility]) [address] [place], [address], 12/02/2024 12:07:47 12/02/19 25 12/02/2024 CBC WITH DIFFE RENTI AL/PL ATELE T eos (absolute) 0.1 x10e3 /uL 0.0-0. 4 normal Not Available [facility] ([facility]) [address] [facility], [place], [address], 12/02/2024 12:07:47 12/02/19 25 12/02/2024 CBC WITH DIFFE RENTI AL/PL ATELE T baso (absolute) 0.0 x10e3 /uL 0.0-0. 2 normal Not Available [facility] ([facility]) [address] [facility], [place], [address], 12/02/2024 12:07:47 12/02/19 25 12/02/2024 CBC WITH DIFFE RENTI AL/PL ATELE T immature granulocytes 0 % not estab. Not Available [facility] ([facility]) [address] [facility], [place], [address], 12/02/2024 12:07:47 12/02/1912/02/2024 CBC WITH DIFFE RENTI AL/PL ATELE T immature grans (abs) 0.0 x10e3 /uL 0.0-0. 1 Not Available [facility] ([facility]) [address] [place], [address], 12/02/2024 12:07:47 12/02/1912/02/2024 CBC WITH DIFFE RENTI AL/PL ATELE T NRBC GLOBAL CHIEF EXPERIENCE OFFICER Not Available [facility] ([facility]) [address] [place], [address], 12/02/2024 12:07:47 12/02/19 25 12/02/2024 CBC WITH DIFFE RENTI AL/PL ATELE T hematology comments: GLOBAL CHIEF EXPERIENCE OFFICER Not Available [facility] ([facility]) [address] [place], [address], 12/02/2024 12:07:47 12/02/1912/02/2024 UA/M W/RFL X CULTU RE, ROUTI NE specific gravity 1.023 1.005- 1.030 normal Not Available [facility] ([facility]) [address] [place], [address], 12/02/2024 12:07:48 12/02/1912/02/2024 UA/M W/RFL X CULTU RE, ROUTI NE pH 6.0 5.0-7. 5 normal Not Available [facility] ([facility]) [address] [facility], [place], [address], 12/02/2024 12:07:48 12/02/1912/02/2024 UA/M W/RFL X CULTU RE, ROUTI NE urine-color Yellow yellow Not Available [facility] ([facility]) [address] [facility], [place], [address], 12/02/2024 12:07:48 12/02/1912/02/2024 UA/M W/RFL X CULTU RE, ROUTI NE appearance Clear clear Not Available [facility] ([facility]) [address] [place], [address], 12/02/2024 12:07:48 12/02/1912/02/2024 UA/M W/RFL X CULTU RE ROUTI NE WBC esterase Negati ve negati ve Not Available [facility] ([facility]) [address] [place], [address], 12/02/2024 12:07:48 12/02/1912/02/2024 UA/M W/RFL X CULTU RE, ROUTI NE protein Negati ve negati ve/tra ce Not Available [facility] ([facility]) [address] [place], [address], 12/02/2024 12:07:48 12/02/1912/02/2024 UA/M W/RFL X CULTU RE, ROUTI NE glucose 3+ negati ve abnormal Not Available [facility] ([facility]) [address] [place], [address], 12/02/2024 12:07:48 12/02/1912/02/2024 UA/M W/RFL X CULTU RE, ROUTI NE ketones Negati ve negati ve Not Available [facility] ([facility]) [address] [place], [address], 12/02/2024 12:07:48 12/02/1912/02/2024 UA/M W/RFL X CULTU RE, ROUTI NE occult blood Negati ve negati ve Not Available [facility] ([facility]) [address] [place], [address], 12/02/2024 12:07:48 12/02/1912/02/2024 UA/M W/RFL X CULTU RE, ROUTI NE bilirubin Negati ve negati ve Not Available [facility] ([facility]) [address] [place], [address], 12/02/2024 12:07:48 12/02/1912/02/2024 UA/M W/RFL X CULTU RE, ROUTI NE urobilinogen ,semi-qn 0.2 mg/dL 0.2-1. 0 normal Not Available [facility] ([facility]) [address] [place], [address], 12/02/2024 12:07:48 12/02/1912/02/2024 UA/M W/RFL X CULTU RE, ROUTI NE nitrite, urine Negati ve negati ve Not Available [facility] ([facility]) [address] [place], [address], 12/02/2024 12:07:48 12/02/19 25 12/02/2024 UA/M W/RFL X CULTU RE, ROUTI NE microscopic examination Commen t Micro scopi c follo ws if indic ated. Not Available [facility] ([facility]) [address] [facility], [place], [address], 12/02/2024 12:07:48 12/02/1912/02/2024 UA/M W/RFL X CULTU RE, ROUTI NE microscopic examination See below: Micro scopi c was indic ated and was perfo rmed. Not Available [facility] ([facility]) [address] [facility], [place], [address], 12/02/2024 12:07:48 12/02/19 25 12/02/2024 UA/M W/RFL X CULTU RE, ROUTI NE WBC 0-5 /hpf 0 - 5 Not Available [facility] ([facility]) [address] [facility], [place], [address], 12/02/2024 12:07:48 12/02/19 25 12/02/2024 UA/M W/RFL X CULTU RE, ROUTI NE RBC None seen /hpf 0 - 2 Not Available [facility] ([facility]) [address] [facility], [place], [address], 12/02/2024 12:07:48 12/02/19 25 12/02/2024 UA/M W/RFL X CULTU RE, ROUTI NE epithelial cells (non renal) >10 /hpf 0 - 10 abnormal Not Available [facility] ([facility]) [address] [facility], [place], [address], 12/02/2024 12:07:48 12/02/19 25 12/02/2024 UA/M W/RFL X CULTU RE, ROUTI NE epithelial cells (renal) GLOBAL CHIEF EXPERIENCE OFFICER Not Available [facility] ([facility]) [address] [facility], [place], [address], 12/02/2024 12:07:48 12/02/19 25 12/02/2024 UA/M W/RFL X CULTU RE, ROUTI NE casts None seen /lpf none seen Not Available [facility] ([facility]) [address] [facility], [place], [address], 12/02/2024 12:07:48 12/02/1912/02/2024 UA/M W/RFL X CULTU RE, ROUTI NE cast type GLOBAL CHIEF EXPERIENCE OFFICER Not Available [facility] ([facility]) [address] [facility], [place], [address], 12/02/2024 12:07:48 12/02/1912/02/2024 UA/M W/RFL X CULTU RE, ROUTI NE crystals GLOBAL CHIEF EXPERIENCE OFFICER Not Available [facility] ([facility]) [address] [facility], [place], [address], 12/02/2024 12:07:48 12/02/19 25 12/02/2024 UA/M W/RFL X CULTU RE, ROUTI NE crystal type GLOBAL CHIEF EXPERIENCE OFFICER Not Available [facility] ([facility]) [address] [facility], [place], [address], 12/02/2024 12:07:48 12/02/19 25 12/02/2024 UA/M W/RFL X CULTU RE, ROUTI NE mucus threads GLOBAL CHIEF EXPERIENCE OFFICER Not Available [facility] ([facility]) [address] [facility], [place], [address], 12/02/2024 12:07:48 12/02/1912/02/2024 UA/M W/RFL X CULTU RE, ROUTI NE bacteria None seen none seen/f ew Not Available [facility] ([facility]) [address] [facility], [place], [address], 12/02/2024 12:07:48 12/02/19 25 12/02/2024 UA/M W/RFL X CULTU RE, ROUTI NE yeast GLOBAL CHIEF EXPERIENCE OFFICER Not Available [facility] ([facility]) [address] [facility], [place], [address], 12/02/2024 12:07:48 12/02/19 25 12/02/2024 UA/M W/RFL X CULTU RE, ROUTIrene NE trichomonas GLOBAL CHIEF EXPERIENCE OFFICER Not Available [facility] ([facility]) [address] [facility], [place], [address], 12/02/2024 12:07:48 12/02/19 25 12/02/2024 UA/M W/RFL X CULTU RE, ROUTI NE comment GLOBAL CHIEF EXPERIENCE OFFICER Not Available [facility] ([facility]) [address] [facility], [place], [address], 12/02/2024 12:07:48 12/02/19 25 12/02/2024 UA/M W/RFL X CULTU RE, TANA NE urinalysis reflex Commen t This speci men will not refle x to a Urine Cultu re. Not Available [facility] ([facility]) [address] [place], [address], 12/02/2024 12:07:48 12/02/19 25 12/02/2024 RENAL PANEL (10) glucose 181 mg/dL 70-99 above high normal Not Available [facility] ([facility]) [address] [place], [address], 12/02/2024 12:07:48 12/02/19 25 12/02/2024 RENAL PANEL (10) BUN 32 mg/dL 8-27 above high normal Not Available [facility] ([facility]) [address] [place], [address], 12/02/2024 12:07:48 12/02/19 25 12/02/2024 RENAL PANEL (10) creatinine 1.81 mg/dL 0.57-1 .00 above high normal Not Available [facility] ([facility]) [address] [place], [address], 12/02/2024 12:07:48 12/02/19 25 12/02/2024 RENAL PANEL (10) eGFR 28 mL/mi n/1.7 3 >59 below low normal Not Available [facility] ([facility]) [address] [facility] [place], [address], 12/02/2024 12:07:48 12/02/19 25 12/02/2024 RENAL PANEL (10) BUN/creatini ne ratio 18 12-28 normal Not Available [facility] ([facility]) [address] [facility] [place], [address], 12/02/2024 12:07:48 12/02/1912/02/2024 RENAL PANEL (10) sodium 137 mmol/ L 134-14 4 normal Not Available [facility] ([facility]) [address] [facility] [place], [address], 12/02/2024 12:07:48 12/02/19 25 12/02/2024 RENAL PANEL (10) potassium 4.2 mmol/ L 3.5-5. 2 normal Not Available [facility] ([facility]) [address] [facility] [place], [address], 12/02/2024 12:07:48 12/02/19 25 12/02/2024 RENAL PANEL (10) chloride 96 mmol/ L 96-106 normal Not Available [facility] ([facility]) [address] [facility] [place], [address], 12/02/2024 12:07:48 12/02/19 25 12/02/2024 RENAL PANEL (10) carbon dioxide, total 23 mmol/ L 20-29 normal Not Available [facility] ([facility]) [address] [facility] [place], [address], 12/02/2024 12:07:48 12/02/19 25 12/02/2024 RENAL PANEL (10) calcium 9.6 mg/dL 8.7-10 .3 normal Not Available [facility] ([facility]) [address] [facility] [place], [address], 12/02/2024 12:07:48 12/02/19 25 12/02/2024 RENAL PANEL (10) phosphorus 3.7 mg/dL 3.0-4. 3 normal Not Available [facility] ([facility]) [address] [facility] [place], [address], 12/02/2024 12:07:48 12/02/19 25 12/02/2024 RENAL PANEL (10) albumin 4.3 g/dL 3.8-4. 8 normal Not Available [facility] ([facility]) [address] [place] [place], [address], 12/02/2024 12:07:48 12/02/19 25 12/02/2024 PROT+ CREAT U (RAND OM) creatinine, urine 78.8 mg/dL not estab. normal Not Available [facility] ([facility]) [address] [facility] [place], [address], 12/02/2024 12:07:48 12/02/1912/02/2024 PROT+ CREAT U (RAND OM) protein,tota l,urine 15.7 mg/dL not estab. normal Not Available [facility] ([facility]) [address] [facility] [place], [address], 12/02/2024 12:07:48 12/02/19 25 12/02/2024 PROT+ CREAT U (RAND OM) protein/crea t ratio 199 mg/g_ creat 0-200 Not Available [facility] ([facility]) [address] [place] [place], [address], 12/02/2024 12:07:48 12/02/19 25 12/02/2024 VITAM IN D, 25-HY DROXY vitamin D, 25-hydroxy 84.9 NG/mL 30.0-1 00.0 Vitam in D defic iency has been defin ed by the Insti tute of Medic ine and an Endoc rine Socie ty pract ice guide line as a level of serum 25-OH vitam in D less than 20 ng/mL (1,2) . The Endoc rine Socie ty went on to furth er defin e vitam in D insuf ficie ncy as a level betwe en 21 and 29 ng/mL (2). 1. IOM (Inst itute of Medic ine). 2009. Dieta ry refer ence intak es for calci um and D. Jesse mccarthy [place]: The [facility] Press . 2. Ro gloria MF, Ginny escobar [place], Bety off-F errar i COLEY, et al. Evalu ation , treat ment, and preve ntion of vitam in D defic iency : an Endoc rine Socie ty clini rodrick pract ice guide line. JCEM. 2010; 96(7) :1911 -30. Not Available [facility] ([facility]) [address] [place], [address], 12/02/2024 12:07:49 12/02/19 25 12/02/2024 PTH, INTAC T PTH, intact 59 pg/mL 15-65 normal Not Available [facility] ([facility]) [address] [place], [address], 12/02/2024 12:07:49 12/02/19 25 12/02/2024 PLEAS E NOTE please note Commen t The date and/o r time of colle ction was not indic ated on the requi sitio n as requi red by state and [place] law. The date of recei pt of the speci men was used as the colle ction date if not suppl ied. Not Available [facility] ([facility]) [address] [place], [address], 12/02/2024 12:07:50 Result Notes None recorded. Problems Name Problem SNOMED Code Status Onset Date Resolution Date Notes Provider Name and Address Organization Details Recorded Time Atrial fibrillation 29745786 Active Myla Stears null, [place] - [facility] 17:56:54 Seizure 14357411 Active Myla Stears null, [place] - [facility] 17:56:54 Hypertensive disorder 90464219 Active Myla Stears null, [place] - [facility] 17:56:54 Anxiety 22867678 Active Myla Stears null, [place] - [facility] 17:56:54 Congestive heart failure 60026751 Active 2022 Myla Stears null, [place] - [facility] 17:56:54 Type 2 diabetes mellitus 45268332 Active 2023 Myla Stears null, [place] - [facility] 17:56:54 Problem Notes None recorded. Procedures Surgical History Date Name Laterality Status Provider Name and Address Organization Details Recorded Time 03/29/20 Medication Reconcilliation completed Nella Jorge [place] - [facility] 03/29/2024 14:51:30 06/26/19 Advance Care Planning completed Nella Jorge [place] - [facility] 06/26/2023 10:20:19 06/26/19 24 Functional Status Assessed completed Nella Jorge [place] - [facility] 06/26/2023 10:20:19 06/02/19 24 Medication Reconcilliation completed Nella Jorge [place] - [facility] 06/02/2023 10:56:40 01/06/20 Appl. Splint - Forearm to Hand completed Erlin Nash, GRADUATING MACHINE OPERATOR [address] [facility], [place], [address] [place] - [facility] 01/05/2023 13:15:42 01/06/20 Medication Reconcilliation completed Nella Jorge [place] - [facility] 01/05/2023 11:09:44 Hysterectomy completed Nella Jorge [place] - [facility] 10/20/2022 11:55:41 cholecystectomy completed Nella Jorge [place] - [facility] 10/20/2022 11:55:47 colonoscopy completed Myla [...] height Body mass index (BMI) Body weight Body temperature Pain severity - 0-10 verbal numeric rating [Score] - Reported Respiratory rate Heart rate Oxygen saturation Oxygen saturation in Arterial blood by Pulse oximetry Systolic And Diastolic Provider Name and Address Organization Details Last Updated DateTime 5 152.4 cm 28.5 kg/m2 23097.4 9 g 97 [degF] 6 16 /min 68 /min 96 % 96 % 122/80 mm[Hg] Nella Jorge [place] - [facility] 5 15:47:07 Social History Question Answer Notes LastModified by [...] Or The Highest Degree You Have Received? IF31245-2 Information not available 07/13/2023 Have There Been Any Changes To Your Family Or Social Situation? No Information no t available 10/20/2022 What Is The Fluoride Status Of Your Home? Fluoridated Information not available 10/20/2022 Have You Recently Or Are You Planning To Travel To An Area With Zika Virus? No Information not available 10/20/2022 Do You Have A Medical Power Of Pastry Cook? Yes Information not available 10/20/2022 What Was [...] anxious, or unable to sleep at night)? [id number] Information not available 10/20/2022 Do you have [...] Influenza, high-dose, quadrivalent, PF 3 completed Erlin Nash APRN [address], [place], [address], [place] - [facility] 03/27/2023 15:16:51 COVID-19, mRNA, LNP-S, PF, 30 mcg/0.3 mL dose 1 completed Not Available [facility] 12/25/2022 11:38:53 COVID-19 vaccine, vector-nr, rS-Ad26, PF, 0.5 mL 1 completed Not Available [facility] 12/25/2022 11:38:53 COVID-19, mRNA, LNP-S, bivalent, PF, 30 mcg/0.3 mL dose 2 completed Not Available [facility] 12/25/2022 11:38:53 Td (adult), 5 Lf tetanus toxoid, preservative free, adsorbed 2 completed Nella segundo, [place] - [facility] 10/20/2022 11:41:25 Past Encounters Encounter ID Performer Location Encounter Start Date Encounter Closed Date Diagnosis/Indication Diagnosis SNOMED-CT Code Diagnosis ICD10 Code Diagnosis Note [id number] Erlin Nash [address] [address] 11/04/2024 10:20:04 11/04/2024 10:55:51 Serum creatinine above reference range 286470426 R79.89 Seizure disorder 9162134 02 G40.259 [id number] Erlin Nash [address] [address] 11/24/2024 15:15:27 11/24/2024 16:19:18 Chronic kidney disease stage 4 424006915 N18.4 Chronic constipation 236 096104 K59.09 increase fluid intake [id number] Erlin Nash [address] [address] 12/01/2024 15:21:19 12/01/2024 16:30:15 Chronic kidney disease stage 4 628222718 N18.4 History of fall 74783937 9 Z91.81 STEADI FAST screening score of 8pt did not want to go to ed. states she will if it gets worse Health Concerns Section Related Observation LastModified by Organization Detai ls LastModified Time None Recorded Concern Status LastModified by Organization Details LastModified Time None Recorded Payers Encounter Date Sequence Insurance Name Policy Number Policy Peoples Covered Member ID Peoples Member ID Guarantor Name 12/01/2024 1 [employer] (MEDICARE REPLACEMENT/A DVANTAGE - PPO) Leena Casper [id number] Niko Casper OBGyn Episode No OBEpisode recorded.
--- OUTSIDE RECORDS SUMMARY | 2024-12-06 09:21 | XMS_ITS | Encounter Summary ---
Author Organization [facility] Address [address] [place] [address] Care Team Providers Care Credit Risk Modeler Name Role Phone Thania Perkins NAVDEEP Primary Care Provider [phone] Encounter Details Date Type Department Care Team ([facility] Contact Info) Description 11/25/2024 Telephone [facility] [address], [address] [place] [address] Lexie Feltcher [facility] [address] [place] [address] Social History Tobacco Use Types Packs/Day Years [...] as of this encounter Miscellaneous Notes * Telephone Encounter - Lexie Fletcher - 11/25/2024 2:20 PM EDT LVM CH documented in this encounter Plan of Treatment Upcoming Encounters Date Type Department Care Team (Late Contact Info) Description 12/07/2024 1:00 PM EDT Office Visit [facility] [address], [address] [place] [address] Benito Acosta MD [address] [phone] documented as of this encounter Visit Diagnoses Not on filedocumented in this encounter Additional Health Concerns Assessment Noted Time A fall risk assessment has been complete d for the patient 01/06/2022 10:02 AM EDT documented as of this encounter Care Teams Credit Risk Modeler Relationship Specialty Start Date End Date Thania Perkins APRN [address] [place] [address] PCP - General 09/21/20 documented as of this encounter
--- OUTSIDE RECORDS SUMMARY | 2024-12-06 09:21 | XMS_ITS | Encounter Summary ---
Author Organization [employer] ([place], [place], [place], [place]) Address [address] [place] [address] Care Team Providers Care Absorber Operator Name Role Phone Lucian Chacko MD Primary Care Provider [phone] Erlin Nash Primary Care Provider [phone] Encounter Details Date Type Department Care Team (Late st Contact Info) Description 01/10/2021 Transcribed Document [facility] [place] [facility] [place] [address] ProviderCarmita MD [address] [place] [address] Social History Tobacco Use Types Packs/Day Years Used Date Smoking Tobacco: Never Assessed Comments Unknown Sex and Gender Information Value Date Recorded Sex Assigned at Not on file Legal Sex Female 1:32 PM CDT Gender Identity Not on file Sexual Orientation Not on file documented as of this encounter Miscellaneous Notes * Cerner Conversion Note - Carmita ProviderMD - 01/10/2021 1:47 PM CDT Final Discharge Planning Entered On: 01/10/2021 13:48 EDT Performed On: 01/10/2021 13:47 EDT by MOHAMUD FERRARA RN-Care Management Final Discharge Planning Is Patient High/Moderate Readmission Risk? : No Patient/Family Notified of Plan : Yes Is Patient Ready for Discharge? : Yes Physician Notified Patient is Ready for Discharge? : Yes Discharge To Care Management : Home/Residential/Nursing Home or Self Care - MOHAMUD FERRARA RN-Care Management - 01/10/2021 13:50 EDT Discharge Arrangements : Patient Post-Acute Information Patient Name: VANDANA QUEEN Gender: Female : 45 Age: 75 Years No Post-Acute Placement(s) Listed No Post-Acute Service(s) Listed No [place] Referral(s) Listed Transportation Needs : Family/Friend MOHAMUD FERRARA, RN-Care Management - 01/10/2021 13:47 EDT Final Narrative Note Historical Narrative Note : Pt. low RAR, B 2. Pt. recently started on Amiodarone for A-fib. Pt. 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 MOHAMUD FERRARA RN-Care Management - 01/10/21 13:54:20 Final Narrative Note : Pt. low RAR, B 2. Pt. recently started on Amiodarone for A-fib. Pt. 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 Pt. was given the choice of continuing Amiodarone or having ablation. pt. chose ablation. Pt. presented to [facility] for scheduled ablation on 01/09. Pt. independent with all ADL's, has good family support. No DME or home 02. No needs from CM. Pt. discharging today to home with family providing transportation. Follow-up appointments placed. MOHAMUD FERRARA RN-Care Management - 01/10/2021 14:03 EDT Electronically signed by [facility] Conversion Content Assistant Cerner at 08/24/2022 9:25 AM CDT documented in this encounter Plan of Treatment Not on file documented as of this encounter Visit Diagnoses Not on filedocumented in this encounter Care Teams Absorber Operator Relationship Specialty Start Date End Date Lucian Chacko MD [address] [place] [address] PCP - General Family Medicine 05/20/22 12/24/22 Erlin Nash [address] [place] [address] PCP - General 12/25/22 documented as of this encounter
--- OUTSIDE RECORDS SUMMARY | 2024-12-06 09:21 | XMS_ITS | Encounter Summary ---
Author Organization [employer] ([place], [place], [place], [place]) Address [address] [place] [address] Care Team Providers Care Social Work Lecturer Name Role Phone Erlin Nash Primary Care Provider [phone] Reason for Visit * Reason Comments Medication Refill Encounter Details Date Type Department Care Team (Late st Contact Info) Description 07/20/2023 Refill [facility] Electrophysiology [address] [place] [address] [place] [address] [place] [address] [address] [place] [address] Paroxysmal atrial fibrillation (HCC) Social History Tobacco Use Types Packs/Day Years Used Date Smoking Tobacco: Never Smokeless Tobacco: Never Family and Community Support Answer Deepak e Recorded Help with Day to Day Activities Not on file 05/29/2023 Feeling Lonely or Isolated Not on file 05/29 Educational Attainment Answer Date Filipe rded Speak language other than Slovak at home Not on file 05/29/2023 Want [...] as of this encounter Visit Diagnoses Diagnosis Paroxysmal atrial fibrillation (HCC) Atrial fibrillation documented in this encounter Care Teams Social Work Lecturer Relationship Specialty Start Date End Date Erlin Nash [address] [place] [address] PCP - General 12/25/22 documented as of this encounter
--- OUTSIDE RECORDS SUMMARY | 2024-12-06 09:21 | XMS_ITS | Encounter Summary ---
Author Organization [employer] ([place], [place], [place], [place]) Address [address] [place] [address] Care Team Providers Care Rat Breeder Name Role Phone Lucian Chacko MD Primary Care Provider [phone] Erlin Nash Primary Care Provider [phone] Encounter Details Date Type Department Care Team (Late st Contact Info) Description 01/10/2021 Transcribed Document [facility] Family Medicine [address] [place] [address] ProviderCarmita MD [address] [place] [id number] Social History Tobacco Use Types Packs/Day Years Used Date Smoking Tobacco: Never Assessed Comments Unknown Sex and Gender Information Value Date Recorded Sex Assigned at Not on file Legal Sex Female 1:32 PM CDT Gender Identity Not on file Sexual Orientation Not on file documented as of this encounter Miscellaneous Notes * Cerner Conversion Note - Carmita ProviderMD - 01/10/2021 9:54 AM CDT Patient: VANDANA QUEEN Age: 75 years Sex: Female : 1945 Associated Diagnoses: None Author: HALEY PEREZ MD-CAR No qualifying data available [facility] Cardiology Discharge Note - EP Primary Care Companion: PCP: Pillo Solorzano Consults: NONE History of Present Illness: This is a 75-year-old woman sent to us by Dr. Star San recently in [place] with a past medical history of CAD, CHF, hypertension, obstructive sleep apnea on CPAP, and mitral valve disorder. Patient was recently seen by Dr. San for atrial fibrillation. Per the daughters, the symptoms started about a month to month and a half ago. Patient was not able to see Dr. Dave before January. Patient had DCCV in [place] on , 11/22/2020 with conversion to sinus rhythm. Family states that on 11/24/2020 they noticed increased bilateral lower extremity edema, and increasing shortness of breath, and dyspnea on exertion. Patient was taken to [facility] ER to be evaluated. Family states patient was diuresed and had 2 L of fluid taken off which helped her heart failure symptoms. Family states also that physicians at [facility] made multiple changes to her medication regimen. Today patient has 2+ pitting edema in bilateral lower extremity, shortness of air on 2 L nasal cannula, has no complaints of chest pain, palpitations, or syncope. EKG today shows atrial fibrillation, heart rate 84. The last echocardiogram shows MR and TR moderately severe with normal EF. Patient was started on amiodarone 200 TID and and scheduled for DCCV on 12/20/2020. We tentatively put her on the schedule for an AFib ablation for 01/17/2021. Patient returns to clinic today following initiation of amiodarone and DCCV on 12/20/2020. Patient states that she feels much better, however still complains of fatigue, and SOA. States that she does pretty much most everything that she wants to do except for lifting which she has not done for quite some time. EKG today shows sinus bradycardia with a first-degree AV block, heart rate 54. We rediscussed all options that include staying on amiodarone versus switching to another pill like to amiodarone versus proceed with ablation. Patient understands all the options and risk of the benefits of an ablation including a 3% chance of major complications such as strokes or bleeding or even . Risk and benefits of ablation discussed patient agreeable to proceed with ablation. Patient admitted on 01/09/2021 for PVI/ablation. Admitting Diagnosis: 1. atrial fibrillation Surgical History: History of Ankle Surgery History of Cholecystectomy History of Hysterectomy History of Shoulder Surgery History of Tonsillectomy Pertinent Labs/Results Blood Gases (Current Encounter/Past 24 Hours) No Blood Gas Results Found (Past 24 Hours) Labs (Last four charted values) WBC 8.4 (JAN 10) 6.5 (JAN 09) HB L 10.3 (JAN 10) 11.4 (JAN 09) HCT L 32.4 (JAN 10) 35.6 (JAN 09) Plt 228 (JAN 10) 257 (JAN 09) Na 136 (JAN 10) 137 (JAN 09) K 4.0 (JAN 10) 3.6 (JAN 09) Cl 103 (JAN 10) L 101 (JAN 09) CO2 29 (JAN 10) 31 (JAN 09) BUN 13 (JAN 10) 19 (JAN 09) Cr 1.00 (JAN 10) H 1.40 (JAN 09) Glu R H 140 (JAN 10) H 158 (JAN 09) Ca 9.0 (JAN 10) 9.4 (JAN 09) General: Alert and oriented. Eye: Pupils are equal, round and reactive to light. HENT: Normocephalic. Neck: Supple, Non-tender, No carotid bruit, No jugular venous distention. Respiratory: Lungs are clear to auscultation, Respirations are non-labored. Cardiovascular: No murmur, Good pulses equal in all extremities, Heart rate irregularly irregular. Jugular Veins: Not distended. Gastrointestinal: Soft, Non-tender, Non-distended, Normal bowel sounds. Musculoskeletal: Normal range of motion. Integumentary: Warm, Dry, [place]. Bilateral groins soft, no hematoma or bleeding, STITCHES TO BE REMOVED PRIOR TO OPERATING ROOM COORDINATOR AWARE Neurologic: Alert, Oriented. Psychiatric: Cooperative, Appropriate mood & affect. Telemetry: SR Procedures this admission: 01/09/2021 Conclusion: Successful Procedure(s) of: 1. Cavotricuspid isthmus flutter ablation 2 Pulmonary vein isolation 3 Roof line ablation 4 CFAE ablation 5 Posterior wall isolation 6 Isuprel infusion testing Discharge Diagnoses: 1. Successful PVI/ablation Discharge Medications: 1. ALPRAZolam 0.5 MG Oral Tablet; TAKE 1 TABLET AT BEDTIME NEEDED FOR SLEEP 2. Amiodarone HCl - 200 MG Oral Tablet; TAKE 1 TABLET TWICE DAILY 3. Furosemide 40 MG Oral Tablet; TAKE 1 TABLET DAILY DIRECTED 4. Isosorbide Mononitrate ER 60 MG Oral Tablet Extended Release 24 Hour; TAKE 1 TABLET ONCE DAILY 5. levETIRAcetam 500 MG Oral Tablet; TAKE 1 TABLET TWICE DAILY 6. Metoprolol Succinate ER 100 MG Oral Tablet Extended Release 24 Hour; TAKE 0.5 TABLET Daily 7. Montelukast Sodium 10 MG Oral Tablet; TAKE 1 TABLET DAILY 8. Omeprazole 20 MG Oral Capsule Delayed Release; TAKE 1 CAPSULE Daily 9. Potassium Chloride ER 10 MEQ Oral Tablet Extended Release; TAKE 1 TABLET DAILY WITH FOOD 10. Sertraline HCl - 50 MG Oral Tablet; TAKE 1 TABLET DAILY 11. Simvastatin 40 MG Oral Tablet; TAKE 1 TABLET AT BEDTIME 12. traZODone HCl - 50 MG Oral Tablet; TAKE 1 TABLET AT BEDTIME NEEDED FOR SLEEP 13. Xarelto 15 MG Oral Tablet; TAKE 1 TABLET Bedtime 14.Protonix 40 mg po daily for 30 days - NEW MEDICATION PRESCRIPTION SENT IN Allergies (1) Active Reaction penicillin Anaphylaxis Disposition: Patient sent home in stable condition with family support. Discharge Instructions: Cardiac Diet. Post Cath Instructions. Activity as tolerated. Followup Appointments: PCP in 5 - 7 days. Primary Care Companion in [address] Perez in 1 month Patient has been instructed on and verbalized an understanding of the above discharge instructions. Plan has been discussed and is in agreement with Dr. Chris Rodriguez, RN documenting for Dr. Perez Electronically signed by Alessandro [facility] Conversion Manager Agriculture Cerner at 08/24/2022 9:23 AM CDT documented in this encounter Plan of Treatment Not on file documented as of this encounter Visit Diagnoses Not on filedocumented in this encounter Care Teams Rat Breeder Relationship Specialty Start Date End Date Lucian Chacko MD [address] [place], [place] [address] PCP - General Family Medicine 05/20/22 12/24/22 Erlin Nash [address] [place] [address] PCP - General 12/25/22 documented as of this encounter
--- OUTSIDE RECORDS SUMMARY | 2024-12-06 09:21 | XMS_ITS | Encounter Summary ---
Author Organization [employer] ([place], [place], [place], [place]) Address [address] [place] [address] Care Team Providers Care Strategic Planning Manager Name Role Phone Lucian Chacko MD Primary Care Provider [phone] Erlin Nash Primary Care Provider [phone] Encounter Details Date Type Department Care Team (Late st Contact Info) Description 11/25/[address] [facility] Family Medicine [address] [place] [address] ProviderCarmita MD [address] [place] [address] Social History Tobacco Use Types Packs/Day Years Used Date Smoking Tobacco: Never Assessed Family and Community Support Answer Deepak e Recorded Help with Day to Day Activities Not on file 05/29/2023 Feeling Lonely or Isolated Not on file 05/29 Educational Attainment Answer Date Filipe rded Speak language other than Burmese at home Not on file 05/29/2023 Want [...] Conversion Note - Historical ProviderMD - 11/25/2021 12:41 PM CDT Patient: VANDANA QUEEN Age: 76 years Sex: Female : 1945 Associated Diagnoses: Fall from standing; Traumatic hematoma of forehead; Abrasion of forehead; Need for tetanus booster; Mild closed head injury; Anticoagulated by anticoagulation treatment; Fall; Laceration - other location Author: NAHUN MANZANARES PA Basic Information Time seen: Date & time 11/25/2021 11:50:00. History source: Patient. Arrival mode: Wheelchair. History limitation: None. Additional information: Patient's physician(s): ANTWON ROBERTO APRN-FAM, Chief Complaint from Nursing Triage Note : Chief Complaint 11/25/2021 10:29 EDT Chief Complaint arrived after a fall coming back for outpatient XRay. Pt was walking back from XRay with her orr and lost her balance and fell and hit her head. Hematoma and Abrasion to the Left Frontal. Denies LOC and denies pain to the touch. Takes Blood Thinners. . History of Present Illness The patient presents following fall and Very pleasant 76-year-old white female who was at this facility for an outpatient x-ray. After the x-ray she was walking back to the waiting room and fell forward hitting the left side of her forehead on the floor and causing hematoma and an abrasion. There was no loss of consciousness. There is no previous symptoms such as dizziness or near syncope. Patient states she is always off balance and uses a cane for this. She was just unable to regain her balance. She also complains of left shoulder pain. She has no other complaints of pain or discomfort. She was placed on a long spine board in a c-collar and brought to the ED.. Review of Systems Constitutional symptoms: No fever, no chills. Skin symptoms: No rash, Eye symptoms: Vision unchanged. ENMT symptoms: No ear pain, no sore throat, no nasal congestion. Respiratory symptoms: No shortness of breath, no cough. Cardiovascular symptoms: No chest pain, Gastrointestinal symptoms: No abdominal pain, no nausea, no vomiting. Genitourinary symptoms: No dysuria, no hematuria. Musculoskeletal symptoms: Joint pain (Left shoulder), no back pain, no Muscle pain. Neurologic symptoms: No headache, no dizziness, no altered level of consciousness, no numbness, no tingling, no weakness. Health Status Allergies: Allergic Reactions (Selected) Severity Not Documented Aminophylline- Nausea and vomiting and nausea and vomiting. Sour cream- Asthma attack and asthma attack.. Medications: Per nurse's notes. Immunizations: no tetanus up to date. Past Medical/ Family/ Social History Surgical history: bladder tack. bilateral shoulder surgery. cardiac catheterization. tonsillectomy. Cholecystectomy; (12640). hysterectomy. Right ankle surgery with plate/pin. Cataracts bilaterally.. Family history: No family history items have been selected or recorded.. Social history: Social & Psychosocial Habits Alcohol 12/20/2020 Alcohol Use History, Social Habits No Substance Abuse 12/20/2020 Recreational Drug Use History No Tobacco 12/20/2020 Smoking Status Never (less than 100 in l Smokeless Tobacco Status Never . Problem list: Active Problems (15) Arthritis Asthma Atherosclerosis of coronary artery Atrial fibrillation Diabetes mellitus type II GERD - Gastro-esophageal reflux disease Hard of hearing History of obstructive sleep apnea Hyperlipidemia Hypertension Impaired vision Mitral valve disorders Osteoporosis Seizure Sleep apnea . Physical Examination Vital Signs Vital Signs/Vital Measures 11/25/2021 10:29 EDT Systolic Blood Pressure 186 mmHg HI Diastolic Blood Pressure 74 mmHg Temperature Source Tympanic Temperature Mode Fahrenheit Temperature, Fahrenheit 97.8 Deg F Clinical Temperature, C 36.6 Deg C Peripheral Pulse Rate 62 bpm Respiratory Rate 18 Breaths/Min Oxygen Saturation 96 % Oxygen Therapy Mode Room air . Measurements 11/25/2021 10:29 EDT Height Source Stated Height Entry Format Bartholomew Height/Length, SOUTH KORE[place] (ft) 5 ft Height/Length [place] 0 Inch CLINICALHEIGHT 152.4 cm [place] Body Weight 45.16 kg Weight Source, ED Critical estimated dosing weight Weight Entry Format Bartholomew Weight Burmese lb 190 lb CLINICALWEIGHT 86.36 kg Body Surface Area (BSA) 1.83 m2 Body Mass Index 37.2 kg/m2 HI . Oxygen Saturation 11/25/2021 10:29 EDT Oxygen Saturation 96 % . General: Alert, no acute distress, Patient was on a long spine board and was logrolled with CT spine precautions and border was removed. No pain or tenderness of the thoracic or lumbar spine.. Tereza coma scale: Total score: Total score: 15. Neurological: Alert and oriented to person, place, time, and situation, No focal neurological deficit observed, CN II-XII intact, normal sensory observed, normal motor observed, normal speech observed, normal coordination observed. Skin: Warm, dry, Abrasion and hematoma of forehead, otherwise normal.. Head: Abrasion/hematoma left forehead with moderate tenderness. No depression. Small drop of dried blood without any current bleeding.. Neck: No midline tenderness to palpation. No step-offs or deformities. C collar in place. Range of motion not tested.. Eye: Extraocular movements are intact, normal conjunctiva. Ears, nose, mouth and throat: Oral mucosa moist. Cardiovascular: Regular rate and rhythm, No murmur. Respiratory: Lungs are clear to auscultation, respirations are non-labored. Chest wall: No tenderness. Back: Nontender. Musculoskeletal: No significant long bone or joint pain, tenderness, swelling or erythema except for the left shoulder. Which is painful, I am mildly tender on the anterior area and significant limited range of motion due to pain. Normal pulses, motor function and sensation. No paresthesias. No weakness... Gastrointestinal: Soft, Nontender, Non distended. Psychiatric: Cooperative, appropriate mood & affect. Medical Decision Making Differential Diagnosis: Fall, laceration, abrasion, contusion, sprain, strain, closed fracture, head injury, syncope, dizziness. Documents reviewed: Emergency department nurses' notes. Orders Include Previous Orders (Selected) Inpatient Orders Ordered Tetanus-Diphtheria Toxoids, Adult (Td): 0.5 mL, IntraMuscular, 1-Time Wound Care: Completed CR Shoulder Comp Min 2 Vws LT: CT Head WO: CT Spine Cervical WO: . Radiology results: Radiology Results (Last 48 hours) [id number] -- 11/25/2021 09:41 CR Chest 2 Vws (11/25/2021 10:10) Result: 2 VIEW CHEST HISTORY: High risk medication use.COMPARISON: 08/10/2021.FINDINGS: The heart is normal in size. The mediastinum is unremarkable. Diffuse interstitial changes are probably chronic. The lungs areotherwise clear . There is no pneumothorax. The osseous structures areunremarkable.IMPRESSION: No acute cardiopulmonary process.Images reviewed, interpreted, and dictated by Dr. Nery Dumont.Transcribed by Pablito Murillo PA-C.I have personally viewed, interpreted and dictated the examination. Ihave read and agree with the above final transcribed report. [id number] -- 11/25/2021 10:20 CR Shoulder Comp Min 2 Vws LT (11/25/2021 11:28) Result: LEFT SHOULDER SERIESHISTORY: Left shoulder pain. FallFINDINGS: 2 views show no evidence of an acute, displaced fracture ordislocation of the visualized bony architecture. There is severedegenerative joint disease and chronic rotator cuff tear. No acute softtissue abnormality is seen. IMPRESSION: No acute fracture.Images reviewed, interpreted, and dictated by Dr. Nery Dumont.Transcribed by Stephanie Chaney PA-C.I have personally viewed, interpreted and dictated the examination. Ihave read and agree with the above final transcribed report. CT Head WO (11/25/2021 11:30) Result: HEAD CT 11/25/2021 10:54 AM HISTORY: Fall, hit head on floor.COMPARISON: None .TECHNIQUE: Multiple axial CT images were performed from the foramenmagnum to the vertex without enhancement. This study was performed withtechniques to keep radiation doses as low as reasonably achievable,(ALARA). Individualized dose reduction techniques using automatedexposure control or adjustment of mA and/or kV according to the patientsize were employed.FINDINGS: The ventricles are enlarged. There is diffuse atrophy. Thereis periventricular white matter change likely related to small vesseldisease. There is no evidence of acute intracranial hemorrhage . Nointracranial masses are identified. No extra-axial fluid is seen. Thesinuses are normal. There is a scalp hematoma of the left forehead. IMPRESSION: Atrophy and chronic changes without acute process. CT Spine Cervical WO (11/25/2021 11:30) CT SCAN OF THE CERVICAL SPINE 11/25/2021 10:54 AM HISTORY: Status post fall with neck pain.COMPARISON: None .PROCEDURE: Axial images were obtained from the skull base to thethoracic inlet by computed tomography. This study was performed withtechniques to keep radiation doses as low as reasonably achievable,(ALARA). Individualized dose reduction techniques using automatedexposure control or adjustment of mA and/or kV according to the patientsize were employed.FINDINGS: There is no acute fracture or subluxation. There is severedegenerative disc disease at C5-6 and C6-7. There is a 12 mm calcifiednodule in the left lobe of the thyroid. Follow-up ultrasound isrecommended. Limited images of the lung apices are unremarkable. IMPRESSION: No acute process.Calcified nodule in the left lobe of the thyroid. Ultrasound follow-upis recommended.Images reviewed, interpreted, and dictated by Dr. Nery Dumont.Transcribed by Stephanie Chaney PA-C.I have personally viewed, interpreted and dictated the examination. Ihave read and agree with the above final transcribed report. . Reexamination/ Reevaluation Notes: Patient in no distress. C-spine cleared with CT and c-collar removed. Patient has no significant pain with range of motion. No midline pain. No crepitus. Diffuse tenderness without midline or vertebral point tenderness.. Impression and Plan Diagnosis Fall from standing - Discharge, Emergency medicine, Medical Traumatic hematoma of forehead - Discharge, Emergency medicine, Medical Abrasion of forehead - Discharge, Emergency medicine, Medical Need for tetanus booster - Discharge, Emergency medicine, Medical Mild closed head injury - Discharge, Emergency medicine, Medical Anticoagulated by anticoagulation treatment - Discharge, Emergency medicine, Medical Complaint of Fall - Reason For Visit, Medical Complaint of Laceration - other location - Reason For Visit, Medical Fall - Reason For Visit, Emergency medicine, Medical Plan Condition: Stable. Disposition: Discharged Admit/Transfer/Discharge: Discharge (Order): Start: 11/25/2021 13:19 EDT, Discharge to: Home. Patient was given the following educational materials: Head Injury, Adult. Follow up with: ANTWON ROBERTO Within 2 to 3 days Keep area clean, covered and dry. Apply antibiotic ointment and change dressing twice per day or any time the dressing becomes wet or soiled. Watch for signs of infection including redness, swelling, drainage or increased pain. Follow up with PCP immediately for any signs of infection or as needed for other concerns. Return if condition worsens. Counseled: Patient, Family, Regarding diagnosis, Regarding diagnostic results, Regarding treatment plan, Pt given clear RTED instructions and demonstrated understanding., Patient indicated understanding of instructions. Notes: I certify that the physician resident programs assistant performed the services as delegated. This note has been prepared with the use of voice recognition software and may contain sound alike errors and omissions.. documented in this encounter Plan of Treatment Not on file documented as of this encounter Visit Diagnoses Not on filedocumented in this encounter Care Teams Strategic Planning Manager Relationship Specialty Start Date End Date Lucian Chacko MD [address] [place] [address] PCP - General Family Medicine 05/20/22 12/24/22 Erlin Nash [address] [place] [address] PCP - General 12/25/22 documented as of this encounter
--- OUTSIDE RECORDS SUMMARY | 2024-12-06 09:21 | XMS_ITS | Encounter Summary ---
Author Organization [employer] ([place], [place], [place], [place]) Address [address] [place] [address] Care Team Providers Care Behavioral Health Consultant Name Role Phone Lucian Chacko MD Primary Care Provider [phone] Erlin Nash Primary Care Provider [phone] Encounter Details Date Type Department Care Team (Late st Contact Info) Description 11/25/2021 Transcribed Document [facility] [address] [place] [address] ProviderCarmita MD [address] [place] [address] Social History Tobacco Use Types Packs/Day Years Used Date Smoking Tobacco: Never Assessed Family and Community Support Answer Deepak e Recorded Help with Day to Day Activities Not on file 05/29/2023 Feeling Lonely or Isolated Not on file 05/29 Educational Attainment Answer Date Filipe rded Speak language other than Czech at home Not on file 05/29/2023 Want [...] Conversion Note - Historical ProviderMD - 11/25/2021 1:28 PM CDT [facility] [place] [address] VANDANA QUEEN :1945 Visit Time:11/25/2021 Your Visit Summary Your Care Team Primary Provider: NAHUN MANZANARES Secondary Provider: Your Diagnosis Abrasion of forehead Anticoagulated by anticoagulation treatment Fall, Fall Fall from standing Laceration - other location Mild closed head injury Need for tetanus booster Traumatic hematoma of forehead Medical Information You may obtain a copy of your Emergency Department visit from Medical Records by calling the hospital phone number listed above and asking to be directed to the Medical Records Department. If you had special tests, such as EKG???s or X-rays, the interpretation of your tests given to you by the Emergency Department Physician is a preliminary report. Some fractures and illnesses fail to show up on preliminary tests. These will be reviewed again and we will call you if there are any new suggestions. If your symptoms continue notify your physician. After you leave, you should follow the instructions provided. What to do next Follow-Up Appointments Follow Up with ANTWON ROBERTO When Within 2 to 3 days Comments Keep area clean, covered and dry. Apply antibiotic ointment and change dressing twice per day or any time the dressing becomes wet or soiled. Watch for signs of infection including redness, swelling, drainage or increased pain. Follow up with PCP immediately for any signs of infection or as needed for other concerns. Return if condition worsens Where: [address] [address] [facility] (1) Allergies aminophylline (nausea and vomiting, nausea and vomiting) sour cream (asthma attack, asthma attack) Immunizations This Visit tetanus-diphtheria toxoids (Td) 11/25/2021 Medications What How Much When Instructions Next [...] montelukast (Singulair) 10 Milligram(s) Oral Every Evening pantoprazole (Protonix 40 mg oral delayed release tablet) 1 Tablet(s) Oral Every Day potassium chloride (potassium chloride 10 mEq oral capsule, extended release) 1 Capsule(s) Oral Every Day rivaroxaban (Xarelto 15 mg oral tablet) 1 Tablet(s) Oral Every Evening sertraline 50 Milligram(s) Oral Every Day simvastatin 40 Milligram(s) Oral At Bedtime traZODone (traZODone 50 mg oral tablet) 1 Tablet(s) Oral At Bedtime The home medications listed are only as accurate as the information you provided. Please continue taking all of your medications prescribed by your Primary Care Provider unless specifically told to change or discontinue the medication. Please direct any questions regarding your home medications to your Primary Care Provider. Take your medications faithfully. Do NOT skip [...] Please dispose of unused and medications per pharmacy guidance. Test Results Laboratory or Other Results This Visit (last charted value for your 11/25/2021 visit) Computed Tomography 11/25/2021 11:[address] Head WO: CT Head WO CT Spine Cervical WO: CT Spine Cervical WO Diagnostic Radiology 11/25/2021 11:28 AM CR Shoulder Comp Min 2 Vws LT: CR Shoulder Comp Min 2 Vws LT Education Materials Head Injury, Adult There are many types of head injuries. Head injuries can be as minor as a small bump, or they can be a serious medical issue. More severe head injuries include: ??? A jarring injury to the brain (concussion). ??? A bruise (contusion) of the brain. This means there is bleeding in the brain that can cause swelling. ??? A cracked skull (skull fracture). ??? Bleeding in the brain that collects, clots, and forms a bump (hematoma). After a head injury, most problems occur within the first 24 hours, but side effects may occur up to 7???10 days after the injury. It is important to watch your condition for any changes. You may need to be observed in the emergency department or urgent care, or you may be admitted to the hospital. What are the causes? There are many possible causes of a head injury. Serious head injuries may be caused by car accidents, bicycle or motorcycle accidents, sports injuries, falls, or being struck by an object. What are the symptoms? Symptoms of a head injury include a contusion, bump, or bleeding at the site of the injury. Other physical symptoms may include: ??? Headache. ??? Nausea or vomiting. ??? Dizziness. ??? Blurred or double vision. ??? Being uncomfortable around bright lights or loud noises. ??? Seizures. ??? Feeling tired. ??? Trouble being awakened. ??? Loss of consciousness. Mental or emotional symptoms may include: ??? Irritability. ??? Confusion and memory problems. ??? Poor attention and concentration. ??? Changes in eating or sleeping habits. ??? Anxiety or depression. How is this diagnosed? This condition can usually be diagnosed based on your symptoms, a description of the injury, and a physical exam. You may also have imaging tests done, such as a CT scan or an MRI. How is this treated? Treatment for this condition depends on the severity and type of injury you have. The main goal of treatment is to prevent complications and allow the brain time to heal. Mild head injury If you have a mild head injury, you may be sent home, and treatment may include: ??? Observation. A responsible adult should stay with you for 24 hours after your injury and check on you often. ??? Physical rest. ??? Brain rest. ??? Pain medicines. Severe head injury If you have a severe head injury, treatment may include: ??? Close observation. This includes hospitalization with the following care: ? Frequent physical exams. ? Frequent checks of how your brain and nervous system are working (neurological status). ? Checking your blood pressure and oxygen levels. ??? Medicines to relieve pain, prevent seizures, and decrease brain swelling. ??? Airway protection and breathing support. This may include using a ventilator. ??? Treatments that monitor and manage swelling inside the brain. ??? Brain surgery. This may be needed to: ? Remove a collection of blood or blood clots. ? Stop the bleeding. ? Remove a part of the skull to allow room for the brain to swell. Follow these instructions at home: Activity ??? Rest and avoid activities that are physically hard or tiring. ??? Make sure you get enough sleep. ??? Let your brain rest by limiting activities that require a lot of thought or attention, such as: ? Watching TV. ? Playing memory games and puzzles. ? Job-related work or homework. ? Working on the computer, using social media, and texting. ??? Avoid activities that could cause another head injury, such as playing sports, until your health care provider approves. Having another head injury, especially before the first one has healed, can be dangerous. ??? Ask your health care provider when it is safe for you to return to your regular activities, including work or school. Ask your health care provider for a [id number] plan for gradually returning to activities. ??? Ask your health care provider when you can drive, ride a bicycle, or use heavy machinery. Your ability to react may be slower after a brain injury. Do not do these activities if you are dizzy. Lifestyle ??? Do not drink alcohol until your health care provider approves. Do not use drugs. Alcohol and certain drugs may slow your recovery and can put you at risk of further injury. ??? If it is harder than usual to remember things, write them down. ??? If you are easily distracted, try to do one thing at a time. ??? Talk with family members or close friends when making important decisions. ??? Tell your friends, family, a trusted colleague, and casing worker about your injury, symptoms, and restrictions. Have them watch for any new or worsening problems. General instructions ??? Take [id number] and prescription medicines only as told by your health care provider. ??? Have someone stay with you for 24 hours after your head injury. This person should watch you for any changes in your symptoms and be ready to seek medical help. ??? Keep all follow-up visits as told by your health care provider. This is important. How is this prevented? Work on improving your balance and strength to avoid falls. ??? Wear a seat belt when you are in a moving vehicle. ??? Wear a helmet when riding a bicycle, skiing, or doing any other sport or activity that has a risk of injury. ??? If you drink alcohol: ? Limit how much you use to: ? 0???1 drink a day for non women. ? 0???2 drinks a day for men. ? Be aware of how much alcohol is in your drink. In the [place] one drink equals one 12 oz bottle of beer (355 mL), one 5 oz glass of wine (148 mL), or one 1?? oz glass of hard liquor (44 mL). ??? Take safety measures in your home, such as: ? Removing clutter and tripping hazards from floors and stairways. ? Using grab bars in bathrooms and handrails by stairs. ? Placing non-slip mats on floors and in bathtubs. ? Improving lighting in dim areas. Where to find more information ??? Centers for Disease Control and Prevention: www.cdc.gov Get help right away if: ??? You have: ? A severe headache that is not helped by medicine. ? Trouble walking or weakness in your arms and legs. ? Clear or bloody fluid coming from your nose or ears. ? Changes in your vision. ? A seizure. ? Increased confusion or irritability. ??? Your symptoms get worse. ??? You are sleepier than normal and have trouble staying awake. ??? You lose your balance. ??? Your pupils change size. ??? Your speech is slurred. ??? Your dizziness gets worse. ??? You vomit. These symptoms may represent a serious problem that is an emergency. Do not wait to see if the symptoms will go away. Get medical help right away. Call your local emergency services (911 in the [place] Do not drive yourself to the hospital. Summary ??? Head injuries can be minor, or they can be a serious medical issue requiring immediate attention. ??? Treatment for this condition depends on the severity and type of injury you have. ??? Have someone stay with you for 24 hours after your injury and check on you often. ??? Ask your health care provider when it is safe for you to return to your regular activities, including work or school. ??? Head injury prevention includes wearing a seat belt in a motor vehicle, using a helmet on a bicycle, limiting alcohol use, and taking safety measures in your home. This information is not intended to replace advice given to you by your health care provider. Make sure you discuss any questions you have with your health care provider. Document Revised: 03/09/2020 Document Reviewed: 03/09/2020 [employer] Patient Education ?? 2020 [employer]. Emergency Awareness and Preventative Care STROKE is [...] Assistance with quitting is available by contacting 0-254-LWLXNOW. This is a free resource providing counseling, support, and referral. Or you may contact your personal physician. National Suicide Prevention Lifeline: The National Suicide Prevention [...] and how to prevent infections, visit www.cdc.gov/sepsis. The examination and treatment you have received in the Emergency Department has been done to provide an appropriate evaluation and stabilizing treatment on an emergency basis only. Given the limited resources, it is not meant to be a substitute for complete medical care. The follow-up doctor you named will receive a copy of your records and all test reports. IT IS IMPORTANT THAT YOU SCHEDULE A FOLLOW-UP APPOINTMENT AND ARE RE-EVALUATED. You should report any new complaints, symptoms, or remaining problems at that time. IT IS IMPOSSIBLE FOR THE EMERGENCY DEPARTMENT TO RECOGNIZE AND TREAT ALL ELEMENTS OF INJURY OR ILLNESS IN A SINGLE VISIT. If you have been referred to a specialist physician, it means that we believe you may have a condition that requires the expertise of a specialist. These physicians work in partnership with the hospital and have agreed to see referred patients in their office for further evaluation. KEEP IN MIND THAT THE SPECIALIST HAS HIS/HER OWN OFFICE POLICIES WHICH MAY REQUIRE PROPER INSURANCE OR PAYMENT UP FRONT BEFORE THE SPECIALIST WILL SEE YOU. It is your responsibility to call the specialist physician to make an appointment. We do not have the ability to refer patients to specialists/physicians that work with specific insurance companies. Please be advised that all financial charges or billing practices are determined by that practice, not the hospital. If your insurance company requires that you see a specialist from their approved list, it is your responsibility to contact your insurance company to make those arrangements. It is also your responsibility to follow any other requirements of your insurance company necessary to obtain coverage for claims submitted. We will bill your insurance; however, you are responsible today for any co-pay amounts. You will receive a separate bill for any services you may have received including: emergency, radiology, or pathology physicians. Patient Name:VANDANA QUEEN I have received this information and was given the opportunity to ask questions. Patient/Pick Pulling Machine Operator Name: Patient/Pick Pulling Machine Operator Signature: Relationship to Patient: Clinician/Hospital Pick Pulling Machine Operator Signature: Please Provide a Telephone Number Where You Can Be Reached: Is it Permissible To Leave a Message? Date: documented in this encounter Plan of Treatment Not on file documented as of this encounter Visit Diagnoses Not on filedocumented in this encounter Care Teams Behavioral Health Consultant Relationship Specialty Start Date End Date Lucian Chacko MD [address] [place] [address] PCP - General Family Medicine 05/20/22 12/24/22 Erlin Nash [address] [place] [address] PCP - General 12/25/22 documented as of this encounter
--- OUTSIDE RECORDS SUMMARY | 2024-12-06 09:21 | XMS_ITS | Encounter Summary ---
Author Organization [employer] ([place], [place], [place], [place]) Address [address] [place] [address] Care Team Providers Care Environmental Services Coordinator Name Role Phone Lucian Chacko MD Primary Care Provider [phone] Erlin Nash Primary Care Provider [phone] Encounter Details Date Type Department Care Team (Late st Contact Info) Description 01/10/2021 Transcribed Document [facility] Family Medicine [address] [place] [address] ProviderCarmita MD [address] [place] [address] Social History Tobacco Use Types Packs/Day Years Used Date Smoking Tobacco: Never Assessed Comments Unknown Sex and Gender Information Value Date Recorded Sex Assigned at Not on file Legal Sex Female 1:32 PM CDT Gender Identity Not on file Sexual Orientation Not on file documented as of this encounter Miscellaneous Notes * Cerner Conversion Note - Carmita ProviderMD - 01/10/2021 10:02 AM CDT [facility] Authorization Entered On: 01/10/2021 10:03 EDT Performed On: 01/10/2021 10:02 EDT by MARY CARMEN FERRARA RN-Utilization Review Primary Insurance Authorization Authorization and Policy Numbers : Insurance 1 Health Plan: [employer] PPO Policy Number: [id number] Authorization Number: [id number] Insurance Primary Name : [employer] PPO Policy Number: [id number] Authorization Status-Primary : Opo status approv Authorized Service Begin Date-Primary : 01/09/2021 EDT Observation Authorization Nbr-Primary : [id number] Authorization Comments-Primary : [employer] Medicare approved for outpt per Star note Historical Authorization Comments-Primary : No Authorization Comments Found MARY CARMEN FERRARA RN-Utilization Review - 01/10/2021 10:02 EDT documented in this encounter Plan of Treatment Not on file documented as of this encounter Visit Diagnoses Not on filedocumented in this encounter Care Teams Environmental Services Coordinator Relationship Specialty Start Date End Date Lucian Chacko MD [address] [place] [address] PCP - General Family Medicine 05/20/22 12/24/22 Erlin Nash [address] [place] [address] PCP - General 12/25/22 documented as of this encounter
--- OUTSIDE RECORDS SUMMARY | 2024-12-06 09:21 | XMS_ITS | Encounter Summary ---
Author Organization [employer] ([place], [place], [place], [place]) Address [address] [place] [address] Care Team Providers Care Clinical Laboratory Service Teacher Name Role Phone Lucian Chacko MD Primary Care Provider [phone] Erlin Nash Primary Care Provider [phone] Encounter Details Date Type Department Care Team (Late st Contact Info) Description 01/10/2021 Transcribed Document [facility] [place] [facility] [place] [address] Carmita Colbert MD [address] [place], [place] [id number] Social History Tobacco Use Types Packs/Day Years Used Date Smoking Tobacco: Never Assessed Comments Unknown Sex and Gender Information Value Date Recorded Sex Assigned at Not on file Legal Sex Female 1:32 PM CDT Gender Identity Not on file Sexual Orientation Not on file documented as of this encounter Miscellaneous Notes * Cerner Conversion Note - Carmita Colbert MD - 01/10/2021 12:47 PM CDT Patient Education Materials Follows: Cardiac Ablation, Care After This sheet gives [...] and water are not available, use hand health promotion coordinator. ? Change your dressing as told by [...] safe for you. General instructions ??? Take [id number] and prescription medicines only as told by [...] provider. Document Revised: 04/09/2018 Document Reviewed: 08/06/2017 [employer] Patient Education ? 2020 [employer] Cardiac Ablation Cardiac ablation is a [...] provider. Document Revised: 04/09/2018 Document Reviewed: 03/16/2017 [employer] Patient Education ? 2020 [employer]. documented in this encounter Plan of Treatment Not on file documented as of this encounter Visit Diagnoses Not on filedocumented in this encounter Care Teams Clinical Laboratory Service Teacher Relationship Specialty Start Date End Date Lucian Chacko MD [address] [place] [address] PCP - General Family Medicine 05/20/22 12/24/22 Erlin Nash [address] [place] [address] PCP - General 12/25/22 documented as of this encounter
--- OUTSIDE RECORDS SUMMARY | 2024-12-06 09:21 | XMS_ITS | Data Portability ---
Author Organization [facility] Address [address] [place] [address] Assessment No assessment recorded. Plan of Treatment Reminders Order Date Submit Date Provider Last Modified By Organization Details Last Modified Time Details Appointments None recorded. Lab renal function panel, serum 2024 025 JOHN [facility], [address], [address], [place], [address], 5 12:07:48 CBC w/ auto diff 2024 025 JOHN [facility], [address], [address], [place], [address], 5 12:07:47 protein + creatinine panel, urine 2024 025 JOHN [facility], [address], [address], [place], [address], 5 12:07:48 urinalysis complete, reflex culture 2024 025 JOHN [facility], [address], [address], [place], [address], 5 12:07:48 PTH (parathyro id hormone), intact, serum or plasma 2024 025 JOHN [facility], [address], [address], [place], [address], 5 12:07:49 vitamin D, 25-hydroxy , total, serum 2024 025 JOHN [facility], [address], [address], [place], [address], 5 12:07:49 renal function panel, serum 2024 025 JOHN [facility], [address], [address], [place], [address], 5 15:06:57 CBC w/ auto diff 2024 025 JOHN [facility], [address], [address], [place], [address], 5 15:06:56 protein + creatinine panel, urine 2024 025 JOHN [facility], [address], [address], [place], [address], 5 15:06:57 urinalysis complete, reflex culture 2024 025 JOHN [facility], [address], [address], [place], [address], 5 15:06:56 PTH (parathyro id hormone), intact, serum or plasma 2024 025 JOHN [facility], [address], [address], [place], [address], 5 15:06:58 vitamin D, 25-hydroxy , total, serum 2024 025 JOHN [facility], [address], [address], [place], [address], 5 15:06:58 venipunctu re 2024 025 JOHN [facility], [address], [address], [place], [address], 5 04:07:56 lipid panel, serum 2024 025 JOHN [facility], [address], [address], [place], [address], 5 10:08:15 CBC w/ auto diff 2024 025 JOHN [facility], [address], [address], [place], [address], 5 10:08:14 amylase + lipase, serum 2024 025 JOHN [facility], [address], [address], [place], [address], 5 10:08:17 TSH + free T4, serum 2024 025 JOHN [facility], [address], [address], [place], [address], 5 10:08:14 CMP, serum or plasma 2024 025 JOHN [facility], [address], [address], [place], [address], 5 10:08:15 cobalamin and folate panel, serum 2024 025 JOHN [facility], [address], [address], [place], [address], 5 10:08:16 iron + total iron-paz ng capacity (TIBC), serum 2024 025 JOHN [facility], [address], [address], [place], [address], 5 10:08:16 HbA1c (hemoglobi n A1c), blood 2024 025 JOHN [facility], [address], [address], [place], [address], 5 10:08:17 drug screen, urine 2024 025 JOHN [facility], [address], [place], [address], 5 14:03:[address] referral 2024 025 JOHN [facility] , [address], [address], [place], [address], 5 17:30:[address] referral 2024 025 JOHN [facility], [address], [place] [address], [place], [address], 5 04:06:03 Procedures None recorded. Surgeries None recorded. Imaging XR, ribs, unilateral , w/ PA chest - rt 2024 025 [facility] ([facility]), [address], [place], [address], 5 16:40:37 XR, hip, unilateral , 2 or 3 view - rt 2024 025 [facility] ([facility]), [address], [place], [address], 5 16:40:37 XR, lumbosacra l spine, 2 or 3 view 2024 025 [facility] ([facility]), [address], [place], [address], 5 16:40:37 Medication Orders senna 8.6 mg tablet 2024 025 JOHN [facility], [address], [place], [address], 5 16:18:04 magnesium citrate oral solution 2024 025 [facility], [address] [place] [address], [address], 5 16:18:04 fluticason e propionate 50 mcg/actuat ion nasal spray,susp ension [address], [address], 5 13:28:25 fexofenadi ne 180 mg tablet [address], [address], 5 13:28:24 alprazolam 1 mg tablet [address], [address], 5 13:28:25 Patient TargetsNo targets recorded. Patient InstructionsNo instructions recorded. 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 Se rum creatinine above reference range Referring Physician: Erlin Nash [facility], Encounter Date: 09/22/2024 Results Created Date Observation Date Name Description Value Unit Range Abnormal Flag Note LastModifiedBy Organization Detail LastModifiedTime 09/03/1909/03/2024 TSH+F REE T4 TSH 2.290 uIU/m L 0.450- 4.500 normal Not Available [facility] ([facility]) [address] [facility], [place], [address], 09/03/2024 10:12:21 09/03/1909/03/2024 TSH+F REE T4 T4,free(dire ct) 1.63 NG/dL 0.82-1 .77 normal Not Available [facility] ([facility]) [address] [place], [address], 09/03/2024 10:12:21 09/03/1909/03/2024 CBC WITH DIFFE RENTI AL/PL ATELE T WBC 4.6 x10e3 /uL 3.4-10 .8 normal Not Available [facility] ([facility]) [address] [place], [address], 09/03/2024 10:12:22 09/03/1909/03/2024 CBC WITH DIFFE RENTI AL/PL ATELE T RBC 3.70 x10e6 /uL 3.77-5 .28 below low normal Not Available [facility] ([facility]) [address] [place], [address], 09/03/2024 10:12:22 09/03/19 25 09/03/2024 CBC WITH DIFFE RENTI AL/PL ATELE T hemoglobin 10.7 g/dL 11.1-1 5.9 below low normal Not Available [facility] ([facility]) [address] [place], [address], 09/03/2024 10:12:22 09/03/1909/03/2024 CBC WITH DIFFE RENTI AL/PL ATELE T hematocrit 33.8 % 34.0-4 6.6 below low normal Not Available [facility] ([facility]) [address] [place], [address], 09/03/2024 10:12:22 09/03/1909/03/2024 CBC WITH DIFFE RENTI AL/PL ATELE T MCV 91 fL 79-97 normal Not Available [facility] ([facility]) [address] [place], [address], 09/03/2024 10:12:22 09/03/1909/03/2024 CBC WITH DIFFE RENTI AL/PL ATELE T MCH 28.9 pg 26.6-3 3.0 normal Not Available [facility] ([facility]) [address] [facility], [place], [address], 09/03/2024 10:12:22 09/03/19 25 09/03/2024 CBC WITH DIFFE RENTI AL/PL ATELE T MCHC 31.7 g/dL 31.5-3 5.7 normal Not Available [facility] ([facility]) [address] [place], [address], 09/03/2024 10:12:22 09/03/1909/03/2024 CBC WITH DIFFE RENTI AL/PL ATELE T RDW 14.2 % 11.7-1 5.4 Not Available [facility] ([facility]) [address] [place], [address], 09/03/2024 10:12:22 09/03/19 25 09/03/2024 CBC WITH DIFFE RENTI AL/PL ATELE T platelets 219 x10e3 /uL 150-45 0 normal Not Available [facility] ([facility]) [address] [place], [address], 09/03/2024 10:12:22 09/03/19 25 09/03/2024 CBC WITH DIFFE RENTI AL/PL ATELE T neutrophils 57 % not estab. normal Not Available [facility] ([facility]) [address] [place], [address], 09/03/2024 10:12:22 09/03/1909/03/2024 CBC WITH DIFFE RENTI AL/PL ATELE T lymphs 29 % not estab. normal Not Available [facility] ([facility]) [address] [place], [address], 09/03/2024 10:12:22 09/03/19 25 09/03/2024 CBC WITH DIFFE RENTI AL/PL ATELE T monocytes 11 % not estab. normal Not Available [facility] ([facility]) [address] [place], [address], 09/03/2024 10:12:22 09/03/1909/03/2024 CBC WITH DIFFE RENTI AL/PL ATELE T eos 2 % not estab. normal Not Available [facility] ([facility]) [address] [facility], [place], [address], 09/03/2024 10:12:22 09/03/19 25 09/03/2024 CBC WITH DIFFE RENTI AL/PL ATELE T basos 1 % not estab. normal Not Available [facility] ([facility]) [address] [facility], [place], [address], 09/03/2024 10:12:22 09/03/1909/03/2024 CBC WITH DIFFE RENTI AL/PL ATELE T immature cells PROPERTY UTILIZATION OFFICER Not Available [facility] ([facility]) [address] [place], [address], 09/03/2024 10:12:22 09/03/1909/03/2024 CBC WITH DIFFE RENTI AL/PL ATELE T neutrophils (absolute) 2.6 x10e3 /uL 1.4-7. 0 normal Not Available [facility] ([facility]) [address] [place], [address], 09/03/2024 10:12:22 09/03/1909/03/2024 CBC WITH DIFFE RENTI AL/PL ATELE T lymphs (absolute) 1.3 x10e3 /uL 0.7-3. 1 normal Not Available [facility] ([facility]) [address] [place], [address], 09/03/2024 10:12:22 09/03/19 25 09/03/2024 CBC WITH DIFFE RENTI AL/PL ATELE T monocytes(ab solute) 0.5 x10e3 /uL 0.1-0. 9 normal Not Available [facility] ([facility]) [address] [facility], [place], [address], 09/03/2024 10:12:22 09/03/19 25 09/03/2024 CBC WITH DIFFE RENTI AL/PL ATELE T eos (absolute) 0.1 x10e3 /uL 0.0-0. 4 normal Not Available [facility] ([facility]) [address] [facility], [place], [address], 09/03/2024 10:12:22 09/03/1909/03/2024 CBC WITH DIFFE RENTI AL/PL ATELE T baso (absolute) 0.0 x10e3 /uL 0.0-0. 2 normal Not Available [facility] ([facility]) [address] [facility], [place], [address], 09/03/2024 10:12:22 09/03/19 25 09/03/2024 CBC WITH DIFFE RENTI AL/PL ATELE T immature granulocytes 0 % not estab. Not Available [facility] ([facility]) [address] [facility], [place], [address], 09/03/2024 10:12:22 09/03/19 25 09/03/2024 CBC WITH DIFFE RENTI AL/PL ATELE T immature grans (abs) 0.0 x10e3 /uL 0.0-0. 1 Not Available [facility] ([facility]) [address] [place], [address], 09/03/2024 10:12:22 09/03/1909/03/2024 CBC WITH DIFFE RENTI AL/PL ATELE T NRBC PROPERTY UTILIZATION OFFICER Not Available [facility] ([facility]) [address] [facility], [place], [address], 09/03/2024 10:12:22 09/03/19 25 09/03/2024 CBC WITH DIFFE RENTI AL/PL ATELE T hematology comments: PROPERTY UTILIZATION OFFICER Not Available [facility] ([facility]) [address] [place], [address], 09/03/2024 10:12:22 09/03/19 25 09/03/2024 COMP. METAB OLIC PANEL (14) glucose 115 mg/dL 70-99 above high normal Not Available [facility] ([facility]) [address] [place], [address], 09/03/2024 10:12:22 09/03/19 25 09/03/2024 COMP. METAB OLIC PANEL (14) BUN 21 mg/dL 8-27 normal Not Available [facility] ([facility]) [address] [place], [address], 09/03/2024 10:12:22 09/03/19 25 09/03/2024 COMP. METAB OLIC PANEL (14) creatinine 1.71 mg/dL 0.57-1 .00 above high normal Not Available [facility] ([facility]) [address] [place], [address], 09/03/2024 10:12:22 09/03/19 25 09/03/2024 COMP. METAB OLIC PANEL (14) eGFR 30 mL/mi n/1.7 3 >59 below low normal Not Available [facility] ([facility]) [address] [place], [address], 09/03/2024 10:12:22 09/03/19 25 09/03/2024 COMP. METAB OLIC PANEL (14) BUN/creatini ne ratio 12 12-28 normal Not Available [facility] ([facility]) [address] [place], [address], 09/03/2024 10:12:22 09/03/19 25 09/03/2024 COMP. METAB OLIC PANEL (14) sodium 137 mmol/ L 134-14 4 normal Not Available [facility] ([facility]) [address] [place], [address], 09/03/2024 10:12:22 09/03/19 25 09/03/2024 COMP. METAB OLIC PANEL (14) potassium 4.2 mmol/ L 3.5-5. 2 normal Not Available [facility] ([facility]) [address] [facility] [place], [address], 09/03/2024 10:12:22 09/03/19 25 09/03/2024 COMP. METAB OLIC PANEL (14) chloride 97 mmol/ L 96-106 normal Not Available [facility] ([facility]) [address] [facility] [place], [address], 09/03/2024 10:12:22 09/03/19 25 09/03/2024 COMP. METAB OLIC PANEL (14) carbon dioxide, total 24 mmol/ L 20-29 normal Not Available [facility] ([facility]) [address] [facility] [place], [address], 09/03/2024 10:12:22 09/03/19 25 09/03/2024 COMP. METAB OLIC PANEL (14) calcium 9.4 mg/dL 8.7-10 .3 normal Not Available [facility] ([facility]) [address] [facility] [place], [address], 09/03/2024 10:12:22 09/03/1909/03/2024 COMP. METAB OLIC PANEL (14) protein, total 6.5 g/dL 6.0-8. 5 normal Not Available [facility] ([facility]) [address] [facility] [place], [address], 09/03/2024 10:12:22 09/03/19 25 09/03/2024 COMP. METAB OLIC PANEL (14) albumin 4.2 g/dL 3.8-4. 8 normal Not Available [facility] ([facility]) [address] [facility] [place], [address], 09/03/2024 10:12:22 09/03/19 25 09/03/2024 COMP. METAB OLIC PANEL (14) globulin, total 2.3 g/dL 1.5-4. 5 Not Available [facility] ([facility]) [address] [place], [address], 09/03/2024 10:12:22 09/03/19 25 09/03/2024 COMP. METAB OLIC PANEL (14) bilirubin, total <0.2 mg/dL 0.0-1. 2 Not Available [facility] ([facility]) [address] [place], [address], 09/03/2024 10:12:22 09/03/19 25 09/03/2024 COMP. METAB OLIC PANEL (14) alkaline phosphatase 52 IU/L 44-121 normal Not Available [facility] ([facility]) [address] [place], [address], 09/03/2024 10:12:22 09/03/19 25 09/03/2024 COMP. METAB OLIC PANEL (14) AST (SGOT) 17 IU/L 0-40 normal Not Available [facility] ([facility]) [address] [facility], [place], [address], 09/03/2024 10:12:22 09/03/19 25 09/03/2024 COMP. METAB OLIC PANEL (14) ALT (SGPT) 13 IU/L 0-32 normal Not Available [facility] ([facility]) [address] [place], [address], 09/03/2024 10:12:22 09/03/19 25 09/03/2024 LIPID PANEL cholesterol, total 163 mg/dL 100-19 9 normal Not Available [facility] ([facility]) [address] [place], [address], 09/03/2024 10:12:23 09/03/19 25 09/03/2024 LIPID PANEL triglyceride s 147 mg/dL 0-149 normal Not Available [facility] ([facility]) [address] [place], [address], 09/03/2024 10:12:23 09/03/19 25 09/03/2024 LIPID PANEL HDL cholesterol 55 mg/dL >39 normal Not Available [facility] ([facility]) [address] [place], [address], 09/03/2024 10:12:23 09/03/19 25 09/03/2024 LIPID PANEL VLDL cholesterol rodrick 25 mg/dL 5-40 Not Available [facility] ([facility]) [address] [place], [address], 09/03/2024 10:12:23 09/03/19 25 09/03/2024 LIPID PANEL LDL chol calc ([facility]) 83 mg/dL 0-99 Not Available [facility] ([facility]) [address] [place], [address], 09/03/2024 10:12:23 09/03/19 25 09/03/2024 LIPID PANEL 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 Not Available [facility] ([facility]) [address] [place], [address], 09/03/2024 10:12:23 09/03/1909/03/2024 HEMOG LOBIN A1C hemoglobin A1C 6.7 % 4.8-5. 6 above high normal Predi abete s: 5.7 - 6.4 Diabe silvia: >6.4 Glyce mitchell contr ol for adult s with diabe silvia: <7.0 Not Available [facility] ([facility]) [address] [place], [address], 09/03/2024 10:12:23 10/19/19 25 10/19/2024 TSH+F REE T4 TSH 1.210 uIU/m L 0.450- 4.500 normal Not Available [facility] ([facility]) [address] [place], [address], 10/19/2024 10:08:14 10/19/1910/19/2024 TSH+F REE T4 T4,free(dire ct) 1.58 NG/dL 0.82-1 .77 normal Not Available [facility] ([facility]) [address] [place], [address], 10/19/2024 10:08:14 10/19/19 25 10/19/2024 CBC WITH DIFFE RENTI AL/PL ATELE T WBC 5.2 x10e3 /uL 3.4-10 .8 normal Not Available [facility] ([facility]) [address] [facility], [place], [address], 10/19/2024 10:08:14 10/19/19 25 10/19/2024 CBC WITH DIFFE RENTI AL/PL ATELE T RBC 3.69 x10e6 /uL 3.77-5 .28 below low normal Not Available [facility] ([facility]) [address] [place], [address], 10/19/2024 10:08:14 10/19/19 25 10/19/2024 CBC WITH DIFFE RENTI AL/PL ATELE T hemoglobin 10.8 g/dL 11.1-1 5.9 below low normal Not Available [facility] ([facility]) [address] [place], [address], 10/19/2024 10:08:14 10/19/19 25 10/19/2024 CBC WITH DIFFE RENTI AL/PL ATELE T hematocrit 35.4 % 34.0-4 6.6 normal Not Available [facility] ([facility]) [address] [place], [address], 10/19/2024 10:08:14 10/19/19 25 10/19/2024 CBC WITH DIFFE RENTI AL/PL ATELE T MCV 96 fL 79-97 normal Not Available [facility] ([facility]) [address] [place], [address], 10/19/2024 10:08:14 10/19/19 25 10/19/2024 CBC WITH DIFFE RENTI AL/PL ATELE T MCH 29.3 pg 26.6-3 3.0 normal Not Available [facility] ([facility]) [address] [facility], [place], [address], 10/19/2024 10:08:14 10/19/19 25 10/19/2024 CBC WITH DIFFE RENTI AL/PL ATELE T MCHC 30.5 g/dL 31.5-3 5.7 below low normal Not Available [facility] ([facility]) [address] [facility], [place], [address], 10/19/2024 10:08:14 10/19/19 25 10/19/2024 CBC WITH DIFFE RENTI AL/PL ATELE T RDW 15.2 % 11.7-1 5.4 Not Available [facility] ([facility]) [address] [place], [address], 10/19/2024 10:08:14 10/19/19 25 10/19/2024 CBC WITH DIFFE RENTI AL/PL ATELE T platelets 238 x10e3 /uL 150-45 0 normal Not Available [facility] ([facility]) [address] [place], [address], 10/19/2024 10:08:14 10/19/19 25 10/19/2024 CBC WITH DIFFE RENTI AL/PL ATELE T neutrophils 70 % not estab. normal Not Available [facility] ([facility]) [address] [place], [address], 10/19/2024 10:08:14 10/19/19 25 10/19/2024 CBC WITH DIFFE RENTI AL/PL ATELE T lymphs 18 % not estab. normal Not Available [facility] ([facility]) [address] [place], [address], 10/19/2024 10:08:14 10/19/19 25 10/19/2024 CBC WITH DIFFE RENTI AL/PL ATELE T monocytes 9 % not estab. normal Not Available [facility] ([facility]) [address] [place], [address], 10/19/2024 10:08:14 10/19/19 25 10/19/2024 CBC WITH DIFFE RENTI AL/PL ATELE T eos 2 % not estab. normal Not Available [facility] ([facility]) [address] [place], [address], 10/19/2024 10:08:14 10/19/19 25 10/19/2024 CBC WITH DIFFE RENTI AL/PL ATELE T basos 1 % not estab. normal Not Available [facility] ([facility]) [address] [facility], [place], [address], 10/19/2024 10:08:14 10/19/19 25 10/19/2024 CBC WITH DIFFE RENTI AL/PL ATELE T immature cells PROPERTY UTILIZATION OFFICER Not Available [facility] ([facility]) [address] [place], [address], 10/19/2024 10:08:14 10/19/19 25 10/19/2024 CBC WITH DIFFE RENTI AL/PL ATELE T neutrophils (absolute) 3.7 x10e3 /uL 1.4-7. 0 normal Not Available [facility] ([facility]) [address] [place], [address], 10/19/2024 10:08:14 10/19/19 25 10/19/2024 CBC WITH DIFFE RENTI AL/PL ATELE T lymphs (absolute) 0.9 x10e3 /uL 0.7-3. 1 normal Not Available [facility] ([facility]) [address] [place], [address], 10/19/2024 10:08:14 10/19/19 25 10/19/2024 CBC WITH DIFFE RENTI AL/PL ATELE T monocytes(ab solute) 0.5 x10e3 /uL 0.1-0. 9 normal Not Available [facility] ([facility]) [address] [facility], [place], [address], 10/19/2024 10:08:14 10/19/19 25 10/19/2024 CBC WITH DIFFE RENTI AL/PL ATELE T eos (absolute) 0.1 x10e3 /uL 0.0-0. 4 normal Not Available [facility] ([facility]) [address] [facility], [place], [address], 10/19/2024 10:08:14 10/19/19 25 10/19/2024 CBC WITH DIFFE RENTI AL/PL ATELE T baso (absolute) 0.0 x10e3 /uL 0.0-0. 2 normal Not Available [facility] ([facility]) [address] [facility], [place], [address], 10/19/2024 10:08:14 10/19/19 25 10/19/2024 CBC WITH DIFFE RENTI AL/PL ATELE T immature granulocytes 0 % not estab. Not Available [facility] ([facility]) [address] [facility], [place], [address], 10/19/2024 10:08:14 10/19/19 25 10/19/2024 CBC WITH DIFFE RENTI AL/PL ATELE T immature grans (abs) 0.0 x10e3 /uL 0.0-0. 1 Not Available [facility] ([facility]) [address] [facility], [place], [address], 10/19/2024 10:08:14 10/19/19 25 10/19/2024 CBC WITH DIFFE RENTI AL/PL ATELE T NRBC PROPERTY UTILIZATION OFFICER Not Available [facility] ([facility]) [address] [facility], [place], [address], 10/19/2024 10:08:14 10/19/19 25 10/19/2024 CBC WITH DIFFE RENCHAPARRO AL/PL ATELE T hematology comments: PROPERTY UTILIZATION OFFICER Not Available [facility] ([facility]) [address] [facility], [place], [address], 10/19/2024 10:08:14 10/19/19 25 10/19/2024 COMP. METAB OLIC PANEL (14) glucose 156 mg/dL 70-99 above high normal Not Available [facility] ([facility]) [address] [facility] [place], [address], 10/19/2024 10:08:15 10/19/19 25 10/19/2024 COMP. METAB OLIC PANEL (14) BUN 25 mg/dL 8-27 normal Not Available [facility] ([facility]) [address] [facility] [place], [address], 10/19/2024 10:08:15 10/19/19 25 10/19/2024 COMP. METAB OLIC PANEL (14) creatinine 1.91 mg/dL 0.57-1 .00 above high normal Not Available [facility] ([facility]) [address] [facility] [place], [address], 10/19/2024 10:08:15 10/19/19 25 10/19/2024 COMP. METAB OLIC PANEL (14) eGFR 26 mL/mi n/1.7 3 >59 below low normal Not Available [facility] ([facility]) [address] [facility] [place], [address], 10/19/2024 10:08:15 10/19/19 25 10/19/2024 COMP. METAB OLIC PANEL (14) BUN/creatini ne ratio 13 12-28 normal Not Available [facility] ([facility]) [address] [facility] [place], [address], 10/19/2024 10:08:15 10/19/19 25 10/19/2024 COMP. METAB OLIC PANEL (14) sodium 137 mmol/ L 134-14 4 normal Not Available [facility] ([facility]) [address] [facility] [place], [address], 10/19/2024 10:08:15 10/19/19 25 10/19/2024 COMP. METAB OLIC PANEL (14) potassium 4.5 mmol/ L 3.5-5. 2 normal Not Available [facility] ([facility]) [address] [facility] [place], [address], 10/19/2024 10:08:15 10/19/19 25 10/19/2024 COMP. METAB OLIC PANEL (14) chloride 99 mmol/ L 96-106 normal Not Available [facility] ([facility]) [address] [facility] [place], [address], 10/19/2024 10:08:15 10/19/19 25 10/19/2024 COMP. METAB OLIC PANEL (14) carbon dioxide, total 22 mmol/ L 20-29 normal Not Available [facility] ([facility]) [address] [facility] [place], [address], 10/19/2024 10:08:15 10/19/19 25 10/19/2024 COMP. METAB OLIC PANEL (14) calcium 9.2 mg/dL 8.7-10 .3 normal Not Available [facility] ([facility]) [address] [facility] [place], [address], 10/19/2024 10:08:15 10/19/19 25 10/19/2024 COMP. METAB OLIC PANEL (14) protein, total 6.6 g/dL 6.0-8. 5 normal Not Available [facility] ([facility]) [address] [facility] [place], [address], 10/19/2024 10:08:15 10/19/19 25 10/19/2024 COMP. METAB OLIC PANEL (14) albumin 4.2 g/dL 3.8-4. 8 normal Not Available [facility] ([facility]) [address] [facility] [place], [address], 10/19/2024 10:08:15 10/19/19 25 10/19/2024 COMP. METAB OLIC PANEL (14) globulin, total 2.4 g/dL 1.5-4. 5 Not Available [facility] ([facility]) [address] [facility] [place], [address], 10/19/2024 10:08:15 10/19/19 25 10/19/2024 COMP. METAB OLIC PANEL (14) bilirubin, total <0.2 mg/dL 0.0-1. 2 Not Available [facility] ([facility]) [address] [facility] [place], [address], 10/19/2024 10:08:15 10/19/19 25 10/19/2024 COMP. METAB OLIC PANEL (14) alkaline phosphatase 73 IU/L 44-121 normal Not Available [facility] ([facility]) [address] [facility], [place], [address], 10/19/2024 10:08:15 10/19/19 25 10/19/2024 COMP. METAB OLIC PANEL (14) AST (SGOT) 23 IU/L 0-40 normal Not Available [facility] ([facility]) [address] [place], [address], 10/19/2024 10:08:15 10/19/19 25 10/19/2024 COMP. METAB OLIC PANEL (14) ALT (SGPT) 15 IU/L 0-32 normal Not Available [facility] ([facility]) [address] [facility], [place], [address], 10/19/2024 10:08:15 10/19/19 25 10/19/2024 LIPID PANEL cholesterol, total 164 mg/dL 100-19 9 normal Not Available [facility] ([facility]) [address] [place], [address], 10/19/2024 10:08:15 10/19/19 25 10/19/2024 LIPID PANEL triglyceride s 166 mg/dL 0-149 above high normal Not Available [facility] ([facility]) [address] [facility], [place], [address], 10/19/2024 10:08:15 10/19/19 25 10/19/2024 LIPID PANEL HDL cholesterol 55 mg/dL >39 normal Not Available [facility] ([facility]) [address] [place], [address], 10/19/2024 10:08:15 10/19/19 25 10/19/2024 LIPID PANEL VLDL cholesterol rodrick 28 mg/dL 5-40 Not Available [facility] ([facility]) [address] [place], [address], 10/19/2024 10:08:15 10/19/19 25 10/19/2024 LIPID PANEL LDL chol calc ([facility]) 81 mg/dL 0-99 Not Available [facility] ([facility]) [address] [facility], [place], [address], 10/19/2024 10:08:15 10/19/19 25 10/19/2024 LIPID PANEL 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 Not Available [facility] ([facility]) [address] [facility], [place], [address], 10/19/2024 10:08:15 10/19/19 25 10/19/2024 IRON AND TIBC iron bind.cap.(TI BC) 371 ug/dL 250-45 0 normal Not Available [facility] ([facility]) [address] [place], [address], 10/19/2024 10:08:16 10/19/19 10/19/2024 IRON AND TIBC UIBC 315 ug/dL 118-36 9 normal Not Available [facility] ([facility]) [address] [place], [address], 10/19/2024 10:08:16 10/19/19 25 10/19/2024 IRON AND TIBC iron 56 ug/dL 27-139 normal Not Available [facility] ([facility]) [address] [place], [address], 10/19/2024 10:08:16 10/19/19 25 10/19/2024 IRON AND TIBC iron saturation 15 % 15-55 normal Not Available [facility] ([facility]) [address] [place], [address], 10/19/2024 10:08:16 10/19/19 25 10/19/2024 VITAM IN B12 AND FOLAT E vitamin B12 253 pg/mL 232-12 45 normal Not Available [facility] ([facility]) [address] [place], [address], 10/19/2024 10:08:16 10/19/1910/19/2024 VITAM IN B12 AND FOLAT E folate (folic acid), serum 6.7 NG/mL >3.0 normal A serum folat e silvia ntrat ion of less than 3.1 ng/mL is consi dered to repre sent clini rodrick defic iency . Not Available [facility] ([facility]) [address] [place], [address], 10/19/2024 10:08:16 10/19/1910/19/2024 BLANCA+L IPASE amylase 59 U/L 31-110 normal Not Available [facility] ([facility]) [address] [place], [address], 10/19/2024 10:08:17 10/19/19 25 10/19/2024 BLANCA+L IPASE lipase 53 U/L 14-85 normal Not Available [facility] ([facility]) [address] [facility], [place], [address], 10/19/2024 10:08:17 10/19/1910/19/2024 HEMOG LOBIN A1C hemoglobin A1C 6.0 % 4.8-5. 6 above high normal Predi abete s: 5.7 - 6.4 Diabe silvia: >6.4 Glyce mitchell contr ol for adult s with diabe silvia: <7.0 Not Available [facility] ([facility]) [address] [facility], [place], [address], 10/19/2024 10:08:17 10/19/1910/18/2024 drug scree n, urine AMP negati ve Not Available [address], [address], 10/18/2024 13:34:25 10/19/19 25 10/18/2024 drug scree n, urine BAR negati ve Not Available [address], [address], 10/18/2024 13:34:25 10/19/19 25 10/18/2024 drug scree n, urine BUP negati ve Not Available [address], [address], 10/18/2024 13:34:25 10/19/19 25 10/18/2024 drug scree n, urine BZO positi ve Not Available [address], [address], 10/18/2024 13:34:25 10/19/19 25 10/18/2024 drug scree n, urine FREDI negati ve Not Available [address], [address], 10/18/2024 13:34:25 10/19/19 25 10/18/2024 drug scree n, urine FTY negati ve Not Available [address], [address], 10/18/2024 13:34:25 10/19/19 25 10/18/2024 drug scree n, urine MDMA negati ve Not Available [address], [address], 10/18/2024 13:34:25 10/19/19 25 10/18/2024 drug scree n, urine MET negati ve Not Available [address], [address], 10/18/2024 13:34:25 10/19/1910/18/2024 drug scree n, urine MOP negati ve Not Available [address], [address], 10/18/2024 13:34:25 10/19/1910/18/2024 drug scree n, urine MTD negati ve Not Available [address], [address], 10/18/2024 13:34:25 10/19/1910/18/2024 drug scree n, urine OXY negati ve Not Available [address], [address], 10/18/2024 13:34:25 10/19/1910/18/2024 drug scree n, urine PCP negati ve Not Available [address], [address], 10/18/2024 13:34:25 10/19/1910/18/2024 drug scree n, urine TCA negati ve Not Available [address], [address], 10/18/2024 13:34:25 10/19/19 25 10/18/2024 drug scree n, urine THC negati ve Not Available [address], [address], 10/18/2024 13:34:25 11/05/19 25 11/05/2024 RENAL PANEL (10) glucose 104 mg/dL 70-99 above high normal Not Available [facility] ([facility]) [address] [place], [address], 11/08/2024 11:07:47 11/05/19 25 11/05/2024 RENAL PANEL (10) BUN 26 mg/dL 8-27 normal Not Available [facility] ([facility]) [address] [place], [address], 11/08/2024 11:07:47 11/05/19 25 11/05/2024 RENAL PANEL (10) creatinine 2.49 mg/dL 0.57-1 .00 above high normal Not Available [facility] ([facility]) [address] [place], [address], 11/08/2024 11:07:47 11/05/19 25 11/05/2024 RENAL PANEL (10) eGFR 19 mL/mi n/1.7 3 >59 below low normal Not Available [facility] ([facility]) [address] [place], [address], 11/08/2024 11:07:47 11/05/19 25 11/05/2024 RENAL PANEL (10) BUN/creatini ne ratio 10 12-28 below low normal Not Available [facility] ([facility]) [address] [place], [address], 11/08/2024 11:07:47 11/05/19 25 11/05/2024 RENAL PANEL (10) sodium 138 mmol/ L 134-14 4 normal Not Available [facility] ([facility]) [address] [facility] [place], [address], 11/08/2024 11:07:47 11/05/19 25 11/05/2024 RENAL PANEL (10) potassium 4.4 mmol/ L 3.5-5. 2 normal Not Available [facility] ([facility]) [address] [facility] [place], [address], 11/08/2024 11:07:47 11/05/19 25 11/05/2024 RENAL PANEL (10) chloride 95 mmol/ L 96-106 below low normal Not Available [facility] ([facility]) [address] [facility] [place], [address], 11/08/2024 11:07:47 11/05/19 25 11/05/2024 RENAL PANEL (10) carbon dioxide, total 26 mmol/ L 20-29 normal Not Available [facility] ([facility]) [address] [facility] [place], [address], 11/08/2024 11:07:47 11/05/19 25 11/05/2024 RENAL PANEL (10) calcium 9.5 mg/dL 8.7-10 .3 normal Not Available [facility] ([facility]) [address] [facility] [place], [address], 11/08/2024 11:07:47 11/05/19 25 11/05/2024 RENAL PANEL (10) phosphorus 3.5 mg/dL 3.0-4. 3 normal Not Available [facility] ([facility]) [address] [facility] [place], [address], 11/08/2024 11:07:47 11/05/19 25 11/05/2024 RENAL PANEL (10) albumin 4.4 g/dL 3.8-4. 8 normal Not Available [facility] ([facility]) [address] [place], [address], 11/08/2024 11:07:47 11/05/19 25 11/05/2024 ALBUM IN/CR EAT RATIO , RANDO M UR creatinine, urine 127.7 mg/dL not estab. normal Not Available [facility] ([facility]) [address] [place], [address], 11/08/2024 11:07:48 11/05/19 25 11/05/2024 ALBUM IN/CR EAT RATIO , RANDO M UR albumin, urine 6.6 ug/mL not estab. Not Available [facility] ([facility]) [address] [place], [address], 11/08/2024 11:07:48 11/05/19 25 11/05/2024 ALBUM IN/CR EAT RATIO , RANDO M UR alb/creat ratio 5 mg/g_ creat 0-29 May l: 0 - 29 Moder ately incre ased: 30 - 300 Sever bossman incre ased: >300 Not Available [facility] ([facility]) [address] [place], [address], 11/08/2024 11:07:48 11/05/19 25 11/08/2024 LEVMICHAEL MENDIETA ([facility]), S levetiraceta m, S 46.7 ug/mL 10.0-4 0.0 above high normal Not Available [facility] ([facility]) [address] [place], [address], 11/08/2024 11:07:48 11/25/19 25 11/25/2024 CBC WITH DIFFE RENTI AL/PL ATELE T WBC 6.1 x10e3 /uL 3.4-10 .8 normal Not Available [facility] ([facility]) [address] [place], [address], 11/27/2024 15:06:55 11/25/19 25 11/25/2024 CBC WITH DIFFE RENTI AL/PL ATELE T RBC 4.22 x10e6 /uL 3.77-5 .28 normal Not Available [facility] ([facility]) [address] [facility], [place], [address], 11/27/2024 15:06:55 11/25/19 25 11/25/2024 CBC WITH DIFFE RENTI AL/PL ATELE T hemoglobin 13.1 g/dL 11.1-1 5.9 normal Not Available [facility] ([facility]) [address] [place], [address], 11/27/2024 15:06:55 11/25/19 25 11/25/2024 CBC WITH DIFFE RENTI AL/PL ATELE T hematocrit 41.1 % 34.0-4 6.6 normal Not Available [facility] ([facility]) [address] [facility], [place], [address], 11/27/2024 15:06:55 11/25/19 25 11/25/2024 CBC WITH DIFFE RENTI AL/PL ATELE T MCV 97 fL 79-97 normal Not Available [facility] ([facility]) [address] [place], [address], 11/27/2024 15:06:55 11/25/19 25 11/25/2024 CBC WITH DIFFE RENTI AL/PL ATELE T MCH 31.0 pg 26.6-3 3.0 normal Not Available [facility] ([facility]) [address] [place], [address], 11/27/2024 15:06:55 11/25/19 25 11/25/2024 CBC WITH DIFFE RENTI AL/PL ATELE T MCHC 31.9 g/dL 31.5-3 5.7 normal Not Available [facility] ([facility]) [address] [place], [address], 11/27/2024 15:06:55 11/25/19 25 11/25/2024 CBC WITH DIFFE RENTI AL/PL ATELE T RDW 16.1 % 11.7-1 5.4 above high normal Not Available [facility] ([facility]) [address] [facility], [place], [address], 11/27/2024 15:06:55 11/25/19 25 11/25/2024 CBC WITH DIFFE RENTI AL/PL ATELE T platelets 227 x10e3 /uL 150-45 0 normal Not Available [facility] ([facility]) [address] [facility], [place], [address], 11/27/2024 15:06:55 11/25/19 25 11/25/2024 CBC WITH DIFFE RENTI AL/PL ATELE T neutrophils 68 % not estab. normal Not Available [facility] ([facility]) [address] [facility], [place], [address], 11/27/2024 15:06:55 11/25/19 25 11/25/2024 CBC WITH DIFFE RENTI AL/PL ATELE T lymphs 19 % not estab. normal Not Available [facility] ([facility]) [address] [facility], [place], [address], 11/27/2024 15:06:55 11/25/19 25 11/25/2024 CBC WITH DIFFE RENTI AL/PL ATELE T monocytes 11 % not estab. normal Not Available [facility] ([facility]) [address] [facility], [place], [address], 11/27/2024 15:06:55 11/25/19 25 11/25/2024 CBC WITH DIFFE RENTI AL/PL ATELE T eos 2 % not estab. normal Not Available [facility] ([facility]) [address] [facility], [place], [address], 11/27/2024 15:06:55 11/25/19 25 11/25/2024 CBC WITH DIFFE RENTI AL/PL ATELE T basos 0 % not estab. normal Not Available [facility] ([facility]) [address] [place], [address], 11/27/2024 15:06:55 11/25/19 25 11/25/2024 CBC WITH DIFFE RENTI AL/PL ATELE T immature cells PROPERTY UTILIZATION OFFICER Not Available [facility] ([facility]) [address] [place], [address], 11/27/2024 15:06:55 11/25/19 25 11/25/2024 CBC WITH DIFFE RENTI AL/PL ATELE T neutrophils (absolute) 4.1 x10e3 /uL 1.4-7. 0 normal Not Available [facility] ([facility]) [address] [place], [address], 11/27/2024 15:06:55 11/25/19 25 11/25/2024 CBC WITH DIFFE RENTI AL/PL ATELE T lymphs (absolute) 1.2 x10e3 /uL 0.7-3. 1 normal Not Available [facility] ([facility]) [address] [place], [address], 11/27/2024 15:06:55 11/25/19 25 11/25/2024 CBC WITH DIFFE RENTI AL/PL ATELE T monocytes(ab solute) 0.7 x10e3 /uL 0.1-0. 9 normal Not Available [facility] ([facility]) [address] [place], [address], 11/27/2024 15:06:55 11/25/19 25 11/25/2024 CBC WITH DIFFE RENTI AL/PL ATELE T eos (absolute) 0.1 x10e3 /uL 0.0-0. 4 normal Not Available [facility] ([facility]) [address] [place], [address], 11/27/2024 15:06:55 11/25/19 25 11/25/2024 CBC WITH DIFFE RENTI AL/PL ATELE T baso (absolute) 0.0 x10e3 /uL 0.0-0. 2 normal Not Available [facility] ([facility]) [address] [facility], [place], [address], 11/27/2024 15:06:55 11/25/19 25 11/25/2024 CBC WITH DIFFE RENTI AL/PL ATELE T immature granulocytes 0 % not estab. Not Available [facility] ([facility]) [address] [facility], [place], [address], 11/27/2024 15:06:55 11/25/19 25 11/25/2024 CBC WITH DIFFE RENTI AL/PL ATELE T immature grans (abs) 0.0 x10e3 /uL 0.0-0. 1 Not Available [facility] ([facility]) [address] [facility], [place], [address], 11/27/2024 15:06:55 11/25/19 25 11/25/2024 CBC WITH DIFFE RENTI AL/PL ATELE T NRBC PROPERTY UTILIZATION OFFICER Not Available [facility] ([facility]) [address] [facility], [place], [address], 11/27/2024 15:06:55 11/25/19 25 11/25/2024 CBC WITH DIFFE RENTI AL/PL ATELE T hematology comments: PROPERTY UTILIZATION OFFICER Not Available [facility] ([facility]) [address] [facility], [place], [address], 11/27/2024 15:06:55 11/25/19 25 11/25/2024 UA/M W/RFL X CULTU RE, ROUTI NE specific gravity 1.013 1.005- 1.030 normal Not Available [facility] ([facility]) [address] [facility], [place], [address], 11/27/2024 15:06:56 07/17/11/25/2024 UA/M W/RFL X CULTU RE, ROUTI NE pH 7.0 5.0-7. 5 normal Not Available [facility] ([facility]) [address] [place], [address], 11/27/2024 15:06:56 11/25/19 25 11/25/2024 UA/M W/RFL X CULTU RE, ROUTI NE urine-color Yellow yellow Not Available [facility] ([facility]) [address] [place], [address], 11/27/2024 15:06:56 11/25/19 25 11/25/2024 UA/M W/RFL X CULTU RE, ROUTI NE appearance Clear clear Not Available [facility] ([facility]) [address] [facility], [place], [address], 11/27/2024 15:06:56 11/25/19 25 11/25/2024 UA/M W/RFL X CULTU RE, ROUTI NE WBC esterase Negati ve negati ve Not Available [facility] ([facility]) [address] [place], [address], 11/27/2024 15:06:56 11/25/19 25 11/25/2024 UA/M W/RFL X CULTU RE, ROUTI NE protein Negati ve negati ve/tra ce Not Available [facility] ([facility]) [address] [place], [address], 11/27/2024 15:06:56 11/25/19 25 11/25/2024 UA/M W/RFL X CULTU RE, ROUTI NE glucose 2+ negati ve abnormal Not Available [facility] ([facility]) [address] [place], [address], 11/27/2024 15:06:56 11/25/19 25 11/25/2024 UA/M W/RFL X CULTU RE, ROUTI NE ketones Negati ve negati ve Not Available [facility] ([facility]) [address] [facility], [place], [address], 11/27/2024 15:06:56 11/25/19 25 11/25/2024 UA/M W/RFL X CULTU RE, ROUTI NE occult blood Negati ve negati ve Not Available [facility] ([facility]) [address] [place], [address], 11/27/2024 15:06:56 11/25/19 25 11/25/2024 UA/M W/RFL X CULTU RE, ROUTI NE bilirubin Negati ve negati ve Not Available [facility] ([facility]) [address] [place], [address], 11/27/2024 15:06:56 11/25/19 25 11/25/2024 UA/M W/RFL X CULTU RE, ROUTI NE urobilinogen ,semi-qn 0.2 mg/dL 0.2-1. 0 normal Not Available [facility] ([facility]) [address] [place], [address], 11/27/2024 15:06:56 11/25/19 25 11/25/2024 UA/M W/RFL X CULTU RE, ROUTI NE nitrite, urine Negati ve negati ve Not Available [facility] ([facility]) [address] [place], [address], 11/27/2024 15:06:56 11/25/19 25 11/25/2024 UA/M W/RFL X CULTU RE, ROUTI NE microscopic examination Commen t Cammy layton ws if indic ated. Not Available [facility] ([facility]) [address] [place], [address], 11/27/2024 15:06:56 11/25/19 25 11/25/2024 UA/M W/RFL X CULTU RE, ROUTI NE microscopic examination See below: Micro scopi c was indic ated and was perfo rmed. Not Available [facility] ([facility]) [address] [facility], [place], [address], 11/27/2024 15:06:56 11/25/19 25 11/25/2024 UA/M W/RFL X CULTU RE, ROUTI NE WBC None seen /hpf 0 - 5 Not Available [facility] ([facility]) [address] [facility], [place], [address], 11/27/2024 15:06:56 11/25/19 25 11/25/2024 UA/M W/RFL X CULTU RE, ROUTI NE RBC None seen /hpf 0 - 2 Not Available [facility] ([facility]) [address] [facility], [place], [address], 11/27/2024 15:06:56 11/25/19 25 11/25/2024 UA/M W/RFL X CULTU RE, ROUTI NE epithelial cells (non renal) 0-10 /hpf 0 - 10 Not Available [facility] ([facility]) [address] [facility], [place], [address], 11/27/2024 15:06:56 11/25/19 25 11/25/2024 UA/M W/RFL X CULTU RE, ROUTI NE epithelial cells (renal) PROPERTY UTILIZATION OFFICER Not Available [facility] ([facility]) [address] [facility], [place], [address], 11/27/2024 15:06:56 11/25/19 25 11/25/2024 UA/M W/RFL X CULTU RE ROUTI NE casts None seen /lpf none seen Not Available [facility] ([facility]) [address] [facility], [place], [address], 11/27/2024 15:06:56 11/25/19 25 11/25/2024 UA/M W/RFL X CULTU RE TANA NE cast type PROPERTY UTILIZATION OFFICER Not Available [facility] ([facility]) [address] [facility], [place], [address], 11/27/2024 15:06:56 11/25/19 25 11/25/2024 UA/M W/RFL X CULTU RE, ROUTI NE crystals PROPERTY UTILIZATION OFFICER Not Available [facility] ([facility]) [address] [facility], [place], [address], 11/27/2024 15:06:56 11/25/19 25 11/25/2024 UA/M W/RFL X CULTU RE, ROUTI NE crystal type PROPERTY UTILIZATION OFFICER Not Available [facility] ([facility]) [address] [facility], [place], [address], 11/27/2024 15:06:56 11/25/19 25 11/25/2024 UA/M W/RFL X CULTU RE, ROUTIrene NE mucus threads PROPERTY UTILIZATION OFFICER Not Available [facility] ([facility]) [address] [facility], [place], [address], 11/27/2024 15:06:56 11/25/19 25 11/25/2024 UA/M W/RFL X CULTU RE, ROUTI NE bacteria None seen none seen/f ew Not Available [facility] ([facility]) [address] [facility], [place], [address], 11/27/2024 15:06:56 11/25/19 25 11/25/2024 UA/M W/RFL X CULTU RE ROUTI NE yeast PROPERTY UTILIZATION OFFICER Not Available [facility] ([facility]) [address] [facility], [place], [address], 11/27/2024 15:06:56 11/25/19 25 11/25/2024 UA/M W/RFL X CULTU RE, ROUTI NE trichomonas PROPERTY UTILIZATION OFFICER Not Available [facility] ([facility]) [address] [facility], [place], [address], 11/27/2024 15:06:56 11/25/19 25 11/25/2024 UA/M W/RFL X CULTU RE, ROUTI NE comment PROPERTY UTILIZATION OFFICER Not Available [facility] ([facility]) [address] [facility] [place], [address], 11/27/2024 15:06:56 11/25/19 25 11/25/2024 UA/M W/RFL X CULTU RE, ROUTI NE urinalysis reflex Commen t This speci men will not refle x to a Urine Cultu re. Not Available [facility] ([facility]) [address] [facility] [place], [address], 11/27/2024 15:06:56 11/25/19 25 11/25/2024 RENAL PANEL (10) glucose 88 mg/dL 70-99 normal Not Available [facility] ([facility]) [address] [facility] [place], [address], 11/27/2024 15:06:57 11/25/19 25 11/25/2024 RENAL PANEL (10) BUN 19 mg/dL 8-27 normal Not Available [facility] ([facility]) [address] [facility] [place], [address], 11/27/2024 15:06:57 11/25/19 25 11/25/2024 RENAL PANEL (10) creatinine 1.82 mg/dL 0.57-1 .00 above high normal Not Available [facility] ([facility]) [address] [place], [address], 11/27/2024 15:06:57 11/25/19 25 11/25/2024 RENAL PANEL (10) eGFR 28 mL/mi n/1.7 3 >59 below low normal Not Available [facility] ([facility]) [address] [facility] [place], [address], 11/27/2024 15:06:57 11/25/19 25 11/25/2024 RENAL PANEL (10) BUN/creatini ne ratio 10 12-28 below low normal Not Available [facility] ([facility]) [address] [facility] [place], [address], 11/27/2024 15:06:57 11/25/19 25 11/25/2024 RENAL PANEL (10) sodium 139 mmol/ L 134-14 4 normal Not Available [facility] ([facility]) [address] [facility] [place], [address], 11/27/2024 15:06:57 11/25/19 25 11/25/2024 RENAL PANEL (10) potassium 4.7 mmol/ L 3.5-5. 2 normal Not Available [facility] ([facility]) [address] [facility] [place], [address], 11/27/2024 15:06:57 11/25/19 25 11/25/2024 RENAL PANEL (10) chloride 98 mmol/ L 96-106 normal Not Available [facility] ([facility]) [address] [facility] [place], [address], 11/27/2024 15:06:57 11/25/19 25 11/25/2024 RENAL PANEL (10) carbon dioxide, total 27 mmol/ L 20-29 normal Not Available [facility] ([facility]) [address] [facility] [place], [address], 11/27/2024 15:06:57 11/25/19 25 11/25/2024 RENAL PANEL (10) calcium 9.4 mg/dL 8.7-10 .3 normal Not Available [facility] ([facility]) [address] [facility] [place], [address], 11/27/2024 15:06:57 11/25/19 25 11/25/2024 RENAL PANEL (10) phosphorus 3.1 mg/dL 3.0-4. 3 normal Not Available [facility] ([facility]) [address] [facility] [place], [address], 11/27/2024 15:06:57 11/25/19 25 11/25/2024 RENAL PANEL (10) albumin 4.3 g/dL 3.8-4. 8 normal Not Available [facility] ([facility]) [address] [facility], [place], [address], 11/27/2024 15:06:57 11/25/19 25 11/25/2024 PROT+ CREAT U (RAND OM) creatinine, urine 31.2 mg/dL not estab. normal Not Available [facility] ([facility]) [address] [facility], [place], [address], 11/27/2024 15:06:57 11/25/1911/25/2024 PROT+ CREAT U (RAND OM) protein,tota l,urine <4.0 mg/dL not estab. Nolberto ified by repea t matthew sis Not Available [facility] ([facility]) [address] [facility], [place], [address], 11/27/2024 15:06:57 11/25/19 25 11/25/2024 PROT+ CREAT [...] ntrat ed urine . Not Available [facility] ([facility]) [address] [facility], [place], [address], 11/27/2024 15:06:57 11/25/19 25 11/25/2024 VITAM IN [...] um and D. Jesse mccarthy [place]: The [facility] [employer] . 2. Ro gloria MF, Ginny escobar [place], Bety off-F errar i COLEY, et al. Evalu ation , treat ment, and preve ntion of vitam in D defic iency : an Endoc rine Socie ty clini rodrick pract ice guide line. JCEM. 2010; 96(7) :1911 -30. Not Available [facility] ([facility]) [address] [place], [address], 11/27/2024 15:06:58 11/25/19 25 11/27/2024 PTH, INTAC T PTH, intact 52 pg/mL 15-65 normal Not Available [facility] ([facility]) [address] [place], [address], 11/27/2024 15:06:58 12/02/19 25 12/02/2024 CBC WITH DIFFE RENTI AL/PL ATELE T WBC 5.9 x10e3 /uL 3.4-10 .8 normal Not Available [facility] ([facility]) [address] [place], [address], 12/02/2024 12:07:47 12/02/19 25 12/02/2024 CBC WITH DIFFE RENTI AL/PL ATELE T RBC 4.06 x10e6 /uL 3.77-5 .28 normal Not Available [facility] ([facility]) [address] [place], [address], 12/02/2024 12:07:47 12/02/19 25 12/02/2024 CBC WITH DIFFE RENTI AL/PL ATELE T hemoglobin 12.7 g/dL 11.1-1 5.9 normal Not Available [facility] ([facility]) [address] [place], [address], 12/02/2024 12:07:47 12/02/1912/02/2024 CBC WITH DIFFE RENTI AL/PL ATELE T hematocrit 41.0 % 34.0-4 6.6 normal Not Available [facility] ([facility]) [address] [place], [address], 12/02/2024 12:07:47 12/02/1912/02/2024 CBC WITH DIFFE RENTI AL/PL ATELE T MCV 101 fL 79-97 above high normal Not Available [facility] ([facility]) [address] [place], [address], 12/02/2024 12:07:47 12/02/1912/02/2024 CBC WITH DIFFE RENTI AL/PL ATELE T MCH 31.3 pg 26.6-3 3.0 normal Not Available [facility] ([facility]) [address] [place], [address], 12/02/2024 12:07:47 12/02/1912/02/2024 CBC WITH DIFFE RENTI AL/PL ATELE T MCHC 31.0 g/dL 31.5-3 5.7 below low normal Not Available [facility] ([facility]) [address] [place], [address], 12/02/2024 12:07:47 12/02/1912/02/2024 CBC WITH DIFFE RENTI AL/PL ATELE T RDW 16.0 % 11.7-1 5.4 above high normal Not Available [facility] ([facility]) [address] [place], [address], 12/02/2024 12:07:47 07/24/20 25 12/02/2024 CBC WITH DIFFE RENTI AL/PL ATELE T platelets 242 x10e3 /uL 150-45 0 normal Not Available [facility] ([facility]) [address] [facility], [place], [address], 12/02/2024 12:07:47 12/02/19 25 12/02/2024 CBC WITH DIFFE RENTI AL/PL ATELE T neutrophils 72 % not estab. normal Not Available [facility] ([facility]) [address] [facility], [place], [address], 12/02/2024 12:07:47 12/02/19 25 12/02/2024 CBC WITH DIFFE RENTI AL/PL ATELE T lymphs 16 % not estab. normal Not Available [facility] ([facility]) [address] [facility], [place], [address], 12/02/2024 12:07:47 12/02/19 25 12/02/2024 CBC WITH DIFFE RENTI AL/PL ATELE T monocytes 9 % not estab. normal Not Available [facility] ([facility]) [address] [facility], [place], [address], 12/02/2024 12:07:47 12/02/19 25 12/02/2024 CBC WITH DIFFE RENTI AL/PL ATELE T eos 2 % not estab. normal Not Available [facility] ([facility]) [address] [place], [address], 12/02/2024 12:07:47 12/02/19 25 12/02/2024 CBC WITH DIFFE RENTI AL/PL ATELE T basos 1 % not estab. normal Not Available [facility] ([facility]) [address] [place], [address], 12/02/2024 12:07:47 12/02/19 25 12/02/2024 CBC WITH DIFFE RENTI AL/PL ATELE T immature cells PROPERTY UTILIZATION OFFICER Not Available [facility] ([facility]) [address] [place], [address], 12/02/2024 12:07:47 12/02/19 25 12/02/2024 CBC WITH DIFFE RENTI AL/PL ATELE T neutrophils (absolute) 4.3 x10e3 /uL 1.4-7. 0 normal Not Available [facility] ([facility]) [address] [place], [address], 12/02/2024 12:07:47 12/02/19 25 12/02/2024 CBC WITH DIFFE RENTI AL/PL ATELE T lymphs (absolute) 0.9 x10e3 /uL 0.7-3. 1 normal Not Available [facility] ([facility]) [address] [place], [address], 12/02/2024 12:07:47 12/02/19 25 12/02/2024 CBC WITH DIFFE RENTI AL/PL ATELE T monocytes(ab solute) 0.5 x10e3 /uL 0.1-0. 9 normal Not Available [facility] ([facility]) [address] [place], [address], 12/02/2024 12:07:47 12/02/19 25 12/02/2024 CBC WITH DIFFE RENTI AL/PL ATELE T eos (absolute) 0.1 x10e3 /uL 0.0-0. 4 normal Not Available [facility] ([facility]) [address] [place], [address], 12/02/2024 12:07:47 12/02/19 25 12/02/2024 CBC WITH DIFFE RENTI AL/PL ATELE T baso (absolute) 0.0 x10e3 /uL 0.0-0. 2 normal Not Available [facility] ([facility]) [address] [place], [address], 12/02/2024 12:07:47 12/02/19 25 12/02/2024 CBC WITH DIFFE RENTI AL/PL ATELE T immature granulocytes 0 % not estab. Not Available [facility] ([facility]) [address] [facility], [place], [address], 12/02/2024 12:07:47 12/02/19 25 12/02/2024 CBC WITH DIFFE RENTI AL/PL ATELE T immature grans (abs) 0.0 x10e3 /uL 0.0-0. 1 Not Available [facility] ([facility]) [address] [facility], [place], [address], 12/02/2024 12:07:47 12/02/1912/02/2024 CBC WITH DIFFE RENTI AL/PL ATELE T NRBC PROPERTY UTILIZATION OFFICER Not Available [facility] ([facility]) [address] [facility], [place], [address], 12/02/2024 12:07:47 12/02/1912/02/2024 CBC WITH DIFFE RENTI AL/PL ATELE T hematology comments: PROPERTY UTILIZATION OFFICER Not Available [facility] ([facility]) [address] [facility], [place], [address], 12/02/2024 12:07:47 12/02/1912/02/2024 UA/M W/RFL X KAITU RETANA NE specific gravity 1.023 1.005- 1.030 normal Not Available [facility] ([facility]) [address] [facility], [place], [address], 12/02/2024 12:07:48 12/02/1912/02/2024 UA/M W/RFL X TANA LESTER NE pH 6.0 5.0-7. 5 normal Not Available [facility] ([facility]) [address] [facility], [place], [address], 12/02/2024 12:07:48 12/02/19 25 12/02/2024 UA/M W/RFL X CULTU RETANA NE urine-color Yellow yellow Not Available [facility] ([facility]) [address] [facility], [place], [address], 12/02/2024 12:07:48 12/02/1912/02/2024 UA/M W/RFL X CULTU RE, ROUTI NE appearance Clear clear Not Available [facility] ([facility]) [address] [facility], [place], [address], 12/02/2024 12:07:48 12/02/1912/02/2024 UA/M W/RFL X CULTU RE, ROUTI NE WBC esterase Negati ve negati ve Not Available [facility] ([facility]) [address] [facility], [place], [address], 12/02/2024 12:07:48 12/02/1912/02/2024 UA/M W/RFL X CULTU RE, ROUTI NE protein Negati ve negati ve/tra ce Not Available [facility] ([facility]) [address] [facility], [place], [address], 12/02/2024 12:07:48 12/02/1912/02/2024 UA/M W/RFL X CULTU RE, ROUTI NE glucose 3+ negati ve abnormal Not Available [facility] ([facility]) [address] [facility], [place], [address], 12/02/2024 12:07:48 12/02/1912/02/2024 UA/M W/RFL X CULTU RE, ROUTI NE ketones Negati ve negati ve Not Available [facility] ([facility]) [address] [place], [address], 12/02/2024 12:07:48 12/02/1912/02/2024 UA/M W/RFL X CULTU RE, ROUTI NE occult blood Negati ve negati ve Not Available [facility] ([facility]) [address] [place], [address], 12/02/2024 12:07:48 12/02/19 25 12/02/2024 UA/M W/RFL X CULTU RE, ROUTI NE bilirubin Negati ve negati ve Not Available [facility] ([facility]) [address] [facility], [place], [address], 12/02/2024 12:07:48 12/02/1912/02/2024 UA/M W/RFL X CULTU RE, ROUTI NE urobilinogen ,semi-qn 0.2 mg/dL 0.2-1. 0 normal Not Available [facility] ([facility]) [address] [facility], [place], [address], 12/02/2024 12:07:48 12/02/19 25 12/02/2024 UA/M W/RFL X CULTU RE, ROUTI NE nitrite, urine Negati ve negati ve Not Available [facility] ([facility]) [address] [facility], [place], [address], 12/02/2024 12:07:48 12/02/1912/02/2024 UA/M W/RFL X CULTU RE, ROUTI NE microscopic examination Commen t Micro scopi c follo ws if indic ated. Not Available [facility] ([facility]) [address] [facility], [place], [address], 12/02/2024 12:07:48 12/02/19 25 12/02/2024 UA/M W/RFL X CULTU RE, ROUTI NE microscopic examination See below: Micro scopi c was indic ated and was perfo rmed. Not Available [facility] ([facility]) [address] [place], [address], 12/02/2024 12:07:48 12/02/19 25 12/02/2024 UA/M W/RFL X CULTU RE, ROUTI NE WBC 0-5 /hpf 0 - 5 Not Available [facility] ([facility]) [address] [facility], [place], [address], 12/02/2024 12:07:48 12/02/1912/02/2024 UA/M W/RFL X CULTU RE, ROUTI NE RBC None seen /hpf 0 - 2 Not Available [facility] ([facility]) [address] [facility], [place], [address], 12/02/2024 12:07:48 12/02/19 25 12/02/2024 UA/M W/RFL X CULTU RE, ROUTI NE epithelial cells (non renal) >10 /hpf 0 - 10 abnormal Not Available [facility] ([facility]) [address] [facility], [place], [address], 12/02/2024 12:07:48 12/02/1912/02/2024 UA/M W/RFL X CULTU RE, ROUTI NE epithelial cells (renal) PROPERTY UTILIZATION OFFICER Not Available [facility] ([facility]) [address] [facility], [place], [address], 12/02/2024 12:07:48 12/02/1912/02/2024 UA/M W/RFL X CULTU RE, ROUTI NE casts None seen /lpf none seen Not Available [facility] ([facility]) [address] [facility], [place], [address], 12/02/2024 12:07:48 12/02/19 25 12/02/2024 UA/M W/RFL X CULTU RE, ROUTI NE cast type PROPERTY UTILIZATION OFFICER Not Available [facility] ([facility]) [address] [facility], [place], [address], 12/02/2024 12:07:48 12/02/1912/02/2024 UA/M W/RFL X CULTU RE, ROUTI NE crystals PROPERTY UTILIZATION OFFICER Not Available [facility] ([facility]) [address] [facility], [place], [address], 12/02/2024 12:07:48 12/02/19 25 12/02/2024 UA/M W/RFL X CULTU RE, ROUTI NE crystal type PROPERTY UTILIZATION OFFICER Not Available [facility] ([facility]) [address] [facility], [place], [address], 12/02/2024 12:07:48 12/02/19 25 12/02/2024 UA/M W/RFL X CULTU RE, ROUTI NE mucus threads PROPERTY UTILIZATION OFFICER Not Available [facility] ([facility]) [address] [facility], [place], [address], 12/02/2024 12:07:48 12/02/1912/02/2024 UA/M W/RFL X CULTU RE, ROUTI NE bacteria None seen none seen/f ew Not Available [facility] ([facility]) [address] [facility], [place], [address], 12/02/2024 12:07:48 12/02/19 25 12/02/2024 UA/M W/RFL X CULTU RE, ROUTI NE yeast PROPERTY UTILIZATION OFFICER Not Available [facility] ([facility]) [address] [place], [address], 12/02/2024 12:07:48 12/02/19 25 12/02/2024 UA/M W/RFL X CULTU RE, ROUTI NE trichomonas PROPERTY UTILIZATION OFFICER Not Available [facility] ([facility]) [address] [facility], [place], [address], 12/02/2024 12:07:48 12/02/1912/02/2024 UA/M W/RFL X CULTU RE, ROUTI NE comment PROPERTY UTILIZATION OFFICER Not Available [facility] ([facility]) [address] [place], [address], 12/02/2024 12:07:48 12/02/19 25 12/02/2024 UA/M W/RFL X CULTU RE, ROUTI NE urinalysis reflex Commen t This speci men will not refle x to a Urine Cultu re. Not Available [facility] ([facility]) [address] [facility] [place], [address], 12/02/2024 12:07:48 12/02/19 25 12/02/2024 RENAL PANEL (10) glucose 181 mg/dL 70-99 above high normal Not Available [facility] ([facility]) [address] [facility] [place], [address], 12/02/2024 12:07:48 12/02/19 25 12/02/2024 RENAL PANEL (10) BUN 32 mg/dL 8-27 above high normal Not Available [facility] ([facility]) [address] [facility] [place], [address], 12/02/2024 12:07:48 12/02/19 25 12/02/2024 RENAL PANEL (10) creatinine 1.81 mg/dL 0.57-1 .00 above high normal Not Available [facility] ([facility]) [address] [facility] [place], [address], 12/02/2024 12:07:48 12/02/19 25 12/02/2024 RENAL PANEL (10) eGFR 28 mL/mi n/1.7 3 >59 below low normal Not Available [facility] ([facility]) [address] [place], [address], 12/02/2024 12:07:48 12/02/1912/02/2024 RENAL PANEL (10) BUN/creatini ne ratio 18 12-28 normal Not Available [facility] ([facility]) [address] [facility] [place], [address], 12/02/2024 12:07:48 12/02/19 25 12/02/2024 RENAL PANEL (10) sodium 137 mmol/ L 134-14 4 normal Not Available [facility] ([facility]) [address] [place], [address], 12/02/2024 12:07:48 12/02/19 25 12/02/2024 RENAL PANEL (10) potassium 4.2 mmol/ L 3.5-5. 2 normal Not Available [facility] ([facility]) [address] [facility] [place], [address], 12/02/2024 12:07:48 12/02/19 25 12/02/2024 RENAL PANEL (10) chloride 96 mmol/ L 96-106 normal Not Available [facility] ([facility]) [address] [facility] [place], [address], 12/02/2024 12:07:48 12/02/1912/02/2024 RENAL PANEL (10) carbon dioxide, total 23 mmol/ L 20-29 normal Not Available [facility] ([facility]) [address] [facility] [place], [address], 12/02/2024 12:07:48 12/02/19 25 12/02/2024 RENAL PANEL (10) calcium 9.6 mg/dL 8.7-10 .3 normal Not Available [facility] ([facility]) [address] [facility] [place], [address], 12/02/2024 12:07:48 12/02/19 25 12/02/2024 RENAL PANEL (10) phosphorus 3.7 mg/dL 3.0-4. 3 normal Not Available [facility] ([facility]) [address] [facility] [place], [address], 12/02/2024 12:07:48 12/02/1912/02/2024 RENAL PANEL (10) albumin 4.3 g/dL 3.8-4. 8 normal Not Available [facility] ([facility]) [address] [facility] [place], [address], 12/02/2024 12:07:48 12/02/1912/02/2024 PROT+ CREAT U (RAND OM) creatinine, urine 78.8 mg/dL not estab. normal Not Available [facility] ([facility]) [address] [facility], [place], [address], 12/02/2024 12:07:48 12/02/19 25 12/02/2024 PROT+ CREAT U (RAND OM) protein,tota l,urine 15.7 mg/dL not estab. normal Not Available [facility] ([facility]) [address] [facility], [place], [address], 12/02/2024 12:07:48 12/02/19 25 12/02/2024 PROT+ CREAT U (RAND OM) protein/crea t ratio 199 mg/g_ creat 0-200 Not Available [facility] ([facility]) [address] [facility], [place], [address], 12/02/2024 12:07:48 12/02/19 25 12/02/2024 VITAM IN [...] Endoc rine Socie ty went on to [facility] er defin e vitam in D insuf ficie ncy as a level betwe en 21 and 29 ng/mL (2). 1. IOM (Inst itute of Medic ine). 2009. Dieta ry refer ence intak es for calci um and D. Jesse mccarthy [place]: The [facility] [employer] . 2. Ro gloria MF, Ginny escobar [place], Bety off-F erranna marie i COLEY, et al. Evalu ation , treat ment, and preve ntion of vitam in D defic iency : an Endoc rine Socie ty clini rodrick pract ice guide line. JCEM. 2010; 96(7) :1911 -30. Not Available [facility] ([facility]) [address] [facility], [place], [address], 12/02/2024 12:07:49 12/02/1912/02/2024 PTH, INTAC T PTH, intact 59 pg/mL 15-65 normal Not Available [facility] ([facility]) [address] [facility], [place], [address], 12/02/2024 12:07:49 12/02/19 25 12/02/2024 PLEAS E NOTE please note Commen t The date and/o r time of colle ction was not indic ated on the requi sitio n as requi red by state and [place] law. The date of recei pt of the speci men was used as the colle ction date if not suppl ied. Not Available [facility] ([facility]) [address] [facility], [place], [address], 12/02/2024 12:07:50 10/14/1910/13/2024 MRI, head, w/o contr ast No observ ation record ed. [facility] [address], [place], [address], 10/13/2024 13:31:39 Result Notes None recorded. Problems Name Problem SNOMED Code Status Onset Date Resolution Date Notes Provider Name and Address Organization Details Recorded Time Atrial fibrillation 34864127 Active Myla Stears null, [place] - [facility] 17:56:54 Seizure 66350252 Active Myla Stears null, [place] - [facility] 17:56:54 Hypertensive disorder 02973382 Active Myla Stears null, [place] - [facility] 17:56:54 Anxiety 27119784 Active Myla Stears null, [place] - [facility] 17:56:54 Congestive heart failure 04183033 Active 2022 Myla Stears null, [place] - [facility] 5 17:56:54 Type 2 diabetes mellitus 87625088 Active 2023 Myla Stears null, [place] - [facility] 17:56:54 Problem Notes None recorded. Procedures Surgical History Date Name Laterality Status Provider Name and Address Organization Details Recorded Time 03/29/20 Medication Reconcilliation completed [place]ella Matiasler [place] - [facility] 03/29/2024 14:51:30 06/26/19 Advance Care Planning completed Nella Jorge [place] - [facility] 06/26/2023 10:20:19 06/26/19 Functional Status Assessed completed Nellaglenny Jorge [place] - [facility] 06/26/2023 10:20:19 06/02/19 24 Medication Reconcilliation completed Nellaglenny Jorge [facility] 06/02/2023 10:56:40 01/06/20 Appl. Splint - Forearm to Hand completed Erlin Nash, [facility] [address], [place], [address], [facility] - [facility] 01/05/2023 13:15:42 01/06/20 Medication Reconcilliation completed Nella Luisito [place] - [facility] 01/05/2023 11:09:44 Hysterectomy completed Nella Luisito [place] - [facility] 10/20/2022 11:55:41 cholecystectomy completed Nella Luisito [place] - [facility] 10/20/2022 11:55:47 colonoscopy completed Myla Robins [place] - [facility] 07/13/2023 10:28:39 Imaging Results None [...] height Body mass index (BMI) Body weight Provider Name and Address Organization Details Last Updated DateTime 09/22/2024 152.4 cm 29.7 kg/m2 71253.04 g Nella Luisito [facility] 09/22/2024 09:25:51 Date Recorded Body height Body mass index (BMI) Body weight Heart rate Oxygen saturation Oxygen saturation in Arterial blood by Pulse oximetry Respiratory rate Pain severity - 0-10 verbal numeric rating [Score] - Reported Systolic And Diastolic Provider Name and Address Organization Details Last Updated DateTime 5 152.4 cm 29.1 kg/m2 77024.2 6 g 65 /min 96 % 96 % 18 /min 0 130/82 mm[Hg] Nella Jorge [place] - [facility] 5 13:22:06 Date Recorded Body height Provider Name an d Address Organization Details Last Updated DateTime 11/04/2024 152.4 cm Myla Goinsera [facility] 11/04 10:23:28 Date Recorded Body height Body mass index (BMI) Body weight Heart rate Oxygen saturation Oxygen saturation in Arterial blood by Pulse oximetry Respiratory rate Pain severity - 0-10 verbal numeric rating [Score] - Reported Systolic And Diastolic Provider Name and Address Organization Details Last Updated DateTime 5 152.4 cm 29.1 kg/m2 53347.2 6 g 64 /min 99 % 99 % 18 /min 0 126/78 mm[Hg] Nella Jorge [facility] 5 15:48:32 Date Recorded Body height Body mass index (BMI) Body weight Body temperature Pain severity - 0-10 verbal numeric rating [Score] - Reported Respiratory rate Heart rate Oxygen saturation Oxygen saturation in Arterial blood by Pulse oximetry Systolic And Diastolic Provider Name and Address Organization Details Last Updated DateTime 5 152.4 cm 28.5 kg/m2 24861.4 9 g 97 [degF] 6 16 /min 68 /min 96 % 96 % 122/80 mm[Hg] Nella Jorge [place] - [facility] 5 15:47:07 Social History Question Answer Notes LastModified by Organizat ion Details LastModified Time Tobacco Smoking Status Never Smoker [place]ella [place], [place] - [facility] 10/20/2022 11:54:44 Do [...] Or The Highest Degree You Have Received? [id number] Information not available 07/13/2023 Have There Been Any Changes To Your Family Or Social Situation? No Information no t available 10/20/2022 What Is The Fluoride Status Of Your Home? Fluoridated Information not available 10/20/2022 Have You Recently Or Are You Planning To Travel To An Area With Zika Virus? No Information not available 10/20/2022 Do You Have A Medical Power Of Government Relations Analyst? Yes Information not available 10/20/2022 What Was [...] anxious, or unable to sleep at night)? [id number] Information not available 10/20/2022 Do you have [...] quadrivalent, PF 3 completed Erlin Nash APRN [address] [place] [address], [place], [address], [place] - [facility] 03/27/2023 15:16:51 COVID-19, mRNA, LNP-S, PF, 30 mcg/0.3 mL dose 1 completed Not Available [facility] 12/25/2022 11:38:53 COVID-19 vaccine, vector-nr, [id number], PF, 0.5 mL 1 completed Not Available [facility] 12/25/2022 11:38:53 COVID-19, mRNA, LNP-S, bivalent, PF, 30 mcg/0.3 mL dose 2 completed Not Available [facility] [facility] 11:38:53 Td (adult), 5 Lf tetanus toxoid, preservative free, adsorbed 2 completed [place], [place] - [facility] 10/20/2022 11:41:25 Past Encounters Encounter ID Performer Location Encounter Start Date Encounter Closed Date Diagnosis/Indication Diagnosis SNOMED-CT Code Diagnosis ICD10 Code Diagnosis Note [id number] Erlin Nash APRN [address] [address] 10/20/2022 10:57:49 10/20/2022 12:25:39 Body mass index 30+ - obesity 944028716 Z68.34 Obesity 262276322 E66.9 Otitis media 44476378 H6 6.92 on antibiotic s tm still red Sebaceous cyst of skin 939602394 L72.3 [id number] Erlin Nash [address] [address] 1 11/25/2022 15:34:44 11/25/2022 16:53:55 Acute bronchitis 78903610 J20.9 [id number] Jordonmelody Nash [address] [address] 1 12/22/2022 14:37:21 12/22/2022 16:39:31 Atrial fibrillation 06588974 I48.91 Body mass index 30+ - obesity 016168410 Z68.35 Obesity 772623294 E66.9 Chest pain 98508087 R07. 9 pt will see [facility] tomorrow at 2 pm for work updiscusse d the need to go to ed if pain returns. [id number] Erlin Nash [address] [address] 1 01/05/2023 10:53:06 01/05/2023 12:07:36 Hypertensive disorder 68872242 I10 Atrial fibrillation 4943 6004 I48.91 Bilateral wrist pain 918 6188357 4500924 M25.[address] cabello office they oked to change to short arm splints until surgery weds Difficulty balancing 282 722843 R27.8 discussed she needs to use wc is she is up being mobile. always ask for help if getting up. [id number] Erlin Nash [address] [address] 1 02/02/2023 13:31:13 02/02/2023 14:25:36 Anxiety 91773918 F41.9 Pt compliant with plan of careKasper reviewedme dication compliance discussedw ill obtain uds and csa next visit Seasonal a llergic rhinitis 908126334 J30.2 Atrial fibrillation 4943 6004 I48.91 [id number] Erlin Nash [employer] [address] [address] 1 02/23/2023 13:28:34 02/23/2023 14:59:27 Acute bronchitis 57360438 J20.9 [id number] Erlin Nash [employer] [address] [address] 1 03/02/2023 15:11:53 03/02/2023 16:37:25 Anxiety 12672925 F41.9 Pt compliant with plan of careKasper reviewed and appropriat emedicatio n compliance discussedu ds: 3csa on file Long-term current use of benzodiazepine 2829934483 8798060 Z79.899 Fracture o f distal end of radius 422165668 S52.501A [id number] Erlin Nash [address] [address] 1 03/26/2023 13:52:08 03/26/2023 15:36:09 Influenza vaccine needed 5435472293 106 Z23 Anxiety 97302116 F41.9 Pt compliant with plan of careKasper reviewed and appropriat emedicatio n compliance discussedu ds: 3csa on file Long-term current use of benzodiazepine 6510394030 9200115 Z79.731 [id number] Erlin Nash APRN [address] [address] 1 04/16/2023 10:54:33 04/16/2023 13:41:06 Cough 02769986 R05.9 Increased frequency of urination 303998592 R35.0 [facility] 19009785 E78.5 [id number] Erlin Nash [employer] [address] [address] 1 06/02/2023 10:42:29 06/02/2023 11:43:04 Pain of right ankle joint 6585043705 6500123 M25.571 follow up with ortho [id number] Erlin Nash [address] [address] 1 06/22/2023 09:50:37 06/22/2023 10:51:57 Anxiety 59789085 F41.9 Pt compliant with plan of careKasper reviewed and appropriat emedicatio n compliance discussedu ds: 3csa on file Seizure 40248460 R56.9 labs next visit [id number] Erlin Nash [address] [address] 1 06/26/2023 10:09:47 06/26/2023 11:57:41 Adult health examination 721640807 Z00.00 Depression screening 171 233523 Z13.31 A depression screening was completed via a standardiz ed screening tool. 5 minutes were spent discussing depression screening results and risk factors. Examinatio n of blood pressure 380477422 Z01.30 Diet education 65345385 Z71.3 Counseling 028517872 Z71 .82 Exercise counseling . Patient encouraged to exercise 30 minutes 5 days a week. At [facility] ed risk for falls 079883703 Z91.81 STEADI FAST screening score of 8____. Advance care planning 71 2169620 Z71.89 Body mass index 30+ - obesity 705313964 Z68.33 33.9 Obesity 867725534 E66.9 Anxiety 20018041 F41.9 Pt compliant with plan of careKasper reviewed and appropriat emedicatio n compliance discussedu ds: 3csa on file Atrial fibrillation 4943 6004 I48.91 Congestive heart failure 88595782 I50.9 Hypertensive disorder 38 642773 I10 Seizure 06810664 R56.9 labs next visit Long-term drug therapy 137477391 Z79.838 [id number] Erlin Nash [address] [address] 07/13/2023 10:07:11 07/13/2023 11:00:21 Anemia 204994463 D64.9 Hypothyroidism 96162812 E03.9 Hypertensive disorder 38 640093 I10 Impaired f asting glycemia 162984245 R73.01 [id number] Erlin Nash [address] [address] 1 08/28/2023 13:35:14 08/28/2023 14:40:01 Type 2 diabetes mellitus 36468702 E11.9 continue meds and diet Anemia 099555932 D64.9 follow up with hematology [id number] Erlin Nash APRN [address] [address] 1 09/18/2023 13:37:33 09/18/2023 14:45:17 Anxiety 57200426 F41.9 Pt compliant with plan of [facility] reviewed and appropriat emedicatio n compliance discussedu ds:09/18/23 csa on file Body mass index 30+ - obesity 594907999 Z68.33 33.2 Obesity 416818687 E66.9 [id number] Erlin Nash [address] [address] 1 10/08/2023 09:44:50 10/08/2023 10:42:33 Acute urinary tract infection 912828976 N39.0 increase fluidscran hickey juicewipe front to backvoid after intercours amy not hold urineantib iotics as orderedcot ton underwearr eturn if symptoms worsen or do not improve [id number] Erlin Nash [employer] [address] [address] 1 10/20/2023 16:08:03 10/20/2023 17:18:05 Acute left otitis media 385794116 H66.92 if no improvemen t return [id number] Erlin Nash [employer] [address] [address] 1 11/05/2023 13:20:03 11/05/2023 14:20:09 Rib pain 433369990 R07.81 Patient post fall hitting her chest and right side.xrays pain medicerest if worsen or no improvemen t returndisc ussed med and do not take with xanax or other meds that sedate [id number] Erlin Nash APRN [address] [address] 11/13/2023 15:54:15 11/13/2023 16:55:06 Anxiety 98816891 F41.9 Pt compliant with [facility] reviewed and appropriat emedicatio n compliance discussedu ds:11/13/23c sa on file Long-term current use of benzodiazepine 6311135401 5470645 Z79.899 see previous Recurrent falls 66989840 2 R29.6 [id number] Erlin Nash [address] [address] 1 11/23/2023 13:00:29 11/23/2023 14:18:23 Hypertensive disorder 96429837 I10 refill for blood pressure medication Type 2 trisha betes mellitus 67927529 E11.9 continue meds and diet Anxiety 46671552 F41.9 refill for anxiety Acute urin wolfgang tract infection 531175952 N39.0 increase fluidscran hickey juicewipe front to backvoid after intercours amy not hold urineantib iotics as orderedcot ton underwearr eturn if symptoms worsen or do not improve Otitis media 82536971 H6 6.92 on antibiotic s tm still red [id number] Erlin Nash [address] [address] 1 11/27/2023 13:53:03 11/27/2023 14:57:36 Type 2 diabetes mellitus 00315293 E11.9 continue meds and diet Hypertensive disorder 38 987744 I10 refill for blood pressure medication Congestive heart failure 22814954 I50.9 Atrial fibrillation 4943 6004 I48.91 Seasonal allergy 5609368 04 J30.2 [id number] Erlin Nash [employer] [address] [address] 1 12/03/2023 13:51:30 12/03/2023 14:39:08 Seasonal allergic rhinitis 265274572 J30.2 [id number] Erlin Nash [address] [address] 1 12/15/2023 09:19:08 12/15/2023 10:17:45 Serum creatinine above reference range 117997385 R79.89 [id number] Erlin Logangeorgina [address] [address] 1 12/28/2023 09:20:52 12/28/2023 10:45:55 COVID-19 202849414 U07.1 no sign of a bacterial infection. likely viral. viruses can take 7-14 days to run their course.heriberto al saline and bulb syringe to remove nasal drainage to help with congestion .monitor temp. Tylenol or Motrin as needed for pain or fever.enco urage fluids, water, Gatorade, power aide, Pedialyte if /tod dler/child warm salt water gargleswar m fluidssore throat lozengessl eep elevatedhu midifier/v aporizerfo llow up immediatel y for new or worsening symptoms or no noticeable improvemen t over the next 48-72 hourspt does not want pills [id number] Erlin Mensahscarlett [address] [address] 1 01/12/2024 16:56:30 01/12/2024 18:08:53 Anxiety 45852487 F41.9 [facility] [id number] [facility] [address] 01/29/2024 15:54:51 01/29/2024 16:51:27 Mild memory disturbance 220497884 R41.3 labsrefer to neurootc melatonini f symptoms worsen or do not improve return Insomnia 223446686 G47.0 0 [id number] [facility] [address] [address] 02/18/2024 14:22:10 02/18/2024 15:27:15 Anxiety 64755902 F41.9 Pt compliant with plan of careKasper reviewedme dication compliance discussedL ast uds:11/13/23 Control substance agreement on file [id number] Erlin Mensahscarlett[address] [place] [address] 02/25/2024 15:46:02 02/25/2024 16:27:07 Acute urinary tract infection 009804812 N39.0 increase fluidscran hickey juicewipe front to backvoid after intercours amy not hold urineantib iotics as orderedcot ton underwearr eturn if symptoms worsen or do not improve [id number] Erlin Nash APRN [address] [address] 1 03/17/2024 09:27:48 03/17/2024 10:47:20 Pharyngitis 400824111 J02.9 Acute maxi llary sinusitis 63919452 J01.00 if symptoms worsen or no improvemen t return or go to ed Acute bronchitis 1981999 2 J20.9 if symptoms worsen or no improvemen t return [id number] Erlin Nash APRN [address] [address] 1 03/21/2024 13:57:17 03/21/2024 15:06:22 Hypertensive disorder 18443427 I10 refill for blood pressure medication Anxiety 74886568 F41.9 Pt compliant with plan of Jolynn reviewedme dication compliance discussedL ast uds:11/13/23 Control substance agreement on file Acute bronchitis 0034315 2 J20.9 sent to [facility] for eval r/o pneumonia? Type 2 trisha betes mellitus 03053123 E11.9 continue meds and diet Insomnia 235770053 G47.0 0 [id number] Erlin Nash APRN [address] [address] 03/29/2024 14:05:39 03/29/2024 15:55:05 Cough 44879136 R05.9 Ulcer of nose 06647986 J 34.0 Congestive heart failure 28646078 I50.9 follow up with cardiology [id number] Erlin Nash APRN [address] [address] 04/22/2024 11:14:03 04/22/2024 12:04:23 Congestive heart failure 42417585 I50.9 follow up with cardiology Hypertensive disorder 38 566807 I10 refill for blood pressure medication Anxiety 90796653 F41.9 Pt compliant with plan of careKasper reviewedme dication compliance discussedL ast uds:11/13/23 Control substance agreement on file Insomnia 416260885 G47.0 0 [id number] Jordonmelody Nash[address] [address] 06/07/2024 17:52:43 06/07/2024 19:02:45 Constipation 57588883 K59.00 History of urinary tract infection 7467029948 107 Z87.381 [id number] [facility] [place] [address] 1 07/08/2024 13:54:00 07/08/2024 15:12:16 Pain of toe of right foot 5373151536 26110 M79.674 clean with soap and water apply cream Abrasion o f skin of right great toe 8810341959 1636897 S90.411A if worsen or no improvemen t return [id number] Jordonmelody Nash[address] [address] 07/21/2024 10:14:24 07/21/2024 11:25:48 Anxiety 39334564 F41.9 Pt compliant with plan of careKasper reviewedme dication compliance discussedL ast uds:11/13/23 Control substance agreement on fileuds next visit Congestive heart failure 03576715 I50.9 follow up with cardiology Insomnia 334616658 G47.0 0 Urge incon tinence of urine 39893362 N39.41 offered referral to [facility] shelter clerk or urology pt declines. states she will try to go to try more freq before she waits to long to go [id number] Tailaura scarlett[address] [address] 08/22/2024 16:36:41 08/22/2024 16:59:33 Anxiety 09121486 F41.9 Hypertensive disorder 38 499438 I10 refill for blood pressure medication Congestive heart failure 25170862 I50.9 follow up with cardiology Type 2 trisha betes mellitus 57428704 E11.9 continue meds and diet Atrial fibrillation 4943 6004 I48.91 [id number] Erlin Nash [address] [address] 09/02/2024 10:21:58 09/02/2024 10:32:18 Type 2 diabetes mellitus 93032866 E11.9 continue meds and diet [id number] Erlin Mensahgiangeorgina [address] [address] 09/22/2024 09:11:02 09/22/2024 10:08:33 Cystocele 281220999 N81.10 Serum crea tinine above reference range 000998268 R79.89 [id number] Erlin Mensahgiangeorgina [address] [address] 1 10/18/2024 13:01:18 10/18/2024 14:12:03 Anxiety 50734034 F41.9 Seasonal allergy 7568554 04 J30.2 Allergic rhinitis 307232 04 J30.9 Hypertensive disorder 38 945126 I10 refill for blood pressure medication Congestive heart failure 81373885 I50.9 follow up with cardiology Type 2 trisha betes mellitus 38891955 E11.9 continue meds and diet Unintentio nal weight loss 683576387 R63.4 labsrefer to case for colonoscop y Long-term current use of drug therapy 855600391 Z79.379 [id number] Jordonmelody scarlett [address] [address] 11/04/2024 10:20:04 11/04/2024 10:55:51 Serum creatinine above reference range 583506259 R79.89 Seizure disorder 2776792 02 G40.628 [id number] Erlin Mensahscarlett [address] [address] 1 11/24/2024 15:15:27 11/24/2024 16:19:18 Chronic kidney disease stage 4 801092601 N18.4 Chronic constipation 236 935922 K59.09 increase fluid intake [id number] Erlin Nash APRN [address] [address] 12/01/2024 15:21:19 12/01/2024 16:30:15 Chronic kidney disease stage 4 421256424 N18.4 History of fall 62395303 9 Z91.81 STEADI FAST screening score of 8pt did not want to go to ed. states she will if it gets worse Health Concerns Section Related Observation LastModified by Organization Detai ls LastModified Time None Recorded Concern Status LastModified by Organization Details LastModified Time None Recorded Advance Directives Directive N: Payers Insurance Date Sequence Insurance Name Policy Number Policy Peoples Covered Member ID Peoples Member ID Guarantor Name 11/30/2024 1 [employer] (MEDICARE REPLACEMENT/A DVANTAGE - PPO) Leena Casper [id number] Niko Casper OBGyn Episode No OBEpisode recorded.
--- OUTSIDE RECORDS SUMMARY | 2024-12-06 09:21 | XMS_ITS | Clinical Summary ---
Author Organization [facility] Address [address] [place] [address] Care Team Providers Care Dishing Machine Operator Name Role Phone PerkinsThania Chuck SETHI Primary Care Provider [phone] Allergies Active Allergy Reactions Criticality Noted Date Comments Latex Itching Medium 06/18/2021 Medications acyclovir (Zovirax) 5 % cream 5 Active amLODIPine (Norvasc) 5 MG tablet 0 Active carvedilol (Coreg) 12.5 MG tablet 0 Active isosorbide mononitrate ER (Imdur) 60 MG 24 hr tablet TAKE 1 TABLET ONCE DAILY. 8 Active levETIRAcetam (Keppra) 1000 MG tablet TAKE 1 TABLET TWICE DAILY. 6 Active losartan (Cozaar) 100 MG tablet TAKE 1 TABLET DAILY. 5 Active montelukast (Singulair) 10 MG tablet 0 Active nitroglycerin (Nitrostat) 0.4 MG SL tablet 5 Active sertraline (Zoloft) 50 MG tablet TAKE 1 TABLET DAILY. 5 Active tiZANidine (Zanaflex) 4 MG tablet TAKE 1 TABLET 3 TIMES DAILY NEEDED. 8 Active amiodarone (Pacerone) 200 MG tablet Take by mouth 1 (one) time each day. Active pantoprazole (ProtoNix) 40 MG EC tablet Take 40 mg by mouth 1 (one) time each day before breakfast. Do not crush, chew, or split. Active potassium chloride CR (Klor-Con) 10 MEQ ER tablet Take 10 mEq by mouth 1 (one) time each day. Do not crush, chew, or split. Active rivaroxaban (Xarelto) 15 MG tablet Take by mouth. Take with food. Active traZODone (Desyrel) 100 MG tablet Take 100 mg by mouth at night if needed. 2 Active simvastatin (Zocor) 40 MG tablet Take 40 mg by mouth 1 (one) time each day in the evening. 2 Active losartan (Cozaar) 50 MG tablet Take 50 mg by mouth 1 (one) time each day. 2 Active levETIRAcetam (Keppra) 500 MG tablet Take 500 mg by mouth 2 (two) times a day. 1 Active Accu-Chek Softclix Lancets lancets USE DIRECTED EVERY DAY 1 Active ALPRAZolam (Xanax) 0.5 MG tablet TAKE ONE TABLET BY MOUTH EVERY 6 HOURS MAY CAUSE DROWSINESS 2 Active Harjit 128 5 % ophthalmic ointment instill a SMALL AMOUNT TO THE right eye EVERY DAY AT BEDTIME 2 Active Active Problems Problem Noted Date Diagnosed Date Diabetes mellitus, type 2 06/11/2021 HTN (hypertension) 06/11/2021 Seizures 06/11/2021 Asthma 06/11/2021 Antiplatelet or antithrombotic long-term use 05/2021 RHETT (obstructive sleep apnea) 06/11/2021 Atrial fibrillation 06/11/2021 High cholesterol 06/11/2021 Gastroesophageal reflux disease 06/11/2021 CVA (cerebral vascular accident) 06/11/2021 Good tolerance for activity 06/11/2021 CHF (congestive heart failure) 06/11/2021 CAD (coronary artery disease) 06/11/2021 Chronic angle-closure glaucoma of left eye, kirill re stage 04/29/2021 Profound, moderate or severe vision impairment 1 05/25/2020 History of glaucoma tube shunt procedure 021 Optic neuropathy 03/25/2021 Pseudophakia of both eyes 03/25/2021 S/P YAG capsulotomy, bilateral 03/25/2021 Epiretinal membrane 03/20/2020 Arthritis 03/20/2020 Borderline diabetes 03/20/2020 Sinus problem 03/20/2020 Other localized visual field defect, left eye Hyperopia 05/24/2019 Myopia of right eye 05/24/2019 Diabetes mellitus type 2 without retinopathy 07/2018 Epiretinal membrane (ERM) of both eyes 8 Shingles 07/20/2017 After cataract not obscuring vision 05/22/2017 Acute angle-closure glaucoma of left eye 018 Cryptogenic localization-related epilepsy 2015 Ovarian cyst, follicular 08/15/2015 Epilepsy 10/12/2014 Resolved Problems Problem Noted Date Diagnosed Date Resolved Date Afferent pupillary defect of left eye 03/25/2021 01/01/2022 Encounters Date Type Department Care Team Description 11/25/2024 Telephone [facility] [address] [facility], [address] [place] [address] Lexie Fletcher 11/04/2024 Orders Only [facility] [address] [place] [address] Sheridan Bishop CKD (chronic kidney disease) stage 4, GFR 15-29 ml/min (CMS/HCC) (Primary Dx); Vitamin D insufficiency from Last 3 Months Family History 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 Relation Name Comments Breast cancer Daughter 1 Ovarian cancer Daughter 2 Cardiac disorder Father Diabetes Father Kidney cancer Father Cardiac disorder Mother Diabetes Mother Kidney cancer Mother Stroke Other 1 Heart attack Other 2 Conversions - Other Other 3 Family h istory unknown Anesthesia problems Neg Hx Malig Hyperthermia Neg Hx Relation Name Status Comments Daughter 1 Daughter 2 Father Mother Other 1 Other 2 Other 3 Social History Tobacco Use Types Packs/Day Years Used Date Smoking Tobacco: Never Smokeless Tobacco: Never Tobacco Cessation:Counseling Given: Not Answered Alcohol Use Standard Drinks/Week Comments Never 0 (1 standard drink = 0.6 oz pur e alcohol) Comments No Sex and Gender Information Value Date Recorded Sex Assigned at Not on file Legal Sex Female 8:59 PM EDT Gender Identity Not on file Sexual Orientation Not on file Last Filed Vital Signs Vital Sign Reading Time Taken Comments Blood Pressure 159/59 06/18/2021 2:06 PM EST Pulse 69 06/18/2021 2:01 PM EST Temperature 36.3 C (97.3 F) 06/18/2021 2:01 PM EST Respiratory Rate 20 06/18/2021 2:06 PM EST Oxygen Saturation 95% 06/18/2021 2:06 PM EST Inhaled Oxygen Concentration - - Weight 79.8 kg (176 lb) 06/11/2021 8:57 AM EST p er pt. Height 152.4 cm (5') 06/11/2021 8:57 AM EST per pt. Body Mass Index 34.37 06/11/2021 8:57 AM EST Plan of Treatment Upcoming Encounters Date Type Department Care Team (Late st Contact Info) Description 12/07/2024 1:00 PM EDT [facility] [address] [facility] [place] [address] Benito Acosta MD [address] [place] [address] Health Maintenance Due Date Last Done Comments [facility]-Bone Density Scan 1945 [facility]-Depression Screening 1945 [facility]-Diabetes: Hemoglobin A1C 1945 [facility]-Hepatitis C Screening 1945 [facility]-Medicare Annual Wellness (AWV) 1945 [facility]-Infant/Child/Adol SDOH Screenings 1945 Diabetes: Dental Exam 1955 [facility]- SDOH Screenings 1963 [facility]-Adult SDOH Screenings 1963 [facility]-Pneumococcal Vaccine: 50 + Years (1 of 2 - PCV) 1964 [facility]-Zoster Vaccines (1 of 2) 1995 [facility]-RSV Vaccine: 60+ Years o r (1 - 1-dose 75+ series) 2020 [facility]-DTaP,Tdap,and Td Vaccine s (1 - Tdap) 11/26/2021 11/25/2021 [id number] Vaccine (4 - season) 2024 02/19/2022, 04/11/2021, 07/18/2020 [facility]-Influenza Vaccine (#1) 2025 03/26/2023 FIT-DNA Discontinued 12/01/2023, 02/05/2020 [facility]-Colorectal Cancer Screening Discontinued CT Colonography Discontinued Colonoscopy Discontinued FIT Discontinued FOBT Discontinued HPV Vaccines Aged Out No longer eligi ble based on patient's age to complete this topic Sigmoidoscopy Discontinued [facility]-HIB Vaccines Aged Out No longer e ligible based on patient's age to complete this topic [facility]-Hepatitis A Vaccines Aged Out No longer eligible based on patient's age to complete this topic [facility]-IPV Vaccines Aged Out No longer e ligible based on patient's age to complete this topic [facility]-Rotavirus Vaccines Aged Out No lo nger eligible based on patient's age to complete this topic Insurance [facility] MEDICARE Care Teams Dishing Machine Operator Relationship Specialty Start Date End Date Thania Perkins APRN [address] [place] [address] PCP - General 09/21/20
--- OUTSIDE RECORDS SUMMARY | 2024-12-06 09:21 | XMS_ITS | Encounter Summary ---
Author Organization [facility] ([place], [place], [place], [place]) Address [address] [place] [address] Care Team Providers Care Counter Clerk Name Role Phone Lucian Chacko MD Primary Care Provider [phone] Erlin Nash Primary Care Provider [phone] Encounter Details Date Type Department Care Team (Late st Contact Info) Description 01/10/2021 Transcribed Document [facility] Family Medicine [facility] [place] [address] ProviderCarmita MD [address] [place] [address] Social History Tobacco Use Types Packs/Day Years Used Date Smoking Tobacco: Never Assessed Comments Unknown Sex and Gender Information Value Date Recorded Sex Assigned at Not on file Legal Sex Female 1:32 PM CDT Gender Identity Not on file Sexual Orientation Not on file documented as of this encounter Miscellaneous Notes * Cerner Conversion Note - Carmita Colbert MD - 01/10/2021 2:13 PM CDT [facility] Entered On: 01/10/2021 14:14 EDT Performed On: 01/10/2021 14:13 EDT by Mary Naqvi, Practice Representative [facility] Provider Status : EST Other Established Provider Name : OTHER Patient Phone Number : [phone] Patient Insurance Type : Medicare Source of Referral : Case management Location of Patient : Case management referral Primary Care Scheduled : Not needed Specialty Care Scheduled : Yes Specialty Type Scheduled1 : Cardiology Cardiology Provider Name : GLORIA SHARP Cardiology Appointment Date/Time : 02/08/2021 11:15 EDT Qualify for Diabetes and/or Nutrition Referral : No Wound Care Appointment Made : No Why Patient Visited ED- Specialty spent : Other How Patient Arrived at ED : Other Primary Language : Pashto [facility] Comment : Cardiology follow up appointment has been made. Patient contacted and mailed appt reminder. Follow Up Needed : No Case, Mary Stanley, Practice Representative - 01/10/2021 14:13 EDT Electronically signed by [facility] Conversion Architectural Practice Manager Cerner at 08/24/2022 8:51 AM CDT documented in this encounter Plan of Treatment Not on file documented as of this encounter Visit Diagnoses Not on filedocumented in this encounter Care Teams Counter Clerk Relationship Specialty Start Date End Date Lucian Chacko MD [address] [place] [address] PCP - General Family Medicine 05/20/22 12/24/22 Erlin Nash [address] [place] [address] PCP - General 12/25/22 documented as of this encounter
--- OUTSIDE RECORDS SUMMARY | 2024-12-06 09:21 | XMS_ITS | Referral Summary ---
Author Organization [employer] ([place], [place], [place], [place]) Address [address] [place] [address] Care Team Providers Care Instructor Extension Work Name Role Phone Erlin Nash Primary Care Provider [phone] Allergies Active Allergy Reactions Criticality Noted Date [...] Date Filipe rded Speak language other than [place] at home Not on file 05/29/2023 Want [...] 08/09/2024 10:03 AM EDT Plan of Treatment Not on file Insurance [employer] MED[employer] PPO [employer] PPO Care Teams Instructor Extension Work Relationship Specialty Start Date End Date Erlin Nash [address] [place] [address] PCP - General 12/25/22
--- NOTE | 2024-12-06 09:25 | XR_ITS ---
FINAL REPORT CLINICAL HISTORY: FALLING COMPARISON: None FINDINGS: RIGHT RIBS WITH CHEST Chest: A single PA view of the chest was obtained. The heart is normal in size. The mediastinum is normal. The lungs are clear. There is no pneumothorax. Ribs: Three views demonstrate no acute displaced fracture. The visualized bony structures are well aligned. IMPRESSION: No right rib fracture, no pneumothorax. Reviewed, Interpreted and Dictated by Estrella Valadez MD Transcribed by Veronica Ward Authenticated and [facility]
--- NOTE | 2024-12-06 09:38 | XR_ITS ---
FINAL REPORT CLINICAL HISTORY: HX OF FALLS COMPARISON: None FINDINGS: An AP view of the pelvis and two views of the right hip were obtained. There is no acute osseous abnormality of the pelvis or right hip. There is degenerative joint disease of the hips bilaterally. There is no acute soft tissue abnormality. IMPRESSION: Degenerative joint disease without acute osseous abnormality of the right hip. Reviewed, Interpreted and Dictated by Estrella Valadez MD Transcribed by Veronica Ward Authenticated and [facility]
--- NOTE | 2024-12-06 09:41 | XR_ITS ---
FINAL REPORT CLINICAL HISTORY: HX OF FALLS COMPARISON: None FINDINGS: Five views of the lumbar spine were obtained. There is no acute fracture or acute malalignment. There is grade 1 anterior spondylolisthesis of L5 on S1. There is multilevel degenerative disc disease, most pronounced at L5-S1. No acute paraspinal abnormality is identified. IMPRESSION: No acute fracture. Grade 1 anterior spondylolisthesis of L5 on S1. Degenerative disc disease Reviewed, Interpreted and Dictated by Estrella Valadez MD Transcribed by Veronica Ward Authenticated and [facility]
== END 2024-12-06 23:59 | disposition home or self-care (01) ==
LOC: RAD 09:17
PROVIDERS: PCP Nurse Practitioner Family; Visit Provider Nurse Practitioner Family
DX: M43.17 Spondylolisthesis, lumbosacral region (principal); M51.369 Other intervertebral disc degeneration, lumbar region without mention of lumbar back pain or lower extremity pain; M16.11 Unilateral primary osteoarthritis, right hip; Z91.81 History of falling
CPT/HCPCS: 71101; 72110; 73502